=== PATIENT | male | born 1970 | race Caucasian/White ===

== ENCOUNTER → 2017-05-24 09:59 | Outpatient (CLI) | payer BC, SELFPAY ==
--- NOTE | 2017-05-24 10:02 | RAD_ITS ---
STUDY: X-RAY - LEFT RADIUS AND ULNA REASON FOR EXAM: Male, 46 years old. Left wrist and elbow pain. TECHNIQUE: 2 view(s) of the forearm. COMPARISON: None. FINDINGS: There is no demonstrated soft tissue swelling. Normal visualized radius. Normal visualized ulna. RAD/Forearm 2 Views IMPRESSION: No significant abnormality. Electronically Signed: Shlomo Thomson MD at 12:35 EST , Service support ,
--- NOTE | 2017-05-24 10:02 | RAD_ITS ---
STUDY: X-RAY - CERVICAL SPINE REASON FOR EXAM: Male, 46 years old. Neck pain with numbness in left hand. TECHNIQUE: 5 view(s) of the cervical spine were obtained. COMPARISON: None FINDINGS: Normal anterior atlantoaxial articulation. Normal odontoid process. Normal cervical lordosis. Normal vertebral bodies and endplates. Normal disc space heights. Normal visualized intervertebral neuroforamina. The soft tissue structures are unremarkable. RAD/Cerv Spine 4 or 5 Views IMPRESSION: No significant abnormality identified. Electronically Signed: Shlomo Thomson MD at 12:35 EST , Service support ,
== END ==
PROVIDERS: Family Provider Family Medicine; PCP Family Medicine; Visit Provider Orthopaedic Surgery
DX: M54.2 Cervicalgia (principal); M79.602 Pain in left arm
CPT/HCPCS: 72050; 73090

== ENCOUNTER 2017-05-30 10:30 | Day surgery (SDC) | payer BC, SELFPAY ==
[2017-05-30 11:01] VITALS: BP 130/80; PULSE 95; RESP 16; TEMP 36.3; O2SAT 100; BMI 31.8
[2017-05-30 11:26] LABS: Bedside Glucose 252 mg/dL (70-110)
[2017-05-30] MEDS: Bupivacaine 0.25% 30 ML Vial (13:17)
[2017-05-30] MEDS: Triamcinolone Acetonide 40 MG/ML Vial (13:17)
[2017-05-30] MEDS: Mupirocin Ointment 22gm Tube 1 APPLIC (13:18)
[2017-05-30] MEDS: Cefazolin 2 GM in 0.9% Normal Saline 100 ML IV (13:27)
--- NOTE | 2017-05-30 14:03 | PCM.DC.ORTHO ---
Discharge Diet: No Restrictions - leave dressing cdi, call with concerns, follow up in 2 weeks Discharge Activity: May Not Drive May shower in (days): 1 Ice area for (Minutes): 20 - Every hour while awake. Weight Bearing Status: Weight bearing as tolerated Keep extremity elevated above heart level: Operative Extremity Call your doctor if your incision/area has: Continuous Slow Oozing, Sudden Increased Bleeding, Increased Pain/ Swelling, Increased Redness, Foul Smelling Discharge Call your doctor if you observe: Fever of 101 or Higher, Coldness, Increased Pain, Numbness or Tingling, Change in Color, Calf discomfort Allergies/Adverse Reactions: Allergies No Known Allergies Allergy (Verified 05/28/17 09:15) Medications to take at Discharge dulaglutide 1.5 mg/0.5 mL subcutaneous pen injector 1.5 mg SC TH 05/24/17 losartan 50 mg tablet 50 mg PO QDAY 05/24/17 metformin 1,000 mg tablet 1,000 mg PO BID 05/24/17 Cholecalciferol (Vitamin D3) [Vitamin D3] 5,000 unit PO DAILY 05/28/17 Cyanocobalamin (Vitamin B-12) [Vitamin B-12] 1,000 mcg PO DAILY 05/28/17 Fluoxetine HCl 40 mg PO DAILY 05/28/17 Insulin Lispro Protamin/Lispro [Humalog Mix 75-25 Vial] 35 unit SQ DINNER 05/28/17 Insulin Lispro Protamin/Lispro [Humalog Mix 75-25 Vial] 40 unit SQ LUNCH 05/28/17 Insulin Lispro Protamin/Lispro [Humalog Mix 75-25 Vial] 50 units SQ BREAKFAST 05/28/17 Multivit-Min/Iron Fum/Folic AC [Hunko-Xoueodp-Spfatlpl Tablet] 2 each PO DAILY 05/28/17 Nitrofurantoin Macrocrystal [Nitrofurantoin] 100 mg PO DAILY 05/28/17 Oxycodone HCl/Acetaminophen [Percocet 5/325] 1 - 2 tablet PO Q6H PRN PRN 3 Days #20 tablet 05/30/17 The following prescriptions were given: Oxycodone HCl/Acetaminophen [Percocet 5/325] 1 - 2 tablet PO Q6H PRN PRN 3 Days #20 tablet PRN Reason: Pain Primary Care Physician: Talia Boyd MD [Primary Care Provider] - Please Follow Up With: Lynette Christie, DO - [phone]
--- NOTE | 2017-05-30 14:06 | OP.PCM_ITS ---
Report of Operation Date of Procedure: 05/30/17 Pre-Operative Diagnosis: bilateral carpal tunnel syndrome Post-Operative Diagnosis: same Surgery/Procedure Performed:: left ctr, right ct injection Type of Anesthesia:: Jake Blanca Anesthesiologist: Dilan Hernandez Estimated Blood Loss (mL): none Fluids Replaced: 600cc lr Description of Procedure: Preoperative note Patient is a 46 yo male patient with nerve conduction study confirming bilateral carpal tunnel syndrome. Patient failed conservative treatment for carpal tunnel elected proceed with left carpal tunnel release and right carpal tunnel injection Risks benefits and alternatives surgery discussed with patient. Risks including but not limited to blood loss, blood clot, infection, neurovascular injury, failure procedure, loss of life and loss of limb. Patient is aware like proceed with left carpal tunnel release. Operative note Patient seen and examined preoperative holding area. Left hand was marked. History and physical and consent reviewed. Patient was brought to the operating room placed supine on the operating table. Sign in, anesthesia, antibiotics were administered. Left upper extremity was prepped and draped after Jake block was initiated. All bony prominences well-padded SCDs placed on bilateral lower extremities. We marked out our incisions for our carpal tunnel release at the intersection of Tristan's line in the fourth ray flexed. We extended about a centimeter and a half. Timeout was performed. We then checked ensure that the Jake block was working with pickups which it was. We then used a 15 blade to make a skin incision. We then dissected down tenotomy syllable of the transverse carpal ligament. We then used a new 15 blade cut through the transverse carpal ligament down to the level of the median nerve. We then further released the median nerve the combination of the 15 blade and tenotomies. The nerve was grayish in color and adherent to the transverse carpal ligament volarly. We released the transverse carpal ligament distally to the fat pad and then proximally under standard technique. We then palpated to ensure that we released all of the transverse carpal ligament which we did. We irrigated the incision with copious amounts of sterile saline. All bleeders were coagulated. The incision was closed with interrupted 4-0 nylon stitches. Tourniquet was deflated for total working time of 7 minutes. Under sterile conditions we then injected the right carpal tunnel with 1 cc bupivacaine quarter percent and 1/2 cc Kenalog . patient tolerated procedure well there were no complications. Patient transferred to recovery room in stable condition. Postoperative note Hospital pharmacy has prescription Leave dressing clean dry and intact Follow-up in 2 weeks Call with concerns This note was generated with [employer] dictation software. It may contain incorrect words, spelling, and punctuation that were not noted in checking the note before signing.
[2017-05-30 14:08] VITALS: BP 130/80; BP 136/79; PULSE 95; RESP 16; TEMP 36.6; O2SAT 92
[2017-05-30 14:15] VITALS: BP 130/80; BP 136/90; PULSE 95; RESP 16; O2SAT 92
[2017-05-30 14:20] VITALS: BP 128/90; BP 130/80; PULSE 85; RESP 16; O2SAT 93
[2017-05-30 14:25] VITALS: BP 130/80; BP 131/89; PULSE 82; RESP 16; TEMP 36.6; O2SAT 95
[2017-05-30 15:02] VITALS: BP 130/80
== END 2017-05-30 15:36 | disposition home or self-care (01) ==
LOC: SDC 10:31 → AC 10:33
PROVIDERS: Family Provider Family Medicine; PCP Family Medicine; Visit Provider Orthopaedic Surgery
PROC: (CPT 64721; principal; 2017-05-30 12:00)
DX: G56.03 Carpal tunnel syndrome, bilateral upper limbs (principal); M77.12 Lateral epicondylitis, left elbow; M54.2 Cervicalgia; I10 Essential (primary) hypertension; E11.9 Type 2 diabetes mellitus without complications; Z79.4 Long term (current) use of insulin; F17.200 Nicotine dependence, unspecified, uncomplicated
CPT/HCPCS: 01810; 20526; 64721; 82962; J7120; J2405

== ENCOUNTER → 2017-06-19 13:44 | Outpatient (CLI) | payer BC, SELFPAY | PROVIDERS: PCP Family Medicine; Visit Provider Orthopaedic Surgery | DX: G56.02 Carpal tunnel syndrome, left upper limb (principal) | CPT/HCPCS: 87070; 87075; 87077; 87205 ==

== ENCOUNTER 2017-07-13 15:30 | Outpatient (RCR) | payer BC, SELFPAY ==
--- NOTE | 2017-06-28 12:25 | HP.OTEVAL_ITS ---
Patient's Visit Information DEEPA RUFFIN is a 47 year old M, referred to Occupational Therapy by Lynette Christie DO,, with a diagnosis of left CTS. Date of Evaluation: 06/27/17 Occupational Therapist: Tess Lopez, PATRICIAR/Callie, CHT - Subjective Subjective: pt had left CTR on . pt state he had CTS for a while and had left release done- the tingling and numbness did resolve following sx. pt did have complications of the incision opening following stitch removal- pt states this happend 2 times-pt ist to return to work in July. pt works at [employer] and needs to be able to lift and move increased wt. 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 with pts performance of BADLS and IADLS by D/c Goal:: pt will report pain no greater than 1/10 with use of left hand for BADLs , IADls and simulated work tasks by d/c Goal:: pt will demo understanding of scar mtg by end of 3rd session - Rehabilitation General Assessment: pt s/p CTR left hand with complication of slow incision healing. pt demo need for skilled OT services 2-3x week for 4 weeks to aide in wound healing, scar mtg and PRE to return pt to PLOF Rehabilitation Potential: Excellent - Anticipated Interventions Anticipated Interventions: A/AAROM/PROM, Strengthening, Scar Care, Triggerpoint Release, Desensitization, Wound Care, Modalities, Orthoses - Visit Plan Frequency: 2-3x /Week Duration: 4 Weeks General Plan: pt will be seen in OT for wound care and progress pt to scar mtg and PRE as wound closes and heals. TEXT: Thank you for the opportunity to evaluate your patient. For Medicare and Medicare HMO plans, please review the plan of care and approve it. It will need to be FAXED BACK to us at [phone] for Medicare purposes. Please let me know if there are questions or concerns regarding this plan of care. Physician Signature: Date:
--- NOTE | 2017-08-21 13:49 | HP.OTDCSUM ---
HP - OT D/C Summary It has been my pleasure to treat DEEPA RUFFIN under orders from Lynette Christie DO, for the diagnosis of left CTS for a total of 8 visit(s). Please see the following information for a summary of their discharge status. 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 with pts performance of BADLS and IADLS by D/c Goal:: pt will report pain no greater than 1/10 with use of left hand for BADLs, IADls and simulated work tasks by d/c Goal:: pt will demo understanding of scar mtg by end of 3rd session - Plan Plan: last visit - D/C Information If there are questions or concerns regarding this patient's occupational therapy, please fell free to call me at [phone]. Thank you for the referral of this patient. Sincerely, Tess Lopez, OTR/L, CHT
== END 2017-07-13 19:00 | disposition home or self-care (01) ==
LOC: OT 15:30
PROVIDERS: Family Provider Family Medicine; PCP Family Medicine; Visit Provider Orthopaedic Surgery
DX: G56.02 Carpal tunnel syndrome, left upper limb (principal)
CPT/HCPCS: 97035; 97110; 97140; 97166; 97530

== ENCOUNTER 2018-02-07 22:06 | Emergency (ER) | payer BC, SELFPAY ==
[2018-02-07 22:07] VITALS: BP 159/91; PULSE 105; RESP 18; TEMP 36.2; O2SAT 99; BMI 31.0
[2018-02-07] MEDS: Ondansetron 4 MG/2 ML Vial IV (23:01)
[2018-02-07] MEDS: Morphine 4 MG/ML Syringe 6 MG IV (23:01)
[2018-02-07] MEDS: Ketorolac 15 MG/ML Vial IV (23:01)
[2018-02-07] MEDS: diazePAM 5 MG Tablet PO (23:01)
[2018-02-08 00:14] VITALS: BP 150/95; PULSE 104; RESP 18; O2SAT 95
[2018-02-08] MEDS: morphine 8 MG/ML Syringe 6 MG IV (00:15)
--- NOTE | 2018-02-08 00:57 | ED.RN ---
pt attempted to ambulate. pt able to stand but unable to bear weight on right leg. pt assisted back into bed by this rn. dr. owens informed. will continue to monitor.
[2018-02-08 01:00] VITALS: BP 150/102; PULSE 104; RESP 15; O2SAT 94
[2018-02-08] MEDS: morphine 8 MG/ML Syringe IV (01:03)
[2018-02-08 01:23] VITALS: BP 118/78; PULSE 57; RESP 17; O2SAT 98
--- NOTE | 2018-02-08 01:46 | ED.VISSUMM ---
- ER Visit Summary Date of Service: 02/08/18 Chief Complaint: Low back pain that started 2-3 weeks ago. History of Present Illness: The patient is a 47 M who presents with low back pain that has gotten worse over the past 2-3 weeks. Pain started 2 3 weeks ago after lifting. No history of direct trauma. He denies bowel or bladder dysfunction. He denies saddle paresthesia or anesthesia. He complains of pain radiating anteriorly. He also complains of pain rating to both testicles and buttocks. He states he has a foot drop. He complains of pain in his quadricep muscles going up and down steps but not weakness. He denies numbness or tingling in the perineal region. He denies bowel or bladder dysfunction. He denies fever, chills or night sweats. There is no history of direct trauma. He denies dysuria, frequency, urgency or hematuria. Pain is worse with movement. Past medical history type 2 diabetes, atonic bladder. Physical Examination: Vital signs noted. He is not febrile. HEENT is grossly unremarkable. Heart is regular without murmur, gallop or rub. S1 and S2 are normal. Lungs are clear to auscultation with good movement of air bilaterally. Abdomen soft nontender with no palpable pulsatile mass. There is no abdominal bruit. There is pain palpation low back. Straight leg test and crossover test are negative. He did complain of pain in the right buttocks at 45 degrees. Bowstring sign was negative. EHL is intact. Able to plantar and dorsiflex against resistance. DP and PT pulses are palpable and 2+. Patella and ankle reflex are 2+. There is no clonus or Babinski sign. Initially patient was not able to roll over and get out of bed. He was initially medicated with morphine sulfate, Toradol and p.o. Valium. He was reassessed at 2351. Since he was not able to rule out of bed he was given additional dose of medication. At 1255 he was able to sit up but not apply any weight or pressure on the right foot. He received additional dose of morphine. Patient was able to ambulate and there is no foot drop. This is assessment was at 0145. Test Results: Radiologic imaging is not indicated since the pain is less than 6 weeks duration, patient is under the age of 50 and he has no constitutional symptoms or symptoms that are concerning. Emergency Department Course and Treatment: Patient had an IV established required multiple doses of medication which included Toradol, Valium p.o. and multiple doses of morphine. Treatment Plan: Prescription for Percocet and Valium Disposition: Discharge to home with spouse in improved and stable condition Impression: Acute bilateral low back pain without sciatica This note was generated with [employer] dictation software. It may contain incorrect words, spelling, and punctuation that were not noted in review of the chart prior to signing ED Disposition - Plan for ED Patient: Disposition: Home or Assisted Living Chief Complaint: Back Instructions: ED Sprain Strain Lumbar Prescriptions: Oxycodone HCl/Acetaminophen [Percocet 5/325] 1 tablet PO Q6H PRN PRN 3 Days #12 tablet PRN Reason: Pain Diazepam [Valium] 5 mg PO Q8 PRN 3 Days #10 tablet PRN Reason: Pain Referrals: Talia Boyd MD [Primary Care Provider] - Additional Instructions: Your prescriptions were electronically transmitted to [facility] pharmacy located in [facility].
[2018-02-08 02:25] VITALS: BP 136/74; PULSE 81; RESP 20; O2SAT 97
--- NOTE | 2018-02-08 02:26 | ED.RN ---
THIS NURSE REVIEWED D/C INSTRUCTIONS WITH PT. PT VERBALIZED UNDERSTANDING OF INSTRUCTIONS. IV D/C. IV CATHETER INTACT. PT TOLERATED WELL. PT ASSISTED TO VEHICLE VIA W/C. PT DENIES FURTHER NEEDS OR QUESTIONS AT THIS TIME.
== END 2018-02-08 02:27 | disposition home or self-care (01) ==
PROVIDERS: Emergency Provider Emergency Medicine; Family Provider Family Medicine; PCP Family Medicine
DX: M54.5 Low back pain (principal); E11.9 Type 2 diabetes mellitus without complications; N31.2 Flaccid neuropathic bladder, not elsewhere classified; Z87.891 Personal history of nicotine dependence
CPT/HCPCS: 99283; A4216; J2405

== ENCOUNTER 2018-02-10 12:19 | Emergency (ER) | payer BC, SELFPAY ==
[2018-02-10 12:19] VITALS: BP 131/76; PULSE 108; RESP 18; TEMP 36.5; O2SAT 98; BMI 31.1
[2018-02-10 12:30] LABS: Bedside Glucose > 500 mg/dL (70-110)
[2018-02-10] MEDS: 0.9% Normal Saline 1,000 ML 1000 ML IV ×2 (12:57)
[2018-02-10 13:04] LABS: Mucous, Urine 0 SEEN /hpf (<or=2+); Red Blood Cells-Urine 0 SEEN /hpf (0-5); Squamous Epithelial Cells - UA 0 SEEN /hpf (0-5); White Blood Cells 0 SEEN /hpf (0-5)
[2018-02-10 13:05] LABS: Absolute Lymphocyte Count 1.77 X10^3/ul (0.83-4.51); Absolute Neutrophil Count 5.2 X10^3/uL (2.0-7.7); Anion Gap 8 (5-15); BUN 14 mg/dL (7-18); BUN/Creat Ratio 13.5 RATIO (10-20); Basophil# 0.01 X10^3/uL; Basophil% 0.1 % (0-1); Calcium,Total 9.3 mg/dL (8.5-10.1); Chloride 93 mmol/L (98-107); Creatinine, Serum 1.04 mg/dL (0.70-1.30); EST Glomerular Filtration Rate 82 mL/min (>60); Eosinophil# 0.11 X10^3/uL; Eosinophils% 1.5 % (0-5); Est Glom Filt Rate - Afr Amer 99 mL/min (>60); Estimated Creatinine Clearance 88.75 ml/min; Glucose 511 mg/dL (74-106); Hematocrit 45.8 % (40-54); Hemoglobin 15.4 g/dl (13.0-16.5); Lymphocyte # 1.77 X10^3/ul (4.0); Lymphocyte % 23.8 % (19-41); Mean Corp Hgb Conc 33.6 g/gl (32-36); Mean Corpuscular Hgb 29.2 pg (27.0-32.0); Mean Corpuscular Volume 86.7 fL (80-94); Mean Platelet Vol. 9.9 fl (6.2-12.0); Monocyte% 5.4 % (0-10); Neutrophil # 5.15 X10^3/uL (2.7-7.7); Neutrophil % 69.1 % (47-70); Platelet Count 258 K/mm3 (150-450); Potassium 4.2 mmol/L (3.5-5.1); RBC Distribution Width CV 12.6 % (11.6-14.6); RBC Distribution Width SD 40.1 fl (35.1-43.9); Red Blood Count 5.28 M/mm3 (4.6-6.2); Sodium Level 128 mmol/L (136-145); White Blood Count 7.5 K/mm3 (4.4-11.0)
--- NOTE | 2018-02-10 13:05 | ED.RN ---
LAB CALLS WITH CRITICAL RESULT, BGL 511 MG/DL, DR. CEDENO MADE AWARE.
[2018-02-10 13:06] LABS: POSITIVE COUNT NO; POSITIVE DIFFERENTIAL NO; POSITIVE MORPHOLOGY NO
[2018-02-10 13:07] LABS: Color, Urine Yellow (Yellow); Glucose, Dipstick 1000 mg/dl (Normal); Ketone-Dipstick 50 mg/dl (Negative); Leukocyte Esterase-Dipstick Negative /ul (Negative); Nitrite-Dipstick Negative (Negative); Occult Blood-Urine 10 /ul (Negative); Protein-Dipstick Negative (Negative); Specific Gravity, Urine 1.015 (1.002-1.030); Urine Bilirubin Dipstick Negative (Negative); Urine Clarity Clear (Clear); Urine Urobilinogen Normal (Normal)
[2018-02-10 13:17] LABS: Bacteria RARE /hpf (None Seen)
--- NOTE | 2018-02-10 13:30 | ED.VISSUMM ---
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 He reports that his community service specialist was trying to switch him from Humalog 75/25 to U500. He states that he ran out of the Humalog 3 days ago and has not received the other insulin through [facility] yet. States his blood sugar around 300-500 the past few days and it was over 600 today. He is continue to take his metformin as scheduled. He took his weekly dose of Trulicity this morning. Review of systems: General: No fever, chills, cold sweats. Cardiovascular: No chest pain, palpitations. Respiratory: No cough, shortness of breath, dyspnea on exertion. Gastrointestinal: No abdominal pain, nausea, vomiting, diarrhea, melena, or hematochezia. Genitourinary: No dysuria, frequency, hematuria. Skin: No rash. Neuro: No headache, numbness, weakness. Physical Examination: Vitals: Stable. Afebrile. General: Well-nourished and well-developed. Head: Normocephalic atraumatic. Neck: Supple, no lymphadenopathy. No JVD. Nontender. Cardiovascular: Regular rate and rhythm. No murmurs. Respiratory: No respiratory distress. Clear to auscultation bilaterally. Abdominal: Soft, nontender, nondistended, normal bowel sounds. No guarding, rebound, or peritoneal signs. Back: Nontender. Extremities: Nontender, no edema. Skin: Normal color, no rash. Neurologic: Alert and oriented ?3. Cranial nerves II through XII are intact. Normal strength and sensation. Psych: Normal affect. Test Results: CBC is normal. Chem-7 is remarkable for a sodium of 128 however this is 138 when corrected for his glucose of 511. UA is negative. Emergency Department Course and Treatment: Patient was given his normal dose of Humalog 75/25 subcu and will be discharged with this syringe and a prescription for this. However, I do not believe that this will bring his sugar back down into the normal range. I had a prolonged discussion with him about sliding scale insulin and we have chosen to give him half of the dose that you would receive typically for a sugar of 511. He was given 6 units of lispro subcu. Treatment Plan: Patient will be discharged instructions to resume his Humalog as previously directed. Check his sugar tomorrow and follow-up with his community service specialist about further treatment of his diabetes while he waits for the U500. Return to the emergency department for any worsening symptoms. Disposition: To home in improved and stable condition. Impression: 1. Hyperglycemia with history of amv-xhutmeq-rzcqzxsni diabetes mellitus. This note was generated with [employer] dictation software. It may contain incorrect words, spelling, and punctuation that were not noted in review of the chart prior to signing ED Disposition - Plan for ED Patient: Chief Complaint: Hyperglycemia Instructions: ED Hyperglycemia Diabetic Prescriptions: Insulin Human 75/25 [Humalog Mix 75-25 Kwikpen] See Protocol SQ TID 7 Days #1 ml Referrals: Talia Boyd MD [Primary Care Provider] -
--- NOTE | 2018-02-10 13:38 | ED.DCSUM_ITS ---
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 He reports that his infusion pharmacist was trying to switch him from Humalog 75/25 to U500. He states that he ran out of the Humalog 3 days ago and has not received the other insulin through [facility] yet. States his blood sugar around 300-500 the past few days and it was over 600 today. He is continue to take his metformin as scheduled. He took his weekly dose of Trulicity this morning. Review of systems: General: No fever, chills, cold sweats. Cardiovascular: No chest pain, palpitations. Respiratory: No cough, shortness of breath, dyspnea on exertion. Gastrointestinal: No abdominal pain, nausea, vomiting, diarrhea, melena, or hematochezia. Genitourinary: No dysuria, frequency, hematuria. Skin: No rash. Neuro: No headache, numbness, weakness. Physical Examination: Vitals: Stable. Afebrile. General: Well-nourished and well-developed. Head: Normocephalic atraumatic. Neck: Supple, no lymphadenopathy. No JVD. Nontender. Cardiovascular: Regular rate and rhythm. No murmurs. Respiratory: No respiratory distress. Clear to auscultation bilaterally. Abdominal: Soft, nontender, nondistended, normal bowel sounds. No guarding, rebound, or peritoneal signs. Back: Nontender. Extremities: Nontender, no edema. Skin: Normal color, no rash. Neurologic: Alert and oriented ?3. Cranial nerves II through XII are intact. Normal strength and sensation. Psych: Normal affect. Test Results: CBC is normal. Chem-7 is remarkable for a sodium of 128 however t his is 138 when corrected for his glucose of 511. UA is negative. Emergency Department Course and Treatment: Patient was given his normal dose of Humalog 75/25 subcu and will be discharged with this syringe and a prescription for this. However, I do not believe that this will bring his sugar back down into the normal range. I had a prolonged discussion with him about sliding scale insulin and we have chosen to give him half of the dose that you would receive typically for a sugar of 511. He was given 6 units of lispro subcu. Treatment Plan: Patient will be discharged instructions to resume his Humalog as previously directed. Check his sugar tomorrow and follow-up with his infusion pharmacist about further treatment of his diabetes while he waits for the U500. Return to the emergency department for any worsening symptoms. Disposition: To home in improved and stable condition. Impression: 1. Hyperglycemia with history of gxx-fcuwgar-xvlkbgtuq diabetes mellitus. This note was generated with [employer] dictation software. It may contain incorrect words, spelling, and punctuation that were not noted in review of the chart prior to signing ED Disposition - Plan for ED Patient: Chief Complaint: Hyperglycemia Instructions: ED Hyperglycemia Diabetic Prescriptions: Insulin Human 75/25 [Humalog Mix 75-25 Kwikpen] See Protocol SQ TID 7 Days #1 ml Referrals: Talia Boyd MD [Primary Care Provider] -
[2018-02-10] MEDS: Insulin Human 75/25 Kwickpen 75 UNIT SC (13:59)
[2018-02-10] MEDS: Insulin Lispro 100 UNIT/ML INSULN.PEN 6 UNIT SC (14:00)
[2018-02-10 14:08] VITALS: BP 142/89; PULSE 97; RESP 17; O2SAT 98
--- NOTE | 2018-02-10 14:08 | ED.RN ---
IV DC'ED, CATHETER INTACT, SMALL GAUZE DRESSING PLACED. DISCHARGE INSTRUCTIONS GIVEN TO AND REVIEWED WITH PATIENT, PATIENT DENIES QUESTIONS OR CONCERNS AND VOICES UNDERSTANDING OF DISCHARGE INSTRUCTIONS. PT AMBULATES OUT OF ROOM WITHOUT DIFFICULTY.
== END 2018-02-10 14:09 | disposition home or self-care (01) ==
LOC: ED 13:06
PROVIDERS: Emergency Provider Emergency Medicine; Family Provider Family Medicine; PCP Family Medicine
DX: E11.65 Type 2 diabetes mellitus with hyperglycemia (principal); N31.2 Flaccid neuropathic bladder, not elsewhere classified
CPT/HCPCS: 80048; 81001; 82962; 85025; 96360; 96361; 99283; J7030

== ENCOUNTER → 2018-02-14 08:22 | Outpatient (CLI) | payer BC, SELFPAY ==
--- NOTE | 2018-02-14 08:23 | RAD_ITS ---
STUDY: X-RAY - RIGHT HAND REASON FOR EXAM: Male, 47 years old. Right hand and wrist pain TECHNIQUE: 3 view(s) of the hand. COMPARISON: None. FINDINGS: Normal radiocarpal articulation. Normal distal radioulnar joint. Normal visualized carpal bones. Normal carpal articulations Normal carpometacarpal articulation of the thumb. Normal second through fifth carpometacarpal joints. Normal metacarpi. Normal metacarpophalangeal joint of the thumb. Normal interphalangeal joint of the thumb. Normal proximal and distal phalanges of the thumb. Normal metacarpophalangeal joints of the second through fifth fingers. Normal proximal and distal interphalangeal joints of the second through fifth fingers. Normal phalanges of the second through fifth fingers. The soft tissue structures are unremarkable. RAD/Hand Min 3 Views IMPRESSION: Normal x-ray examination of the hand. Electronically Signed: Mariano Gallegos DO at 7:27 EST Tel , Service support ,
== END ==
PROVIDERS: Family Provider Family Medicine; PCP Family Medicine; Referring Provider Orthopaedic Surgery; Visit Provider Orthopaedic Surgery
DX: M79.641 Pain in right hand (principal)
CPT/HCPCS: 73130

== ENCOUNTER 2018-03-06 14:06 | Day surgery (SDC) | payer BC, SELFPAY ==
[2018-03-06] VITALS (7 sets, daily range): BP systolic 144–172; BP diastolic 90–102; PULSE 99–103; RESP 16–18; TEMP 36.3–36.7; O2SAT 94–97; BMI 30.2
[2018-03-06 14:15] LABS: Bedside Glucose 73 mg/dL (70-110)
[2018-03-06 14:50] LABS: Bedside Glucose 161 mg/dL (70-110)
[2018-03-06 16:00] LABS: Bedside Glucose 71 mg/dL (70-110)
[2018-03-06] MEDS: Cefazolin 2 GM in 0.9% Normal Saline 100 ML IV (16:45)
[2018-03-06] MEDS: Mupirocin Ointment 22gm Tube 1 APPLIC (17:19)
--- NOTE | 2018-03-06 17:27 | DCINST_ITS ---
Discharge Diet: No Restrictions - keep dressing in place and clean and dry until postop visit in 2 weeks Discharge Activity: May Not Drive May shower in (days): 1 Ice area for (Minutes): 20 - Every hour while awake. Weight Bearing Status: Weight bearing as tolerated Keep extremity elevated above heart level: Operative Extremity Call your doctor if your incision/area has: Continuous Slow Oozing, Sudden Increased Bleeding, Increased Pain/ Swelling, Increased Redness, Foul Smelling Discharge Call your doctor if you observe: Fever of 101 or Higher, Coldness, Increased Pain, Numbness or Tingling, Change in Color, Calf discomfort Allergies/Adverse Reactions: Allergies No Known Allergies Allergy (Verified 03/04/18 13:55) Medications to take at Discharge dulaglutide 1.5 mg/0.5 mL subcutaneous pen injector 1.5 mg SC COWART 05/24/17 losartan 50 mg tablet 50 mg PO DAILY 05/24/17 metformin 1,000 mg tablet 1,000 mg PO BID 05/24/17 Cholecalciferol (Vitamin D3) [Vitamin D3] 5,000 unit PO DAILY 05/28/17 Cyanocobalamin (Vitamin B-12) [Vitamin B-12] 1,000 mcg PO DAILY 05/28/17 Multivit-Min/Iron Fum/Folic AC [Ikwpk-Seeplcf-Xpthflfa Tablet] 2 ea PO DAILY 05/28/17 Nitrofurantoin Macrocrystal [Nitrofurantoin] 100 mg PO DAILY 05/28/17 Cyclobenzaprine [Flexeril] 10 mg PO TID PRN PRN 02/07/18 Duloxetine HCl 60 mg PO DAILY 02/07/18 Insulin Regular, Human [Humulin R U-500 Kwikpen] 30 unit SQ BID 03/04/18 Insulin Regular, Human [Humulin R U-500 Kwikpen] 85 unit SQ DAILY 03/04/18 Acetaminophen/Codeine #3 [Tylenol #3 Tablet] 1 - 2 tablet PO Q6H PRN PRN #30 tablet 03/06/18 The following prescriptions were given: Acetaminophen/Codeine #3 [Tylenol #3 Tablet] 1 - 2 tablet PO Q6H PRN PRN #30 tablet PRN Reason: Pain Primary Care Physician: Talia Boyd MD [Primary Care Provider] - Test Results: Test results from this visit will be discussed in further detail at your follow- up appointment, if applicable. Please Follow Up With: Lynette Christie, DO - [phone]
--- NOTE | 2018-03-06 17:28 | OP.PCM_ITS ---
Report of Operation Date of Procedure: 03/06/18 Pre-Operative Diagnosis: right carpal tunnel syndrome Post-Operative Diagnosis: same Surgery/Procedure Performed:: right carpal tunnel release Type of Anesthesia:: Jake Blanca, Local Anesthesiologist: Roberto Prater Estimated Blood Loss (mL): none Fluids Replaced: 500ml lr Description of Procedure: Preoperative note Patient is a 47 year old patient with nerve conduction study confirming carpal tunnel syndrome. Patient failed conservative treatment for carpal tunnel elected proceed with right carpal tunnel release ashaving weakness and increased pain despite conservative treatment. Risks benefits and alternatives surgery discussed with patient. Risks including but not limited to blood loss, blood clot, infection, neurovascular injury, failure procedure, loss of life and loss of limb. Patient is aware like proceed with right carpal tunnel release. Operative note Patient seen and examined preoperative holding area. right hand was marked. History and physical and consent reviewed. Patient was brought to the operating room placed supine on the operating table. Sign in, anesthesia, antibiotics were administered. right upper extremity was prepped and draped after Jake block was initiated. All bony prominences well-padded SCDs placed on bilateral lower extremities. We marked out our incisions for our carpal tunnel release at the intersection of Tristan's line in the fourth ray flexed. We extended about a centimeter and a half. Timeout was performed. We then checked ensure that the [place] block was working with pickups which it was not so we performed a local block of 10cc 1% lidocaine. We then used a 15 blade to make a skin incision. We then dissected down tenotomy syllable of the transverse carpal ligament. We then used a new 15 blade cut through the transverse carpal ligament down to the level of the median nerve. We then further released the median nerve the combination of the 15 blade and tenotomies. The nerve was grayish in color and adherent to the transverse carpal ligament volarly. We released the transverse carpal ligament distally to the fat pad and then proximally under standard technique. We then palpated to ensure that we released all of the transverse carpal ligament which we did. We irrigated the incision with copious amounts of sterile saline. All bleeders were coagulated. The incision was closed with interrupted 4-0 nylon stitches. Tourniquet was deflated for total working time of 10 minutes. Patient tolerated procedure well there were no complications. Patient transferred to recovery room in stable condition. Postoperative note Hospital pharmacy has prescription Leave dressing clean dry and intact Follow-up in 2 weeks Call with concerns This note was generated with [employer] dictation software. It may contain incorrect words, spelling, and punctuation that were not noted in checking the note before signing
--- OUTSIDE RECORDS SUMMARY | 2018-05-01 23:48 | XMS RPT_ITS ---
:1970 Author Organization OHIP Support Name Relationship Address Phone AIXA RUFFIN Unavailable [address] + [place] [address] FRILA Unavailable [address] + [place] [address] ALICIA STERN Unavailable [address] + [place] [address] AIXA RUFFIN Unavailable [address] + [place] [address] FRILA Unavailable [address] + [place] [address] ALICIA STERN Unavailable [address] + [place] [address] AIXA RUFFIN Unavailable [address] + [place] [address] FRILA Unavailable [address] + [place] [address] ALICIA STERN Unavailable [address] + [place] [address] AIXA RUFFIN Unavailable [address] + [place] [address] FRILA Unavailable [address] + [place] [address] ALICIA STERN Unavailable [address] + [place] [address] AIXA RUFFIN Unavailable [address] + [place] [address] FRILA Unavailable [address] + [place] [address] ALICIA STERN Unavailable [address] + [place] [address] AIXA RUFFIN Unavailable [address] + [place] [address] FRILA Unavailable [address] + [place] [address] ALIICA STERN Unavailable [address] + [place] [address] AUGUSTINKENNY CASTELAN Unavailable [address] + [place] [address] AIXA RUFFIN Unavailable [address] + [place] [address] FRILA Unavailable [address] + [place] [address] AUGUSTINKENNY CASTELAN Unavailable [address] + [place] [address] AIXA RUFFIN Unavailable [address] + [place] [address] FRILA Unavailable [address] + [place] [address] AUGUSTINKENNY CASTELAN Unavailable [address] + [place] [address] AIXA RUFFIN Unavailable [address] + [place] [address] FRILA Unavailable [address] + [place] [address] AUGUSTINKENNY Unavailable [address] + [place] [address] AIXA RUFFIN Unavailable [address] + [place] [address] FRILA Unavailable [address] + [place] [address] AUGUSTINKENNY Unavailable [address] + [place] [address] AIXA RUFFIN Unavailable [address] + [place] [address] FRILA Unavailable [address] + [place] [address] AUGUSTIN KENNY Unavailable [address] + [place] [address] AIXA RUFFIN Unavailable [address] + [place] [address] FRILA Unavailable [address] + [place] [address] KENNY RUFFIN Unavailable [address] + [place] [address] AIXA RUFFIN Unavailable [address] + [place] [address] FRILA Unavailable [address] + [place] [address] KENNY RUFFIN Unavailable [address] + [place] [address] AIXA RUFFIN Unavailable [address] + [place] [address] FRILA Unavailable [address] + [place] [address] AUGUSTINKENNY CASTELAN Unavailable [address] + [place] [address] AIXA RUFFIN Unavailable [address] + [place] [address] FRILA Unavailable [address] + [place] [address] AUGUSTINKENNY CASTELAN Unavailable [address] + [place] [address] AIXA RUFFIN Unavailable [address] + [place] [address] FRILA Unavailable [address] + [place] [address] AUGUSTINKENNY THOMPSON Unavailable [address] + [place] [address] AIXA RUFFIN Unavailable [address] + [place] [address] FRILA Unavailable [address] + [place] [address] AUGUSTINKENNY CASTELAN Unavailable [address] + [place] [address] AIXA RUFFIN Unavailable [address] + [place] [address] FRILA Unavailable [address] + [place] [address] AUGUSTINKENNY CASTELAN Unavailable [address] + [place] [address] AIXA RUFFIN Unavailable [address] + [place] [address] FRILA Unavailable [address] + [place] [address] KENNY RUFFIN Unavailable [address] + [place] [address] AIXA RUFFIN Unavailable [address] + [place] [address] FRILA Unavailable [address] + [place] [address] AUGUSTINKENNY CASTELAN Unavailable [address] + [place] [address] AIXA RUFFIN Unavailable [address] + [place] [address] FRILA Unavailable [address] + [place] [address] AUGUSTINKENNY Unavailable [address] + [place] [address] AIXA RUFFIN Unavailable [address] + [place] [address] FRILA Unavailable [address] + [place] [address] AUGUSTINKENYN CASTELAN Unavailable [address] + [place] [address] AIXA RUFFIN Unavailable [address] + [place] [address] FRILA Unavailable [address] + [place] [address] AUGUSTINKENNY Unavailable [address] + [place] [address] AIXA RUFFIN Unavailable [address] + [place] [address] FRILA Unavailable [address] + [place] [address] KENNY RUFFIN Unavailable [address] + [place] [address] AIXA RUFFIN Unavailable [address] + [place] [address] FRILA Unavailable [address] + [place] [address] Care Team Providers Name Role Phone NAHUN CAMPBELL Referring Unavailable ChicorelLynette dorsey Attending Unavailable Jolliff, Talia Referring Unavailable Ilya Suazo Attending Unavailable Jolliff, Talia Referring Unavailable Jolliff, Talia Attending Unavailable Jolliff, Talia Primary Care Unavailable Jolliff, Talia Attending Unavailable Jolliff, Talia Primary Care Unavailable ChicorelliLynette Attending Unavailable Jolliff, Talia Referring Unavailable Jolliff, Talia Primary Care Unavailable ChicorelLynette dorsey Attending Unavailable ChicorelLynette dorsey Attending Unavailable Jolliff, Talia Primary Care Unavailable ChicorelLynette dorsey Attending Unavailable ChicorelLynette dorsey Referring Unavailable Jolliff, Talia Primary Care Unavailable ChicorelLynette dorsey Attending Unavailable Jolliff, Talia Referring Unavailable Jolliff, Talia Primary Care Unavailable ChicorelLynette dorsey Attending Unavailable Jolliff, Talia Referring Unavailable Jolliff, Talia Primary Care Unavailable ChicorelLynette dorsey Attending Unavailable ChicorelLynette dorsey Attending Unavailable Jolliff, Talia Referring Unavailable Jolliff, Talia Primary Care Unavailable ChicorelLynette dorsey Attending Unavailable ChicorelLynette dorsey Attending Unavailable Jolliff, Talia Referring Unavailable Jolliff, Talia Primary Care Unavailable ChicorelLynette dorsey Attending Unavailable ChicorelliLynette Referring Unavailable Jolliff, Talia Primary Care Unavailable ChicorelLynette dorsey Attending Unavailable Jolliff, Talia Referring Unavailable ChicorelliLynette Attending Unavailable Jolliff, Talia Referring Unavailable Jolliff, Talia Primary Care Unavailable Mark Martinez Attending Unavailable Jolliff, Talia Referring Unavailable Jolliff, Talia Primary Care Unavailable ChicorelLynette dorsey Attending Unavailable Jolliff, Talia Referring Unavailable Jolliff, Talia Primary Care Unavailable Jolliff, Talia Primary Care Unavailable Eduardo Payton Attending Unavailable Jolliff, Talia Attending Unavailable Jolliff, Talia Referring Unavailable Jolliff, Talia Primary Care Unavailable Jolliff, Talia Primary Care Unavailable Inocente Hunt Attending Unavailable Chicorelli, Lynette Attending Unavailable Jolliff, Talia Referring Unavailable Chicorelli, Lynette Attending Unavailable Chicorelli, Lynette Referring Unavailable Jolliff, Talia Primary Care Unavailable Chicorelli, Lynette Attending Unavailable Chicorelli, Lynette Referring Unavailable Jolliff, Talia Primary Care Unavailable PROBLEMS PROBLEMS DATE TYPE CONDITION / CODE ATTENDING STATUS SOURCE 03/25/2018 Unknown S39.012D - Strain of Talia Boyd Active [facility] muscle, fascia and [facility] tendon of [facility] back, subsequent Repository encounter / S39.012D(ICD-10) 03/25/2018 Unknown G56.01 - Carpal Chicorelli, Active [place] tunnel syndrome, [facility] right upper limb / Hospital G56.01(ICD-10) Repository 03/19/2018 Unknown M79.641 - Pain in Chicorelli, Active [place] right hand / [facility] M79.641(ICD-10) Hospital Repository 02/08/2018 Unknown M54.5 - Low back Payton, Eduardo Active [place] pain / M54.5(ICD-10) [facility], [facility] Hospital Repository 08/30/2017 Unknown G56.02 - Carpal Chicorelli, Active [place] tunnel syndrome, [facility] left upper limb / Hospital G56.02(ICD-10) Repository 05/30/2017 Unknown G89.18 - Other acute Chicorelli, Active [place] postprocedural pain [facility] / G89.18(ICD-10) Hospital Repository 05/24/2017 Unknown M54.2 - Cervicalgia Chicorelli, Active [place] / M54.2(ICD-10) [facility] Hospital Repository 05/24/2017 Unknown M79.602 - Pain in Chicorelli, Active [place] left arm / [facility] M79.602(ICD-10) Hospital Repository 04/17/2017 Unknown R20.2 - Paresthesia Talia Boyd Active [place] of skin / [facility], [facility] R20.2(ICD-10) Hospital Repository PROCEDURES PROCEDURES No Procedure Records FoundRESULTS RESULTS ORTHOPEDIC VISIT Observed: 03/25/2018 Status: F Source: [place] REPORT 11:44 AM [facility] REPOSITORY [facility] Orthopaedics AND Sports Medicine [address] [place] [address] OFFICE VISIT Date of Service: 03/25/18 MR#: [id number] Acct: [id number] Name: DEEPA RUFFIN Rep #: [id number] : 1970 Provider: LADI Suazo Age/Sex: 47/M Location: [facility] [place] [facility] [place] Status: Signed Intake Vital Signs03/25/18 Body Mass Index (BMI) 30.2 Intake Visit Reasons: RIGHT WRIST Allergies No Known Allergies Allergy (Verified 03/04/18 13:55) Medications dulaglutide 1.5 mg/0.5 mL subcutaneous pen injector 1.5 mg SC COWART 05/24/17 [History Confirmed 03/06/18] losartan 50 mg tablet 50 mg PO DAILY 05/24/17 [History Confirmed 03/06/18] metformin 1,000 mg tablet 1,000 mg PO BID 05/24/17 [History Confirmed 03/06/18] Cholecalciferol (Vitamin D3) [Vitamin D3] 5,000 unit PO DAILY 05/28/17 [History Confirmed 03/06/18] Cyanocobalamin (Vitamin B-12) [Vitamin B-12] 1,000 mcg PO DAILY 05/28/17 [History Confirmed 03/06/18] Multivit-Min/Iron Fum/Folic AC [Xnzwm-Jxuoviy-Hqjjbmnw Tablet] 2 ea PO DAILY 05/28/17 [History Confirmed 03/06/18] Nitrofurantoin Macrocrystal [Nitrofurantoin] 100 mg PO DAILY 05/28/17 [History Confirmed 03/06/18] Cyclobenzaprine [Flexeril] 10 mg PO TID PRN PRN 02/07/18 [History Confirmed 03/06/18] Duloxetine HCl 60 mg PO DAILY 02/07/18 [History Confirmed 03/06/18] Insulin Regular, Human [Humulin R U-500 Kwikpen] 30 unit SQ BID 03/04/18 [History Confirmed 03/06/18] Insulin Regular, Human [Humulin R U-500 Kwikpen] 85 unit SQ DAILY 03/04/18 [History Confirmed 03/06/18] Acetaminophen/Codeine #3 [Tylenol #3 Tablet] 1 - 2 tab PO Q6H PRN PRN #30 tab 03/06/18 [Rx] PFSH Surgical History S/P carpal tunnel release (Acute) Family History Other Diabetes Social History Smoking Status: Former smoker HPI RIGHT WRIST: Details: DEEPA RUFFIN is a 47 year old M here today for s/p right carpal tunnel release dos 03/06/18. ROS Const Reports system reviewed and no additional complaints, except as docu Eyes Reports system reviewed and no additional complaints, except as docu ENT Reports system reviewed and no additional complaints, except as docu Card Reports system reviewed and no additional complaints, except as docu Resp Reports system reviewed and no additional complaints, except as docu GI Reports system reviewed and no additional complaints, except as docu Reports system reviewed and no additional complaints, except as docu Skin/Breast Reports system reviewed and no additional complaints, except as docu Neuro Yes system reviewed and no additional complaints, except as docu Psych Reports system reviewed and no additional complaints, except as docu Endo Reports system reviewed and no additional complaints, except as docu Ortho Exam Right Wrist/Hand Skin/Wound: No Swelling, No Ecchymosis, Yes healing, Yes suture/armen removed Contralateral Normal: Yes Right Wrist: Yes ROM-Extension 0-60; no Durken's Test Sensation: Radial: I, Ulnar: I, Median: I WRIST: At this time the incision shows good healing without any erythema, inflammation, or discharge to indicate infection. There is some very minor gapping on the distal portion of the incision site at the same time there is no evident opening of the wound. He has no tenderness on palpation at the incision site or directly around. He has normal sensation throughout the fingers. He also has normal range of motion of the wrist and fingers at the same time does have some stiffness with use of the fingers. Left Wrist/Hand Skin/Wound: No Swelling, No Ecchymosis Right Ankle Skin/Wound: Yes suture/armen removed Assessment AND Plan Problems 1. Orthopedic aftercare Z47.89 Plan Patient shows good healing 3 weeks postop from right carpal tunnel release. There is some scabbing at the incision sites at the same time there is no major gapping noted of the skin With some minor opening on the distal portion. There are no signs of infection around the incision site. He has good motion of the wrist and the fingers with some minor stiffness in the fingers. At this time he is able to shower normally but do not want him to be soaking the hand. We are going to start him in occupational therapy just to remove the stiffness of the fingers as well as for some wound debridement/management. He is to continue to monitor for any signs of infection at the incision site including inflammation, erythema, or discharge. Notify the office if noted. This note was generated with [employer] software. It may contain incorrect words, spelling, and punctuation that were not noted in checking the note before signing. Plan Detail Follow Up 3 Weeks Coding Level of Care Code Global Post Op Diagnoses Orthopedic aftercare Z47.89 03/25/18 1144 <Electronically signed by Ilya BLEDSOE> Date Ilya BLEDSOE Cosigner Signature: Date (if applicable) CC: ORTHOPEDIC VISIT Observed: 03/19/2018 Status: F Source: [place] REPORT 12:18 PM [facility] REPOSITORY [facility] Orthopaedics AND Sports Medicine [address] [place] [address] OFFICE VISIT Date of Service: 03/19/18 MR#: [id number] Acct: [id number] Name: AUGUSTINDEEPA Rep #: [id number] : 1970 Provider: Lynette Christie DO Age/Sex: 47/M Location: [facility] [place] Status: Signed Intake Vital Signs03/19/18 Body Mass Index (BMI) 30.2 Intake Visit Reasons: right wrist Allergies No Known Allergies Allergy (Verified 03/04/18 13:55) Medications dulaglutide 1.5 mg/0.5 mL subcutaneous pen injector 1.5 mg SC COWART 05/24/17 [History Confirmed 03/06/18] losartan 50 mg tablet 50 mg PO DAILY 05/24/17 [History Confirmed 03/06/18] metformin 1,000 mg tablet 1,000 mg PO BID 05/24/17 [History Confirmed 03/06/18] Cholecalciferol (Vitamin D3) [Vitamin D3] 5,000 unit PO DAILY 05/28/17 [History Confirmed 03/06/18] Cyanocobalamin (Vitamin B-12) [Vitamin B-12] 1,000 mcg PO DAILY 05/28/17 [History Confirmed 03/06/18] Multivit-Min/Iron Fum/Folic AC [Mwtia-Tzdmatu-Fncmfeph Tablet] 2 ea PO DAILY 05/28/17 [History Confirmed 03/06/18] Nitrofurantoin Macrocrystal [Nitrofurantoin] 100 mg PO DAILY 05/28/17 [History Confirmed 03/06/18] Cyclobenzaprine [Flexeril] 10 mg PO TID PRN PRN 02/07/18 [History Confirmed 03/06/18] Duloxetine HCl 60 mg PO DAILY 02/07/18 [History Confirmed 03/06/18] Insulin Regular, Human [Humulin R U-500 Kwikpen] 30 unit SQ BID 03/04/18 [History Confirmed 03/06/18] Insulin Regular, Human [Humulin R U-500 Kwikpen] 85 unit SQ DAILY 03/04/18 [History Confirmed 03/06/18] Acetaminophen/Codeine #3 [Tylenol #3 Tablet] 1 - 2 tab PO Q6H PRN PRN #30 tab 03/06/18 [Rx] PFSH Surgical History S/P carpal tunnel release (Acute) Family History Other Diabetes Social History Smoking Status: Former smoker HPI right wrist: Details: DEEPA RUFFIN is a 47 year old M here today for postop right carpal tunnel. Denies numbness, tingling or other associated symptoms.has kept dressing cdi. feels like right hand numbness is 'much better, almost gone.' Ortho Exam Right Wrist/Hand Skin/Wound: Yes healing Motor: EPL: 5, FDP-2: 5, 1st Dorsal Interosseous: 5, APB: 5 Sensation: Radial: I, Ulnar: I, Median: I Assessment AND Plan Plan Removed one stitch much like his left hand discussed this skin on the superficial aspect this really has not close enough to take out the remaining stitches so we will just watch this for another week and then take the stitches out next week. We did apply Dermabond just to the skin to see if we can get the skin to close he has some issues with wound healing on his left hand so will be a little bit more judicious with removing of the stitches until next week. Patient told to watch for any signs of infection or if there is any issues to come back if not we will just watch him and remove sutures in 1 week. He can see Cosmo for removal. Coding Level of Care Code Global Post Op 03/19/18 1218 <Electronically signed by Lynette Christie DO> Date Lynette Christie DO Cosigner Signature: Date (if applicable) CC: OPERATIVE REPORT Observed: 03/13/2018 Status: F Source: [place] 10:22 AM [facility] REPOSITORY [facility] Medical Records Department [address] [place] [address] Operative Report 03/06/18 1727 MR#: [id number] Acct: [id number] Name: DEEPA RUFFIN Rep #: [id number] : 1970 47 From: Lynette Christie DO PCP: Talia Boyd MD Status: [facility] Location: [facility] [place] Report of Operation Date of Procedure: 03/06/18 Pre-Operative Diagnosis: right carpal tunnel syndrome Post-Operative Diagnosis: same Surgery/Procedure Performed:: right carpal tunnel release Type of Anesthesia:: Block,Jake, Local Anesthesiologist: Roberto Prater Estimated Blood Loss (mL): none Fluids Replaced: 500ml lr Description of Procedure: Preoperative note Patient is a 47 year old patient with nerve conduction study confirming carpal tunnel syndrome. Patient failed conservative treatment for carpal tunnel elected proceed with right carpal tunnel release ashaving weakness and increased pain despite conservative treatment. Risks benefits and alternatives surgery discussed with patient. Risks including but not limited to blood loss, blood clot, infection, neurovascular injury, failure procedure, loss of life and loss of limb. Patient is aware like proceed with right carpal tunnel release. Operative note Patient seen and examined preoperative holding area. right hand was marked. History and physical and consent reviewed. Patient was brought to the operating room placed supine on the operating table. Sign in, anesthesia, antibiotics were administered. right upper extremity was prepped and draped after Jake block was initiated. All bony prominences well-padded SCDs placed on bilateral lower extremities. We marked out our incisions for our carpal tunnel release at the intersection of Tristan's line in the fourth ray flexed. We extended about a centimeter and a half. Timeout was performed. We then checked ensure that the Schlater block was working with pickups which it was not so we performed a local block of 10cc 1% lidocaine. We then used a 15 blade to make a skin incision. We then dissected down tenotomy syllable of the transverse carpal ligament. We then used a new 15 blade cut through the transverse carpal ligament down to the level of the median nerve. We then further released the median nerve the combination of the 15 blade and tenotomies. The nerve was grayish in color and adherent to the transverse carpal ligament volarly. We released the transverse carpal ligament distally to the fat pad and then proximally under standard technique. We then palpated to ensure that we released all of the transverse carpal ligament which we did. We irrigated the incision with copious amounts of sterile saline. All bleeders were coagulated. The incision was closed with interrupted 4-0 nylon stitches. Tourniquet was deflated for total working time of 10 minutes. Patient tolerated procedure well there were no complications. Patient transferred to recovery room in stable condition. Postoperative note Hospital pharmacy has prescription Leave dressing clean dry and intact Follow-up in 2 weeks Call with concerns This note was generated with [employer] dictation software. It may contain incorrect words, spelling, and punctuation that were not noted in checking the note before signing 03/13/18 1022 <Electronically signed by Lynette Christie DO> Date Lynette Christie DO CC: Talia Boyd MD; Lynette Christie DO Signed DISCHARGE INSTRUCTION Observed: 03/06/2018 Status: F Source: [place] 5:27 PM [facility] REPOSITORY [facility] Medical Records Department [address] [place] [address] Instructions for Home/Discharge Instructions 03/06/18 1726 MR#: [id number] Acct: [id number] Name: DEEPA RUFFIN Rep #: [id number] : 1970 47 From: Lynette Christie DO PCP: Talia Boyd MD Status: REG SDC Discharge Diet: No Restrictions - keep dressing in place and clean and dry until postop visit in 2 weeks Discharge Activity: May Not Drive May shower in (days): 1 Ice area for (Minutes): 20 - Every hour while awake. Weight Bearing Status: Weight bearing as tolerated Keep extremity elevated above heart level: Operative Extremity Call your doctor if your incision/area has: Continuous Slow Oozing, Sudden Increased Bleeding, Increased Pain/ Swelling, Increased Redness, Foul Smelling Discharge Call your doctor if you observe: Fever of 101 or Higher, Coldness, Increased Pain, Numbness or Tingling, Change in Color, Calf discomfort Allergies/Adverse Reactions: Allergies No Known Allergies Allergy (Verified 03/04/18 13:55) Medications to take at Discharge dulaglutide 1.5 mg/0.5 mL subcutaneous pen injector 1.5 mg SC COWART 05/24/17 losartan 50 mg tablet 50 mg PO DAILY 05/24/17 metformin 1,000 mg tablet 1,000 mg PO BID 05/24/17 Cholecalciferol (Vitamin D3) [Vitamin D3] 5,000 unit PO DAILY 05/28/17 Cyanocobalamin (Vitamin B-12) [Vitamin B-12] 1,000 mcg PO DAILY 05/28/17 Multivit-Min/Iron Fum/Folic AC [Ecfvm-Wmwreoo-Slvkqxvs Tablet] 2 ea PO DAILY 05/28/17 Nitrofurantoin Macrocrystal [Nitrofurantoin] 100 mg PO DAILY 05/28/17 Cyclobenzaprine [Flexeril] 10 mg PO TID PRN PRN 02/07/18 Duloxetine HCl 60 mg PO DAILY 02/07/18 Insulin Regular, Human [Humulin R U-500 Kwikpen] 30 unit SQ BID 03/04/18 Insulin Regular, Human [Humulin R U-500 Kwikpen] 85 unit SQ DAILY 03/04/18 Acetaminophen/Codeine #3 [Tylenol #3 Tablet] 1 - 2 tablet PO Q6H PRN PRN #30 tablet 03/06/18 The following prescriptions were given: Acetaminophen/Codeine #3 [Tylenol #3 Tablet] 1 - 2 tablet PO Q6H PRN PRN #30 tablet PRN Reason: Pain Primary Care Physician: Talia Boyd MD [Primary Care Provider] - Test Results: Test results from this visit will be discussed in further detail at your follow-up appointment, if applicable. Please Follow Up With: Lynette Christie DO - [phone] 03/06/18 1727 <Electronically signed by Lynette Christie DO> Date Lynette Christie DO CC: Talia Boyd MD BEDSIDE GLUCOSE Collected: 03/06/2018 Status: F Source: [place] 3:54 PM [facility] REPOSITORY TYPE CODE TESTS RESULT OUT OF RANGE REFERENCE UNITS LAB L501.080 70-110 mg/dL Normal BEDSIDE GLU 71 Result Comment: MANAGEMENT OF PATIENT CARE PER NURSING PROTOCOL Performed By: #### L501.080 #### [facility] Point of Care [address] [place] [address] BEDSIDE GLUCOSE Collected: 03/06/2018 Status: F Source: [place] 2:38 PM [facility] REPOSITORY TYPE CODE TESTS RESULT OUT OF REFERENCE UNITS RANGE LAB L501.080 70-110 mg/dL High BEDSIDE GLU 161 Result Comment: MANAGEMENT OF PATIENT CARE PER NURSING PROTOCOL Performed By: #### L501.080 #### [facility] Point of Care [address] [place] [address] BEDSIDE GLUCOSE Collected: 03/06/2018 Status: F Source: [place] 2:13 PM [facility] REPOSITORY TYPE CODE TESTS RESULT OUT OF RANGE REFERENCE UNITS LAB L501.080 70-110 mg/dL Normal BEDSIDE GLU 73 Result Comment: MANAGEMENT OF PATIENT CARE PER NURSING PROTOCOL Performed By: #### L501.080 #### [facility] Point of Care [address] [place] [address] ORTHOPEDIC VISIT Observed: 02/14/2018 Status: F Source: [place] REPORT 3:18 PM [facility] REPOSITORY [facility] [address] [place] [address] [address] [place] [address] OFFICE VISIT Date of Service: 02/14/18 MR#: [id number] Acct: [id number] Name: DEEPA RUFFIN Rep #: [id number] : 1970 Provider: Lynette Christie DO Age/Sex: 47/M Location[place] [facility] [place] [facility] [place] [place] Status: Signed Intake Intake Visit Reasons: RIGHT ELBOW Branch Office Manager Required: No Accompanied by: None Is patient in pain?: No Allergies No Known Allergies Allergy (Verified 02/10/18 12:21) Medications dulaglutide 1.5 mg/0.5 mL subcutaneous pen injector 1.5 mg SC COWART 05/24/17 [History Confirmed 02/10/18] losartan 50 mg tablet 50 mg PO DAILY 05/24/17 [History Confirmed 02/10/18] metformin 1,000 mg tablet 1,000 mg PO BID 05/24/17 [History Confirmed 02/10/18] Cholecalciferol (Vitamin D3) [Vitamin D3] 5,000 unit PO DAILY 05/28/17 [History Confirmed 02/10/18] Cyanocobalamin (Vitamin B-12) [Vitamin B-12] 1,000 mcg PO DAILY 05/28/17 [History Confirmed 02/10/18] Multivit-Min/Iron Fum/Folic AC [Ulrxu-Bpvhmdq-Dwcgutff Tablet] 2 ea PO DAILY 05/28/17 [History Confirmed 02/10/18] Nitrofurantoin Macrocrystal [Nitrofurantoin] 100 mg PO DAILY 05/28/17 [History Confirmed 02/10/18] Cyclobenzaprine [Flexeril] 10 mg PO TID PRN PRN 02/07/18 [History Confirmed 02/10/18] Duloxetine HCl 60 mg PO DAILY 02/07/18 [History Confirmed 02/10/18] Insulin Human 75/25 [Humalog Mix 75-25 Kwikpen] See Protocol SQ TID 7 Days #1 ml 02/10/18 [Rx] PFSH Surgical History S/P carpal tunnel release (Acute) Family History Other Diabetes Social History Smoking Status: Former smoker HPI RIGHT ELBOW: Details: DEEPA RUFFIN is a 47 year old M here today for right wrist/hand pain. Patient states his hand has been a problem for him for about 6 months. Patient states he has been dropping things while holding them. Patient states he had carpal tunnel release surgery on his left hand in May this year and at that time he had trouble with his left elbow that went away after his surgery. Patient states his pain does radiate up to his elbow. He does not have pain today but states when he does it feels like an ache and seering that goes down through his elbow. Patient has not had any xrays, MRI, PT, or injection for his hand. Ortho Exam Right Wrist/Hand Skin/Wound: Yes CDI Contralateral Normal: Yes A1 rodrick trigger: No Right Wrist: Yes ROM-Extension 0-60, ROM-Supination 0-90, ROM-Flexion 0-80, ROM-Pronation 0-80 and Durken's Test Motor: EPL: 5, FDP-2: 5, 1st Dorsal Interosseous: 5, APB: 5 Sensation: Radial: I, Ulnar: I, Median: D Assessment AND Plan 1. Right carpal tunnel syndrome G56.01 Plan Patient has thenar atrophy and weakness Reviewed the pre-operative plans with the patient. Risks and benefits of the procedure were fully explained, including but not limited to infection, neurovascular injury, continued pain, arthritis, stiffness, need for further surgery, re-injury, DVT, PE, general risks of anesthesia, and loss of limb or life. The patient understands all the risks and does wish to proceed with written consent. Follow up post op or sooner if pain, swelling, numbness or associated symptoms, or concerns develop. All questions answered. Patient in agreement of plan. Plan Detail Other Orders Orders: Coding Level of Care Code Off vis,est,level 4 Diagnoses Right carpal tunnel syndrome G56.01 02/14/18 1518 <Electronically signed by Lynette Christie DO> Date Lynette Thorntonignwander Signature: Date (if applicable) CC: HAND MIN 3 VIEWS Observed: 02/14/2018 Status: F Source: [place] 8:23 AM [facility] REPOSITORY [facility] Imaging Services [address] [place] [address] Hand Min 3 Views MR#: [id number] Acct: [id number] Name: DEEPA RUFFIN Rep #: [id number] : 1970 M 47 From: Mariano Gallegos DO PCP: Talia Boyd MD Status: REG CLI Study: Hand Min 3 Views Date of Exam: 02/14/18 Exam# [id number] Ordering Dr: Lynette Christie DO STUDY: X-RAY - RIGHT HAND REASON FOR EXAM: Male, 47 years old. Right hand and wrist pain TECHNIQUE: 3 view(s) of the hand. COMPARISON: None. FINDINGS: Normal radiocarpal articulation. Normal distal radioulnar joint. Normal visualized carpal bones. Normal carpal articulations Normal carpometacarpal articulation of the thumb. Normal second through fifth carpometacarpal joints. Normal metacarpi. Normal metacarpophalangeal joint of the thumb. Normal interphalangeal joint of the thumb. Normal proximal and distal phalanges of the thumb. Normal metacarpophalangeal joints of the second through fifth fingers. Normal proximal and distal interphalangeal joints of the second through fifth fingers. Normal phalanges of the second through fifth fingers. The soft tissue structures are unremarkable. RAD/Hand Min 3 Views IMPRESSION: Normal x-ray examination of the hand. Electronically Signed: Mariano Gallegos DO at 7:27 EST Tel , Service support , CC: Talia Boyd MD; Lynette Christie DO Acid Remover: Signed EMERGENCY DEPARTMENT Observed: 02/11/2018 Status: F Source: [place] SUMMARY 5:46 PM [facility] REPOSITORY [facility] Medical Records Department [address] [place] [address] Emergency Department Summary 02/10/18 1330 MR#: [id number] Acct: [id number] Name: DEEPA RUFFIN Rep #: [id number] : 1970 47 From: Inocente Hunt MD PCP: Talia Boyd MD Status: DEP ER - ER Visit Summary Date of Service: 02/10/18 Chief Complaint: High blood sugar History of Present Illness: The patient is a [address] 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 He reports that his bilingual teacher was trying to switch him from Humalog 75/25 to U500. He states that he ran out of the Humalog 3 days ago and has not received the other insulin through [facility] yet. States his blood sugar around 300-500 the past few days and it was over 600 today. He is continue to take his metformin as scheduled. He took his weekly dose of Trulicity this morning. Review of systems: General: No fever, chills, cold sweats. Cardiovascular: No chest pain, palpitations. Respiratory: No cough, shortness of breath, dyspnea on exertion. Gastrointestinal: No abdominal pain, nausea, vomiting, diarrhea, melena, or hematochezia. Genitourinary: No dysuria, frequency, hematuria. Skin: No rash. Neuro: No headache, numbness, weakness. Physical Examination: Vitals: Stable. Afebrile. General: Well-nourished and well-developed. Head: Normocephalic atraumatic. Neck: Supple, no lymphadenopathy. No JVD. Nontender. Cardiovascular: Regular rate and rhythm. No murmurs. Respiratory: No respiratory distress. Clear to auscultation bilaterally. Abdominal: Soft, nontender, nondistended, normal bowel sounds. No guarding, rebound, or peritoneal signs. Back: Nontender. Extremities: Nontender, no edema. Skin: Normal color, no rash. Neurologic: Alert and oriented 3. Cranial nerves II through XII are intact. Normal strength and sensation. Psych: Normal affect. Test Results: CBC is normal. Chem-7 is remarkable for a sodium of 128 however this is 138 when corrected for his glucose of 511. UA is negative. Emergency Department Course and Treatment: Patient was given his normal dose of Humalog 75/25 subcu and will be discharged with this syringe and a prescription for this. However, I do not believe that this will bring his sugar back down into the normal range. I had a prolonged discussion with him about sliding scale insulin and we have chosen to give him half of the dose that you would receive typically for a sugar of 511. He was given 6 units of lispro subcu. Treatment Plan: Patient will be discharged instructions to resume his Humalog as previously directed. Check his sugar tomorrow and follow-up with his bilingual teacher about further treatment of his diabetes while he waits for the U500. Return to the emergency department for any worsening symptoms. Disposition: To home in improved and stable condition. Impression: 1. Hyperglycemia with history of nyk-lrblnhm-rbqlfhnei diabetes mellitus. This note was generated with [employer] dictation software. It may contain incorrect words, spelling, and punctuation that were not noted in review of the chart prior to signing ED Disposition - Plan for ED Patient: Chief Complaint: Hyperglycemia Instructions: ED Hyperglycemia Diabetic Prescriptions: Insulin Human 75/25 [Humalog Mix 75-25 Kwikpen] See Protocol SQ TID 7 Days #1 ml Referrals: Talia Boyd MD [Primary Care Provider] - What to do if you have Problems For any increased pain, shortness of breath, bleeding, nausea or vomiting, chest pain, or any unexpected problems, contact your Primary Care Provider. Call [facility] ([phone]) or report to the closest Emergency Room. Call 911 if necessary. 02/11/18 9860 <Electronically signed by Inocente Hunt MD> Date Inocente Hunt MD Cosigner Signature (If Indicated): Date CC: Talia Boyd MD URINALYSIS, COMPLETE Collected: 02/10/2018 Status: F Source: [place] 1:00 PM [facility] REPOSITORY Order Comment: How was Urine Obtained? CATHETER SPECIMEN TYPE CODE TESTS RESULT OUT OF RANGE REFERENCE UNITS LAB L400.3000 Yellow COLOR Normal Yellow LAB L400.3050 Clear Normal CLARITY Clear LAB L400.3200 Normal mg/dl High GLUCOSE, UR 1000 LAB L400.3300 Negative mg/dL Normal BILIRUBIN URINE Negative LAB L400.3400 Negative mg/dl High 50 KETONE UR LAB L400.3465 1.002-1.030 Normal SP.GR. DIPSTX 1.015 LAB L400.3550 5.0 - 8.0 pH UR Normal 5.0 LAB L400.3600 Negative mg/dl PROT Normal DIPSTX Negative LAB L400.3700 Normal mg/dl Normal UROBILI Normal LAB L400.3750 Negative Normal NITRITE UR Negative LAB L400.3780 Negative /ul High 10 OCCULT BLOOD-UR LAB L400.3800 Negative /ul LEUK Normal ESTERASE Negative LAB L400.4050 0-5 /hpf WBC 0 Normal SEEN LAB L400.4100 0-5 /hpf 0 Normal RBC-UA SEEN LAB L400.4150 0-5 /hpf SQUAM 0 Normal EPI SEEN LAB L400.4300 None Seen /hpf Normal BACTERIA RARE LAB L400.4350 <or=2+ /hpf 0 Normal MUCUS, URINE SEEN Performed By: #### L400.0001 #### [facility] [address] [place], [address] BASIC METABOLIC Collected: 02/10/2018 Status: F Source: [place] PROFILE (BMP) 12:35 PM [facility] REPOSITORY TYPE CODE TESTS RESULT OUT OF RANGE REFERENCE UNITS LAB L501.0100 74-106 mg/dL High alert GLU 511 Result Comment: Critical Result(s) Called at: 14:05:23 02/10/2018 by: Judson Aguilar RN (ER). Glucose result greater than or equal to 200 mg/dL suggests DIABETES MELLITUS per A.D.A. criteria. Please note revised GLUCOSE reference range effective 2017. LAB L501.1000 7-18 mg/dL Normal BUN 14 LAB L501.1100 0.70-1.30 mg/dL Normal CREAT,SERUM 1.04 Result Comment: The validity of the calculated GFR AND GFRAA in patients over 70 years has not been determined. Clinical correlation is essential. LAB L501.1110 >60 mL/min Normal EST GFR 82 Result Comment: Non- GFR Calc LAB L501.1115 >60 mL/min Normal EST GFR - AA 99 Result Comment: GFR Calc LAB L501.1255 ml/min Normal Estimated CRCL 88.75 LAB L501.1300 10-20 RATIO Normal BUN/CRE 13.5 LAB L501.2200 8.5-10 mg/dL Normal .1 CA 9.3 LAB L501.5300 136-14 mmol/L Low 5 NA 128 LAB L501.5600 3.5-5. mmol/L Normal 1 K 4.2 LAB L501.5900 98-107 mmol/L Low CL 93 LAB L501.6100 21.0-3 mmol/L Normal 2.0 CO2 27.0 LAB L501.6200 5-15 Normal GAP 8 Performed By: #### L500.2500 #### [facility] [address] [place], [address] CBC W/DIFF, AUTOMATED Collected: 02/10/2018 Status: F Source: [place] 12:35 PM [facility] REPOSITORY TYPE CODE TESTS RESULT OUT OF RANGE REFERENCE UNITS LAB L100.1000 4.4-11.0 K/mm3 Normal WBC 7.5 LAB L100.1200 4.6-6.2 M/mm3 Normal RBC 5.28 LAB L100.1300 13.0-16.5 g/dl Normal HGB 15.4 LAB L100.1400 40-54 % Normal HCT 45.8 LAB L100.1500 80-94 fL Normal MCV 86.7 LAB L100.1600 27.0-32.0 pg Normal MCH 29.2 LAB L100.1700 32-36 g/gl Normal MCHC 33.6 LAB L100.1810 11.6-14.6 % Normal RDW CV 12.6 LAB L100.1820 35.1-43.9 fl Normal RDW SD 40.1 LAB L100.1900 150-450 K/mm3 Normal PLT 258 LAB L100.2000 6.2-12.0 fl Normal MPV 9.9 LAB L100.2100 47-70 % Normal NEUT% 69.1 LAB L100.2200 19-41 % Normal LY% 23.8 LAB L100.2300 0-10 % Normal MONO% 5.4 LAB L100.2400 0-5 % Normal EO% 1.5 LAB L100.2500 0-1 % Normal BASO% 0.1 LAB L100.2550 0.0-0.9 % Normal IM GRAN % 0.100 Result Comment: IG% - Immature Granulocytes (promyelocytes, myelocytes and metamyelocytes) > 1% indicates that a LEFT SHIFT is Present. LAB L100.2620 2.0-7.7 X10 3/uL Normal Absolute Neut 5.2 LAB L100.2720 0.83-4.51 X10 3/ul Normal Absolute Lymph 1.77 Performed By: #### L100.0100 #### [facility] [address] [place], [address] BEDSIDE GLUCOSE Collected: 02/10/2018 Status: F Source: [place] 12:27 PM [facility] REPOSITORY TYPE CODE TESTS RESULT OUT OF REFERENCE UNITS RANGE LAB L501.080 70-110 mg/dL High alert BEDSIDE GLU > 500 Result Comment: Dr Mckeon Followed MANAGEMENT OF PATIENT CARE PER NURSING PROTOCOL Performed By: #### L501.080 #### [facility] Point of Care [address] [place] [address] EMERGENCY DEPARTMENT Observed: 02/08/2018 Status: F Source: [place] SUMMARY 1:59 AM [facility] REPOSITORY [facility] Medical Records Department [address] [place] [address] Emergency Department Summary 02/08/18 0146 MR#: [id number] Acct: [id number] Name: DEEPA RUFFIN Rep #: [id number] : 1970 47 From: Eduardo Payton MD PCP: Talia Boyd MD Status: REG ER - ER Visit Summary Date of Service: 02/08/18 Chief Complaint: Low back pain that started 2-3 weeks ago. History of Present Illness: The patient is a 47 M who presents with low back pain that has gotten worse over the past 2-3 weeks. Pain started 2 3 weeks ago after lifting. No history of direct trauma. He denies bowel or bladder dysfunction. He denies saddle paresthesia or anesthesia. He complains of pain radiating anteriorly. He also complains of pain rating to both testicles and buttocks. He states he has a foot drop. He complains of pain in his quadricep muscles going up and down steps but not weakness. He denies numbness or tingling in the perineal region. He denies bowel or bladder dysfunction. He denies fever, chills or night sweats. There is no history of direct trauma. He denies dysuria, frequency, urgency or hematuria. Pain is worse with movement. Past medical history type 2 diabetes, atonic bladder. Physical Examination: Vital signs noted. He is not febrile. HEENT is grossly unremarkable. Heart is regular without murmur, gallop or rub. S1 and S2 are normal. Lungs are clear to auscultation with good movement of air bilaterally. Abdomen soft nontender with no palpable pulsatile mass. There is no abdominal bruit. There is pain palpation low back. Straight leg test and crossover test are negative. He did complain of pain in the right buttocks at 45 degrees. Bowstring sign was negative. EHL is intact. Able to plantar and dorsiflex against resistance. DP and PT pulses are palpable and 2+. Patella and ankle reflex are 2+. There is no clonus or Babinski sign. Initially patient was not able to roll over and get out of bed. He was initially medicated with morphine sulfate, Toradol and p.o. Valium. He was reassessed at 2351. Since he was not able to rule out of bed he was given additional dose of medication. At 1255 he was able to sit up but not apply any weight or pressure on the right foot. He received additional dose of morphine. Patient was able to ambulate and there is no foot drop. This is assessment was at 0145. Test Results: Radiologic imaging is not indicated since the pain is less than 6 weeks duration, patient is under the age of 50 and he has no constitutional symptoms or symptoms that are concerning. Emergency Department Course and Treatment: Patient had an IV established required multiple doses of medication which included Toradol, Valium p.o. and multiple doses of morphine. Treatment Plan: Prescription for Percocet and Valium Disposition: Discharge to home with spouse in improved and stable condition Impression: Acute bilateral low back pain without sciatica This note was generated with [employer] dictation software. It may contain incorrect words, spelling, and punctuation that were not noted in review of the chart prior to signing ED Disposition - Plan for ED Patient: Disposition: Home or Assisted Living Chief Complaint: Back Instructions: ED Sprain Strain Lumbar Prescriptions: Oxycodone HCl/Acetaminophen [Percocet 5/325] 1 tablet PO Q6H PRN PRN 3 Days #12 tablet PRN Reason: Pain Diazepam [Valium] 5 mg PO Q8 PRN 3 Days #10 tablet PRN Reason: Pain Referrals: Talia Boyd MD [Primary Care Provider] - Additional Instructions: Your prescriptions were electronically transmitted to [facility] pharmacy located in [facility]. What to do if you have Problems For any increased pain, shortness of breath, bleeding, nausea or vomiting, chest pain, or any unexpected problems, contact your Primary Care Provider. Call [facility] ([phone]) or report to the closest Emergency Room. Call 911 if necessary. 02/08/18 0159 <Electronically signed by Eduardo Payton MD> Date Eduardo Payton MD Cosigner Signature (If Indicated): Date CC: Talia Boyd MD MRI CERVICAL SPINE WO Observed: 11/06/2017 Status: F [place] 10:17 AM [facility] REPOSITORY * * *Final Report* * * DATE OF EXAM: Nov 06 2017 10:17AM [facility] 0297 - MRI CERVICAL SPINE WO IVCON / PROCEDURE REASON: cervical * * * * Physician Interpretation * * * * EXAMINATION: MRI CERVICAL SPINE WO IVCON CLINICAL HISTORY: Neck pain with radiation to the right upper extremity. TECHNIQUE: Routine cervical spine MR protocol without gadolinium. MQ: [id number] COMPARISON: None. RESULT: Counting reference: Craniocervical junction. Alignment: Alignment is anatomic. There is relative narrowing of the canal and foramina on a developmental basis. Craniocervical junction: Craniocervical junction is normal. Cord: The visualized cord is within normal limits of signal intensity and morphology. Bone marrow signal/fracture: No evidence of pathologic marrow infiltration. No evidence of prior fracture. Cervical soft tissues: The paraspinal soft tissues are within normal limits. C2-C3: Canal and foramina are patent. C3-C4: Uncinate process hypertrophy with mild right foraminal stenosis. Canal and left neural foramen are patent. C4-C5: Minimal disc osteophyte complex without significant canal stenosis. Neural foramina remain patent. C5-C6: Mild disc osteophyte complex which is eccentric to the left of midline which, with mild dorsal ligamentous hypertrophy, effaces the CSF space ventral and dorsal to the cord without significant cord compression. Facet and uncinate process hypertrophy cause mild bilateral foraminal stenosis. C6-C7: Canal and foramina are patent. C7-T1: Canal and foramina are patent. IMPRESSION: Developmental cervical canal stenosis with minimal superimposed degenerative changes that are most prominent at C5-6 as detailed above. Acid Remover: ELISABETH Transcribe Date/Time: Nov 06 2017 10:39A Dictated by : LUIS CARLOS CHILDERS MD This examination was interpreted and the report reviewed and electronically signed by: LUIS CARLOS CHILDERS MD on Nov 06 2017 10:42AM EST [id number] Observed: 11/06/2017 Status: COMPLETED Source: [place] 9:37 AM [facility] REPOSITORY HNO ID: [id number] Author: Tamie Willis Rt Service: (none) Author Type: (none) Type: Progress Notes Filed: 11/06/2017 9:37 AM Note Text: Radiology Service Progress Note PATIENT NAME: Deepa Ruffin DATE OF SERVICE: November 06, 2017 TIME: 9:37 AM PATIENT IDENTITY VERIFICATION COMPLETED USING TWO (2) METHODS: Patient confirmed name verbally and Date of . PATIENT GENDER DATA: Male PATIENT RELEVANT IMPLANT DATA REVIEWED: Yes RADIOLOGY DEPARTMENT: MR; Exam(s) Completed: Spine: Cervical spine PERIPHERAL IV DATA: Not applicable SIGNED BY: Tamie Willis Rt November 06, 2017 9:37 AM ORTHOPEDIC VISIT Observed: 10/09/2017 Status: F Source: [place] REPORT 11:10 AM [facility] REPOSITORY [facility] Medicine [address] [address] OFFICE VISIT Date of Service: 10/05/17 MR#: [id number] Acct: [id number] Name: DEEPA RUFFIN Rep #: [id number] : 1970 Provider: Lynette Christie DO Age/Sex: 47/M Location[place] [facility] [place] [place] Status: Signed Intake Intake Visit Reasons: LEFT WRIST Is patient in pain?: No Allergies No Known Allergies Allergy (Verified 10/05/17 08:08) Medications dulaglutide 1.5 mg/0.5 mL subcutaneous pen injector 1.5 mg SC TH 05/24/17 [History Confirmed 06/19/17] losartan 50 mg tablet 50 mg PO QDAY 05/24/17 [History Confirmed 06/19/17] metformin 1,000 mg tablet 1,000 mg PO BID 05/24/17 [History Confirmed 06/19/17] Cholecalciferol (Vitamin D3) [Vitamin D3] 5,000 unit PO DAILY 05/28/17 [History Confirmed 06/19/17] Cyanocobalamin (Vitamin B-12) [Vitamin B-12] 1,000 mcg PO DAILY 05/28/17 [History Confirmed 06/19/17] Fluoxetine HCl 40 mg PO DAILY 05/28/17 [History Confirmed 06/19/17] Insulin Lispro Protamin/Lispro [Humalog Mix 75-25 Vial] 35 unit SQ DINNER 05/28/17 [History Confirmed 06/19/17] Insulin Lispro Protamin/Lispro [Humalog Mix 75-25 Vial] 40 unit SQ LUNCH 05/28/17 [History Confirmed 06/19/17] Insulin Lispro Protamin/Lispro [Humalog Mix 75-25 Vial] 50 units SQ BREAKFAST 05/28/17 [History Confirmed 06/19/17] Multivit-Min/Iron Fum/Folic AC [Shply-Kkuiwtg-Lhgtahst Tablet] 2 ea PO DAILY 05/28/17 [History Confirmed 06/19/17] Nitrofurantoin Macrocrystal [Nitrofurantoin] 100 mg PO DAILY 05/28/17 [History Confirmed 06/19/17] [facility] Surgical History S/P carpal tunnel release (Acute) Social History Smoking Status: Former smoker HPI LEFT WRIST: Details: DEEPA RUFFIN is a 47 year old M here today for s/p left carpal tunnel release and right carpal tunnel injection dos 05/30/17. Patient is doing well. He states that his incision is healed but is bumpy. His numbness is gone and he denies any weakness in his left. He continues to have numbness into his right hand. Patient states that he has cervical spine pain. ROS Const Reports system reviewed and no additional complaints, except as docu Eyes Reports system reviewed and no additional complaints, except as docu ENT Reports system reviewed and no additional complaints, except as docu Card Reports system reviewed and no additional complaints, except as docu Resp Reports system reviewed and no additional complaints, except as docu GI Reports system reviewed and no additional complaints, except as docu Reports system reviewed and no additional complaints, except as docu Skin/Breast Reports system reviewed and no additional complaints, except as docu Neuro Yes system reviewed and no additional complaints, except as docu Psych Reports system reviewed and no additional complaints, except as docu Endo Reports system reviewed and no additional complaints, except as docu Ortho Exam Left Wrist/Hand Date of Surgery: 05/30/17 Skin/Wound: Yes healed Assessment AND Plan 1. Carpal tunnel syndrome G56.00 Plan Personally reviewed the patients EMG study from 04/2017. Reviewed the results with the patient. Spoke with the patient about his right hand numbness, when he would like to proceed with surgery due to weakness he should contact our office. Patient continues to have swelling of his left wrist which will take about a year to decrease. Follow up on an as needed basis or sooner if pain, swelling, numbness or associated symptoms, or concerns develop. All questions answered. Patient in agreement of plan. Coding Level of Care Code Off vis,est,level 3 Diagnoses Carpal tunnel syndrome G56.00 10/09/17 1110 <Electronically signed by Lynette Christie DO> Date Lynette Christie DO Cosigner Signature: Date (if applicable) CC: OT D/C SUMMARY Observed: 08/27/2017 Status: F Source: [place] 1:41 PM [facility] REPOSITORY [facility] Occupational [facility] [address] [place] [address] Fax REHABILITATION SERVICES DISCHARGE SUMMARY MR#: [id number] Acct: [id number] Name: DEEPA RUFFIN Rep #: [id number] : 1970 47 From: Tess DOWNING/ANITA Ledesma Referring Dr.: Lynette Christie DO Status: REG RCR Eval Date: Discharge Date: HP - OT D/C Summary It has been my pleasure to treat DEEPA RUFFIN under orders from Lynette Christie DO, for the diagnosis of left CTS for a total of 8 visit(s). Please see the following information for a summary of their discharge status. 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 with pts performance of BADLS and IADLS by D/c Goal:: pt will report pain no greater than 1/10 with use of left hand for BADLs, IADls and simulated work tasks by d/c Goal:: pt will demo understanding of scar mtg by end of 3rd session - Plan Plan: last visit - D/C Information If there are questions or concerns regarding this patient's occupational therapy, please fell free to call me at [phone]. Thank you for the referral of this patient. Sincerely, Tess Lopez, OTR/L, CHT <Electronically signed by Tess Lopez OTR/L, CHT> 08/27/17 1341 CC: Talia Boyd MD; Lynette Christie DO MK Signed ORTHOPEDIC VISIT Observed: 08/03/2017 Status: F Source: [place] REPORT 10:13 AM [facility] Orthopaedics AND Sports Medicine [address] [place] [address] OFFICE VISIT Date of Service: 08/03/17 MR#: [id number] Acct: [id number] Name: DEEPA RUFFIN Rep #: [id number] : 1970 Provider: Mark Martinez DO Age/Sex: 47/M Location[place] [facility] [place] [place] Status: Signed Intake Intake Visit Reasons: LEFT WRIST Is patient in pain?: No Allergies No Known Allergies Allergy (Verified 08/03/17 08:28) Medications dulaglutide 1.5 mg/0.5 mL subcutaneous pen injector 1.5 mg SC TH 05/24/17 [History Confirmed 06/19/17] losartan 50 mg tablet 50 mg PO QDAY 05/24/17 [History Confirmed 06/19/17] metformin 1,000 mg tablet 1,000 mg PO BID 05/24/17 [History Confirmed 06/19/17] Cholecalciferol (Vitamin D3) [Vitamin D3] 5,000 unit PO DAILY 05/28/17 [History Confirmed 06/19/17] Cyanocobalamin (Vitamin B-12) [Vitamin B-12] 1,000 mcg PO DAILY 05/28/17 [History Confirmed 06/19/17] Fluoxetine HCl 40 mg PO DAILY 05/28/17 [History Confirmed 06/19/17] Insulin Lispro Protamin/Lispro [Humalog Mix 75-25 Vial] 35 unit SQ DINNER 05/28/17 [History Confirmed 06/19/17] Insulin Lispro Protamin/Lispro [Humalog Mix 75-25 Vial] 40 unit SQ LUNCH 05/28/17 [History Confirmed 06/19/17] Insulin Lispro Protamin/Lispro [Humalog Mix 75-25 Vial] 50 units SQ BREAKFAST 05/28/17 [History Confirmed 06/19/17] Multivit-Min/Iron Fum/Folic AC [Ncmlv-Cagcqwn-Hyfmfnvh Tablet] 2 ea PO DAILY 05/28/17 [History Confirmed 06/19/17] Nitrofurantoin Macrocrystal [Nitrofurantoin] 100 mg PO DAILY 05/28/17 [History Confirmed 06/19/17] PFSH Surgical History S/P carpal tunnel release (Acute) Social History Smoking Status: Former smoker HPI LEFT WRIST: Details: DEEPA RUFFIN is a 47 year old M here today for s/p left carpal tunnel release and right carpal tunnel injection dos 05/30/[address] Christie. Patient notes that he is doing well. He gets a stinging pain into his hand at times but he is trusting his hand more. Patient denies any numbness. He states his strength is improving. Patients incision is fully healed. ROS Const Reports system reviewed and no additional complaints, except as docu Eyes Reports system reviewed and no additional complaints, except as docu ENT Reports system reviewed and no additional complaints, except as docu Card Reports system reviewed and no additional complaints, except as docu Resp Reports system reviewed and no additional complaints, except as docu GI Reports system reviewed and no additional complaints, except as docu Reports system reviewed and no additional complaints, except as docu Skin/Breast Reports system reviewed and no additional complaints, except as docu Neuro Yes system reviewed and no additional complaints, except as docu Psych Reports system reviewed and no additional complaints, except as docu Endo Reports system reviewed and no additional complaints, except as docu Ortho Exam Right Wrist/Hand Skin/Wound: Yes CDI Contralateral Normal: Yes Right Wrist: Yes ROM-Extension 0-60, ROM-Flexion 0-80, ROM- Pronation 0-80 and ROM-Supination 0-90 Motor: EPL: 5, FDP-2: 5, 1st Dorsal Interosseous: 5, APB: 5 Sensation: Radial: I, Ulnar: I, Median: I Left Wrist/Hand Skin/Wound: Yes CDI Contralateral Normal: Yes A1 rodrick trigger: No Left Wrist: Yes ROM-Extension 0-60, Yes ROM-Flexion 0-80, Yes ROM-Pronation 0-80 and Yes ROM-Supination 0-90 Motor: EPL: 5, FDP-2: 5, 1st Dorsal Interosseous: 5, APB: 5 Sensation: Radial: I, Ulnar: I, Median: I Assessment AND Plan Problems 1. Orthopedic aftercare Z47.89 Plan Assessment: After orthopedic status post left open carpal tunnel release and right carpal tunnel injection both doing well. Plan: This point, told the patient that he can follow-up with Dr. Pete in 6 weeks. I will get a mild to the three-month steffi for his left wrist. Because he has had an injection in the right wrist is doing well as always he remains asymptomatic I think we can treated conservatively. If the patient desires to have another injection and not particularly can do that as early as the 6 week steffi however going longer will be better. Patient also reports having some ulna and cervical issues which I am going to defer to my partner. Any major issues return. Coding Level of Care Code Global Post Op Diagnoses Orthopedic aftercare Z47.89 08/03/17 1013 <Electronically signed by Mark Martinez DO> Date Mark Martinez DO [facility] Signature: Date (if applicable) CC: ORTHOPEDIC VISIT Observed: 07/06/2017 Status: F Source: [place] REPORT 9:17 AM [facility] Orthopaedics AND Sports Medicine [address] [place] [address] OFFICE VISIT Date of Service: 07/06/17 MR#: [id number] Acct: [id number] Name: AUGUSTIN,DEEPA Coats Rep #: [id number] : 1970 Provider: Lynette Christie DO Age/Sex: 47/M Location: [facility] [place] [place] Status: Signed Intake Intake Visit Reasons: LEFT WRIST Is patient in pain?: Yes Allergies No Known Allergies Allergy (Verified 06/26/17 09:53) Medications dulaglutide 1.5 mg/0.5 mL subcutaneous pen injector 1.5 mg SC TH 05/24/17 [History Confirmed 06/19/17] losartan 50 mg tablet 50 mg PO QDAY 05/24/17 [History Confirmed 06/19/17] metformin 1,000 mg tablet 1,000 mg PO BID 05/24/17 [History Confirmed 06/19/17] Cholecalciferol (Vitamin D3) [Vitamin D3] 5,000 unit PO DAILY 05/28/17 [History Confirmed 06/19/17] Cyanocobalamin (Vitamin B-12) [Vitamin B-12] 1,000 mcg PO DAILY 05/28/17 [History Confirmed 06/19/17] Fluoxetine HCl 40 mg PO DAILY 05/28/17 [History Confirmed 06/19/17] Insulin Lispro Protamin/Lispro [Humalog Mix 75-25 Vial] 35 unit SQ DINNER 05/28/17 [History Confirmed 06/19/17] Insulin Lispro Protamin/Lispro [Humalog Mix 75-25 Vial] 40 unit SQ LUNCH 05/28/17 [History Confirmed 06/19/17] Insulin Lispro Protamin/Lispro [Humalog Mix 75-25 Vial] 50 units SQ BREAKFAST 05/28/17 [History Confirmed 06/19/17] Multivit-Min/Iron Fum/Folic AC [Papwj-Zemnhze-Wctskktr Tablet] 2 ea PO DAILY 05/28/17 [History Confirmed 06/19/17] Nitrofurantoin Macrocrystal [Nitrofurantoin] 100 mg PO DAILY 05/28/17 [History Confirmed 06/19/17] [facility] Surgical History S/P carpal tunnel release (Acute) Social History Smoking Status: Former smoker HPI LEFT WRIST: Details: DEEPA RUFFIN is a 47 year old M here today for f/u ctr 05/30/17 that had delayed healing. He has been going to OT for rom and strengthening. He has some numbness over the incision site, that is well healed today. He has some remaining swelling. Ortho Exam Right Wrist/Hand Skin/Wound: Yes Swelling, Yes healed Left Wrist/Hand Skin/Wound: Yes healing, Yes Swelling Contralateral Normal: Yes A1 rodrick trigger: No Left Wrist: Yes ROM-Extension 0-60, Yes ROM-Supination 0-90, Yes ROM-Flexion 0-80 and Yes ROM-Pronation 0-80 Motor: EPL: 5, FDP-2: 5, 1st Dorsal Interosseous: 5, APB: 5 Sensation: Radial: I, Ulnar: I, Median: I Assessment AND Plan 1. Orthopedic aftercare Z47.89 Plan His incision is healing well and instructed to work with OT for another week before returning to work, explained that the strengthening is just coming back and he needs more before going back. He has to lift 50lb and he is not ready for that yet. He may feel some scar tissue breaking up but he is healing well. RTW 07/17/17 Follow up in 6wks or sooner if pain, swelling, numbness or associated symptoms, or concerns develop. All questions answered. Patient in agreement of plan. Coding Level of Care Code Global Post Op Diagnoses Orthopedic aftercare Z47.89 07/06/17 0917 <Electronically signed by Lynette Christie DO> Date Lynette Christie DO Cosigner Signature: Date (if applicable) CC: ORTHOPEDIC VISIT Observed: 06/29/2017 Status: F Source: [place] 12:37 PM [facility] REPOSITORY [facility] Orthopaedics AND Sports Medicine [address] [place] [address] OFFICE VISIT Date of Service: 06/26/17 MR#: [id number] Acct: [id number] Name: AUGUSTINDEEPA THOMPSON Jorge L Rep #: [id number] : 1970 Provider: Lynette Christie DO Age/Sex: 47/M Location[place] [facility] [place] [place] Status: Signed Intake Intake Visit Reasons: left hand Is patient in pain?: Yes Allergies No Known Allergies Allergy (Verified 06/26/17 09:53) Medications dulaglutide 1.5 mg/0.5 mL subcutaneous pen injector 1.5 mg SC TH 05/24/17 [History Confirmed 06/19/17] losartan 50 mg tablet 50 mg PO QDAY 05/24/17 [History Confirmed 06/19/17] metformin 1,000 mg tablet 1,000 mg PO BID 05/24/17 [History Confirmed 06/19/17] Cholecalciferol (Vitamin D3) [Vitamin D3] 5,000 unit PO DAILY 05/28/17 [History Confirmed 06/19/17] Cyanocobalamin (Vitamin B-12) [Vitamin B-12] 1,000 mcg PO DAILY 05/28/17 [History Confirmed 06/19/17] Fluoxetine HCl 40 mg PO DAILY 05/28/17 [History Confirmed 06/19/17] Insulin Lispro Protamin/Lispro [Humalog Mix 75-25 Vial] 35 unit SQ DINNER 05/28/17 [History Confirmed 06/19/17] Insulin Lispro Protamin/Lispro [Humalog Mix 75-25 Vial] 40 unit SQ LUNCH 05/28/17 [History Confirmed 06/19/17] Insulin Lispro Protamin/Lispro [Humalog Mix 75-25 Vial] 50 units SQ BREAKFAST 05/28/17 [History Confirmed 06/19/17] Multivit-Min/Iron Fum/Folic AC [Idcyy-Xtwcfat-Kvznyzld Tablet] 2 ea PO DAILY 05/28/17 [History Confirmed 06/19/17] Nitrofurantoin Macrocrystal [Nitrofurantoin] 100 mg PO DAILY 05/28/17 [History Confirmed 06/19/17] PFSH Surgical History S/P carpal tunnel release (Acute) Social History Smoking Status: Former smoker HPI left hand: Details: DEEPA RUFFIN is a 47 year old M here today for a wound check on his left carpal tunnel release dos 05/30/17. Patient states that he is doing better. He has some achiness of the incision. Patients notes that a suture became untied although it is still there. Patient has been cleaning his incision daily with betadine. Patient denies any drainage. He denies any fevers or chills. Patient denies any numbness into his fingers. He notes that he is developing finger stiffness. ROS Const Reports system reviewed and no additional complaints, except as docu Eyes Reports system reviewed and no additional complaints, except as docu ENT Reports system reviewed and no additional complaints, except as docu Card Reports system reviewed and no additional complaints, except as docu Resp Reports system reviewed and no additional complaints, except as docu GI Reports system reviewed and no additional complaints, except as docu Reports system reviewed and no additional complaints, except as docu Musc Reports stiffness Skin/Breast Reports system reviewed and no additional complaints, except as docu Neuro Yes system reviewed and no additional complaints, except as docu Psych Reports system reviewed and no additional complaints, except as docu Endo Reports system reviewed and no additional complaints, except as docu Assessment AND Plan 1. Orthopedic aftercare Z47.89 Plan Incision is looks a lot better than it did compared to last week. Healing and granulating in nicely. Fingers are a little stiff from not using them so we will send him to occupational therapy for range of motion activities. Patient instructed to call us if increased redness or other issues arise. Patient's almost completed his oral antibiotics and will continue to monitor his incision and clean it and will begin having wound care at occupational therapy as well. This note was generated with [employer] dictation software. It may contain incorrect words, spelling, and punctuation that were not noted in checking the note before signing. Explained that he would benefit from OT and gave script for wound care and work on ROM. Follow up in two weeks or sooner if pain, swelling, numbness or associated symptoms, or concerns develop. All questions answered. Patient in agreement of plan. Coding Level of Care Code Global Post Op Diagnoses Orthopedic aftercare Z47.89 06/29/17 1237 <Electronically signed by Lynette Christie DO> Date Lynette Christie DO Cosigner Signature: Date (if applicable) CC: OT GENERAL EVALUATION Observed: 06/28/2017 Status: F Source: [place] 12:31 PM [facility] REPOSITORY [facility] Occupational [facility] [address] [place] [address]. [address] [place] [address] Fax REHABILITATION SERVICES INITIAL EVALUATION MR#: [id number] Acct: [id number] Name: DEEPA RUFFIN Rep #: [id number] : 1970 47 From: Tess DOWNING/Callie, LUCHOT Referring Dr.: Lynette Christie DO Status: REG R Insurance: PAUL [employer] Date: SELF PAY INSURANCE Patient's Visit Information DEEPA RUFFIN is a 47 year old M, referred to Occupational Therapy by Lynette Christie DO,, with a diagnosis of left CTS. Date of Evaluation: 06/27/17 Occupational Therapist: Tess Lopez, PATRICIAR/Callie, CHT - Subjective Subjective: pt had left CTR on . pt state he had CTS for a while and had left release done- the tingling and numbness did resolve following sx. pt did have complications of the incision opening following stitch removal- pt states this happend 2 times-pt ist to return to work in July. pt works at [employer] and needs to be able to lift and move increased wt. 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 with pts performance of BADLS and IADLS by D/c Goal:: pt will report pain no greater than 1/10 with use of left hand for BADLs, IADls and simulated work tasks by d/c Goal:: pt will demo understanding of scar mtg by end of 3rd session - Rehabilitation General Assessment: pt s/p CTR left hand with complication of slow incision healing. pt demo need for skilled OT services 2-3x week for 4 weeks to aide in wound healing, scar mtg and PRE to return pt to PLOF Rehabilitation Potential: Excellent - Anticipated Interventions Anticipated Interventions: A/AAROM/PROM, Strengthening, Scar Care, Triggerpoint Release, Desensitization, Wound Care, Modalities, Orthoses - Visit Plan Frequency: 2-3x /Week Duration: 4 Weeks General Plan: pt will be seen in OT for wound care and progress pt to scar mtg and PRE as wound closes and heals. TEXT: Thank you for the opportunity to evaluate your patient. For Medicare and Medicare HMO plans, please review the plan of care and approve it. It will need to be FAXED BACK to us at [phone] for Medicare purposes. Please let me know if there are questions or concerns regarding this plan of care. Physician Signature: Date: <Electronically signed by Tess DOWNING/LUCHO LedesmaT> 06/28/17 1231 CC: Talia Boyd MD; Lynette Christie DO MK Signed For Medicare only, by signing this I certify the plan of care. Physicians Signature Date Observed: 06/19/2017 Status: F Source: [place] CULTURE, DEEP WOUND 1:44 PM [facility] REPOSITORY Gram Stain Gram Stain 3+ Gram positive rods 2+ Gram positive cocci Rare White Blood Cells Wound Culture There are no CLSI standards for interpretation of this Drug/Organism combination. ORGANISM 1: Corynebacterium minutissimum Amount Growth 2+ Cult, Anaerobic Studies have confirmed that Anaerobic Gram Positive Cocci are routinely susceptible to: Penicillin/Ampicillin, Ampicillin/Sulbactam, Piperacillin/Tazobactam, Cefoxatin, Ertapenem, Imipenem, Meropenem and Metronidazole and vary in resistance to: Clindamycin and Moxifloxacin. ORGANISM 1: Anaerobic cocci Performed By: #### M100.1500 #### [facility] [place], [address] ORTHOPEDIC VISIT Observed: 06/19/2017 Status: F Source: [place] REPORT 12:18 PM [facility] REPOSITORY [facility] Orthopaedics AND Sports Medicine [address] [place], [place] [address] OFFICE VISIT Date of Service: 06/19/17 MR#: [id number] Acct: [id number] Name: DEEPA RUFFIN Rep #: [id number] : 1970 Provider: Lynette Christie DO Age/Sex: 47/M Location[place] [facility] [place] [place] Status: Signed Intake Intake Visit Reasons: left hand Is patient in pain?: No Allergies No Known Allergies Allergy (Verified 06/19/17 10:56) Medications dulaglutide 1.5 mg/0.5 mL subcutaneous pen injector 1.5 mg SC TH 05/24/17 [History Confirmed 06/19/17] losartan 50 mg tablet 50 mg PO QDAY 05/24/17 [History Confirmed 06/19/17] metformin 1,000 mg tablet 1,000 mg PO BID 05/24/17 [History Confirmed 06/19/17] Cholecalciferol (Vitamin D3) [Vitamin D3] 5,000 unit PO DAILY 05/28/17 [History Confirmed 06/19/17] Cyanocobalamin (Vitamin B-12) [Vitamin B-12] 1,000 mcg PO DAILY 05/28/17 [History Confirmed 06/19/17] Fluoxetine HCl 40 mg PO DAILY 05/28/17 [History Confirmed 06/19/17] Insulin Lispro Protamin/Lispro [Humalog Mix 75-25 Vial] 35 unit SQ DINNER 05/28/17 [History Confirmed 06/19/17] Insulin Lispro Protamin/Lispro [Humalog Mix 75-25 Vial] 40 unit SQ LUNCH 05/28/17 [History Confirmed 06/19/17] Insulin Lispro Protamin/Lispro [Humalog Mix 75-25 Vial] 50 units SQ BREAKFAST 05/28/17 [History Confirmed 06/19/17] Multivit-Min/Iron Fum/Folic AC [Wfxya-Ktgdaco-Yuorepqb Tablet] 2 ea PO DAILY 05/28/17 [History Confirmed 06/19/17] Nitrofurantoin Macrocrystal [Nitrofurantoin] 100 mg PO DAILY 05/28/17 [History Confirmed 06/19/17] cephalexin 500 mg capsule 500 mg PO Q12H 10 Days #20 cap 06/19/17 [Rx Confirmed 06/19/17] PFSH Surgical History S/P carpal tunnel release (Acute) Social History Smoking Status: Former smoker HPI left hand: Details: DEEPA RUFFIN is a 47 year old M here today s/p left CTR DOS 05/30/17. He is here today because his incision is still open. He states he left the steri strips on until they came off. He does have his hand wrapped today. There bandage that was taken off had some yellowish/brown drainage. He only complains of pain at the thumb intermittently. No tingling/numbness. No swelling. No fevers chills erythema no constitutional symptoms. ROS Const Reports system reviewed and no additional complaints, except as docu Eyes Reports system reviewed and no additional complaints, except as docu ENT Reports system reviewed and no additional complaints, except as docu Card Reports system reviewed and no additional complaints, except as docu Reports system reviewed and no additional complaints, except as docu Musc Reports as per HPI Skin/Breast Reports system reviewed and no additional complaints, except as docu Neuro Yes system reviewed and no additional complaints, except as docu Psych Reports system reviewed and no additional complaints, except as docu Endo Reports system reviewed and no additional complaints, except as docu Aller/Immun Reports system reviewed and no additional complaints, except as docu Ortho Exam Left Wrist/Hand Skin/Wound: Yes wound cleaned (Carpal tunnel incision gapped no obvious signs of infection slight erythema but no obvious drainage today) Assessment AND Plan Problems 1. Wound dehiscence T81.30XA Plan Under sterile conditions reapproximated the edges of his incisions. There is no obvious infection today however I did culture him he had a little bit of erythema and a little bit of drainage that was unable to express today but he did have on his drainage on his dressing. Because of this because of his diabetes we will start him on a 10 day course of Ancef. This was escribed to his pharmacy. Patient to return in 1 week for wound check. Patient also told if there is increased drainage erythema or other issues to give us a call. Patient given Betadine to take home so he could clean the incision twice a day. Orders Orders: Medications New: Coding Level of Care Code Global Post Op Diagnoses Wound dehiscence T81.30XA 06/19/17 1218 <Electronically signed by Lynette Christie DO> Date Lynette Christie DO Cosigner Signature: Date (if applicable) CC: ORTHOPEDIC VISIT Observed: 06/14/2017 Status: F Source: [place] REPORT 11:07 AM [facility] Orthopaedics AND Sports Medicine [address] [place] [address] OFFICE VISIT Date of Service: 06/14/17 MR#: [id number] Acct: [id number] Name: DEEPA RUFFIN Rep #: [id number] : 1970 Provider: Lynette Christie DO Age/Sex: 46/M Location[place] [facility] [place] [place] Status: Signed Intake Intake Visit Reasons: LEFT WRIST Allergies No Known Allergies Allergy (Verified 06/14/17 09:31) Medications dulaglutide 1.5 mg/0.5 mL subcutaneous pen injector 1.5 mg SC TH 05/24/17 [History Confirmed 06/14/17] losartan 50 mg tablet 50 mg PO QDAY 05/24/17 [History Confirmed 06/14/17] metformin 1,000 mg tablet 1,000 mg PO BID 05/24/17 [History Confirmed 06/14/17] Cholecalciferol (Vitamin D3) [Vitamin D3] 5,000 unit PO DAILY 05/28/17 [History Confirmed 06/14/17] Cyanocobalamin (Vitamin B-12) [Vitamin B-12] 1,000 mcg PO DAILY 05/28/17 [History Confirmed 06/14/17] Fluoxetine HCl 40 mg PO DAILY 05/28/17 [History Confirmed 06/14/17] Insulin Lispro Protamin/Lispro [Humalog Mix 75-25 Vial] 35 unit SQ DINNER 05/28/17 [History Confirmed 06/14/17] Insulin Lispro Protamin/Lispro [Humalog Mix 75-25 Vial] 40 unit SQ LUNCH 05/28/17 [History Confirmed 06/14/17] Insulin Lispro Protamin/Lispro [Humalog Mix 75-25 Vial] 50 units SQ BREAKFAST 05/28/17 [History Confirmed 06/14/17] Multivit-Min/Iron Fum/Folic AC [Itymq-Ijfkftd-Ipioylsb Tablet] 2 ea PO DAILY 05/28/17 [History Confirmed 06/14/17] Nitrofurantoin Macrocrystal [Nitrofurantoin] 100 mg PO DAILY 05/28/17 [History Confirmed 06/14/17] PFSH Surgical History S/P carpal tunnel release (Acute) Social History Smoking Status: Former smoker HPI LEFT WRIST: Details: DEEPA RUFFIN is a 46 year old M here today s/p left CTR DOS 05/30/17. He was seen on 06/12/17 and had his sutures removed. He came into office today concerned his incision opened. ROS Const Reports system reviewed and no additional complaints, except as docu Eyes Reports system reviewed and no additional complaints, except as docu ENT Reports system reviewed and no additional complaints, except as docu Card Reports system reviewed and no additional complaints, except as docu Resp Reports system reviewed and no additional complaints, except as docu GI Reports system reviewed and no additional complaints, except as docu Reports system reviewed and no additional complaints, except as docu Musc Reports as per HPI Skin/Breast Reports system reviewed and no additional complaints, except as docu Neuro Yes system reviewed and no additional complaints, except as docu Psych Reports system reviewed and no additional complaints, except as docu Endo Reports system reviewed and no additional complaints, except as docu Michael/Lymph Reports system reviewed and no additional complaints, except as docu Aller/Immun Reports system reviewed and no additional complaints, except as docu Ortho Exam Left Wrist/Hand WRIST: opened middle of ctr incision with clear drainage, no signs of infection Assessment AND Plan Plan Patient has a postop carpal tunnel incision is slightly gapped in the middle aspect. No signs of infection we used Dermabond and Mastisol and Steri-Strips over top of and have the patient hold his hand closed for about 5-10 minutes to ensure that there is no further gapping before he left which there was not. Patient instructed to keep it clean and dry for the next 24-48 hours to keep the Steri-Strips intact if he has any increased drainage or if it opens up again to come back and see us. If not patient is to follow his normal postop in 1 month. Coding Level of Care Code Global Post Op 06/14/17 1107 <Electronically signed by Lynette Christie DO> Date Lynette Christie DO Cosigner Signature: Date (if applicable) CC: ORTHOPEDIC VISIT Observed: 06/12/2017 Status: F Source: [place] REPORT 3:19 PM [facility] REPOSITORY [facility] Orthopa[facility] AND Sports Medicine [address] [place] [address] OFFICE VISIT Date of Service: 06/12/17 MR#: [id number] Acct: [id number] Name: DEEPA RUFFIN Jorge L Rep #: [id number] : 1970 Provider: Lynette Christie DO Age/Sex: 46/M Location[place] [facility] [place] [place] Status: Signed Intake Intake Visit Reasons: LEFT WRIST Is patient in pain?: Yes Pain scale (1-10): 3 Allergies No Known Allergies Allergy (Verified 06/12/17 14:14) Medications dulaglutide 1.5 mg/0.5 mL subcutaneous pen injector 1.5 mg SC TH 05/24/17 [History Confirmed 06/12/17] losartan 50 mg tablet 50 mg PO QDAY 05/24/17 [History Confirmed 06/12/17] metformin 1,000 mg tablet 1,000 mg PO BID 05/24/17 [History Confirmed 06/12/17] Cholecalciferol (Vitamin D3) [Vitamin D3] 5,000 unit PO DAILY 05/28/17 [History Confirmed 06/12/17] Cyanocobalamin (Vitamin B-12) [Vitamin B-12] 1,000 mcg PO DAILY 05/28/17 [History Confirmed 06/12/17] Fluoxetine HCl 40 mg PO DAILY 05/28/17 [History Confirmed 06/12/17] Insulin Lispro Protamin/Lispro [Humalog Mix 75-25 Vial] 35 unit SQ DINNER 05/28/17 [History Confirmed 06/12/17] Insulin Lispro Protamin/Lispro [Humalog Mix 75-25 Vial] 40 unit SQ LUNCH 05/28/17 [History Confirmed 06/12/17] Insulin Lispro Protamin/Lispro [Humalog Mix 75-25 Vial] 50 units SQ BREAKFAST 05/28/17 [History Confirmed 06/12/17] Multivit-Min/Iron Fum/Folic AC [Qnrfa-Srkbkgb-Uwmgpbrl Tablet] 2 ea PO DAILY 05/28/17 [History Confirmed 06/12/17] Nitrofurantoin Macrocrystal [Nitrofurantoin] 100 mg PO DAILY 05/28/17 [History Confirmed 06/12/17] PFSH Surgical History (Reviewed 06/12/17 @ 2:18 pm by Viola Valerio) S/P carpal tunnel release (Acute) Social History Smoking Status: Former smoker HPI LEFT WRIST: Details: DEEPA RUFFIN is a 46 year old M here today S/P left CTR DOS 05/30/17. He complains of intermittent cramping feeling in his left hand, the severity of the pain depends on what he is doing. No tingling/numbness. He also did have an injection in right wrist on 05/30/17. He denies having pain with his right wrist/hand or tingling/numbness. ROS Const Reports system reviewed and no additional complaints, except as docu Eyes Reports system reviewed and no additional complaints, except as docu ENT Reports system reviewed and no additional complaints, except as docu Card Reports system reviewed and no additional complaints, except as docu Resp Reports system reviewed and no additional complaints, except as docu GI Reports system reviewed and no additional complaints, except as docu Musc Reports joint pain Skin/Breast Reports system reviewed and no additional complaints, except as docu Neuro Yes system reviewed and no additional complaints, except as docu Psych Reports system reviewed and no additional complaints, except as docu Endo Reports system reviewed and no additional complaints, except as docu Ortho Exam Right Wrist/Hand Skin/Wound: Yes suture/armen removed, Yes healing Right Ankle Skin/Wound: Yes suture/armen removed Assessment AND Plan 1. Orthopedic aftercare Z47.89 Plan Personally reviewed the surgical images if available, the surgery procedure and reviewed the post op care instructions. Monitor for signs of infection, redness, warmth, swelling in excess, drainage, opening of incision site/sites, and/or fever. Spoke with the patient about nerve regeneration. He will have shooting pain into his hand due to nerve regeneration. Patient may use his hand as tolerated. Patient may return to work in 1 month due to heavy lifting. Follow up in 4 weeks for 6 week post op appointment or sooner if pain, swelling, numbness or associated symptoms, or concerns develop. All questions answered. Patient in agreement of plan. Coding Level of Care Code Global Post Op Diagnoses Orthopedic aftercare Z47.89 06/12/17 1519 <Electronically signed by Lynette Christie DO> Date Lynette Thorntonignwander Signature: Date (if applicable) CC: OPERATIVE REPORT Observed: 06/01/2017 Status: F Source: [place] 11:33 AM [facility] [place] REPOSITORY [facility] Medical Records Department [address] [place] [address] Operative Report 05/30/17 1404 MR#: [id number] Acct: [id number] Name: DEEPA RUFFIN Rep #: [id number] : 1970 46 From: Lynette Christie DO PCP: Talia Boyd MD Status: [facility] Location: [facility] [place] Report of Operation Date of Procedure: 05/30/17 Pre-Operative Diagnosis: bilateral carpal tunnel syndrome Post-Operative Diagnosis: same Surgery/Procedure Performed:: left ctr, right ct injection Type of Anesthesia:: Block,Jake Anesthesiologist: Dilan Hernandez Estimated Blood Loss (mL): none Fluids Replaced: 600cc lr Description of Procedure: Preoperative note Patient is a 46 yo male patient with nerve conduction study confirming bilateral carpal tunnel syndrome. Patient failed conservative treatment for carpal tunnel elected proceed with left carpal tunnel release and right carpal tunnel injection Risks benefits and alternatives surgery discussed with patient. Risks including but not limited to blood loss, blood clot, infection, neurovascular injury, failure procedure, loss of life and loss of limb. Patient is aware like proceed with left carpal tunnel release. Operative note Patient seen and examined preoperative holding area. Left hand was marked. History and physical and consent reviewed. Patient was brought to the operating room placed supine on the operating table. Sign in, anesthesia, antibiotics were administered. Left upper extremity was prepped and draped after Jake block was initiated. All bony prominences well-padded SCDs placed on bilateral lower extremities. We marked out our incisions for our carpal tunnel release at the intersection of Tristan's line in the fourth ray flexed. We extended about a centimeter and a half. Timeout was performed. We then checked ensure that the Jake block was working with pickups which it was. We then used a 15 blade to make a skin incision. We then dissected down tenotomy syllable of the transverse carpal ligament. We then used a new 15 blade cut through the transverse carpal ligament down to the level of the median nerve. We then further released the median nerve the combination of the 15 blade and tenotomies. The nerve was grayish in color and adherent to the transverse carpal ligament volarly. We released the transverse carpal ligament distally to the fat pad and then proximally under standard technique. We then palpated to ensure that we released all of the transverse carpal ligament which we did. We irrigated the incision with copious amounts of sterile saline. All bleeders were coagulated. The incision was closed with interrupted 4-0 nylon stitches. Tourniquet was deflated for total working time of 7 minutes. Under sterile conditions we then injected the right carpal tunnel with 1 cc bupivacaine quarter percent and 1/2 cc Kenalog . patient tolerated procedure well there were no complications. Patient transferred to recovery room in stable condition. Postoperative note Hospital pharmacy has prescription Leave dressing clean dry and intact Follow-up in 2 weeks Call with concerns This note was generated with [employer] software. It may contain incorrect words, spelling, and punctuation that were not noted in checking the note before signing. 06/01/17 1133 <Electronically signed by Lynette Christie DO> Date Lynette Christie DO CC: Talia Boyd MD; Lynette Christie DO Signed DISCHARGE INSTRUCTION Observed: 05/30/2017 Status: F Source: [place] 2:04 PM [facility] [place] REPOSITORY [facility] Medical Records Department [address] [place] [address] Instructions for Home/Discharge Instructions 05/30/17 1403 MR#: [id number] Acct: [id number] Name: DEEPA RUFFIN Rep #: [id number] : 1970 46 From: Lynetet Christie DO PCP: Talia Body MD Status: REG SDC Discharge Diet: No Restrictions - leave dressing cdi, call with concerns, follow up in 2 weeks Discharge Activity: May Not Drive May shower in (days): 1 Ice area for (Minutes): 20 - Every hour while awake. Weight Bearing Status: Weight bearing as tolerated Keep extremity elevated above heart level: Operative Extremity Call your doctor if your incision/area has: Continuous Slow Oozing, Sudden Increased Bleeding, Increased Pain/ Swelling, Increased Redness, Foul Smelling Discharge Call your doctor if you observe: Fever of 101 or Higher, Coldness, Increased Pain, Numbness or Tingling, Change in Color, Calf discomfort Allergies/Adverse Reactions: Allergies No Known Allergies Allergy (Verified 05/28/17 09:15) Medications to take at Discharge dulaglutide 1.5 mg/0.5 mL subcutaneous pen injector 1.5 mg SC TH 05/24/17 losartan 50 mg tablet 50 mg PO QDAY 05/24/17 metformin 1,000 mg tablet 1,000 mg PO BID 05/24/17 Cholecalciferol (Vitamin D3) [Vitamin D3] 5,000 unit PO DAILY 05/28/17 Cyanocobalamin (Vitamin B-12) [Vitamin B-12] 1,000 mcg PO DAILY 05/28/17 Fluoxetine HCl 40 mg PO DAILY 05/28/17 Insulin Lispro Protamin/Lispro [Humalog Mix 75-25 Vial] 35 unit SQ DINNER 05/28/17 Insulin Lispro Protamin/Lispro [Humalog Mix 75-25 Vial] 40 unit SQ LUNCH 05/28/17 Insulin Lispro Protamin/Lispro [Humalog Mix 75-25 Vial] 50 units SQ BREAKFAST 05/28/17 Multivit-Min/Iron Fum/Folic AC [Rxups-Nlrfrqx-Nonatxbi Tablet] 2 each PO DAILY 05/28/17 Nitrofurantoin Macrocrystal [Nitrofurantoin] 100 mg PO DAILY 05/28/17 Oxycodone HCl/Acetaminophen [Percocet 5/325] 1 - 2 tablet PO Q6H PRN PRN 3 Days #20 tablet 05/30/17 The following prescriptions were given: Oxycodone HCl/Acetaminophen [Percocet 5/325] 1 - 2 tablet PO Q6H PRN PRN 3 Days #20 tablet PRN Reason: Pain Primary Care Physician: Talia Boyd MD [Primary Care Provider] - Please Follow Up With: Lynette Christie DO - [phone] 05/30/17 1404 <Electronically signed by Lynette Christie DO> Date Lynette Christie DO CC: Talia Boyd MD BEDSIDE GLUCOSE Collected: 05/30/2017 Status: F Source: [place] 11:10 AM [facility] [place] REPOSITORY TYPE CODE TESTS RESULT OUT OF REFERENCE UNITS RANGE LAB L501.080 70-110 mg/dL High BEDSIDE GLU 252 Result Comment: MANAGEMENT OF PATIENT CARE PER NURSING PROTOCOL Performed By: #### L501.080 #### [place] [facility] Point of Care [address] [place] [address] ORTHOPEDIC VISIT Observed: 05/24/2017 Status: F Source: [place] REPORT 2:00 PM [facility] [place] REPOSITORY [facility] [address] [place] [address] [place] [address] OFFICE VISIT Date of Service: 05/24/17 MR#: [id number] Acct: [id number] Name: DEEPA RUFFIN Rep #: [id number] : 1970 Provider: Lynette Christie DO Age/Sex: 46/M Location: [facility] [place] Status: Signed Intake Vital Signs05/24/17 Height 5 ft 9 in 05/24/17 Weight: 205 lb 05/24/17 Body Mass Index (BMI) 30.2 Intake Visit Reasons: bilateral arms Is patient in pain?: Yes Pain scale (1-10): 8 Allergies No Known Allergies Allergy (Verified 08/06/13 09:02) Medications Aspirin E.C. [Ecotrin] 81 mg PO DAILY@0800 08/06/13 [History Confirmed 08/08/13] dulaglutide 1.5 mg/0.5 mL subcutaneous pen injector 0.75 mg SC QWEEK 05/24/17 [History Confirmed 05/24/17] insulin lispro (U-100) 100 unit/mL subcutaneous cartridge 10 unit SC QPM 05/24/17 [History Confirmed 05/24/17] losartan 50 mg tablet 50 mg PO QDAY 05/24/17 [History Confirmed 05/24/17] metformin 1,000 mg tablet 1,000 mg PO BID 05/24/17 [History Confirmed 05/24/17] PFSH Social History Smoking Status: Current every day smoker HPI bilateral arms: Details: DEEPA RUFFIN is a 46 year old M here today for bilateral hand pain, left greater than right. Patient complains of numbness of his entire hand. He complains of pain into his wrist and medial elbow. He states that he dropping items due to weakness. He has an elbow strap which is somewhat helpful. Patient denies any injections. Patient had an EMG which showed carpal tunnel syndrome. He is taking aleve prn. He nptes that he has cervical spine pain and limited range of motion. ROS Const Reports system reviewed and no additional complaints, except as docu Eyes Reports system reviewed and no additional complaints, except as docu ENT Reports system reviewed and no additional complaints, except as docu Card Reports system reviewed and no additional complaints, except as docu Resp Reports system reviewed and no additional complaints, except as docu GI Reports system reviewed and no additional complaints, except as docu Reports system reviewed and no additional complaints, except as docu Musc Reports muscle weakness Skin/Breast Reports system reviewed and no additional complaints, except as docu Neuro Yes system reviewed and no additional complaints, except as docu Psych Reports system reviewed and no additional complaints, except as docu Endo Reports system reviewed and no additional complaints, except as docu Ortho Exam Right Wrist/Hand Skin/Wound: Yes CDI Contralateral Normal: No A1 rodrick trigger: No Right Wrist: Yes ROM-Extension 0-60, ROM-Flexion 0-80, ROM- Pronation 0-80, ROM-Supination 0-90 and Durken's Test Motor: EPL: 5, FDP-2: 5, 1st Dorsal Interosseous: 5, APB: 5 Sensation: Radial: I, Ulnar: I, Median: I Left Wrist/Hand Skin/Wound: Yes CDI Contralateral Normal: No A1 rodrick trigger: No Left Wrist: Yes ROM-Extension 0-60, Yes ROM-Flexion 0-80, Yes ROM-Pronation 0-80, Yes ROM-Supination 0-90 and Yes Durken's Test Motor: EPL: 5, FDP-2: 4, 1st Dorsal Interosseous: 5, APB: 4 Sensation: Radial: I, Ulnar: I, Median: D Left Elbow Contralateral Normal: Yes ROM: Yes Flexion 0-140, Extension 0 and Supination 0-90 Sensation: Radial: I (ttp lateral epicondyle, pain with wrist extesion), Ulnar: I, Median: D Assessment AND Plan 1. Bilateral carpal tunnel syndrome G56.03 Plan Personally reviewed the patient's medical history, medications, surgeries and recent exams if available. X-rays were reviewed. There is no obvious fracture, dislocation, or lucency noted. Personally reviewed the patient's EMG and explained he has bilateral carpal tunnel bilaterally, left is worse. He has weakness and atrophy noted, with his advanced findings a release is best option. Reviewed post op restrictions and rtw. Also gave Dr Carballo info for his neck pain, his elbow pain is related to repetive motions, tennis elbow. Reviewed the pre-operative plans with the patient. Risks and benefits of the procedure were fully explained, including but not limited to infection, neurovascular injury, continued pain, arthritis, stiffness, need for further surgery, re-injury, DVT, PE, general risks of anesthesia, and loss of limb or life. The patient understands all the risks and does wish to proceed with written consent. Follow up post op or sooner if pain, swelling, numbness or associated symptoms, or concerns develop. All questions answered. Patient in agreement of plan. 2. Lateral epicondylitis of left elbow M77.12 3. Neck pain M54.2 Plan f/u with dr carballo or see us sooner if pain increases Orders Orders: Plan Detail Other Orders Orders: Other Medications Discontinued: hydrocodone-acetaminophen 5-300 mg May substitute1 tab PO Q4H PRN PRN Pain Talia E Frase Hydrocodone/Acetaminophen 5/325 mg Discontinued Reason: Pt no longer taking Coding Level of Care Code Off vis,new,level 3 Diagnoses Bilateral carpal tunnel syndrome G56.03 Lateral epicondylitis of left elbow M77.12 Neck pain M54.2 05/24/17 1400 <Electronically signed by Lynette Chirstie DO> Date Lynette Christie DO Cosigner Signature: Date (if applicable) CC: Patrice Ibarra MD CERV SPINE 4 OR 5 Observed: 05/24/2017 Status: F Source: [place] VIEWS 10:02 AM [facility] [place] REPOSITORY [facility] Imaging Services [address] [place] [address] Cerv Spine 4 or 5 Views MR#: [id number] Acct: [id number] Name: DEEPA RUFFIN Rep #: [id number] : 1970 M 46 From: Shlomo Thomson MD PCP: Talia Boyd MD Status: REG CLI Study: Cerv Spine 4 or 5 Views Date of Exam: 05/24/17 Exam# [id number] Ordering Dr: Lynette Christie DO STUDY: X-RAY - CERVICAL SPINE REASON FOR EXAM: Male, 46 years old. Neck pain with numbness in left hand. TECHNIQUE: 5 view(s) of the cervical spine were obtained. COMPARISON: None FINDINGS: Normal anterior atlantoaxial articulation. Normal odontoid process. Normal cervical lordosis. Normal vertebral bodies and endplates. Normal disc space heights. Normal visualized intervertebral neuroforamina. The soft tissue structures are unremarkable. RAD/Cerv Spine 4 or 5 Views IMPRESSION: No significant abnormality identified. Electronically Signed: Shlomo Thomson MD at 12:35 EST , Service support , CC: Talia Boyd MD; Lynette Christie DO Acid Remover: Signed FOREARM 2 VIEWS Observed: 05/24/2017 Status: F Source: [place] 10:02 AM [facility] [place] REPOSITORY [facility] Imaging Services [address] [place] [address] Forearm 2 Views MR#: [id number] Acct: [id number] Name: DEEPA RUFFIN Rep #: [id number] : 1970 M 46 From: Shlomo Thomson MD PCP: Talia Boyd MD Status: REG CLI Study: Forearm 2 Views Date of Exam: 05/24/17 Exam# [id number] Ordering Dr: Lynette Christie DO STUDY: X-RAY - LEFT RADIUS AND ULNA REASON FOR EXAM: Male, 46 years old. Left wrist and elbow pain. TECHNIQUE: 2 view(s) of the forearm. COMPARISON: None. FINDINGS: There is no demonstrated soft tissue swelling. Normal visualized radius. Normal visualized ulna. RAD/Forearm 2 Views IMPRESSION: No significant abnormality. Electronically Signed: Shlomo Thomson MD at 12:35 EST , Service support , CC: Talia Boyd MD; Lynette Christie DO Acid Remover: Signed NCS AND/OR EMG Observed: 04/17/2017 Status: F Source: [place] PATIENT 10:33 AM [facility] [place] REPOSITORY [facility] Pulmonary Services/Neurology [address] [place] [address] MR#: [id number] Acct: [id number] Name: DEEPA RUFFIN Rep #: [id number] : 1970 46 From: Ivan Espana MD Referring Dr: Talia Boyd MD Status: REG CLI Ordering Dr: Date: Location: [facility] Sex: M C NCS and/or EMG Patient Report Ordering Doctor: Talia Boyd DATE OF SERVICE: 04/17/17 This is a bilateral upper extremity nerve conduction study and a left upper extremity EMG performed on this 46-year-old male with a history of neck stiffness as well as pain in his elbows to palpation bilaterally as well as hand pain. He has a history of diabetes, which apparently has been difficult to control. He says his last hemoglobin A1c is 10.2. Bilateral upper extremity sensory and motor nerve conduction study is performed. The median motor distal latencies are prolonged bilaterally worse on the left, amplitudes and conduction velocities are preserved. The median sensory responses are preserved. The ulnar motor and sensory and radial sensory responses are preserved. The bilateral median F waves are prolonged, the bilateral ulnar F waves are normal. Left upper extremity needle electromyography was performed. Muscles evaluated included the first dorsal interosseous, abductor pollicis brevis, brachioradialis, biceps, triceps and deltoid muscles. All muscles demonstrated normal insertional activity with absence of pathologic spontaneous activity. Motor unit potential recruitment pattern and amplitude was normal in all muscles tested. Impression: Abnormal electrophysiologic study of the upper extremities consistent with carpal tunnel syndrome, moderate to severe bilaterally worse on the left side. 04/17/17 1033 <Electronically signed by Ivan Espana MD> Date Ivan Espana MD CC: Talia Boyd MD; vIan Espana MD Date Dictated: 04/17/178 Date Transcribed: 04/17/171007 Acid Remover: NF Signed CBC W/DIFF, AUTOMATED Collected: 03/30/2017 Status: F Source: [place] 10:19 AM [facility] [place] REPOSITORY TYPE CODE TESTS RESULT OUT OF RANGE REFERENCE UNITS LAB L100.1000 4.4-11.0 K/mm3 Normal WBC 6.1 LAB L100.1200 4.6-6.2 M/mm3 Normal RBC 4.79 LAB L100.1300 13.0-16.5 g/dl Normal HGB 14.2 LAB L100.1400 40-54 % Normal HCT 41.8 LAB L100.1500 80-94 fL Normal MCV 87.3 LAB L100.1600 27.0-32.0 pg Normal MCH 29.6 LAB L100.1700 32-36 g/gl Normal MCHC 34.0 LAB L100.1810 11.6-14.6 % Normal RDW CV 12.8 LAB L100.1820 35.1-43.9 fl Normal RDW SD 39.7 LAB L100.1900 150-450 K/mm3 Normal PLT 247 LAB L100.2000 6.2-12.0 fl Normal MPV 10.0 LAB L100.2100 47-70 % Normal NEUT% 55.4 LAB L100.2200 19-41 % Normal LY% 33.6 LAB L100.2300 0-10 % Normal MONO% 7.9 LAB L100.2400 0-5 % Normal EO% 2.6 LAB L100.2500 0-1 % Normal BASO% 0.3 LAB L100.2550 0.0-0.9 % Normal IM GRAN % 0.200 Result Comment: IG% - Immature Granulocytes (promyelocytes, myelocytes and metamyelocytes) > 1% indicates that a LEFT SHIFT is Present. LAB L100.2620 2.0-7.7 X10 3/uL Normal Absolute Neut 3.4 LAB L100.2720 0.83-4.51 X10 3/ul Normal Absolute Lymph 2.04 Performed By: #### L100.0100, L101.9900 #### [place] [facility] [address] [place], [address] ERYTHROCYTE SED RATE Collected: 03/30/2017 Status: F Source: [place] 10:19 AM [facility] [place] REPOSITORY TYPE CODE TESTS RESULT OUT OF RANGE REFERENCE UNITS LAB L102.0000 0-15 mm/hr Normal SED RATE 12 Performed By: #### L100.0100, L101.9900 #### [facility] [address] [place], [place], [id number] URIC ACID Collected: 03/30/2017 Status: F Source: [place] 10:19 AM [facility] [place] REPOSITORY TYPE CODE TESTS RESULT OUT OF RANGE REFERENCE UNITS LAB L501.1400 3.5-7.2 mg/dL Low URIC 3.3 Result Comment: The drugs N-Acetylcysteine and Metamizole may falsely depress this assay. Performed By: #### L501.1400, L501.6710, L505.7010 #### [facility] [address] [place], [place], [address] CRP Collected: 03/30/2017 Status: F Source: [place] 10:19 [facility] REPOSITORY TYPE CODE TESTS RESULT OUT OF RANGE REFERENCE UNITS LAB L501.6710 0.0-3.0 mg/L High 5.49 C-REACTIVE PROT Result Comment: C-Reactive Protein (CRP) provides useful information for the diagnosis, therapy and monitoring of inflammatory processes and associated diseases. For the evaluation of Relative Risk for Cardiovascular Disease, a High Sensitivity CRP (HSCRP) should be ordered. Performed By: #### L501.1400, L501.6710, L505.7010 #### [facility] [address] [place], [place], [address] RHEUMATOID FACTOR Collected: 03/30/2017 Status: F Source: [place] 10:19 AM [facility] [place] REPOSITORY TYPE CODE TESTS RESULT OUT OF RANGE REFERENCE UNITS LAB L505.7010 <15 IU/mL Normal RHEUMATOID FAC < 10.0 Performed By: #### L501.1400, L501.6710, L505.7010 #### [facility] [address] [place], [place], [address] ANTINUCLEAR ANTIBODIES Collected: 03/30/2017 Status: F Source: [place] DIRECT [facility] TYPE CODE TESTS RESULT OUT OF RANGE REFERENCE UNITS LAB L3100.5475 Negative Normal Negative GEOVANI-DIRECT Result Comment: Performed at: - [facility] [id number] Patrol Officer: Manuel Joy PhD, Phone: [phone] Performed By: #### L3100.5475 #### [facility] (refer to report for specific site) refer to report for address and phone number ALLERGIES ALLERGIES DATE TYPE / CODE NAME / CODE REACTION SEVERITY SOURCE 03/04/2018 Drug No Known Unknown [facility] Allergy/416 Allergies/J76342 Hospital 252523(SNOM 0388(RXNORM) Repository ED CT) Drug NO KNOWN [facility] Class/63071 ALLERGIES [facility] 1003(SNOMED Repository CT) ENCOUNTERS ENCOUNTERS ADMIT/DISCHARGE ACCOUNT ADMITTING ENCOUNTER LOCATION SOURCE NUMBER CLASS 03/25/2018/03/25/20 [id number] Ambulatory BMSBuilding:B [place] [address] MS.[facility] Repository 03/22/2018 [id number] Ambulatory [facility] ing:PT Repository 03/19/2018/03/19/20 [id number] Ambulatory BMSBuilding:B [place] 18 MS.[facility] Repository 03/06/2018/03/06/20 [id number] Ambulatory BMSBuilding:B [place] 18 MS.CF.[facility] Repository 03/06/2018/03/06/20 [id number] Ambulatory [address] ing:SDCRoom: Repository AC-TBA 02/14/2018 [id number] Ambulatory [facility] ing:HPRAD Repository 02/14/2018/02/15/20 [id number] Ambulatory BMSBuilding:B [place] 18 MS.[facility] Repository 02/10/2018/02/11/20 [id number] Emergency [address] ing:ED Repository 02/07/2018/02/09/20 [id number] Emergency [address] ing:ED Repository 11/06/2017/11/07/19 [id number] Ambulatory [address] Repository 10/05/2017/10/06/19 [id number] Ambulatory BMSBuilding:B [place] 18 MS.[facility] Repository 08/03/2017/08/04/19 [id number] Ambulatory BMSBuilding:B [place] 18 MS.[facility] Repository 07/13/2017/07/14/19 [id number] Ambulatory [facility] [facility] ing:OT Repository 07/06/2017 [id number] Ambulatory BMSBuilding:B [place] MS.[facility] Repository 07/06/2017/07/07/19 [id number] Ambulatory BMSBuilding:B [place] 18 MS.[facility] Repository 06/26/2017/06/27/19 [id number] Ambulatory BMSBuilding:B [place] 18 MS.[facility] Repository 06/19/2017 [id number] Ambulatory [facility] Hospital[facility] Hospital ing:LABSPEC Repository 06/19/2017/06/20/19 [id number] Ambulatory BMSBuilding:B [place] 18 MS.[facility] Repository 06/14/2017/06/15/19 [id number] Ambulatory BMSBuilding:B [place] 18 MS.[facility] Repository 06/12/2017/06/13/19 [id number] Ambulatory BMSBuilding:B [place] 18 MS.[facility] Repository 05/30/2017/05/30/19 [id number] Ambulatory [facility] [facility] ing:SDCRoom: Repository AC04 05/30/2017 [id number] Ambulatory BMSBuilding:B [place] MS.CF.[facility] Repository 05/24/2017 [id number] Ambulatory [facility] ing:HPRAD Repository 05/24/2017/05/24/19 [id number] Ambulatory BMSBuilding:B [place] 18 MS.[facility] Repository 04/17/2017 [id number] Ambulatory [facility] ing:PSN Repository 03/30/2017 [id number] Ambulatory [facility] ing:MFPLAB Repository PAYERS PAYERS ENCOUNTER GUARANTOR PAYER SUBSCRIBER SOURCE 03/25/2018 DEEPA J Primary DEEPA J [place] [id number] Insurance:ANTHEMPolic BRENNEMANDOB: Community CEMETERY y Number: [id number] [facility] Behavioral [id number] Repository [address]Cao: (330) Date:3884-12-27RI [phone] () ABDOUL FREGOSO [address]EQ: 03/25/2018 Secondary NOT GIVENUNK [place] Insurance:SELF PAY [facility] Number: Effective Repository Date:2018-03-22 03/22/2018 DEEPA J Primary DEEPA J [place] [id number] Insurance:ANTHEMPolic BRENNEMANDOB: Community CEMETERY y Number: [id number], [place] [id number] Repository 346[address]Okg: (330) Date:1299-97-90KB [phone] () 558243CPNROTWABDOUL GARCÍA [address]45[address]QC: 03/22/2018 Secondary NOT GIVENUNK [place] Insurance:SELF PAY [facility] Number: Effective Repository Date:2018-02-08 03/19/2018 DEEPA J Primary DEEPA J [place] [id number] Insurance:ANTHEMPolic BRENNEMANDOB: Community CEMETARY y Number: [id number], [place] [id number] Repository [address]65[address]Hpe: (330) Date:3550-95-08ZX [phone] () 857960HWZLBCVABDOUL GARCÍA 56859NQ: 03/19/2018 Secondary NOT GIVENUNK [place] Insurance:SELF PAY [facility] Number: Effective Repository Date:2018-03-18 03/06/2018 DEEPA J Primary DEEPA J [place] [id number] Insurance:ANTHEMPolic BRENNEMANDOB: Community CEMETERY y Number: [id number], [place] [id number] Repository 65[address]Xqx: (330) Date:6309-07-32ZA [phone] () ABDOUL FREGOSO [address]BG: 03/06/2018 Secondary NOT GIVENUNK [place] Insurance:SELF PAY [facility] Number: Effective Repository Date:2018-03-06 03/06/2018 DEEPA J Primary DEEPA J [place] [id number] Insurance:ANTHEMPolic BRENNEMANDOB: Community CEMETARY y Number: [id number], [place] [id number] Repository 440[address]Cnm: (330) Date:0721-04-87OX [phone] () [id number] [place] [address] 25[address]VO: 03/06/2018 Secondary NOT GIVENUNK [place] Insurance:SELF PAY [facility] Number: Effective Repository Date:2018-02-15 02/14/2018 DEEPA J Primary DEEPA J [place] [id number] Insurance:ANTHEMPolic BRENNEMANDOB: Community CEMETERY y Number: [id number], [place] [id number] Repository 336[address]Cmn: (330) Date:4275-86-20DC [phone] () 095[address]MYJCGPL, [place] [address]AZ: 02/14/2018 Secondary NOT GIVENUNK [place] Insurance:SELF PAY [facility] Number: Effective Repository Date:2018-02-14 02/14/2018 DEEPA J Primary DEEPA J [place] [id number] Insurance:ANTHEMPolic BRENNEMANDOB: Community CEMETARY y Number: [id number], [place] [id number] Repository [address]Nor: (330) Date:7079-97-99XP [phone] () [id number] [place] [address]XC: 02/14/2018 Secondary NOT GIVENUNK [place] Insurance:SELF PAY [facility] Number: Effective Repository Date:2018-02-14 02/10/2018 DEEPA J Primary DEEPA J [place] [id number] Insurance:ANTHEMPolic BRENNEMANDOB: Community CEMETARY y Number: [id number], [place] [id number] Repository [address]Wdn: (330) Date:6169-98-68FU [phone] () 635911KYQXZOG, [place] [address]KP: 02/10/2018 Secondary NOT GIVENUNK [place] Insurance:SELF PAY [facility] Number: Effective Repository Date:2018-02-10 02/07/2018 DEEPA J Primary DEEPA J [place] [id number] Insurance:ANTHEMPolic BRENNEMANDOB: Community CEMETARY y Number: [id number] View Behavioral [id number] Repository [address]Dhm: (330) Date:7509-77-88US [phone] () 125897UWIBDRR, [place] [address]AJ: 02/07/2018 Secondary NOT GIVENUNK [place] Insurance:SELF PAY [facility] Number: Effective Repository Date:2018-02-07 10/05/2017 DEEPA J Primary DEEPA J [place] [id number] Insurance:ANTHEMPolic BRENNEMANDOB: Community CEMETARY y Number: [id number] View Behavioral [id number] Repository 76[address]Ikt: (330) Date:9818-86-75JP [phone] () 175734PFFMYPJ, [place] [address]FV: 10/05/2017 Secondary NOT GIVENUNK [place] Insurance:SELF PAY [facility] Number: Effective Repository Date:2017-08-03 08/03/2017 DEEPA J Primary DEEPA J [place] [id number] Insurance:ANTHEMPolic BRENNEMANDOB: Community CEMETARY y Number: [id number] View Behavioral [id number] Repository 990[address]Dum: (330) Date:3139-63-62CU [phone] () 723155YSIVDUV, [place] [address]CQ: 08/03/2017 Secondary NOT GIVENUNK [place] Insurance:SELF PAY [facility] Number: Effective Repository Date:2017-07-06 07/13/2017 DEEPA J Primary DEEPA J [place] [id number] Insurance:ANTHEMPolic BRENNEMANDOB: Community CEMETARY y Number: [id number], [place] [id number] Repository [address]Ocx: (330) Date:2854-91-24CA [phone] () 946753VVUBCXO, [place] [address]RF: 07/13/2017 Secondary NOT GIVENUNK [place] Insurance:SELF PAY [facility] Number: Effective Repository Date:2017-06-26 07/06/2017 DEEPA J Primary DEEPA J [place] [id number] Insurance:ANTHEMPolic BRENNEMANDOB: Community CEMETARY y Number: [id number], [place] [id number] Repository 4[address]Nxr: (330) Date:5501-08-61AL [phone] () 480143QSNXCYH, [place] [address]YN: 07/06/2017 Secondary NOT GIVENUNK [place] Insurance:SELF PAY [facility] Number: Effective Repository Date:2017-06-26 07/06/2017 DEEPA J Primary DEEPA J [place] [id number] Insurance:ANTHEMPolic BRENNEMANDOB: Community CEMETARY y Number: [id number], [place] [id number] Repository 67[address]Mol: (330) Date:5096-28-48NF [phone] () 916684JDWEBHF, [place] [address]EE: 07/06/2017 Secondary NOT GIVENUNK [place] Insurance:SELF PAY [facility] Number: Effective Repository Date:2017-07-06 06/26/2017 DEEPA J Primary DEEPA J [place] [id number] Insurance:ANTHEMPolic BRENNEMANDOB: Community CEMETARY y Number: [id number], [place] [id number] Repository 218[address]Zla: (330) Date:9859-23-11XW [phone] () 532144GDZTAQK, [place] [address]DE: 06/26/2017 Secondary NOT GIVENUNK [place] Insurance:SELF PAY [facility] Number: Effective Repository Date:2017-06-19 06/19/2017 DEEPA J Primary DEEPA J [place] [id number] Insurance:ANTHEMPolic BRENNEMANDOB: Community CEMETARY y Number: [id number], [place] [id number] Repository 13[address]Nri: (330) Date:9147-60-80DC [phone] () [id number], [place] [address]SU: 06/19/2017 Secondary NOT GIVENUNK [place] Insurance:SELF PAY [facility] Number: Effective Repository Date:2017-06-19 06/19/2017 DEEPA J Primary DEEPA J [place] [id number] Insurance:ANTHEMPolic BRENNEMANDOB: Community CEMETARY y Number: [id number], [place] [id number] Repository 485[address]Lej: (330) Date:8472-04-08CV [phone] () 951737TTRCSKG, [place] [address]WE: 06/19/2017 Secondary NOT GIVENUNK [place] Insurance:SELF PAY [facility] Number: Effective Repository Date:2017 06/14/2017 DEEPA J Primary DEEPA J [place] [id number] Insurance:ANTHEMPolic BRENNEMANDOB: Community CEMETARY y Number: [id number], [place] [id number] Repository 304[address]Wph: (330) Date:8720-33-95EZ [phone] () 621558NKZDJLV, [place] [address]UD: 06/14/2017 Secondary NOT GIVENUNK [place] Insurance:SELF PAY [facility] Number: Effective Repository Date:2017-06-14 06/12/2017 DEEPA J Primary DEEPA J [place] [id number] Insurance:ANTHEMPolic BRENNEMANDOB: Community CEMETARY y Number: [id number], [place] [id number] Repository 07[address]Men: (330) Date:8340-96-69HI [phone] () 177488VSJSMWF, [place] [address]AV: 06/12/2017 Secondary NOT GIVENUNK [place] Insurance:SELF PAY [facility] Number: Effective Repository Date:2017-05-24 05/30/2017 DEEPA J Primary DEEPA J [place] [id number] Insurance:ANTHEMPolic BRENNEMANDOB: Community CEMETARY y Number: [id number] View Behavioral [id number] Repository 0119[address]Crh: (330) Date:1688-51-42MM [phone] () [id number] [place] [address]ZB: 05/30/2017 Secondary NOT GIVENUNK [place] Insurance:SELF PAY [facility] Number: Effective Repository Date:2017-05-24 05/30/2017 DEEPA J Primary DEEPA J [place] [id number] Insurance:ANTHEMPolic BRENNEMANDOB: Community CEMETARY y Number: [id number] View Behavioral [id number] Repository 24[address]Lkf: (330) Date:2252-21-06LN [phone] () [id number] [place] [address]MR: 05/30/2017 Secondary NOT GIVENUNK [place] Insurance:SELF PAY [facility] Number: Effective Repository Date:2017-05-30 05/24/2017 DEEPA J Primary DEEPA J [place] [id number] Insurance:ANTHEMPolic BRENNEMANDOB: Community CEMETARY y Number: [id number] View Behavioral [id number] Repository 429[address]Mpp: (330) Date:5312-73-86SR [phone] () 882289SETOKGF, [place] [address]SY: 05/24/2017 Secondary NOT GIVENUNK [place] Insurance:SELF PAY [facility] Number: Effective Repository Date:2017-05-24 05/24/2017 DEEPA J Primary DEEPA J [place] [id number] Insurance:ANTHEMPolic BRENNEMANDOB: Community CEMETARY y Number: [id number] View Behavioral [id number] Repository 34[address]Rrn: (330) Date:8115-56-10XG [phone] () 942137PKTTJNKABDOUL GARCÍA [address]JL: 05/24/2017 Secondary NOT GIVENUNK [place] Insurance:SELF PAY [facility] Number: Effective Repository Date:2017-05-21 04/17/2017 Deepa J Primary Deepa J [place] [id number] Insurance:ANTHEMPolic BrennemanDOB: Community Cemetary y Number: [id number], [place] [id number] Repository [address]Jbe: (330) Date:8530-49-67TW [phone] () 730558LAFUGXJABDOUL GARCÍA [address]CV: 04/17/2017 Secondary NOT GIVENUNK [place] Insurance:SELF PAY [facility] Number: Effective Repository Date:2017-03-30 03/30/2017 Deepa J Primary Deepa J [place] [id number] Insurance:ANTHEMPolic BrennemanDOB: Community Cemetary y Number: [id number], [place] [id number] Repository 787[address]Qxu: (330) Date:8416-51-80ZF [phone] () 270989KROZOSU, [place] [address]IQ: 03/30/2017 Secondary NOT GIVENUNK [place] Insurance:SELF PAY [facility] Number: Effective Repository Date:2017-03-30
== END 2018-03-06 18:46 | disposition home or self-care (01) ==
LOC: SDC 14:07 → ACINP 14:08
PROVIDERS: Family Provider Family Medicine; PCP Family Medicine; Referring Provider Orthopaedic Surgery; Visit Provider Orthopaedic Surgery
PROC: (CPT 64721; principal; 2018-03-06 15:55)
DX: G56.01 Carpal tunnel syndrome, right upper limb (principal); E11.9 Type 2 diabetes mellitus without complications; I10 Essential (primary) hypertension; Z87.891 Personal history of nicotine dependence
CPT/HCPCS: 64721; 82962; J7120

== ENCOUNTER 2018-04-23 11:00 | Outpatient (RCR) | payer BC, SELFPAY ==
--- NOTE | 2018-03-27 10:50 | HP.OTEVAL_ITS ---
Patient's Visit Information DEEPA RUFFIN is a 47 year old M, referred to Occupational Therapy by Talia Boyd MD, with a diagnosis of Right Carpal Tunnel- Post Op Release. Date of Evaluation: 03/27/18 Occupational Therapist: Carolyn Valerio - Subjective Subjective: Pt seen for initial occupational therapy evaluation s/p R carpal tunnel post op release. Pt had carpel tunnel releasae last week of February and is now 3 wks out. Pt had stitches removed Sunday03/25/18. Pt had carpel tunnel release completed on L hand last spring. Pt is R hand dominent. 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 - Pain R hand/wrist 0 Pain Intensity Range: 5, 6 - Objective Objective/Observation: decreased ROM and strength of R hand, increased stiffness of R hand, hypersensitive scar R hand - ROM Wrist: R 43/78 L 60/88 ROM Comments: Pt R hand dominent. Pt able to complete opposition R hand - Strength Certified Novell Administrator: R DNT, L 85# Lateral Pinch: R 8#, L 14# Tripod Pinch: R 8#, L 14# - Edema Other: No edema noted R hand - Sensation Sensation Comments: No numbness or tingling per pt - Quick DASH-Disab of Arm,Shoulder& Hand Quick DASH Score: 65.0000 - Goals Goal:: Pt will be able to progress w/ R hand director radio news strength to 80# by d/c from OT services. Pt will progress with lateral pinch R hand by 4# to assist with functional living tasks. Goal:: Pt will progress w/ R wrist AROM flexion by 10' and extension by 15' to increase indep w/ BADLs/IADLs. Goal:: Pt will demo no pain with movement greater than 1/10 R hand by d/c from OT services. Goal:: Pt will be educated on scar massage techniques to decrease scar an hypersensitivity of scar with good understanding and demo 100%x Goal:: Pt will be educated on R hand HEP with good understanding and demo 100%x - Rehabilitation General Assessment: Pt demo decreased R hand/wrist AROM, decreased R hand strength. Pt would benefit from direct occupational therapy services to increase R hand/wrist AROM, R hand strength, decrease hypersensitivity of scar, educate on scar mngmt techniques, educate on HEP to increase pts quality of life. Rehabilitation Potential: Excellent - Anticipated Interventions Anticipated Interventions: A/AAROM/PROM, Strengthening, Edema Control, Scar Care, Massage, Modalities, Orthoses, Joint Protection/Energy Conservation, Fine Motor Coord/Brandon, Home Program - Visit Plan Frequency: 1-2x /Week Duration: 4-6 Weeks General Plan: increase R hand/wrist AROM, R hand strength, decrease hypersensitivity of scar, educate on scar mngmt techniques, educate on HEP to increase pts quality of life. TEXT: Thank you for the opportunity to evaluate your patient. For Medicare and Medicare HMO plans, please review the plan of care and approve it. It will need to be FAXED BACK to us at [phone] for Medicare purposes. Please let me know if there are questions or concerns regarding this plan of care. Physician Signature: Date:
--- NOTE | 2018-04-10 13:10 | HP.PTDCSUM ---
HP - PT D/C Summary It has been my pleasure to treat DEEPA RUFFIN under orders from Talia Boyd MD, for the diagnosis of lumbar strain for a total of 11 visit(s). Discharge Date: 04/10/18 Please see the following information for a summary of their discharge status. - Subjective Subjective: Pt reports that he is still feeling the pain in his R buutcheek. He does not feel it down in his legs or kevin anymore. Occ if he is on his feet too long does he feel it in his upper kevin somewhat. No back pain. Stick roll helps but only temporarily. Pt is wondering at this point if he has a bad hip. He does have stenosis and arthritis in his neck. Pt reports that he is stretching continuously at home. He reports that if he sits on it is a sharp pain. Getting in and out of cars is ok now. - Pain back pain Pain Intensity (Out of 10): 0 R leg pain Pain Intensity (Out of 10): 0 R butt pain Pain Intensity (Out of 10): 1 - Overall Improvement % Improvement: 40 - Objective Objective/Function: Pt has + SLUMP test for nerve entrapment. He has increase pain sitting on edge of mat with LAQ. Gait: walks witha normal gait pattern. LE MMT: R DF 4-/5 complared to L DF 4+/5, R knee ext 3-/5 and L 4/5, - Goals Goal 1:: I HEP Goal Progress: Goal Met Goal 2:: Walk with normal gait pattern Goal 3:: Decrease pain to 1/10 with reaching and bending Goal Progress: Progressing Goal 4:: Be able to LAQ without pain - Plan Plan: Pt to return back to Dr Boyd.... Pt does have some decreased strength on the R foot/LE as well as +SLUMP sign for possible nerve entrapment. Physician reassessment needed and possibe further diagnostics for L-spine and possible R hip. - D/C Information Discharge Comments: [place] PT to physician If there are questions or concerns regarding this patient's physical therapy, please feel free to call me at [phone]. Thank you for the referral of this patient. Sincerely, April Torres, MPT
--- NOTE | 2018-04-24 10:26 | HP.OTDCSUM_ITS ---
HP - OT D/C Summary It has been my pleasure to treat DEEPA RUFFIN under orders from Talia Boyd MD, for the diagnosis of Right Carpal Tunnel- Post Op Release for a total of 9 visit(s). Please see the following information for a summary of their discharge status. - Objective Objective/Function: increase strength and ability to functional use R hand, break up scar tissue. R concierge receptionist strength 70#, R lateral pinch 14#, R tripod pinch 12#, R wrist flexion 87', extension 53' - Goals Patient Goals: Regain Strength, Decrease Pain, Return to Work, Decrease Swelling/Stiffness, Improve Fine Motor Skills, Use Hand/Wrist/Arm Normally Again, Increase ROM, Be More Independent in ADLS, Resume Former Household Responsibilities (Cooking,Cleaning,Yard, etc.), Resume Hobbies Goal:: Pt will be able to progress w/ R hand concierge receptionist strength to 80# by d/c from OT services. Pt will progress with lateral pinch R hand by 4# to assist with functional living tasks. Goal:: Pt will progress w/ R wrist AROM flexion by 10' and extension by 15' to increase indep w/ BADLs/IADLs. Goal:: Pt will demo no pain with movement greater than 1/10 R hand by d/c from OT services. Goal:: Pt will be educated on scar massage techniques to decrease scar an hypersensitivity of scar with good understanding and demo 100%x Goal:: Pt will be educated on R hand HEP with good understanding and demo 100%x - Plan Plan: d/c OT services this date. - D/C Information Discharge Comments: Pt has made great progress with OT goals. Pt has progressed with R hand concierge receptionist strength 70# and R lateral pinch 14#, R tripod pinch 12#. Pt has progressed with R wrist flexion to 87' and R wrist extension to 53'. Pt educ ated on exercises and stretches to complete at home and scar massage techniques with good understanding and demo. Pt demo no pain R UE with movement or at rest. Pt no longer requires skilled OT services and returning to work in 2 days. D/C OT services at this time. If there are questions or concerns regarding this patient's occupational therapy, please fell free to call me at [phone]. Thank you for the referral of this patient. Sincerely, Carolyn Valerio
== END 2018-04-23 19:00 | disposition home or self-care (01) ==
LOC: OT 11:00
PROVIDERS: Family Provider Family Medicine; PCP Family Medicine; Referring Provider Family Medicine; Visit Provider Family Medicine
DX: S39.012D Strain of muscle, fascia and tendon of lower back, subsequent encounter (principal)
CPT/HCPCS: 97014; 97035; 97110; 97140; 97161; 97165; 97166; 97530; G0283

== ENCOUNTER → 2018-08-26 14:55 | Outpatient (CLI) | payer BC, SELFPAY ==
[2018-03-25 09:02] VITALS: BMI 30.2
[2018-08-26 16:08] LABS: ALB/GLOB Ratio 1.1 RATIO (0.9-2.4); AST(SGOT) 20 U/L (15-37); Alanine Aminotransfer ALT/SGPT 36 U/L (16-61); Albumin, Serum 3.5 g/dL (3.2-5.0); Alkaline Phosphatase 99 U/L (45-117); Anion Gap 8 (5-15); BUN 14 mg/dL (7-18); BUN/Creat Ratio 16.2 RATIO (10-20); Chloride 106 mmol/L (98-107); Creatinine, Serum 0.87 mg/dL (0.70-1.30); EST Glomerular Filtration Rate 100 mL/min (>60); Est Glom Filt Rate - Afr Amer 122 mL/min (>60); Globulin 3.2 g/dL (2.2-4.2); Glucose 102 mg/dL (74-106); PSA,Total- Diagnostic 0.19 ng/mL (0.0-4.0); Potassium 3.9 mmol/L (3.5-5.1); Protein, Total 6.7 g/dL (6.4-8.2); Sodium Level 142 mmol/L (136-145)
== END ==
PROVIDERS: Family Provider Family Medicine; PCP Family Medicine; Referring Provider Urology; Visit Provider Urology
DX: N31.2 Flaccid neuropathic bladder, not elsewhere classified (principal)
CPT/HCPCS: 36415; 80053; 84153

== ENCOUNTER → 2018-10-04 07:22 | Outpatient (CLI) | payer BC, SELFPAY ==
[2018-03-25 09:02] VITALS: BMI 30.2
[2018-10-04 10:38] LABS: ALB/GLOB Ratio 1.2 RATIO (0.9-2.4); AST(SGOT) 21 U/L (15-37); Alanine Aminotransfer ALT/SGPT 35 U/L (16-61); Albumin, Serum 3.8 g/dL (3.2-5.0); Alkaline Phosphatase 106 U/L (45-117); Anion Gap 9 (5-15); BUN 14 mg/dL (7-18); BUN/Creat Ratio 15.3 RATIO (10-20); Calcium,Total 8.7 mg/dL (8.5-10.1); Chloride 99 mmol/L (98-107); Cholesterol 196 mg/dL (200); Creatinine, Serum 0.92 mg/dL (0.70-1.30); EST Glomerular Filtration Rate 94 mL/min (>60); Est Glom Filt Rate - Afr Amer 114 mL/min (>60); Globulin 3.1 g/dL (2.2-4.2); Glucose 309 mg/dL (74-106); High Density Lipoprotein 49 mg/dL; Potassium 4.2 mmol/L (3.5-5.1); Protein, Total 6.9 g/dL (6.4-8.2); Sodium Level 135 mmol/L (136-145); Thyroid Stim Hormone (TSH) 0.87 uIU/mL (0.358-3.74); Triglycerides 151 mg/dL; Very Low Density Lipoprotein 30 mg/dL (5-40)
[2018-10-04 10:48] LABS: Hemoglobin A1c 10.4 % (4.2-6.3)
== END ==
PROVIDERS: Family Provider Family Medicine; PCP Family Medicine; Referring Provider Internal Medicine Endocrinology, Diabetes & Metabolism; Visit Provider Internal Medicine Endocrinology, Diabetes & Metabolism
DX: E11.40 Type 2 diabetes mellitus with diabetic neuropathy, unspecified (principal)
CPT/HCPCS: 36415; 80053; 80061; 83036; 84443

== ENCOUNTER → 2019-03-18 08:40 | Outpatient (CLI) | payer BC, SELFPAY ==
[2019-03-18 08:32] VITALS: BMI 30.2
--- NOTE | 2019-03-18 08:41 | RAD_ITS ---
STUDY: X-RAY - LEFT HAND REASON FOR EXAM: Locking of middle finger. TECHNIQUE: 3 view(s) of the hand. COMPARISON: None. FINDINGS: Normal radiocarpal articulation. Normal distal radioulnar joint. Normal visualized carpal bones. Normal carpal articulations Normal carpometacarpal articulation of the thumb. Normal second through fifth carpometacarpal joints. Normal metacarpi. Normal metacarpophalangeal joint of the thumb. Normal interphalangeal joint of the thumb. Normal proximal and distal phalanges of the thumb. Normal metacarpophalangeal joints of the second through fifth fingers. Normal proximal and distal interphalangeal joints of the second through fifth fingers. Normal phalanges of the second through fifth fingers. The soft tissue structures are unremarkable. RAD/Hand Min 3 Views IMPRESSION: Normal x-ray examination of the left hand. Electronically Signed: Cesario Long MD at 13:19 EST Tel , Service support ,
== END ==
PROVIDERS: Family Provider Family Medicine; PCP Family Medicine; Referring Provider Orthopaedic Surgery; Visit Provider Orthopaedic Surgery
DX: M65.332 Trigger finger, left middle finger (principal)
CPT/HCPCS: 73130

== ENCOUNTER → 2019-10-15 07:22 | Outpatient (CLI) | payer BC, SELFPAY ==
[2019-03-18 08:32] VITALS: BMI 30.2
[2019-10-15 10:33] LABS: ALB/GLOB Ratio 1.1 RATIO (0.9-2.4); AST(SGOT) 7 U/L (15-37); Alanine Aminotransfer ALT/SGPT 18 U/L (16-61); Alkaline Phosphatase 110 U/L (45-117); Anion Gap 4 (5-15); BUN 16 mg/dL (7-18); BUN/Creat Ratio 18.7 RATIO (10-20); Calcium,Total 9.1 mg/dL (8.5-10.1); Chloride 103 mmol/L (98-107); Creatinine, Serum 0.86 mg/dL (0.70-1.30); EST Glomerular Filtration Rate 101 mL/min (>60); Est Glom Filt Rate - Afr Amer 123 mL/min (>60); Globulin 3.5 g/dL (2.2-4.2); Glucose 210 mg/dL (74-106); Potassium 4.1 mmol/L (3.5-5.1); Protein, Total 7.5 g/dL (6.4-8.2); Sodium Level 138 mmol/L (136-145)
[2019-10-15 10:51] LABS: Microalbumin,Random Urine 20.8 mg/L (NO RANGE EST.); Microalbumin:Creatinine Ratio 11.1 mg/g CRE (<30 mg/g CRE)
== END ==
PROVIDERS: PCP Family Medicine; Referring Provider Internal Medicine Endocrinology, Diabetes & Metabolism; Visit Provider Internal Medicine Endocrinology, Diabetes & Metabolism
DX: E11.40 Type 2 diabetes mellitus with diabetic neuropathy, unspecified (principal)
CPT/HCPCS: 36415; 80053; 82043; 82570; 83036

== ENCOUNTER → 2019-11-13 15:19 | Outpatient (CLI) | payer BC, SELFPAY ==
[2019-03-18 08:32] VITALS: BMI 30.2
--- NOTE | 2019-11-13 15:20 | RAD_ITS ---
STUDY: X-RAY - LEFT ELBOW REASON FOR EXAM: Male, 49 years old. PAIN WITH NUMBNESS TO HAND TECHNIQUE: 3 view(s) of the elbow. COMPARISON: None. FINDINGS: Normal visualized humerus, radius and ulna. Normal radiocapitellar and ulnotrochlear articulations. The soft tissue structures are unremarkable. There is no demonstrated fracture. RAD/Elbow min 3 Views IMPRESSION: Normal x-ray examination of the elbow. Electronically Signed: Rodrigo Rosario MD at 22:17 EDT , Service support ,
--- NOTE | 2019-11-13 15:20 | RAD_ITS ---
STUDY: X-RAY - RIGHT ELBOW REASON FOR EXAM: Male, 49 years old. PAIN WITH NUMBNESS TO HAND TECHNIQUE: 3 view(s) of the elbow. COMPARISON: None. FINDINGS: Normal visualized humerus, radius and ulna. Normal radiocapitellar and ulnotrochlear articulations. The soft tissue structures are unremarkable. There is no demonstrated fracture. RAD/Elbow min 3 Views IMPRESSION: Normal x-ray examination of the elbow. Electronically Signed: Rodrigo Rosario MD at 22:16 EDT , Service support ,
== END ==
PROVIDERS: PCP Family Medicine; Referring Provider Physician Assistant; Visit Provider Physician Assistant
DX: R20.0 Anesthesia of skin (principal)
CPT/HCPCS: 73080

== ENCOUNTER → 2019-12-29 12:07 | Outpatient (CLI) | payer BC, SELFPAY ==
[2019-11-13 15:21] VITALS: BMI 30.2
--- NOTE | 2019-12-29 12:10 | RAD_ITS ---
STUDY: X-RAY - UNILATERAL RIBS ( RIGHT ) WITH CHEST REASON FOR EXAM: Male, 49 years old. Right-sided chest wall pain, posterior mostly TECHNIQUE - RIBS: 4 view(s) of the ribs. TECHNIQUE - CHEST: Single frontal view of the chest. COMPARISON: Chest x-ray 03/07/2016 FINDINGS - RIBS: Normal visualized ribs without a demonstrated fracture. FINDINGS - CHEST: The lungs are clear and expanded. There is no demonstrated pleural abnormality. Normal size heart. Normal mediastinum and tomas. Normal visualized pulmonary arteries. Normal visualized aortic arch and descending thoracic aorta. There are mild degenerative changes of the visualized thoracic spine. Bilateral calcific tendinitis. There is no demonstrated abnormality of the visualized soft tissue structures of the upper abdomen. RAD/Ribs Uni Min 3V w/PA Chest IMPRESSION: RIBS: Normal x-ray examination of the ribs. CHEST: Bilateral degenerative changes. Electronically Signed: Dyana Adrian MD at 2:21 EDT , Service support ,
== END ==
PROVIDERS: PCP Family Medicine; Referring Provider Family Medicine; Visit Provider Family Medicine
DX: R07.89 Other chest pain (principal)
CPT/HCPCS: 71101

== ENCOUNTER → 2020-01-05 10:16 | Outpatient (CLI) | payer BC, SELFPAY ==
[2019-11-13 15:21] VITALS: BMI 30.2
--- NOTE | 2020-01-05 12:51 | NEURO ---
NCS and/or EMG Patient Report Ordering Doctor: Ilya Suazo DATE OF SERVICE: 01/05/20 Indication: Bilateral hand numbness and paresthesias predominantly affecting the fourth and fifth digits. The patient has a history of median neuropathy across the wrist for which he underwent bilateral decompressive surgery several years ago. He also has diabetic peripheral polyneuropathy. Evaluate for possible ulnar neuropathy. Findings: Nerve conduction studies were performed in the right and left upper extremities. The right median motor study recording the abductor pollicis brevis showed a borderline amplitude, prolonged distal latency and mildly slowed conduction velocity. The right ulnar motor study recording the abductor digiti minimi showed a normal amplitude, normal distal latency and mildly slowed conduction velocity. No conduction block or focal slowing was present across the elbow. The right median sensory response recording digit two showed a reduced amplitude, prolonged latency and efficiently slowed conduction velocity. The right ulnar sensory response recording digit five showed a reduced amplitude, normal latency and mildly slowed conduction velocity. The right radial sensory response recording over the extensor snuff box showed a normal amplitude, latency and conduction velocity. The left median motor study recording the abductor pollicis brevis showed a normal amplitude, prolonged distal latency and mildly slowed l conduction velocity. The left ulnar motor study recording the abductor digiti minimi showed a normal amplitude, normal distal latency and normal conduction velocity. No conduction block or focal slowing was present across the elbow. The left median sensory response recording digit two showed a reduced amplitude, prolonged latency and significantly slowed conduction velocity. The left ulnar sensory response recording digit five showed a reduced amplitude, normal latency and mildly slowed conduction velocity. The left radial sensory response recording over the extensor snuff box showed a normal amplitude, latency and conduction velocity. Right median-ulnar mixed palmar latencies showed a normal median latency compared to the ulnar. Left median-ulnar mixed palmar latencies showed a normal median latency compared to the ulnar. Needle EMG of the right and left upper extremity muscles was performed. The paraspinal muscles were not evaluated given the common presence of fibrillation potentials in the diabetic population. No denervation was seen in any muscle. In the right upper extremity, the abductor pollicis brevis muscle demonstrated motor units which were large amplitude, long duration, slightly polyphasic with a reduced recruitment pattern. All other muscles examined in the right upper extremity (deltoid, triceps, flexor digitorum profundus, first dorsal interosseous) demonstrated normal motor unit morphology, activation and recruitment patterns. In the left upper extremity, all examined muscles (deltoid, triceps, flexor digitorum profundus, first dorsal interosseous, abductor pollicis brevis) demonstrated normal motor unit morphology, activation, and recruitment patterns. Impression: This is an abnormal and complex study. There is electrophysiologic evidence of bilateral median neuropathy across the wrist. The pathophysiology is predominantly demyelinating, however, there is evidence of reinnervation in the right thenar muscles. There is no active denervation to suggest ongoing axonal injury. These note, focal slowing can persist postoperatively despite adequate decompression of the carpal tunnel. The diffusely low amplitude, slow, nerve conduction responses are likely secondary to the patient's known diabetic peripheral polyneuropathy. However, this was not fully investigated as it was not the indication for today's study. There is no definitive electrophysiologic evidence of a superimposed ulnar mononeuropathy. The low ulnar sensory response may be due to the patient's aforementioned polyneuropathy, but a compressive lesion cannot be entirely excluded. If this remains a clinical consideration, a neuromuscular ultrasound of the ulnar nerve may prove useful. Jae Gonzalez D.O.
== END ==
PROVIDERS: PCP Family Medicine; Referring Provider Physician Assistant; Visit Provider Physician Assistant
DX: R20.2 Paresthesia of skin (principal); M79.601 Pain in right arm; M79.602 Pain in left arm
CPT/HCPCS: 95886; 95913

== ENCOUNTER 2020-01-07 01:50 | Emergency (ER) | payer OTHER, BC, SELFPAY ==
[2019-11-13 15:21] VITALS: BMI 30.2
[2020-01-07 01:51] VITALS: BP 159/77; PULSE 94; RESP 15; TEMP 36.3; O2SAT 99; BMI 29.5
--- NOTE | 2020-01-07 01:58 | RAD_ITS ---
STUDY: X-RAY - LUMBAR SPINE REASON FOR EXAM: Male, 49 years old. 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 COMPARISON: None FINDINGS: Mild degenerative changes. No acute fracture or subluxation. Moderate stool in the visualized colon correlate for constipation. Vascular calcifications. RAD/Lumbar Spine 2 or 3 Views IMPRESSION: No acute fracture. Degenerative change, mild. If patient''s symptomology persists consider CT to further evaluate. Correlate for constipation. Electronically Signed: Randy Ramirez, at 2:56 EDT Tel , Service support ,
--- NOTE | 2020-01-07 02:06 | ED.VIS.GEN ---
History of Present Illness Chief Complaint: Back Informant: Patient Onset: Today Context: Sudden Onset Timing: Continuous Current Severity: Moderate Maximum Severity: Moderate Narrative: Patient is a 49-year-old male who presents to the emergency department for low back injury. Patient was in his normal state of health. He states that he has had back issues in the past. He is never required surgery. He states he does have a history of bulging disks. He was at work. He had bent over to break down a box. He states when he moved, he felt something pop in his low back. He had a lot of pain on the right side rating down into his right thigh. He states it was difficult to stand and move. He denies any numbness or weakness. He denies any difficulty with bowel or bladder. He was able to ambulate into the emergency department without issue. He is otherwise been in his normal state of health. Prior similar symptoms: Yes Recent Illness/Hospitalization: No Past Medical History - Allergies and Home Meds Allergies/Adverse Reactions: Allergies No Known Allergies Allergy (Verified 01/07/20 01:50) Primary Care Physician: [facility] [GROUP OF PHYSICIANS] - Prior records reviewed: Yes Past Medical History: - - Diabetes Surgical History: noncontributory Smoking Status: Current every day smoker Review of Systems General: Denies: Chills, Fever, Sweats Eyes: Denies: Visual changes - bilaterally, Diplopia ENT: Denies: Rhinorrhea, Sore throat Cardiovascular: Denies: Chest pain, Palpitations Respiratory: Denies: Dyspnea, Cough, Dyspnea on exertion Gastrointestinal: Denies: Abdominal pain, Nausea, Vomiting, Diarrhea, Melena, Hematochezia Genitourinary: Denies: Dysuria, Hematuria, Frequency Musculoskeletal: Denies: Back pain, Extremity Pain Skin: Denies: Rash, Wounds Neurological: Denies: Headache, Weakness, Numbness Physical Exam Vital Signs/Narrative: Vital Signs Temp Pulse Resp BP Pulse Ox 01/07/20 01:51 97.4 F L 94 15 159/77 H 99 Inital Vital Signs reviewed: Yes General: Well nourished, Well developed, No Acute Distress Head: Normocephalic, Atraumatic Eyes: Perrl, EOMI ENT: Moist mucous membranes, No rhinorrhea Neck: Supple, Nontender Cardiovascular: Regular rate, Regular rhythm, No murmurs Respiratory: No distress, CTA bilaterally, Chest nontender Abdomen: Soft, Nontender, Nondistended, Normal bowel sounds Back: Nontender, Normal Inspection, - - There is no midline tenderness. Straight leg raise on the right re-creates pain, but no weakness. He has normal dorsiflexion, plantar flexion, and extensor hallucis longus bilaterally. There is normal reflexes. He has normal pulses. Extremities: Nontender, No edema Skin: Normal color, No rash Neurological: Alert, Oriented x3, Cranial nerves II-XII grossly intact, Normal Strength, Normal Sensation Psychological: Normal affect, Normal Mood Diagnostic/Tx/Re-eval Clinical Impression(s) from Imaging Studies Lumbar Spine X-Ray 01/07/20 01:58 IMPRESSION: No acute fracture. Degenerative change, mild. If patient''s symptomology persists consider CT to further evaluate. Correlate for constipation. Electronically Signed: Randy Ramirez, at 2:56 EDT Tel , Service support , - Medical Decision Making The patient has no red flag symptoms. He has no weakness or foot drop. He does have pain with leg raise, but no paresthesia. Clinically, symptoms do seem consistent with ruptured disc. However, he has no evidence of cauda equina or acute entrapment. I did obtain plain films which are unremarkable. Patient was treated with IM medications was feeling improved. This was a work-related injury. Because of this, he will be placed on limited duty until he is cleared by the now clinic. He will be given a short course of analgesics and antispasmodics. He will be discharged home. Impression 1. Acute lumbar sprain ED Disposition - Plan for ED Patient: Instructions: ED LUMBAR SPRAIN/STRAIN Prescriptions: cycloBENZAPRine HCl [Flexeril] 10 mg PO TID PRN #20 tab PRN Reason: Muscle Spasm Prescription Printed Hydrocodone Bitart/Apap 5-325 [[place] 5MG-325MG] 1 tab PO Q6H PRN PRN 3 Days #10 tab PRN Reason: Pain Prescription Printed Referrals: [facility] [GROUP OF PHYSICIANS] -
[2020-01-07] MEDS: diazePAM 5 MG Tablet PO (02:35)
[2020-01-07] MEDS: morphine 8 MG/ML Syringe IM (02:35)
[2020-01-07 03:04] VITALS: BP 150/86; PULSE 92; RESP 16; O2SAT 96
--- NOTE | 2020-01-07 03:05 | ED.RN ---
pt observed for 15 minutes no reaction noted by this rn, pt d/c. pt getting a ride home with a coworker.
== END 2020-01-07 03:05 | disposition home or self-care (01) ==
LOC: ED 02:29
PROVIDERS: Emergency Provider Emergency Medicine; PCP Family Medicine
DX: M79.651 Pain in right thigh (principal); S33.5XXA Sprain of ligaments of lumbar spine, initial encounter; F17.200 Nicotine dependence, unspecified, uncomplicated; E11.9 Type 2 diabetes mellitus without complications; X58.XXXA Exposure to other specified factors, initial encounter; Z79.4 Long term (current) use of insulin
CPT/HCPCS: 72100; 99282

== ENCOUNTER → 2020-01-27 08:12 | Outpatient (CLI) | payer BC, SELFPAY ==
[2020-01-15 13:28] VITALS: BMI 29.5
[2020-01-27 10:25] LABS: Hemoglobin A1c 8.6 % (3.8-5.6)
[2020-01-27 11:05] LABS: ALB/GLOB Ratio 1.1 RATIO (0.9-2.4); AST(SGOT) 10 U/L (15-37); Alanine Aminotransfer ALT/SGPT 23 U/L (16-61); Alkaline Phosphatase 112 U/L (45-117); Anion Gap 9 (5-15); BUN 18 mg/dL (7-18); BUN/Creat Ratio 18.5 RATIO (10-20); Calcium,Total 9.3 mg/dL (8.5-10.1); Chloride 101 mmol/L (98-107); Cholesterol 169 mg/dL (200); Creatinine, Serum 0.97 mg/dL (0.70-1.30); EST Glomerular Filtration Rate 87 mL/min (>60); Est Glom Filt Rate - Afr Amer 106 mL/min (>60); Globulin 3.6 g/dL (2.2-4.2); Glucose 208 mg/dL (74-106); High Density Lipoprotein 46 mg/dL; Potassium 4.3 mmol/L (3.5-5.1); Protein, Total 7.6 g/dL (6.4-8.2); Sodium Level 136 mmol/L (136-145); Thyroid Stim Hormone (TSH) 2.01 uIU/mL (0.358-3.74); Triglycerides 114 mg/dL; Very Low Density Lipoprotein 23 mg/dL (5-40)
== END ==
PROVIDERS: PCP Family Medicine; Referring Provider Internal Medicine Endocrinology, Diabetes & Metabolism; Visit Provider Internal Medicine Endocrinology, Diabetes & Metabolism
DX: E11.649 Type 2 diabetes mellitus with hypoglycemia without coma (principal); I11.0 Hypertensive heart disease with heart failure; E55.9 Vitamin D deficiency, unspecified; Z79.4 Long term (current) use of insulin
CPT/HCPCS: 36415; 80053; 80061; 82306; 83036; 84443

== ENCOUNTER 2020-02-20 07:26 | Day surgery (SDC) | payer BC, SELFPAY ==
[2020-01-15 13:28] VITALS: BMI 29.5
[2020-02-20] VITALS (7 sets, daily range): BP systolic 113–142; BP diastolic 68–87; PULSE 93–96; RESP 16; TEMP 36.3–37.3; O2SAT 95–97; BMI 29.5
[2020-02-20] MEDS: Lactated Ringers 1,000 ML 100 ML IV (08:29)
--- NOTE | 2020-02-20 08:40 | HP_ITS ---
I have re-examined the patient. There are no clinical changes since date of exam. Intake Intake Visit Reasons: Bilat Hands Is patient in pain?: Yes Allergies No Known Allergies Allergy (Verified 01/27/20 09:04) PFSH Surgical History S/P carpal tunnel release (Acute) Family History Other Diabetes Social History (Updated 01/27/20 @ 09:[address] Lynette Christie, DO) Smoking Status: Current every day smoker HPI Bilat Hands: Surgical H&P: Yes Details: Parts of this documentation were recorded by a scribe, this documentation accurately reflects the service provided and the decisions made by me, Dr. Lynette Christie, 01/27/20 0853. DEEPA RUFFIN is a 49 year old M here today for a followup after his emg. Patient states that he continues to have numbness and tingling into his 4th and 5th fingers of his bilateral hands. he has trigger finger of his left middle finger. he has increased symptoms with sleeping.he complains of achiness into his finger. he had an injection on 03/27/19 into his trigger finger which was helpful temporarily. his emg is here for review. KYLE Hayes Reports numbness, Reports stiffness, Reports tingling Neuro Yes numbness, Yes tingling Assessment & Plan Problems 1. Diabetic polyneuropathy associated with diabetes mellitus due to underlying condition E08.42 2. Trigger finger, left middle finger M65.332 Plan personally reviewed the patients emg with the patient. see imaging report in chart for further details. explained some of his numbness is from diabetic neuropathy. it was recommended he needs an neuromuscular ultrasound of ulnar nerve. spoke with the patient about the trigger finger and his options- a repeat injection and a a1 rodrick release. spoke about the surgical procedure and recovery. patient wanted to progress with surgery for his trigger finger. Reviewed the pre-operative plans with the patient. Risks and benefits of the procedure were fully explained, including but not limited to infection, neurovascular injury, continued pain, arthritis, stiffness, need for further surgery, re-injury, DVT, PE, general risks of anesthesia, and loss of limb or life. The patient understands all the risks and does wish to proceed with written consent. we discussed the current risk associated COVID-19. While it is understood that there is a community spread of COVID 19 the risk of tulio COVID-19 while at [facility] is very low, however, the risk cannot be completely mitigated because of the community spread of the disease. We discussed in detail the risk of exposure to and or potential harm posed by the COVID-19 virus with having a surgery/procedure at this time versus the risk of delaying the surgery/procedure. Is not possible to know either the risk of delaying the surgery procedure or chance of getting an infection with perfect accuracy, but a joint decision was made to proceed at this time with a schedule surgery/procedure as indicated on the consent form. Patient was notified that we will need to comply with any screening or testing [facility] wishes to perform or that surgery may be delayed for any positive results. ORDERED A NEUROMUSCULAR ULTRASOUND. Follow up for 2 week post op or sooner if pain, swelling, numbness or associated symptoms, or concerns develop. All questions answered. Patient in agreement of plan. Coding Level of Care Code Off vis,est,level 4 Diagnoses Diabetic polyneuropathy associated with diabetes mellitus due to underlying condition E08.42 ??Diabetes mellitus complication detail: diabetic polyneuropathy ??Diabetes mellitus type: due to underlying condition Trigger finger, left middle finger M65.332 COVID (Procedure Consent) Procedure Criteria Procedure Criteria: Yes Elective The surgeon/proceduralist and patient have discussed in detail the risk of exposure to and/or potential harm posed by the COVID-19 virus with having a surgery/procedure at this time versus the risk of? delaying the surgery/procedure. It is not possible to know either the risk of delaying the surgery or procedure or chance of getting an infection with perfect accuracy, but a joint decision was made between the patient and the surgeon/proceduralist ?to proceed at this time with the scheduled surgery/procedure as indicated on the consent form.
--- NOTE | 2020-02-20 09:09 | OP.PCM_ITS ---
Report of Operation Date of Procedure: 02/20/20 Pre-Operative Diagnosis: left middle trigger finger Post-Operative Diagnosis: same Surgery/Procedure Performed:: left middle trigger finger a1 rodrick release Type of Anesthesia:: Jake Blanca Anesthesiologist: Roberto Prater Estimated Blood Loss (mL): min Fluids Replaced: 500cc Description of Procedure: Preoperative note Patient is a 49 year-old female who came into my office as a new patient this week with a locked in quite painful right third middle finger. can regain function and decrease her pain and locking. Risks benefits and alternatives surgery discussed with patient Risks including but not limited to blood loss, blood clot, infection, neurovascular injury, failure procedure, loss of life and loss of limb. Patient is aware would like proceed with right trigger finger middle release A1 rodrick release. Operative note Patient seen and examined preoperative holding area. Right middle finger was marked. Patient is brought to the operating room and placed supine on the operating table. Sign, anesthesia, antibiotics were administered. The right arm was prepped and draped in usual sterile fashion after Jake block was initiated. We did test the Numa block it was working. Timeout was performed. We marked out our incision at the A1 rodrick of the right middle finger. We was about a centimeter and a half for length. We used a 15 blade to cut the skin tenotomies to dissect down to the level of the A1 rodrick. We then released the A1 rodrick both proximally and distally we then brought the tendons out of the incision and flex and extend at the DIP of the right middle finger to ensure that we had no further locking which we did not have. We then irrigated the i ncision with copious amounts of sterile saline. Incision was closed with interrupted 4-0 nylon stitches. Tourniquet was deflated for total working time of 6 minutes. Patient tolerated procedure well there are no complications, patient transferred to recovery room in stable condition. we did inject 5 cc local at the end of the case Postoperative note Use hand as tolerated but keep incision clean and dry Discussed with family Follow-up in 2 weeks for dressing change and suture removal OTC family This note was generated with [employer] software. It may contain incorrect words, spelling, and punctuation that were not noted in checking the note before signing.
--- NOTE | 2020-02-20 09:09 | DCINST_ITS ---
Discharge Diet: No Restrictions - keep dressing intact, follow up in 2 weeks, call with concerns Discharge Activity: May Not Drive May shower in (days): 1 Ice area for (Minutes): 20 - Every hour while awake. Weight Bearing Status: Weight bearing as tolerated Keep extremity elevated above heart level: Operative Extremity Call your doctor if your incision/area has: Continuous Slow Oozing, Sudden Increased Bleeding, Increased Pain/ Swelling, Increased Redness, Foul Smelling Discharge Call your doctor if you observe: Fever of 101 or Higher, Coldness, Increased Pain, Numbness or Tingling, Change in Color, Calf discomfort Allergies/Adverse Reactions: Allergies No Known Allergies Allergy (Verified 02/20/20 08:23) Medications to take at Discharge dulaglutide 1.5 mg/0.5 mL subcutaneous pen injector 1.5 mg SC COWART 05/24/17 losartan 50 mg tablet 50 mg PO DAILY 05/24/17 metformin 1,000 mg tablet 1,000 mg PO BID 05/24/17 Cholecalciferol (Vitamin D3) [Vitamin D3] 5,000 unit PO DAILY 05/28/17 Cyanocobalamin (Vitamin B-12) [Vitamin B-12] 1,000 mcg PO DAILY 05/28/17 Duloxetine HCl 60 mg PO DAILY 02/07/18 omeprazole 20 mg capsule,delayed release 20 mg PO DAILY #30 cap 03/18/19 cycloBENZAPRine HCl [Flexeril] 10 mg PO TID PRN #20 tab 01/07/20 Insulin Degludec [Tresiba Flextouch U-100] 50 unit SQ DAILY 02/11/20 Insulin Lispro [Humalog Kwikpen] 0 unit SQ TID 02/11/20 Oxycodone HCl/Acetaminophen [Percocet 5/325] 1 - 2 tab PO Q6H PRN PRN 5 Days #10 tab 02/20/20 The following prescriptions were given: Oxycodone HCl/Acetaminophen [Percocet 5/325] 1 - 2 tab PO Q6H PRN PRN 5 Days #10 tab PRN Reason: Pain Transmission Status: Received by [facility] Primary Care Physician: Talia Boyd MD [Primary Care Provider] - Test Results: Test results from this visit will be discussed in further detail at your follow- up appointment, if applicable. Please Follow Up With: Lynette Christie DO - [phone]
[2020-02-20] MEDS: Cefazolin 2 GM in 0.9% Normal Saline 100 ML IV (09:30)
[2020-02-20] MEDS: Mupirocin Ointment 22gm Tube 1 APPLIC (09:52)
[2020-02-20 10:56] LABS: Bedside Glucose 389 mg/dL (70-110)
== END 2020-02-20 11:26 | disposition home or self-care (01) ==
LOC: SDC 07:27 → AC 07:28
PROVIDERS: PCP Family Medicine; Referring Provider Orthopaedic Surgery; Visit Provider Orthopaedic Surgery
PROC: (CPT 26055; principal; 2020-02-20 09:10)
DX: M65.332 Trigger finger, left middle finger (principal); F17.200 Nicotine dependence, unspecified, uncomplicated; E08.42 Diabetes mellitus due to underlying condition with diabetic polyneuropathy
CPT/HCPCS: 01810; 26055; 82962; 87426; C9803; J7120; J2405

== ENCOUNTER 2020-05-07 08:00 | Outpatient (RCR) | payer BC, SELFPAY ==
--- NOTE | 2020-04-14 09:58 | HP.OTEVAL ---
Patient's Visit Information DEEPA RUFFIN is a 49 year old M, referred to Occupational Therapy by Dr. Lynette Christie, DO, with a diagnosis of left MF trigger finger. Date of Evaluation: 04/14/20 Occupational Therapist: Tess Lopez, PATRICIAR/Callie, CHT - Subjective This 49 year old male was seen for OT eval with dx of left MF trigger finger- pt states he struggled with Trigger finger for over a year but conservative tx failed and pt deciced to have sx. DOS was 02/20/20. pt concerns are with limited ROM and use with left hand with ADls and IADLs. - Pain left MF 3 Pain Intensity Range: 0, 5, 7 - ROM PIP: left MF -20/85 left 0/100 DIP: left MF 0/70 left 0/70 ROM Comments: pt demo limited left MF ext following- a left MF - Strength Instrument Maker Apprentice: right 80# left 60# - Quick DASH-Disab of Arm,Shoulder& Hand Quick DASH Score: 20.4525 - Goals Goal:: pt will demo a increase in left showroom manager strength to 80# or greater to increase pts ind. in ADls and IADls by d/c Goal:: pt will demo full Left MF PIP ext to increase pts ind with ADls and IADls by d/c Goal:: pt will report no pain greater than 1/10 with use of left hand with ADLs and IADLs Goal:: pt will demo understanding of scar mtg by end of 2nd session to decrease scar adhesions - Rehabilitation General Assessment: Pt is s/p left MF trigger finger A1 rodrick release and demo with limited left Mf PIP ext and strength of left hand with ADLs and IADls. pt would benefit from skilled OT services 1-2x week for 4 weeks to increase pts ROM and strength to return pt to PLOF. Today therapist ed. pt on scar mtg, ROM to increase pt ROM, and desensitization. Rehabilitation Potential: Excellent - Anticipated Interventions A/AAROM/PROM, Strengthening, Scar Care, Triggerpoint Release, Desensitization, Modalities - Visit Plan Frequency: 1-2x /Week Duration: 2-4 Weeks TEXT: Thank you for the opportunity to evaluate your patient. For Medicare and Medicare HMO plans, please review the plan of care and approve it. It will need to be FAXED BACK to us at [phone] for Medicare purposes. Please let me know if there are questions or concerns regarding this plan of care. Physician Signature: Date:
--- NOTE | 2020-06-15 14:38 | HP.OTDCSUM ---
It has been my pleasure to treat DEEPA RUFFIN under orders from Dr. Lynette Christie DO, for the diagnosis of left MF trigger finger for a total of 6 visit(s). Please see the following information for a summary of their discharge status. % Improvement: 90 Objective/Function: left 55# right 70#. left lateral pinch 12#. left tripod pinch 14#. left MP PIP 0/95 DIP 85. pt demo ROM of left MF ROM WNL Patient Goals: Regain Mobility, Use Hand/Wrist/Arm Normally Again, Increase ROM Goal:: pt will demo a increase in left paperboard machine operator strength to 80# or greater to increase pts ind. in ADls and IADls by d/c Goal:: pt will demo full Left MF PIP ext to increase pts ind with ADls and IADls by d/c Goal:: pt will report no pain greater than 1/10 with use of left hand with ADLs and IADLs Goal:: pt will demo understanding of scar mtg by end of 2nd session to decrease scar adhesions Plan: cont with POC to decrease scar sensitivity and adhesions Discharge Comments: Pt has made good gains in is ROM and strength and has reported IND with ADLs and IADLs at this time. pt to cont with scar mtg and use of his hand as kavin. Pt d/c with HEP If there are questions or concerns regarding this patient's occupational therapy, please fell free to call me at [phone]. Thank you for the referral of this patient. Sincerely, Tess Lopez, OTR/L, CHT
== END 2020-05-07 19:00 | disposition home or self-care (01) ==
LOC: OT 08:00
PROVIDERS: PCP Family Medicine; Referring Provider Orthopaedic Surgery; Visit Provider Orthopaedic Surgery
DX: Z47.89 Encounter for other orthopedic aftercare (principal)
CPT/HCPCS: 97035; 97110; 97140; 97166; 97530

== ENCOUNTER → 2020-06-03 15:52 | Outpatient (CLI) | payer BC, SELFPAY ==
--- NOTE | 2020-06-03 16:00 | RAD_ITS ---
STUDY: X-RAY - ORBITS REASON FOR EXAM: Male, 49 years old. having MRI to rule out metal in the eyes TECHNIQUE: 2 view(s) of the orbits were obtained. COMPARISON: None. FINDINGS: Normal bilateral orbits without a metallic orbital foreign body. Normal visualized facial bones. Normal paranasal sinuses. The soft tissue structures are unremarkable. RAD/Orbits for Foreign Body IMPRESSION: No demonstrated metallic orbital foreign body. The patient is cleared for an MRI examination. Electronically Signed: Lewis Rajput MD at 18:52 EST , Service support ,
== END ==
PROVIDERS: PCP Family Medicine; Referring Provider Orthopaedic Surgery; Visit Provider Orthopaedic Surgery
DX: Z98.890 Other specified postprocedural states (principal)
CPT/HCPCS: 70030

== ENCOUNTER → 2020-07-27 10:46 | Outpatient (CLI) | payer BC, SELFPAY ==
--- NOTE | 2020-07-27 11:09 | EKG12_ITS ---
Test Reason : PRE OP Blood Pressure : / mmHG Vent. Rate : 093 BPM Atrial Rate : 093 BPM P-R Int : 172 ms QRS Dur : 088 ms QT Int : 344 ms P-R-T Axes : 062 046 043 degrees QTc Int : 427 ms Normal sinus rhythm Normal ECG Confirmed by TK MEJÍA, LUIS CARLOS ([id number]), commissioning editor SERGIO SPEAR ([id number]) on 07/28/2020 9:57:48 AM Referred By: RICKEY Confirmed By:LUIS CARLOS FREY MD
[2020-07-27 11:49] LABS: Absolute Lymphocyte Count 1.79 X10^3/uL (0.83-4.51); Absolute Neutrophil Count 4.5 X10^3/uL (2.0-7.7); Basophil# 0.03 X10^3/uL; Basophil% 0.4 % (0-1); Eosinophil# 0.19 X10^3/uL; Eosinophils% 2.7 % (0-5); Hematocrit 47.6 % (40-54); Hemoglobin 15.4 g/dL (13.0-16.5); Lymphocyte # 1.79 X10^3/ul (0.83-4.51); Lymphocyte % 25.5 % (19-41); Mean Corp Hgb Conc 32.4 g/dL (32-36); Mean Corpuscular Hgb 28.5 pg (27.0-32.0); Mean Platelet Vol. 9.9 fl (6.2-12.0); Monocyte# 0.49 X10^3/uL; NRBC Flagged by Analyzer 0 % (0-5); Neutrophil # 4.49 X10^3/uL (2.7-7.7); Neutrophil % 64.1 % (47-70); Platelet Count 279 K/mm3 (150-450); RBC Distribution Width CV 12.3 % (11.6-14.6); RBC Distribution Width SD 39.5 fl (35.1-43.9); Red Blood Count 5.41 M/mm3 (4.6-6.2)
[2020-07-27 12:27] LABS: ALB/GLOB Ratio 1.1 RATIO (0.9-2.4); AST(SGOT) 14 U/L (15-37); Alanine Aminotransfer ALT/SGPT 22 U/L (16-61); Albumin, Serum 3.9 g/dL (3.2-5.0); Alkaline Phosphatase 121 U/L (45-117); Anion Gap 6 (5-15); BUN 13 mg/dL (7-18); BUN/Creat Ratio 15.8 RATIO (10-20); Calcium,Total 9.1 mg/dL (8.5-10.1); Chloride 99 mmol/L (98-107); Creatinine, Serum 0.82 mg/dL (0.70-1.30); EST Glomerular Filtration Rate 105 mL/min (>60); Est Glom Filt Rate - Afr Amer 128 mL/min (>60); Globulin 3.4 g/dL (2.2-4.2); Glucose 188 mg/dL (74-106); Potassium 4.1 mmol/L (3.5-5.1); Protein, Total 7.3 g/dL (6.4-8.2); Sodium Level 134 mmol/L (136-145)
[2020-07-27 13:03] LABS: Hemoglobin A1c 9.2 % (3.8-5.6)
[2020-07-27 13:26] LABS: Vitamin D,25 Hydroxy 40.8 ng/mL
== END ==
LOC: LABSPEC 10:53 → LAB 10:58
PROVIDERS: PCP Family Medicine; Visit Provider Internal Medicine Endocrinology, Diabetes & Metabolism
DX: M51.16 Intervertebral disc disorders with radiculopathy, lumbar region (principal); E11.9 Type 2 diabetes mellitus without complications; Z01.812 Encounter for preprocedural laboratory examination; E11.65 Type 2 diabetes mellitus with hyperglycemia; I10 Essential (primary) hypertension; E55.9 Vitamin D deficiency, unspecified; Z79.4 Long term (current) use of insulin
CPT/HCPCS: 36415; 80053; 82306; 83036; 85025; 87081; 93005

== ENCOUNTER → 2020-10-13 08:35 | Outpatient (CLI) | payer BC, SELFPAY ==
[2020-10-13 10:29] LABS: Hemoglobin A1c 8.5 % (3.8-5.6)
[2020-10-13 10:39] LABS: ALB/GLOB Ratio 1.1 RATIO (0.9-2.4); AST(SGOT) 10 U/L (15-37); Alanine Aminotransfer ALT/SGPT 20 U/L (16-61); Albumin, Serum 3.9 g/dL (3.2-5.0); Alkaline Phosphatase 137 U/L (45-117); Anion Gap 6 (5-15); BUN 17 mg/dL (7-18); BUN/Creat Ratio 17.7 RATIO (10-20); Calcium,Total 9.1 mg/dL (8.5-10.1); Chloride 98 mmol/L (98-107); Creatinine, Serum 0.96 mg/dL (0.70-1.30); EST Glomerular Filtration Rate 89 mL/min (>60); Est Glom Filt Rate - Afr Amer 107 mL/min (>60); Globulin 3.4 g/dL (2.2-4.2); Glucose 331 mg/dL (74-106); Potassium 3.7 mmol/L (3.5-5.1); Protein, Total 7.3 g/dL (6.4-8.2); Sodium Level 129 mmol/L (136-145); Thyroid Stim Hormone (TSH) 1.95 uIU/mL (0.358-3.74)
== END ==
PROVIDERS: PCP Family Medicine; Referring Provider Internal Medicine Endocrinology, Diabetes & Metabolism; Visit Provider Internal Medicine Endocrinology, Diabetes & Metabolism
DX: E11.65 Type 2 diabetes mellitus with hyperglycemia (principal); I10 Essential (primary) hypertension; Z79.4 Long term (current) use of insulin; E55.9 Vitamin D deficiency, unspecified
CPT/HCPCS: 36415; 80053; 83036; 84443

== ENCOUNTER 2020-12-20 12:30 | Outpatient (RCR) | payer BC, SELFPAY ==
--- NOTE | 2020-12-09 12:52 | HP.PTEVAL ---
Patient's Visit Information DEEPA RUFFIN is a 50 year old M referred to Physical Therapy by Dr. Damon Null MD with a diagnosis of Encounter for other orthopedic aftercare. Date of Evaluation: 12/09/20 Physical Therapist: Jason Schrader - Visit Plan Frequency: 2x /Week Duration: 6 Weeks Plan: Continue with core and back strengthening and LE flexibility exercises. Educate pt. on proper lifting mechanics. Use manual therapy, modalities, and lumbar traction as needed for pain control. - Subjective Pt. is a 50 y.o. male who has been having back and right leg pain for awhile but is unable to report how long. He eventually had MRI which showed disc herniation of L4-L5. Pt. had lumbar spine surgery on 08-16-20 for lumbar disectomy. Pt. felt good after surgery and was released back to work but after a couple of weeks he pulled a spare tire and felt a pain in his lower back when he took a step. Pt. now has some right buttock and lower back pain. He has not had any recent imaging. Pt. denies any change in his bowel or bladder function and denies any falls. He has difficulty with bending forward, getting his shoes, lifting things, standing/walking longer than 30 minutes, sit to stand, pushing/pulling, squatting, housework, yard work, and work activity. Pt. 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 His goal with physical therapy is to decrease the pain and get back to work. Pt. has had previous physical therapy for his hands and for his back. Pt. rates back pain at 2/10 currently, at worst 9/10, at best 0/10 and describes the pain as dull and achy. He does not take any pain medication. Pt. PMH includes heart murmur, type II diabetes, smoker about 1 pack a day for over 20 years, bilateral carpal tunnel surgery, trigger finger surgery on left, and TURP surgery. Pt. lives with his girlfriend in a two story home. Pt. hobbies include working on cars and welding. - Objective Palpation- Mild tenderness over right buttock. Posture- Mild rounded shoulders in standing. Lumbar AROM flexion- mod restriction and mild pain in right buttock. extension- WNL and no pain. SB to left- WNL and no pain. SB to right- WNL and no pain. rotations- WNL and no pain. Core strength- 4/5. Right LE strength grossly 5/5 for all motions. Left LE strength grossly 5/5 for all motions. Pelvis and leg length normal in supine. Moderate tight hamstrings bilaterally. Sensation- WNL bilateral lower extremities. Special tests- Straight leg raise [-], Wells leg raise [-], Slump test [-]. Gait- Pt. ambulates with no gait deviations. - Balance/Special Test Scores Oswestry Low Back Score: 13 - Goals Goal 1:: Pt. will be independent with home exercise program. Goal Time Frame: 2 Weeks Goal 2:: Pt. will be able to lift at least 30# with proper body mechanics and no pain. Goal Time Frame: 4-6 Weeks Goal 3:: Pt. will be able to tie and put his shoes on with no pain. Goal Time Frame: 4-6 Weeks Goal 4:: Pt. will be able to stand/walk for at least 30 minutes with pain less than 3/10. Goal Time Frame: 4-6 Weeks Goal 5:: Pt. will be able to return to work with pain < 3/10. Goal Time Frame: 4-6 Weeks Goal 6:: Pt. will improve Oswestry Disability score by 10 points in order to improve mobility. Goal Time Frame: 4-6 Weeks - Rehabilitation Potential Physical Therapy Diagnosis: Decreased lumbar ROM, core/back strength, LE flexibility, and pain Rehabilitation Potential: Good - Anticipated Interventions Patient/Client Instruction: Educate patient on: Condition, Plan of Care, Benefits of Fitness Program For the Purpose of:: To decrease pain, To decrease swelling/inflammation, To increase ROM, To improve ability to perform ADL's, To improve performance and independence with ADL's, To improve ability of physical actions for home/community/work/leisure, To increase flexibility/ROM, To improve health and function, To improve tolerance to ADL's Therapeutic Exercise to Include: Strength training, Endurance training, Body mechanics, Postural training, Flexibilty training, Active ROM, Dynamic Lumbar Stabilization, Sagar Exercises, Scapular Strength/Stabilization Comment: Continue with core and back strengthening as well as LE piriformis and hamstring flexibility. Educate on proper lifting mechanics as well. For the Purpose of:: To decrease pain, To increase ROM, To improve ability to perform ADL's, To increase tolerance to activity/condition/position, To improve performance and independence with ADL's, To decrease soft tissue restriction, To increase flexibility/ROM, To improve endurance, To improve health and function, To improve tolerance to ADL's Functional Training to Include: Functional work training Comments: Educated pt. on proper lifting mechanics for work. For the Purpose of:: To decrease pain, To increase ROM, To improve muscle performance and motor function, To improve ability to perform ADL's, To improve performance and independence with ADL's, To increase flexibility/ROM, To improve safety Manual Therapy Techniques to Include: Soft tissue mobilization For the Purpose of:: To decrease pain, To decrease swelling/inflammation, To increase ROM, To increase flexibility/ROM TENS: Yes IF ES: Yes Cryotherapy (ice pack, ice massage): Yes Thermo therapy (hot pack): Yes Pelvic traction prone: Yes For the Purpose of:: To decrease pain, To decrease swelling/inflammation, To improve ability to perform ADL's, To decrease soft tissue restriction Thank you for the opportunity to evaluate your patient. For Medicare and Medicare HMO plans, please review the plan of care and approve it. It will need to be FAXED BACK to us at [phone] for Medicare purposes. For Medicare only, by signing this I certify the plan of care. Please let me know if there are questions or concerns regarding this plan of care. Physician Signature: Date:
--- NOTE | 2021-04-25 08:23 | HP.PTDCNRP_ITS ---
DEEPA RUFFIN was seen in my office for initial evaluation on 12/09/20. The following Plan of Care was established for this patient: Initial Frequency: 2x /Week Initial Duration: 6 Weeks Patient/Client Instruction: Educate patient on: Condition, Plan of Care, Benefits of Fitness Program For the Purpose of:: To decrease pain, To decrease swelling/inflammation, To increase ROM, To improve ability to perform ADL's, To improve performance and independence with ADL's, To improve ability of physical actions for home/community/work/leisure, To increase flexibility/ROM, To improve health and function, To improve tolerance to ADL's Therapeutic Exercise to Include: Strength training, Endurance training, Body mechanics, Postural training, Flexibilty training, Active ROM, Dynamic Lumbar Stabilization, Sagar Exercises, Scapular Strength/Stabilization For the Purpose of:: To decrease pain, To increase ROM, To improve ability to perform ADL's, To increase tolerance to activity/condition/position, To improve performance and independence with ADL's, To decrease soft tissue restriction, To increase flexibility/ROM, To improve endurance, To improve health and function, To improve tolerance to ADL's Functional Training to Include: Functional work training Comments: Educated pt. on proper lifting mechanics for work. For the Purpose of:: To decrease pain, To increase ROM, To improve muscle performance and motor function, To improve ability to perform ADL's, To improve performance and independence with ADL's, To increase flexibility/ROM, To improve safety Manual Therapy Techniques to Include: Soft tissue mobilization For the Purpose of:: To decrease pain, To decrease swelling/inflammation, To inc rease ROM, To increase flexibility/ROM TENS: Yes IF ES: Yes Cryotherapy (ice pack, ice massage): Yes Thermo therapy (hot pack): Yes Pelvic traction prone: Yes For the Purpose of:: To decrease pain, To decrease swelling/inflammation, To improve ability to perform ADL's, To decrease soft tissue restriction This patient was last seen in our office 12/20/20. Pertinent comments regarding their Physical therapy will appear below: Pt seen 4 visits of POC. HE was not improving and after his last visit was going to return to doctor for next medical step. At this point, it has been 4 months and I will discontinue. At this point I will be discontinuing this patient from physical therapy. I would be happy to see this patient again in the future if found appropriate by the physician. Thank you! Patrice Duron, DPT, OCS, CSCS Balance/Gait/Functional tests - Balance/Special Test Scores Oswestry Low Back Score: 13
== END 2020-12-20 19:00 | disposition home or self-care (01) ==
LOC: PT 12:30
PROVIDERS: PCP Family Medicine; Referring Provider Orthopaedic Surgery; Visit Provider Orthopaedic Surgery
DX: Z47.89 Encounter for other orthopedic aftercare (principal)
CPT/HCPCS: 97014; 97110; 97161; 97530; G0283

== ENCOUNTER → 2020-12-27 10:03 | Outpatient (CLI) | payer BC, SELFPAY ==
[2020-12-27 12:27] LABS: Anion Gap 2 (5-15); BUN 11 mg/dL (7-18); BUN/Creat Ratio 13.6 RATIO (10-20); Calcium,Total 9.4 mg/dL (8.5-10.1); Chloride 102 mmol/L (98-107); Creatinine, Serum 0.81 mg/dL (0.70-1.30); EST Glomerular Filtration Rate 107 mL/min (>60); Est Glom Filt Rate - Afr Amer 130 mL/min (>60); Glucose 233 mg/dL (74-106); Potassium 3.7 mmol/L (3.5-5.1); Sodium Level 136 mmol/L (136-145)
== END ==
PROVIDERS: PCP Family Medicine; Referring Provider Orthopaedic Surgery; Visit Provider Orthopaedic Surgery
DX: E11.9 Type 2 diabetes mellitus without complications (principal)
CPT/HCPCS: 36415; 80048

== ENCOUNTER → 2020-12-28 14:39 | Outpatient (CLI) | payer BC, SELFPAY ==
[2020-12-28 18:25] LABS: Cholesterol 192 mg/dL (200); High Density Lipoprotein 39 mg/dL; PSA,Total - Annual Screen 0.25 ng/mL (0.00-4.00); Triglycerides 122 mg/dL; Very Low Density Lipoprotein 24 mg/dL (5-40)
== END ==
PROVIDERS: PCP Family Medicine; Referring Provider Family Medicine; Visit Provider Family Medicine
DX: Z00.00 Encounter for general adult medical examination without abnormal findings (principal); E78.5 Hyperlipidemia, unspecified
CPT/HCPCS: 36415; 80061; 84153; G0103

== ENCOUNTER → 2021-01-04 10:41 | Outpatient (CLI) | payer BC, SELFPAY | PROVIDERS: PCP Family Medicine; Visit Provider Podiatrist | DX: L03.116 Cellulitis of left lower limb (principal) | CPT/HCPCS: 87070; 87075; 87077; 87186; 87205 ==

== ENCOUNTER 2021-06-30 11:00 | Outpatient (RCR) | payer BC, SELFPAY ==
--- NOTE | 2021-05-06 16:26 | HP.PTEVAL_ITS ---
Patient's Visit Information DEEPA RUFFIN is a 50 year old M referred to Physical Therapy by Dr. Damon Null MD with a diagnosis of INTEVERTEBRAL DISC DISORDERS WITH RADICULOPATHY- LUMBAR. Date of Evaluation: 05/06/21 Physical Therapist: Orlin Meraz, PT, Cert MDT, OCS - Visit Plan Frequency: 2x /Week Duration: 4 Weeks Plan: PT INTERVERVETIONS DLS ,POSTURAL EX'S,LUMBAR ROM ,LE FLEXABLITY AND FUNCTIONAL STRENGTHNENING - Subjective This 50 y/o male presents to physical therapy with s/p L4-5 microdiscectomy on Mar at [facility] in [place]. Patient d/c DOS. Most recently seen DR recommended PT . Patient tentative to RTW Jun [address] visit Jun 03.Patient had 1st surgery Aug 16 2020 with microdiscectomy L4-5 ,but RTW then injury back thus had to do surgery. MRI showed HNP L4-5 , then 2nd surgery showed another HNP at same level. Patient tried PT prior to PT. Patient lateral leg to dorsal foot. Currently ,patient has pain glut . Denies paresthesia/tingling -. Coughing/sneezing-. Bowel/bladder -. Patient sleeping is affected pain on side. Patient surgery and recovery affects RTW and job demands. SOCAIL: Lives with gera. 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 GAIT: reciprocal pattern. SKIN: incision well approximate ,small scab. NEURO: denies paresthesia/tingling ,reflexes L3-,4,L4-5,L5-S1 1/3. FLEXABLIRTY: hamstrings MOD tight. LUMBAR ROM: flexion min/mod loss ,extension min/mod loss, side glides min loss. 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 Goal Time Frame: 4-6 Weeks Goal 4:: Patient to improve lumbar ROM for function of recovery to work on machines Goal Time Frame: 4-6 Weeks Goal 5:: Patient to improve back oswestry by 5 points or > to improve QOL and RTW Goal Time Frame: 4-6 Weeks - Rehabilitation Potential Physical Therapy Diagnosis: This patient underwent s/p L4-5 LUMBAR discectomy with decrease lumbar ROM ,strength affects RTW and housework tasks thus benefit from skilled PT Rehabilitation Potential: Fair - Anticipated Interventions Patient/Client Instruction: Educate patient on: Condition, Plan of Care For the Purpose of:: To decrease pain, To increase ROM, To improve muscle performance and motor function, To improve ability to perform ADL's, To increase tolerance to activity/condition/position, To improve ability of physical actions for home/community/work/leisure, To improve health of tissue, To decrease soft tissue restriction, To increase flexibility/ROM, To reduce risk of recurrence, To prevent re-injury Therapeutic Exercise to Include: Strength training, Endurance training, Body mechanics, Postural training, Flexibilty training, Active ROM, Sagar Exercises For the Purpose of:: To decrease pain, To increase ROM, To improve muscle performance and motor function, To improve ability to perform ADL's, To increase tolerance to activity/condition/position, To decrease level of supervision to perform tasks, To improve gait and locomotor functions, To improve health of tissue, To decrease soft tissue restriction, To increase flexibility/ROM, To reduce risk of recurrence, To prevent re-injury TENS: Yes IF ES: Yes Cryotherapy (ice pack, ice massage): Yes Thermo therapy (hot pack): Yes Ultrasound (thermal/non thermal): Yes For the Purpose of:: To decrease pain, To improve nutrient delivery to tissue, To increase oxygenation perfusion Thank you for the opportunity to evaluate your patient. For Medicare and Medicare HMO plans, please review the plan of care and approve it. It will need to be FAXED BACK to us at [phone] for Medicare purposes. For Medicare only, by signing this I certify the plan of care. Please let me know if there are questions or concerns regarding this plan of care. Physician Signature: Date:
--- NOTE | 2021-10-05 13:41 | HP.PTDCSUM ---
It has been my pleasure to treat DEEPA RUFFIN referred by Dr. Damon Null MD, with the diagnosis of INTEVERTEBRAL DISC DISORDERS WITH RADICULOPATHY-LUMBAR for a total of 16 visit(s). Discharge Date: 06/30/21 Please see the following information for a summary of their discharge status. Subjective: Ready to RTW ..doing good Bilateral Back Pain Intensity (Out of 10): 0 % Improvement: 98 Objective/Function: POSTURE: WFL. GAIT: RECIPROCAL PATTERN. MMT: 5/5. 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 Thank you for the referral of this patient. Sincerely, Orlin Meraz PT, Cert MDT, OCS Balance/Gait/Functional tests - Balance/Special Test Scores Oswestry Low Back Score: 2
== END 2021-06-30 19:00 | disposition home or self-care (01) ==
LOC: PT 11:00
PROVIDERS: PCP Family Medicine; Referring Provider Orthopaedic Surgery; Visit Provider Orthopaedic Surgery
DX: M51.16 Intervertebral disc disorders with radiculopathy, lumbar region (principal)
CPT/HCPCS: 97110; 97162

== ENCOUNTER 2021-07-04 07:45 | Outpatient (CLI) | payer BC, SELFPAY ==
[2021-07-04 10:35] LABS: Hemoglobin A1c 8.1 % (3.8-5.6)
[2021-07-04 10:38] LABS: ALB/GLOB Ratio 1.2 RATIO (0.9-2.4); AST(SGOT) 14 U/L (15-37); Alanine Aminotransfer ALT/SGPT 25 U/L (16-61); Albumin, Serum 4.1 g/dL (3.2-5.0); Alkaline Phosphatase 113 U/L (45-117); Anion Gap 8 (5-15); BUN 19 mg/dL (7-18); BUN/Creat Ratio 20.5 RATIO (10-20); Calcium,Total 9.2 mg/dL (8.5-10.1); Chloride 101 mmol/L (98-107); Cholesterol 182 mg/dL (200); Creatinine, Serum 0.93 mg/dL (0.70-1.30); EST Glomerular Filtration Rate 92 mL/min (>60); Est Glom Filt Rate - Afr Amer 111 mL/min (>60); Globulin 3.5 g/dL (2.2-4.2); Glucose 198 mg/dL (74-106); High Density Lipoprotein 39 mg/dL; Potassium 3.9 mmol/L (3.5-5.1); Protein, Total 7.6 g/dL (6.4-8.2); Sodium Level 138 mmol/L (136-145); T4 Free Direct 1.17 ng/dL (0.76-1.46); Thyroid Stim Hormone (TSH) 3.37 uIU/mL (0.358-3.74); Triglycerides 254 mg/dL; Very Low Density Lipoprotein 51 mg/dL (5-40); Vitamin D,25 Hydroxy 64.8 ng/mL
[2021-07-04 10:43] LABS: Microalbumin,Random Urine 75.1 mg/L (NO RANGE EST.)
== END 2021-07-04 23:59 | disposition home or self-care (01) ==
LOC: MTLAB 07:47
PROVIDERS: PCP Family Medicine; Referring Provider Internal Medicine Endocrinology, Diabetes & Metabolism; Visit Provider Internal Medicine Endocrinology, Diabetes & Metabolism
DX: E11.65 Type 2 diabetes mellitus with hyperglycemia (principal); E16.2 Hypoglycemia, unspecified; Z46.81 Encounter for fitting and adjustment of insulin pump
CPT/HCPCS: 36415; 80053; 80061; 82043; 82306; 83036; 84439; 84443

== ENCOUNTER → 2021-11-21 | Outpatient (CLI) | payer BC, SELFPAY ==
[2021-11-21 10:15] LABS: ALB/GLOB Ratio 1.1 RATIO (0.9-2.4); AST(SGOT) 11 U/L (15-37); Alanine Aminotransfer ALT/SGPT 20 U/L (16-61); Albumin, Serum 3.9 g/dL (3.2-5.0); Alkaline Phosphatase 101 U/L (45-117); Anion Gap 6 (5-15); BUN 13 mg/dL (7-18); BUN/Creat Ratio 13.9 RATIO (10-20); Chloride 102 mmol/L (98-107); Cholesterol 162 mg/dL (200); Creatinine, Serum 0.94 mg/dL (0.70-1.30); EST Glomerular Filtration Rate 91 mL/min (>60); Est Glom Filt Rate - Afr Amer 110 mL/min (>60); Globulin 3.5 g/dL (2.2-4.2); Glucose 203 mg/dL (74-106); High Density Lipoprotein 37 mg/dL; Protein, Total 7.4 g/dL (6.4-8.2); Sodium Level 136 mmol/L (136-145); Triglycerides 115 mg/dL; Very Low Density Lipoprotein 23 mg/dL (5-40)
[2021-11-21 10:17] LABS: Hemoglobin A1c 8.8 % (3.8-5.6)
== END | disposition home or self-care (01) ==
PROVIDERS: PCP Family Medicine; Referring Provider Internal Medicine Endocrinology, Diabetes & Metabolism; Visit Provider Internal Medicine Endocrinology, Diabetes & Metabolism
DX: E11.65 Type 2 diabetes mellitus with hyperglycemia (principal); E55.9 Vitamin D deficiency, unspecified; Z46.81 Encounter for fitting and adjustment of insulin pump
CPT/HCPCS: 36415; 80053; 80061; 83036

== ENCOUNTER → 2022-02-28 | Outpatient (CLI) | payer BC, SELFPAY ==
[2022-02-28 10:34] LABS: Hemoglobin A1c 8.4 % (3.8-5.6)
[2022-02-28 10:38] LABS: Microalbumin,Random Urine 13.4 mg/L (NO RANGE EST.)
[2022-02-28 10:54] LABS: Vitamin D,25 Hydroxy 65.2 ng/mL
[2022-02-28 10:57] LABS: ALB/GLOB Ratio 1.1 RATIO (0.9-2.4); AST(SGOT) 14 U/L (15-37); Alanine Aminotransfer ALT/SGPT 23 U/L (16-61); Albumin, Serum 3.9 g/dL (3.2-5.0); Alkaline Phosphatase 97 U/L (45-117); Anion Gap 4 (5-15); BUN 14 mg/dL (7-18); BUN/Creat Ratio 15.5 RATIO (10-20); Calcium,Total 9.1 mg/dL (8.5-10.1); Chloride 104 mmol/L (98-107); Cholesterol 198 mg/dL (200); EST Glomerular Filtration Rate 94 mL/min (>60); Est Glom Filt Rate - Afr Amer 114 mL/min (>60); Globulin 3.6 g/dL (2.2-4.2); Glucose 156 mg/dL (74-106); High Density Lipoprotein 43 mg/dL; Protein, Total 7.5 g/dL (6.4-8.2); Sodium Level 138 mmol/L (136-145); Thyroid Stim Hormone (TSH) 1.36 uIU/mL (0.358-3.74); Triglycerides 127 mg/dL; Very Low Density Lipoprotein 25 mg/dL (5-40)
== END | disposition home or self-care (01) ==
LOC: MTLAB 08:54
PROVIDERS: PCP Family Medicine; Referring Provider Internal Medicine Endocrinology, Diabetes & Metabolism; Visit Provider Internal Medicine Endocrinology, Diabetes & Metabolism
DX: E11.65 Type 2 diabetes mellitus with hyperglycemia (principal); Z46.81 Encounter for fitting and adjustment of insulin pump; I10 Essential (primary) hypertension; G62.9 Polyneuropathy, unspecified; E55.9 Vitamin D deficiency, unspecified
CPT/HCPCS: 36415; 80053; 80061; 82043; 82306; 83036; 84443

== ENCOUNTER → 2022-06-02 | Outpatient (CLI) | payer BC, SELFPAY ==
[2022-06-02 10:21] LABS: Vitamin D,25 Hydroxy 58.6 ng/mL
[2022-06-02 10:22] LABS: Hemoglobin A1c 8.5 % (3.8-5.6)
[2022-06-02 10:25] LABS: Microalbumin,Random Urine 16.3 mg/L (NO RANGE EST.)
[2022-06-02 10:30] LABS: ALB/GLOB Ratio 1.1 RATIO (0.9-2.4); AST(SGOT) 16 U/L (15-37); Alanine Aminotransfer ALT/SGPT 27 U/L (16-61); Albumin, Serum 3.8 g/dL (3.2-5.0); Alkaline Phosphatase 97 U/L (45-117); Anion Gap 9 (5-15); BUN 16 mg/dL (7-18); BUN/Creat Ratio 17.4 RATIO (10-20); Calcium,Total 9.2 mg/dL (8.5-10.1); Chloride 101 mmol/L (98-107); Cholesterol 183 mg/dL (200); Creatinine, Serum 0.92 mg/dL (0.70-1.30); EST Glomerular Filtration Rate 92 mL/min (>60); Est Glom Filt Rate - Afr Amer 111 mL/min (>60); Globulin 3.5 g/dL (2.2-4.2); Glucose 320 mg/dL (74-106); High Density Lipoprotein 41 mg/dL; Protein, Total 7.3 g/dL (6.4-8.2); Sodium Level 136 mmol/L (136-145); T4 Free Direct 0.98 ng/dL (0.76-1.46); Thyroid Stim Hormone (TSH) 1.62 uIU/mL (0.358-3.74); Triglycerides 89 mg/dL; Very Low Density Lipoprotein 18 mg/dL (5-40)
== END | disposition home or self-care (01) ==
LOC: MTLAB 07:31
PROVIDERS: PCP Family Medicine; Referring Provider Internal Medicine Endocrinology, Diabetes & Metabolism; Visit Provider Internal Medicine Endocrinology, Diabetes & Metabolism
DX: Z46.81 Encounter for fitting and adjustment of insulin pump (principal); E11.65 Type 2 diabetes mellitus with hyperglycemia; Z79.4 Long term (current) use of insulin; E55.9 Vitamin D deficiency, unspecified
CPT/HCPCS: 36415; 80053; 80061; 82043; 82306; 83036; 84439; 84443

== ENCOUNTER → 2022-09-26 | Outpatient (CLI) | payer BC, SELFPAY ==
[2022-09-26 10:40] LABS: ALB/GLOB Ratio 1.2 RATIO (0.9-2.4); AST(SGOT) 15 U/L (15-37); Alanine Aminotransfer ALT/SGPT 25 U/L (16-61); Alkaline Phosphatase 95 U/L (45-117); Anion Gap 5 (5-15); BUN 16 mg/dL (7-18); BUN/Creat Ratio 17.5 RATIO (10-20); Calcium,Total 10.2 mg/dL (8.5-10.1); Chloride 105 mmol/L (98-107); Cholesterol 126 mg/dL (200); Creatinine, Serum 0.92 mg/dL (0.70-1.30); EST Glomerular Filtration Rate 93 mL/min (>60); Est Glom Filt Rate - Afr Amer 112 mL/min (>60); Globulin 3.3 g/dL (2.2-4.2); Glucose 106 mg/dL (74-106); High Density Lipoprotein 35 mg/dL; Potassium 4.1 mmol/L (3.5-5.1); Protein, Total 7.3 g/dL (6.4-8.2); Sodium Level 139 mmol/L (136-145); Triglycerides 124 mg/dL; Very Low Density Lipoprotein 25 mg/dL (5-40)
[2022-09-26 10:48] LABS: Microalbumin,Random Urine 11.4 mg/L (NO RANGE EST.)
[2022-09-26 10:57] LABS: Hemoglobin A1c 8.5 % (3.8-5.6)
== END | disposition home or self-care (01) ==
LOC: MTLAB 07:21
PROVIDERS: PCP Family Medicine; Referring Provider Internal Medicine Endocrinology, Diabetes & Metabolism; Visit Provider Internal Medicine Endocrinology, Diabetes & Metabolism
DX: E11.65 Type 2 diabetes mellitus with hyperglycemia (principal); Z46.81 Encounter for fitting and adjustment of insulin pump; E55.9 Vitamin D deficiency, unspecified; I10 Essential (primary) hypertension; E78.5 Hyperlipidemia, unspecified
CPT/HCPCS: 36415; 80053; 80061; 82043; 83036

== ENCOUNTER → 2023-01-23 | Outpatient (CLI) | payer BC, SELFPAY ==
[2023-01-23 10:28] LABS: Ionized Calcium 4.86 mg/dL (4.36-5.20)
[2023-01-23 10:36] LABS: PTHIN 32.2 pg/mL (18.4-80.1)
[2023-01-23 10:45] LABS: AST(SGOT) 19 U/L (15-37); Alanine Aminotransfer ALT/SGPT 41 U/L (16-61); Albumin, Serum 3.8 g/dL (3.2-5.0); Alkaline Phosphatase 111 U/L (45-117); Anion Gap 5 (5-15); BUN 20 mg/dL (7-18); Calcium,Total 9.1 mg/dL (8.5-10.1); Chloride 104 mmol/L (98-107); Cholesterol 116 mg/dL (200); Creatinine, Serum 1.05 mg/dL (0.70-1.30); EST Glomerular Filtration Rate 79 mL/min (>60); Est Glom Filt Rate - Afr Amer 96 mL/min (>60); Free T3 2.9 pg/mL (2.18-3.98); Globulin 3.7 g/dL (2.2-4.2); Glucose 264 mg/dL (74-106); High Density Lipoprotein 36 mg/dL; Potassium 4.2 mmol/L (3.5-5.1); Protein, Total 7.5 g/dL (6.4-8.2); Sodium Level 134 mmol/L (136-145); Thyroid Stim Hormone (TSH) 2.02 uIU/mL (0.358-3.74); Triglycerides 94 mg/dL; Very Low Density Lipoprotein 19 mg/dL (5-40)
[2023-01-23 11:43] LABS: Hemoglobin A1c 9.3 % (3.8-5.6)
== END | disposition home or self-care (01) ==
LOC: MTLAB 08:38
PROVIDERS: PCP Family Medicine; Referring Provider Internal Medicine Endocrinology, Diabetes & Metabolism; Visit Provider Internal Medicine Endocrinology, Diabetes & Metabolism
DX: E11.65 Type 2 diabetes mellitus with hyperglycemia (principal); Z46.81 Encounter for fitting and adjustment of insulin pump; E78.5 Hyperlipidemia, unspecified; I10 Essential (primary) hypertension; E55.9 Vitamin D deficiency, unspecified
CPT/HCPCS: 36415; 80053; 80061; 82306; 82330; 83036; 83970; 84443; 84481

== ENCOUNTER 2023-03-07 01:32 | Emergency (ER) | payer BC, SELFPAY ==
--- NOTE | 2023-03-07 02:47 | RAD_ITS ---
EXAM: XR LEFT RIBS, 2 VIEWS CLINICAL INDICATION: left side rib pain TECHNIQUE: Frontal and oblique (5) views of the left ribs. COMPARISON: No relevant prior studies available. FINDINGS: LUNGS AND PLEURAL SPACES: Unremarkable. No consolidation or edema. No pneumothorax. No effusion. BONES/JOINTS: Thoracic degenerative spurring is present. No acute left rib fracture is identified. SOFT TISSUES: Calcific tendinitis/bursitis of the left shoulder. RAD/Ribs Uni Min 3V w/PA Chest IMPRESSION: No evidence of acute left rib fracture. Calcific tendinitis/bursitis of the left shoulder. No acute pulmonary infiltrates, pleural effusion or pneumothorax. Electronically Signed: Wily Gamino MD at 3:41 EST ,
--- NOTE | 2023-03-07 04:10 | CT_ITS ---
INDICATION: PAIN EXAMINATION: CT CHEST WITH CONTRAST - CTA Chest WO/W Contrast Injection TECHNIQUE: Helically acquired images were obtained of the chest following IV contrast timed in the pulmonary arterial phase with sagittal and coronal reconstructed images. Post-processing of the angiographic images was performed with multiplanar reformation and 3D reconstruction. Individualized dose optimization techniques were used for this CT. IV contrast dosage and agent: 100 mL of Isovue-370. COMPARISON: None. FINDINGS: LUNGS, PLEURA AND LARGE AIRWAYS: No consolidation or edema. No pulmonary nodule. No pleural effusion. No pneumothorax. THYROID: Unremarkable. HEART AND PERICARDIUM: Coronary artery calcifications are present. No pericardial effusion. No evidence of right heart strain. Right ventricle to left ventricle ratio measures less than 1. MEDIASTINUM AND CARLIE: No mediastinal or hilar adenopathy. Esophagus is unremarkable. No hiatal hernia. VESSELS: No pulmonary embolism. No thoracic aortic aneurysm. UPPER ABDOMEN: The visualized upper abdomen is unremarkable. BONES: No acute abnormality. CT/CTA Chest W/WO Contrast IMPRESSION: 1. No pulmonary embolism. 2. No evidence of acute cardiopulmonary disease. Electronically Signed: Pradeep Walters DO at 5:09 EST ,
--- OUTSIDE RECORDS SUMMARY | 2023-03-07 05:28 | XMS RPT_ITS | CCD ---
Author Name Unknown Address [address] [place] [address] Organization [facility] Results Test Name Value Interpretation Reference Range Facil ity Summary Purpose Family History No Family History Records FoundNo Family History Records Found Advance Directives No Advanced Directives Records FoundNo Advanced Directives Records Found Additional Source Comments (unrecognized sect ion and content) No Status Records FoundNo Status Records Found INFORMATION SOURCE (unrecogn ized section and content) DATE CREATED AUTHOR AUTHOR'S MATILDE ALEXANDRA 03/12/2021 [facility] Ce gabriela Quiñonez FOR RECORDS PERTAINING TO PATIENTS WHO ARE OR HAVE BEEN ENROLLED IN A CHEMICAL DEPENDENCY/SUBSTANCEABUSE PROGRAM, SOME INFORMATION MAY BE OMITTED. This clinical summary was aggregated from multiple sources. Caution should be exercised in using it in the provision of clinical care. This summary normalizes information from multiple sources, and as a consequence, information in this document may materially change the coding, format and clinical context of patient data. In addition, data may be omitted in some cases. CLINICAL DECISIONS SHOULD BE BASED ON THE PRIMARY CLINICAL RECORDS. [employer] provides no warranty or guarantee of the accuracy or completeness of information in this document.
--- NOTE | 2023-03-07 06:02 | EX.ED.DYSGE1 ---
HPI Narrative Narrative: Juan Deluna 1970 HPI: ?Patient is a 52-year-old male with past medical history of type 2 diabetes on an insulin pump and neuropathy. ?He states roughly 1 week ago he was working outside and he did not have any overt trauma but after doing this he noticed some pain in his lower left chest.? He states it was worse with motion and very reproducible and he has had ribs out of place in the past and this felt similar nature.? He states he has been taking [id number] medication and trying home physical therapy without any symptom improvement. ?He reports that he is having surgery for a right trigger finger and had an EKG today for presurgical clearance which was reportedly normal.? He states he was at work however and he thought the pain was more intense than it has been and does have concern this could be cardiac and therefore he comes in for evaluation. ?He denies any nausea vomiting diaphoresis or shortness of breath associated with this. ?He denies any history of travel surgery or of previous DVT. Review of systems: Review of systems is positive for left chest wall pain Review of systems is negative for nausea vomiting diaphoresis shortness of breath cough fevers or chills or rash PE: General: Awake alert no acute distress Heart: Regular rate and rhythm without murmurs rubs or gallop.? Radial and carotid pulses equal and symmetric Lungs: Clear to auscultation Extremities: No asymmetric edema no pitting edema negative Homans' sign bilaterally Abdomen: Soft nontender nondistended with normal active bowel sounds no voluntary guarding or rigidity no pulsatile mass Chest: There is reproducible pain with palpation of the left anterior 11th and 12th rib along the costal margin of the sternum the patient states that the same pain he has been experiencing without obvious bony deformity or crepitance. MDM: Left rib series with 1 view chest as interpreted by the emergency medicine physician reveals no acute rib fracture pneumothorax infiltrate or pleural effusion Patient presented to the ER slightly hypertensive otherwise with stable vitals. ?He had reproducible left anterior chest wall pain with palpation indicating this is most likely musculoskeletal. ?He also had an EKG as an outpatient earlier today that was reportedly normal.? This goes against acute coronary syndrome or cardiac dysrhythmia as a cause. ?As there is concern for rib fracture versus rib displacement versus pneumothorax or pneumonia I did elect to perform a left rib series chest x-ray. ?As there is also concern this could be pulmonary embolus or dissection and a D-dimer was obtained as well. ?Troponin was not elevated going against acute ACS.? The patient's D-dimer was slightly elevated and therefore CTA was obtained. ?CTA revealed no PE pneumonia dissection or acute rib fracture. ?The left rib series x-ray which was obtained prior to the CTA also revealed no acute findings.? The fact that the patient had a normal outpatient EKG normal troponin and normal chest x-ray and CTA indicate that this is rib dysfunction and therefore he can give him symptomatic medications and discharged home Diagnosis: Left rib dysfunction Insulin-dependent type 2 diabetes PFSH PFS Home Medications losartan 50 mg tablet 50 mg PO DAILY bp 05/24/17 [History Last Taken 03/05/18 22:00] metformin 1,000 mg tablet 1,000 mg PO BID diabetes 05/24/17 [History Last Taken 03/06/18 08:00] cholecalciferol (vitamin D3) 125 mcg (5,000 unit) capsule 5,000 unit PO DAILY supplement 05/28/17 [History Last Taken Unknown] cyanocobalamin (vitamin B-12) 1,000 mcg capsule 1,000 mcg PO DAILY supplement 05/28/17 [History Last Taken Unknown] duloxetine 60 mg capsule,delayed release 60 mg PO QHS depression 02/07/18 [History Last Taken 03/05/18 22:00] omeprazole 20 mg capsule,delayed release 20 mg PO DAILY gerd #30 caps 03/18/19 [History Last Taken Unknown] cinnamon bark 500 mg capsule (Cinnamon) 500 mg PO BID supplement 03/09/20 [History Last Taken Unknown] dulaglutide 1.5 mg/0.5 mL subcutaneous pen injector (Trulicity) 1.5 mg subcut QWEEK diabetes 05/24/20 [History Last Taken Unknown] insulin degludec 100 unit/mL (3 mL) subcutaneous pen 44 unit subcut DAILY diabetes 05/24/20 [History Last Taken Unknown] insulin lispro 200 unit/mL (3 mL) subcutaneous pen 10 - 20 unit subcut TID sliding scale 05/24/20 [History Last Taken Unknown] Allergy/AdvReac Type Severity Reaction Status Date / Time No Known Allergies Allergy Verified 07/01/20 11:07 Family History Other Diabetes Surgical History S/P carpal tunnel release Social History (Updated 06/16/20 @ 16:[address] Sesar Hull, DO) Smoking Status: Current every day smoker [facility] History & Record Review Discussion w/independent historian: Patient and Significant other Lab Data Attestation: I reviewed the patient's lab results. Discharge Plan Triage ED Provider: Arjun Bazan Dx/Rx/DC Orders Clinical Impression: Insulin dependent diabetes mellitus, Somatic dysfunction of rib Prescriptions: No Action metformin 1,000 mg tablet 1,000 mg PO BID losartan 50 mg tablet 50 mg PO DAILY Trulicity 1.5 mg/0.5 mL pen injector 1.5 mg SC QWEEK omeprazole 20 mg capsule,delayed release(DR/EC) 20 mg PO DAILY Qty: 30 cinnamon bark [Cinnamon] 500 mg capsule 500 mg PO BID cholecalciferol (vitamin D3) 5,000 UNIT capsule 5,000 unit PO DAILY cyanocobalamin (vitamin B-12) 1,000 MCG capsule 1,000 mcg PO DAILY duloxetine 60 MG capsule,delayed release(DR/EC) 60 mg PO QHS insulin lispro 200 unit/mL (3 mL) insulin pen 10 - 20 unit SC TID insulin degludec 100 unit/mL (3 mL) insulin pen 44 unit SC DAILY Primary Care Provider: Talia Boyd Referrals: Talia Boyd MD [Primary Care Provider] - Disposition Disposition: Home, Self Care
[2023-03-07 06:34] LABS: Anion Gap 7 (5-15); BUN 17 mg/dL (7-18); BUN/Creat Ratio 19.3 RATIO (10-20); Chloride 101 mmol/L (98-107); Creatinine, Serum 0.88 mg/dL (0.70-1.30); EST Glomerular Filtration Rate 97 mL/min (>60); Est Glom Filt Rate - Afr Amer 118 mL/min (>60); Glucose 206 mg/dL (74-106); Potassium 4.4 mmol/L (3.5-5.1); Sodium Level 138 mmol/L (136-145); Troponin-I HS 5 pg/mL (3.0-78.0)
[2023-03-07 09:02] LABS: D-Dimer Quantitative (DVT/PE) 0.67 FEU/ug/m (0.27-0.49)
[2023-03-07 12:19] LABS: Hematocrit 45.9 % (40-54); Hemoglobin 14.9 g/dL (13.0-16.5); Mean Corpuscular Volume 89.1 fL (80-94); Red Blood Count 5.15 M/mm3 (4.6-6.2); White Blood Count 7.9 K/mm3 (4.4-11.0)
[2023-03-07 12:23] LABS: Mean Corp Hgb Conc 32.5 g/dL (32-36); Mean Corpuscular Hgb 28.9 pg (27.0-32.0); Mean Platelet Vol. 10.3 fl (6.2-12.0); Platelet Count 226 K/mm3 (150-450); RBC Distribution Width CV 12.2 % (11.6-14.6); RBC Distribution Width SD 39.7 fl (35.1-43.9)
[2023-03-07 12:24] LABS: Absolute Lymphocyte Count 2.13 X10^3/uL (0.83-4.51); Basophil% 0.4 % (0-1); Eosinophils% 2.3 % (0-5); Lymphocyte # 2.13 X10^3/ul (0.83-4.51); Monocyte% 6.5 % (0-10); Neutrophil # 5.02 X10^3/uL (2.7-7.7); Neutrophil % 63.5 % (47-70)
[2023-03-07 12:25] LABS: Basophil# 0.03 X10^3/uL; Eosinophil# 0.18 X10^3/uL; Monocyte# 0.51 X10^3/uL
[2023-03-07 12:26] LABS: NRBC Flagged by Analyzer 0 % (0-5)
== END 2023-03-07 18:00 | disposition home or self-care (01) ==
PROVIDERS: Emergency Provider Emergency Medicine; PCP Family Medicine; Visit Provider Emergency Medicine
DX: M99.08 Segmental and somatic dysfunction of rib cage (principal); E11.9 Type 2 diabetes mellitus without complications; Z79.4 Long term (current) use of insulin; F17.200 Nicotine dependence, unspecified, uncomplicated
CPT/HCPCS: 71101; 71275; 80048; 84484; 85025; 85379; 99285; J7030; Q9967; A4216; J2405

== ENCOUNTER → 2023-05-12 | Outpatient (CLI) | payer BC, SELFPAY ==
--- OUTSIDE RECORDS SUMMARY | 2023-05-12 07:10 | XMS RPT_ITS | CCD ---
Author Name Unknown Address [address] [place] [address] Organization [facility] Care Team Providers Care Instructional Services Librarian Name Role Phone OLVIN AVILES Attending Unavailable OLVIN AVILES Primary Care Unavailable OLVIN AVILES Admitting Unavailable SINDY HAWKINS Consulting Unavailable PROVIDER, UNKNOWN Consulting Unavailable Results Test Name Value Interpretation Reference Range Facil ity Encounters Encounter Date Encounter Type Care Provider Facility Start: 03-06-2023 End: 03-06-2023 ambulatory OLVIN AVILES [facility] Payers Date Payer Category Payer Unknown [id number] Unknown [id number] Summary Purpose Family History No Family History Records FoundNo Family History Records FoundNo Family History Records Found Advance Directives No Advanced Directives Records FoundNo Advanced Directives Records FoundNo Advanced Directives Records Found Additional Source Comments (unrecognized sect ion and content) No Status Records FoundNo Status Records FoundNo Status Records Found INFORMATION SOURCE (unrecogn ized section and content) DATE CREATED AUTHOR AUTHOR'S ORGANIZ ATION 03/12/2021 [facility] DATE CREATED AUTHOR AUTHOR'S ORGANIZ ATION 03/08/2023 [facility] FOR RECORDS PERTAINING TO PATIENTS WHO ARE [...] BE BASED ON THE PRIMARY CLINICAL RECORDS. [facility] provides no warranty or guarantee of the accuracy or completeness of information in this document.
[2023-05-12 08:32] LABS: Hemoglobin A1c 8.5 % (3.8-5.6)
[2023-05-12 08:33] LABS: ALB/GLOB Ratio 1.1 RATIO (0.9-2.4); AST(SGOT) 19 U/L (15-37); Alanine Aminotransfer ALT/SGPT 33 U/L (16-61); Albumin, Serum 3.9 g/dL (3.2-5.0); Alkaline Phosphatase 105 U/L (45-117); Anion Gap 1 (5-15); BUN 19 mg/dL (7-18); BUN/Creat Ratio 20.9 RATIO (10-20); Chloride 106 mmol/L (98-107); Cholesterol 130 mg/dL (200); Creatinine, Serum 0.91 mg/dL (0.70-1.30); EST Glomerular Filtration Rate 93 mL/min (>60); Est Glom Filt Rate - Afr Amer 112 mL/min (>60); Globulin 3.5 g/dL (2.2-4.2); Glucose 167 mg/dL (74-106); High Density Lipoprotein 38 mg/dL; Potassium 4.2 mmol/L (3.5-5.1); Protein, Total 7.4 g/dL (6.4-8.2); Sodium Level 137 mmol/L (136-145); Thyroid Stim Hormone (TSH) 1.22 uIU/mL (0.358-3.74); Triglycerides 122 mg/dL; Very Low Density Lipoprotein 24 mg/dL (5-40)
[2023-05-12 10:39] LABS: Microalbumin,Random Urine 32.3 mg/L (NO RANGE EST.); Microalbumin:Creatinine Ratio 14.9 mg/g CRE (<30 mg/g CRE)
[2023-05-14 08:07] LABS: Vitamin D,25 Hydroxy 51.9 ng/mL
== END | disposition home or self-care (01) ==
LOC: LAB 07:07
PROVIDERS: PCP Family Medicine; Referring Provider Internal Medicine Endocrinology, Diabetes & Metabolism; Visit Provider Internal Medicine Endocrinology, Diabetes & Metabolism
DX: E11.65 Type 2 diabetes mellitus with hyperglycemia (principal); Z46.81 Encounter for fitting and adjustment of insulin pump
CPT/HCPCS: 36415; 80053; 80061; 82043; 82306; 82570; 83036; 84443

== ENCOUNTER → 2023-09-21 | Outpatient (CLI) | payer BC, SELFPAY ==
[2023-09-21 21:27] LABS: ALB/GLOB Ratio 1.2 RATIO (0.9-2.4); AST(SGOT) 17 U/L (15-37); Alanine Aminotransfer ALT/SGPT 27 U/L (16-61); Albumin, Serum 3.8 g/dL (3.2-5.0); Alkaline Phosphatase 95 U/L (45-117); Anion Gap 7 (5-15); BUN 14 mg/dL (7-18); BUN/Creat Ratio 16.5 RATIO (10-20); Calcium,Total 9.2 mg/dL (8.5-10.1); Chloride 102 mmol/L (98-107); Creatinine, Serum 0.85 mg/dL (0.70-1.30); EST Glomerular Filtration Rate 101 mL/min (>60); Est Glom Filt Rate - Afr Amer 122 mL/min (>60); Free T3 2.8 pg/mL (2.18-3.98); Globulin 3.1 g/dL (2.2-4.2); Glucose 354 mg/dL (74-106); PSA,Total - Annual Screen 0.16 ng/mL (0.00-4.00); Potassium 4.4 mmol/L (3.5-5.1); Protein, Total 6.9 g/dL (6.4-8.2); Sodium Level 135 mmol/L (136-145)
[2023-09-21 21:58] LABS: Hemoglobin A1c 8.6 % (3.8-5.6)
== END | disposition home or self-care (01) ==
PROVIDERS: PCP Family Medicine; Referring Provider Family Medicine; Visit Provider Family Medicine
DX: E11.65 Type 2 diabetes mellitus with hyperglycemia (principal); Z46.81 Encounter for fitting and adjustment of insulin pump; Z12.5 Encounter for screening for malignant neoplasm of prostate
CPT/HCPCS: 36415; 80053; 83036; 84153; 84443; 84481; G0103

== ENCOUNTER → 2023-10-22 | Outpatient (CLI) | payer BC, SELFPAY ==
--- NOTE | 2023-10-22 16:21 | RAD_ITS ---
STUDY: X-RAY - LEFT SHOULDER REASON FOR EXAM: Male, 53 years old. pain TECHNIQUE: 3 view(s) of the shoulder. COMPARISON: None. FINDINGS: Normal glenohumeral articulation. There is degenerative arthrosis of the acromioclavicular joint without inferior osseous spur formation. Normal acromion. Normal humeral head and visualized proximal humerus. There is periarticular soft tissue calcification consistent with a calcific tendinitis. Normal visualized pulmonary apex. RAD/Shoulder min 2 Views IMPRESSION: 1. Hydroxyapatite deposition disease (calcific tendinitis) (. 2. Mild acromioclavicular joint arthrosis. Electronically Signed: Vadim Alexandre MD at 18:04 EDT ,
== END | disposition home or self-care (01) ==
PROVIDERS: PCP Family Medicine; Referring Provider Nurse Practitioner Family; Visit Provider Nurse Practitioner Family
DX: M25.512 Pain in left shoulder (principal)
CPT/HCPCS: 73030

== ENCOUNTER → 2023-12-21 | Outpatient (CLI) | payer BC, SELFPAY ==
[2023-12-21 12:37] LABS: Hematocrit 44.8 % (40-54); Hemoglobin 14.7 g/dL (13.0-16.5); Mean Corp Hgb Conc 32.8 g/dL (32-36); Mean Corpuscular Hgb 28.6 pg (27.0-32.0); Mean Corpuscular Volume 87.2 fL (80-94); Mean Platelet Vol. 10.4 fl (6.2-12.0); Platelet Count 238 K/mm3 (150-450); RBC Distribution Width CV 12.1 % (11.6-14.6); RBC Distribution Width SD 38.9 fl (35.1-43.9); Red Blood Count 5.14 M/mm3 (4.6-6.2); White Blood Count 7.2 K/mm3 (4.4-11.0)
[2023-12-21 13:18] LABS: Ferritin 47 ng/mL (26-388); Iron 57 ug/dL (65-175); Iron Binding Capacity,Total 378 ug/dL (250-450)
== END | disposition home or self-care (01) ==
PROVIDERS: PCP Family Medicine; Referring Provider Internal Medicine Endocrinology, Diabetes & Metabolism; Visit Provider Internal Medicine Endocrinology, Diabetes & Metabolism
DX: E11.65 Type 2 diabetes mellitus with hyperglycemia (principal); I10 Essential (primary) hypertension; Z46.81 Encounter for fitting and adjustment of insulin pump
CPT/HCPCS: 36415; 82728; 83540; 83550; 84443; 85027

== ENCOUNTER → 2023-12-28 | Outpatient (CLI) | payer BC, SELFPAY ==
[2023-12-28 15:27] LABS: Glucose, Dipstick 100 mg/dl (Normal); Ketone-Dipstick 5 mg/dl (Negative); Leukocyte Esterase-Dipstick 25 /ul (Negative); Nitrite-Dipstick Positive (Negative); Occult Blood-Urine Negative /ul (Negative); Protein-Dipstick 30 mg/dl (Negative); Urine Bilirubin Dipstick Negative (Negative); Urine Urobilinogen 1 mg/dl (Normal)
[2023-12-28 15:28] LABS: Color, Urine Yellow (Yellow)
[2023-12-28 15:29] LABS: Urine Clarity Clear (Clear)
== END | disposition home or self-care (01) ==
LOC: MTLAB 12:46
PROVIDERS: PCP Family Medicine; Referring Provider Internal Medicine Endocrinology, Diabetes & Metabolism; Visit Provider Internal Medicine Endocrinology, Diabetes & Metabolism
DX: E11.65 Type 2 diabetes mellitus with hyperglycemia (principal); D50.9 Iron deficiency anemia, unspecified
CPT/HCPCS: 81002

== ENCOUNTER → 2024-02-02 | Outpatient (CLI) | payer BC, SELFPAY ==
--- OUTSIDE RECORDS SUMMARY | 2024-02-02 08:05 | XMS RPT_ITS | CCD ---
Author Organization [facility] Care Team Providers Care Water Meter Installer Name Role Phone OLVIN AVILES Attending Unavailable OLVIN AVILES Primary Care Unavailable OLVIN AVILES Admitting Unavailable TALIA BOYD Consulting Unavailable PROVIDER, UNKNOWN Consulting Unavailable Talia Boyd Primary Care Provider TALIA BOYD Primary Care Unavailable Medications Current Medications Medication Drug Class(es) Dates Sig (Normalized) Sig (Original) cholecalciferol, vitD3,/vit K2 (VITAMIN D3-VITAMIN K2) 125-90 mcg cap (1 source) cholecalciferol, vitD3,/vit K2 (VITAMIN D3-VITAMIN K2) 125-90 mcg cap Take 5,000 Units by mouth every morning. LD to be 02/11/24 Active dulaglutide (TRULICITY) 3 mg/0.5 mL pen injector (1 source) inject 3 mg by subcutaneous injection once dulaglutide (TRULICITY) 3 mg/0.5 mL pen injector Inject 3 mg subcutaneously every Sunday. Alex PINK, WILL CALL FOR INSTRUCTIONS Active FLUoxetine 40 mg oral capsule (1 source) Serotonin Reuptake Inhibitor take 1 capsule by mouth once daily at bedtime FLUoxetine (PROZAC) 40 mg capsule Take 40 mg by mouth daily at bedtime. Active gabapentin 300 mg oral capsule (1 source) Anti-epileptic Agent take 1 capsule by mouth twice daily gabapentin (NEURONTIN) 300 mg capsule Take 300 mg by mouth two times a day. Active 3 ml insulin lispro 100 unt/ml cartridge (1 source) Insulin Analog insulin lispro (HUMALOG U-100 INSULIN) 100 unit/mL crtg Inject 4 Units subcutaneously. INSULIN PUMP 4 UNITS PER HOUR , DR KELIN [facility] Active losartan potassium 50 mg oral tablet (1 source) Angiotensin 2 Receptor Clay take 1 tablet by mouth once daily at bedtime losartan (COZAAR) 50 mg tablet Take 50 mg by mouth daily at bedtime. Active metFORMIN hydrochloride 1000 mg oral tablet (1 source) Biguanide take 1 tablet by mouth twice daily at mealtime metFORMIN (GLUCOPHAGE) 1,000 mg tablet Take 1,000 mg by mouth two times a day with meals. ENDOCRINE ASYAGUSTAVOLYNSEY KELIN Active mv-min/iron/folic/denae cium/vitK (WOMEN'S MULTIVITAMIN ORAL) (1 source) take 1 tablet by mouth once daily at bedtime mv-min/iron/folic/denae cium/vitK (WOMEN'S MULTIVITAMIN ORAL) Take 1 tablet by mouth daily at bedtime. WOMENS MULTI VITAMIN PER PRIMARY FOR THE IRON Active omeprazole 20 mg delayed release oral tablet (1 source) Proton Pump Inhibitor take 20 mg by mouth once daily in the morning Omeprazole 20 mg TbEC Take 20 mg by mouth every morning. Active rosuvastatin calcium 10 mg oral tablet (1 source) HMG-CoA Reductase Inhibitor take 1 tablet by mouth once daily in the morning rosuvastatin (CRESTOR) 10 mg tablet Take 10 mg by mouth every morning. Active vitamin b12 1 mg oral tablet (1 source) Vitamin B12 take 1 tablet by mouth once daily at bedtime cyanocobalamin (VITAMIN B-12) 1,000 mcg tab Take 1,000 mcg by mouth daily at bedtime. LD to be 02/11/24 Active Problems Problem Classification Problem Date Documented Da te Episodic/Chronic Diabetes mellitus without complication (1 source) Diabetes mellitus; Translations: [Type 2 diabetes mellitus without complications] 01-30-2024 Chronic Diabetes mellitus without complication (2 sources) Insulin pump present; Translations: [Presence of insulin pump (external) (internal)] 01-30-2024 Episodic Essential hypertension (2 sources) Essential hypertension; Translations: [Essential (primary) hypertension] 01-30-2024 Chronic Other diseases of bladder and urethra (2 sources) Bladder muscle dysfunction - underactive; 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 5 mg/dL [facility] Chloride [Moles/Vol] 103 mmol/L 98 - 10 7 mmol/L [facility] CO2 [Moles/Vol] 28 mmol/L 21 - 32 mmol/L [facility] Creatinine [Mass/Vol] 0.70 mg/dL 0.50 - 1.40 mg/dL [facility] Comment on above: Patients receiving e ither N-Acetylcysteine (NAC) or Metamizole prior to venipuncture, may have falsely depressed results. GFR/1.73 sq M.predicted among non-blacks MDRD (S/P/Bld) [Vol rate/Area] 111 mL/min/{1.73_m2} - PINF [facility] Comment on above: Estimated Glomerular Filtration Rate (eGFR) is calculated using the 2020 CKD-EPI creatinine equation. This equation utilizes serum creatinine, sex, and age as parameters. The creatinine assay has traceable calibration to isotope dilution-mass spectrometry. Refer to KDIGO guidelines for clinical interpretation. In patients with unstable renal function, e.g. those with acute kidney injury, the eGFR may not accurately reflect actual GFR. Glucose [Mass/Vol] 336 mg/dL High 70 - 100 mg/dL [facility] Comment on above: The [place] Diabete s Association (ADA) provides guidance for cutoff values for fasting glucose and random glucose. The ADA defines fasting as no caloric intake for at least 8 hours. Fasting plasma glucose results between 100 to 125 mg/dL indicate increased risk for diabetes (prediabetes). Fasting plasma glucose results greater than or equal to 126 mg/dL meet the criteria for diagnosis of diabetes. In the absence of unequivocal hyperglycemia, results should be confirmed by repeat testing. In a patient with classic symptoms of hyperglycemia or hyperglycemic crisis, random plasma glucose results greater than or equal to 200 mg/dL meet the criteria for diagnosis of diabetes. Reference: Standards of Medical Care in Diabetes 2016, [place] Diabetes Association. Diabetes Care. 2016.39(Suppl 1). Results may be falsely elevated after the administration of Sulfapyridine. Results may be falsely depressed after the administration of Sulfasalazine. Interpretation and review of laboratory results Abnormal [facility] Potassium [Moles/Vol] 4.5 mmol/L 3.5 - 5.1 mmol/L [facility] Sodium [Moles/Vol] 137 mmol/L 136 - 145 mmol/L [facility] Urea nitrogen [Mass/Vol] 16 mg/dL 7 - 26 mg/dL [facility] Anion gap [Moles/Vol] 6 mmol/L Normal 5-16 [facility] Comment on above: Order Comment: Speci men Type: BLOOD SPECIMEN Ordering Facility: [facility] Address: [address] [place] [address] Performed By: #### 2 4321-2, 11633-1 #### [facility] CLIA [id number] [address] [place], [place] [address] [place] Calcium [Mass/Vol] 9.4 mg/dL Normal 8.5-10.5 [facility] Comment on above: Order Comment: Speci men Type: BLOOD SPECIMEN Ordering Facility: [facility] Address: [address] [place] [address] Performed By: #### 2 4321-2, 79529-5 #### [facility] CLIA [id number] [address] [place] [address] [place] Chloride [Moles/Vol] 103 mmol/L Normal 98-107 [facility] Comment on above: Order Comment: Speci men Type: BLOOD SPECIMEN Ordering Facility: [facility] Address: [address] [place] [address] Performed By: #### 2 4321-2, 69277-9 #### [facility] CLIA [id number] [address] [place], [place] [address] [place] CO2 [Moles/Vol] 28 mmol/L Normal 21-32 [facility] Comment on above: Order Comment: Speci men Type: BLOOD SPECIMEN Ordering Facility: [facility] Address: [address] [place] [address] Performed By: #### 2 4321-2, 42930-7 #### [facility] CLIA [id number] [address] [place], [place] [address] [place] Creatinine [Mass/Vol] 0.70 mg/dL Normal 0.50-1.40 [facility] Comment on above: Order Comment: Imelda redding Type: BLOOD SPECIMEN Ordering Facility: [facility] Address: [address] [place] [address] Result Comment: Raven ents receiving either N-Acetylcysteine (NAC) or Metamizole prior to venipuncture, may have falsely depressed results. Performed By: #### 2 4321-2, 78463-6 #### [facility] CLIA [id number] [address] [place] [address] [facility] Creatinine and Glomerular filtration rate.predicted panel (S/P/Bld) 111 mL/min/1.73m??? Normal >=60 [facility] Comment on above: Order Comment: Imelda redding Type: BLOOD SPECIMEN Ordering Facility: [facility] Address: [address] [place] [address] Result Comment: Estela mated Glomerular Filtration Rate (eGFR) is calculated using the 2020 CKD-EPI creatinine equation. This equation utilizes serum creatinine, sex, and age as parameters. The creatinine assay has traceable calibration to isotope dilution-mass spectrometry. Refer to KDIGO guidelines for clinical interpretation. In patients with unstable renal function, e.g. those with acute kidney injury, the eGFR may not accurately reflect actual GFR. Performed By: #### 2 4321-2, 41555-2 #### [facility] CLIA [id number] [address] [place] [address] [place] Glucose [Mass/Vol] 336 mg/dL High 70-100 [facility] Comment on above: Order Comment: Imelda redding Type: BLOOD SPECIMEN Ordering Facility: [facility] Address: [address] [place] [address] Result Comment: The [place] Diabetes Association (ADA) provides guidance for cutoff values for fasting glucose and random glucose. The ADA defines fasting as no caloric intake for at least 8 hours. Fasting plasma glucose results between 100 to 125 mg/dL indicate increased risk for diabetes (prediabetes). Fasting plasma glucose results greater than or equal to 126 mg/dL meet the criteria for diagnosis of diabetes. In the absence of unequivocal hyperglycemia, results should be confirmed by repeat testing. In a patient with classic symptoms of hyperglycemia or hyperglycemic crisis, random plasma glucose results greater than or equal to 200 mg/dL meet the criteria for diagnosis of diabetes. Reference: Standards of Medical Care in Diabetes 2016, [place] Diabetes Association. Diabetes Care. 2016.39(Suppl 1). Results may be falsely elevated after the administration of Sulfapyridine. Results may be falsely depressed after the administration of Sulfasalazine. Performed By: #### 2 4321-2, 01367-0 #### [facility] CLIA [id number] [address] [place] [address] [place] Potassium [Moles/Vol] 4.5 mmol/L Normal 3.5-5.1 [facility] Comment on above: Order Comment: Imelda redding Type: BLOOD SPECIMEN Ordering Facility: [facility] Address: [address] [place] [address] Performed By: #### 2 4321-2, 41424-9 #### [facility] CLIA [id number] [address] [place] [address] [place] Sodium [Moles/Vol] 137 mmol/L Normal 136-145 [facility] Comment on above: Order Comment: Imelda redding Type: BLOOD SPECIMEN Ordering Facility: [facility] Address: [address] [place] [address] Performed By: #### 2 4321-2, 44131-9 #### [facility] CLIA [id number] [address] [place] [address] [place] Urea nitrogen [Mass/Vol] 16 mg/dL Normal 7-26 [facility] Comment on above: Order Comment: Tonyi miladis Type: BLOOD SPECIMEN Ordering Facility: [facility] Address: [address] [place] [address] Performed By: #### 2 4321-2, 44760-7 #### [facility] CLIA [id number] [address] [place] [address] [place] CBC W Auto Differential pane l (Bld)on 01-30-2024 Basophils (Bld) [#/Vol] 0.03 10*3/uL [facility] Basophils/100 WBC (Bld) 0.4 % [facility] Differential cell count method Nom (Bld) Auto [facility] Eosinophils (Bld) [#/Vol] 0.19 10*3/uL [facility] Eosinophils/100 WBC (Bld) 2.6 % [facility] Erythrocyte distribution width (RBC) [Ratio] 12.3 % 11.5 - 15.0 % [facility] Hematocrit (Bld) [Volume fraction] 41.7 % 39.0 - 51.0 % [facility] Hemoglobin (Bld) [Mass/Vol] 14.1 g/dL 13.0 - 17.0 g/dL [facility] Immature granulocytes (Bld) [#/Vol] [facility] Immature granulocytes/100 WBC (Bld) 0.3 % [facility] Lymphocytes (Bld) [#/Vol] 2.24 10*3/uL [facility] Lymphocytes/100 WBC (Bld) 30.7 % [facility] MCH (RBC) [Entitic mass] 29.2 pg 26.0 - 34.0 pg [facility] MCHC (RBC) [Mass/Vol] 33.8 g/dL 30.5 - 36.0 g/dL [facility] MCV (RBC) [Entitic vol] 86.3 fL 80.0 - 100.0 fL [facility] Monocytes (Bld) [#/Vol] 0.51 10*3/uL [facility] Monocytes/100 WBC (Bld) 7.0 % [facility] Neutrophils (Bld) [#/Vol] 4.31 10*3/uL [facility] Neutrophils/100 WBC (Bld) 59.0 % [facility] Nucleated RBC (Bld) [#/Vol] [facility] Nucleated RBC/100 WBC (Bld) [Ratio] 0.0 % /100 WBC [facility] Platelet mean volume (Bld) [Entitic vol] 10.0 fL 9.0 - 12.7 fL [facility] Platelets (Bld) [#/Vol] 217 10*3/uL [facility] RBC (Bld) [#/Vol] 4.83 10*6/uL 4.20 - 6.0 0 m/uL [facility] WBC (Bld) [#/Vol] 7.30 10*3/uL [facility] Basophils (Bld) [#/Vol] 0.03 10*3/uL Normal <0.11 [facility] Comment on above: Order Comment: Speci men Type: BLOOD SPECIMEN Ordering Facility: [facility] Address: [address] [place] [address] Performed By: #### 5 7021-8 #### [facility] CLIA [id number] [address] [place] [address] [place] Basophils/100 WBC (Bld) 0.4 % Normal [facility] Comment on above: Order Comment: Speci men Type: BLOOD SPECIMEN Ordering Facility: [facility] Address: [address] [place] [address] Performed By: #### 5 7021-8 #### [facility] CLIA [id number] [address] [place] [address] [place] Differential cell count method Nom (Bld) Auto Normal [facility] Comment on above: Order Comment: Speci men Type: BLOOD SPECIMEN Ordering Facility: [facility] Address: [address] [place] [address] Performed By: #### 5 7021-8 #### [facility] CLIA [id number] [address] [place] [address] [place] Eosinophils (Bld) [#/Vol] 0.19 10*3/uL Normal <0.46 [facility] Comment on above: Order Comment: Speci men Type: BLOOD SPECIMEN Ordering Facility: [facility] Address: [address] [place] [address] Performed By: #### 5 7021-8 #### [facility] CLIA [id number] [address] [place] [address] [place] Eosinophils/100 WBC (Bld) 2.6 % Normal [facility] Comment on above: Order Comment: Speci men Type: BLOOD SPECIMEN Ordering Facility: [facility] Address: [address] [place] [address] Performed By: #### 5 7021-8 #### [facility] CLIA [id number] [address] [place], [place] [address] [place] Erythrocyte distribution width (RBC) [Ratio] 12.3 % Normal 11.5-15.0 [facility] Comment on above: Order Comment: Speci men Type: BLOOD SPECIMEN Ordering Facility: [facility] Address: [address] [place] [address] Performed By: #### 5 7021-8 #### [facility] CLIA [id number] [address] [place] [address] [place] Hematocrit (Bld) [Volume fraction] 41.7 % Normal 39.0-51.0 [facility] Comment on above: Order Comment: Speci men Type: BLOOD SPECIMEN Ordering Facility: [facility] Address: [address] [place] [address] Performed By: #### 5 7021-8 #### [facility] CLIA [id number] [address] [place] [address] [place] Hemoglobin (Bld) [Mass/Vol] 14.1 g/dL Normal 13.0-17.0 [facility] Comment on above: Order Comment: Speci men Type: BLOOD SPECIMEN Ordering Facility: [facility] Address: [address] [place] [address] Performed By: #### 5 7021-8 #### [facility] CLIA [id number] [address] [place] [address] [place] Immature granulocytes (Bld) [#/Vol] 10*3/uL Normal <0.10 [facility] Comment on above: Order Comment: Speci men Type: BLOOD SPECIMEN Ordering Facility: [facility] Address: [address] [place] [address] Performed By: #### 5 7021-8 #### [facility] CLIA [id number] [address] [place] [address] [place] Immature granulocytes/100 WBC (Bld) 0.3 % Normal [facility] Comment on above: Order Comment: Speci men Type: BLOOD SPECIMEN Ordering Facility: [facility] Address: [address] [place] [address] Performed By: #### 5 7021-8 #### [facility] CLIA [id number] [address] [place] [address] [place] Lymphocytes (Bld) [#/Vol] 2.24 10*3/uL Normal 1.00-4.00 [facility] Comment on above: Order Comment: Speci men Type: BLOOD SPECIMEN Ordering Facility: [facility] Address: [address] [place] [address] Performed By: #### 5 7021-8 #### [facility] CLIA [id number] [address] [place] [address] [place] Lymphocytes/100 WBC (Bld) 30.7 % Normal [facility] Comment on above: Order Comment: Speci men Type: BLOOD SPECIMEN Ordering Facility: [facility] Address: [address] [place] [address] Performed By: #### 5 7021-8 #### [facility] CLIA [id number] [address] [place] [address] [place] MCH (RBC) [Entitic mass] 29.2 pg Normal 26.0-34.0 [facility] Comment on above: Order Comment: Speci men Type: BLOOD SPECIMEN Ordering Facility: [facility] Address: [address] [place] [address] Performed By: #### 5 7021-8 #### [facility] CLIA [id number] [address] [place] [address] [place] MCHC (RBC) [Mass/Vol] 33.8 g/dL Normal 30.5-36.0 [facility] Comment on above: Order Comment: Speci men Type: BLOOD SPECIMEN Ordering Facility: [facility] Address: [address] [place] [address] Performed By: #### 5 7021-8 #### [facility] CLIA [id number] [address] [place] [address] [place] MCV (RBC) [Entitic vol] 86.3 fL Normal 80.0-100.0 [facility] Comment on above: Order Comment: Speci men Type: BLOOD SPECIMEN Ordering Facility: [facility] Address: [address] [place] [address] Performed By: #### 5 7021-8 #### [facility] CLIA [id number] [address] [place] [address] [place] Monocytes (Bld) [#/Vol] 0.51 10*3/uL Normal <0.87 [facility] Comment on above: Order Comment: Speci men Type: BLOOD SPECIMEN Ordering Facility: [facility] Address: [address] [place] [address] Performed By: #### 5 7021-8 #### [facility] CLIA [id number] [address] [place] [address] [place] Monocytes/100 WBC (Bld) 7.0 % Normal [facility] Comment on above: Order Comment: Speci men Type: BLOOD SPECIMEN Ordering Facility: [facility] Address: [address] [place] [address] Performed By: #### 5 7021-8 #### [facility] CLIA [id number] [address] [place] [address] [place] Neutrophils (Bld) [#/Vol] 4.31 10*3/uL Normal 1.45-7.50 [facility] Comment on above: Order Comment: Speci men Type: BLOOD SPECIMEN Ordering Facility: [facility] Address: [address] [place] [address] Performed By: #### 5 7021-8 #### [facility] CLIA [id number] [address] [place] [address] [place] Neutrophils/100 WBC (Bld) 59.0 % Normal [facility] Comment on above: Order Comment: Speci men Type: BLOOD SPECIMEN Ordering Facility: [facility] Address: [address] [place] [address] Performed By: #### 5 7021-8 #### [facility] CLIA [id number] [address] [place] [address] [place] Nucleated RBC (Bld) [#/Vol] 10*3/uL Normal <0.01 [facility] Comment on above: Order Comment: Speci men Type: BLOOD SPECIMEN Ordering Facility: [facility] Address: [address] [place] [address] Performed By: #### 5 7021-8 #### [facility] CLIA [id number] [address] [place], [place] [address] [place] Nucleated RBC/100 WBC (Bld) [Ratio] 0.0 /100 WBC Normal [facility] Comment on above: Order Comment: Speci men Type: BLOOD SPECIMEN Ordering Facility: [facility] Address: [address] [place] [address] Performed By: #### 5 7021-8 #### [facility] CLIA [id number] [address] [place] [address] [place] Platelet mean volume (Bld) [Entitic vol] 10.0 fL Normal 9.0-12.7 [facility] Comment on above: Order Comment: Speci men Type: BLOOD SPECIMEN Ordering Facility: [facility] Address: [address] [place] [address] Performed By: #### 5 7021-8 #### [facility] CLIA [id number] [address] [place] [address] [place] Platelets (Bld) [#/Vol] 217 10*3/uL Normal 150-400 [facility] Comment on above: Order Comment: Speci men Type: BLOOD SPECIMEN Ordering Facility: [facility] Address: [address] [place] [address] Performed By: #### 5 7021-8 #### [facility] CLIA [id number] [address] [place] [address] [place] RBC (Bld) [#/Vol] 4.83 10*6/uL Normal 4.20-6.00 [facility] Comment on above: Order Comment: Speci men Type: BLOOD SPECIMEN Ordering Facility: [facility] Address: [address] [place] [address] Performed By: #### 5 7021-8 #### [facility] CLIA [id number] [address] [place] [id number] [place] WBC (Bld) [#/Vol] 7.30 10*3/uL Normal 3.70-11.00 [facility] Comment on above: Order Comment: Speci men Type: BLOOD SPECIMEN Ordering Facility: [facility] Address: [address] [place] [address] [place] [address] Performed By: #### 5 7021-8 #### [facility] CLIA [id number] [address] [place] [address] [facility] ECG COMPLETEon 01-30-2024 Atrial Rate 83 BPM [facility] Calculated P [place] 72 degrees [facility] Calculated R [place] 53 degrees [facility] Calculated T [place] 176 degrees [facility] P-R Interval 178 ms [facility] QRS Duration 96 ms [facility] QT Interval 384 ms [facility] QTC Calculation (Bazett) 451 ms [facility] 83 B[facility] Normal sinus rhythm T wave abnormality, consider inferior ischemia Abnormal ECG No previous ECGs available Confirmed by ELO ANAYA MD ([id number]) on 01/30/2024 4:42:53 PM [facility] NAME : SAJAN RUFFIN PID : [id number] : 1970 Gender : Male Race : ORD : [id number] Procedure Date : Jan 30 2024 13:08:57 Edit Date : Jan 30 2024 16:42:55 Diagnosis: Normal sinus rhythm T wave abnormality, consider inferior ischemia Abnormal ECG No previous ECGs available Confirmed by ELO ANAYA MD ([id number]) on 01/30/2024 4:42:53 PM Test Reason : PREOP Location : 2 : PEAT Overread By : ELO ANAYA MD Edited By : ELO ANAYA MD Referred By : SRINI LEMUS Acquired by : JARAD [facility] ECG COMPLETE Ventricular Rate : 8 3 BPM Atrial Rate : 83 BPM P-R Interval : 178 ms QRS Duration : 96 ms Q-T Interval : 384 ms QTC Calculation(Bazett) : 451 ms Calculated P [place] : 72 degrees Calculated R [place] : 53 degrees Calculated T [place] : 176 degrees Normal sinus rhythm T wave abnormality, consider inferior ischemia Abnormal ECG No previous ECGs available Confirmed by ELO ANAYA MD ([id number]) on 01/30/2024 4:42:53 PM NAME : DEEPA RUFFIN PID : [id number] : 1970 Gender : Male Race : ORD : [id number] Procedure Date : Jan 30 2024 13:08:57 Edit Date : Jan 30 2024 16:42:55 Diagnosis: Normal sinus rhythm T wave abnormality, consider inferior ischemia Abnormal ECG No previous ECGs available Confirmed by ELO ANAYA MD ([id number]) on 01/30/2024 4:42:53 PM Test Reason : PREOP Location : 2 : [place] Overread By : ELO ANAYA MD Edited By : ELO ANAYA MD Referred By : SRINI LEMUS Acquired by : Tiffany ABRAHAM [facility] HbA1c (Bld)on 01-30-2024 Average glucose Estimated from glycated hemoglobin (Bld) [Mass/Vol] 203 mg/dL [facility] Comment on above: Order Comment: Imelda redding Type: BLOOD SPECIMEN Ordering Facility: [facility] Address: [address] [place] [address] Result Comment: eAG: (Estimated average glucose) is a calculated value from HgbA1c and is marketing sales representative of the average blood glucose level in the last 2-3 month period. Performed By: #### 5 5454-3 #### [facility] CLIA [id number] [address] [place] [address] [place] HbA1c (Bld) [Mass fraction] 8.7 % High 4.3-5.6 [facility] Comment on above: Order Comment: Imelda redding Type: BLOOD SPECIMEN Ordering Facility: [facility] Address: [address] [place] [address] Result Comment: Amer ican Diabetes Association guidelines indicate that patients with HgbA1c in the range 5.7-6.4% are at increased risk for development of diabetes, and intervention by lifestyle modification may be beneficial. HgbA1c greater or equal to 6.5% is considered diagnostic of diabetes. Performed By: #### 5 5454-3 #### [facility] CLIA [id number] [address] [facility] [place] [id number] [address] [place] NT PRO BNPon 01-30-2024 Natriuretic peptide.B prohormone N-Terminal [Mass/Vol] pg/mL NINF - 125 pg/mL [facility] Comment on above: NT-proBNP results of less than 300 pg/mL likely rules out acute congestive heart failure with 99% predictive value. NOTE: These cutoff points are suggested for ACUTE CHF DIAGNOSIS only Less than 50 years Greater than 450 pg/mL 50 - 75 years Greater than 900 pg/mL Greater than 75 years Greater than 1800 pg/mL NT-proBNP SerPl-mCncon 01-29 Natriuretic peptide.B prohormone N-Terminal [Mass/Vol] <35 Normal <125 [facility] Comment on above: Order Comment: Speci miladis Type: BLOOD SPECIMEN Ordering Facility: [facility] Address: [address] [place] [address] Result Comment: NT-p roBNP results of less than 300 pg/mL likely rules out acute congestive heart failure with 99% predictive value. NOTE: These cutoff points are suggested for ACUTE CHF DIAGNOSIS only Less than 50 years\X09\ Greater than 450 pg/mL 50 - 75 years\X09\X09\ Greater than 900 pg/mL Greater than 75 years\X09\ Greater than 1800 pg/mL Performed By: #### 2 4321-2, 63695-6 #### [facility] CLIA [id number] [address] [place] [address] [place] Natriuretic peptide.B prohor karthik N-Terminal [Mass/Vol]on 01-30-2024 Interpretation and review of laboratory results Normal [facility] No Panel Informationon 01-29 [facility] STAPHYLOCOCCUS AUREUS AND MR SA SCREEN, PCR, NASALon 01-30-2024 S. aureus and MRSA panel DANIA+probe (Nose) Not detected Normal Not Detected [facility] Comment on above: Order Comment: Tonyi miladis Type: SWAB Ordering Facility: [facility] Address: [address] [place] [address] Performed By: #### S APCR #### [facility] CLIA [id number] [address] [place] [address], [place] [address] [place] STAPHYLOCOCCUS AUREUS & MRSA SCREEN, PCR, NASALon 01-30-2024 Interpretation and review of laboratory results Normal [facility] S. aureus and MRSA panel DANIA+probe (Nose) Not detected Not Detected [facility] BMP with eGFRon 03-06-2023 AGE 52 years Normal [facility] Comment on above: Performed By: #### 2 98355 #### [facility],[address] [place] [address] Anion gap [Moles/Vol] 14 mmol/L Normal 10 - 20 [facility] Comment on above: Performed By: #### 2 39812 #### [facility],[address] [place] [address]47 BMP with eGFR Normal [facility] Comment on above: Result Comment: BASI C METABOLIC PANEL Performed By: #### 2 38792 #### [facility],[address] [place], [place] [id number] Calcium [Mass/Vol] 9.3 mg/dL Normal 8.5 - 10.[address] [facility] Comment on above: Performed By: #### 2 48560 #### [facility],[address] [place], [place] [address] Chloride [Moles/Vol] 98 mmol/L Normal 98 - 107 [facility] Comment on above: Performed By: #### 2 93364 #### [facility],[address] [place] [address]9957 CO2 [Moles/Vol] 29.2 mmol/L Normal 21.0 - 32.0 [facility] Comment on above: Performed By: #### 2 40407 #### [facility],[address] [place] [address]709 Creatinine [Mass/Vol] 0.89 mg/dL Normal 0.70 - 1.30 [facility] Comment on above: Performed By: #### 2 40575 #### [facility],[address] [place], [place] [address] GFR/1.73 sq M.predicted among non-blacks MDRD (S/P/Bld) [Vol rate/Area] mL/min/{1.73_m2} Normal 60 - 999 [facility] Comment on above: Performed By: #### 2 49964 #### [facility],[address] [place] [address] Result Comment: ACCO RDING TO THE NATIONAL KIDNEY DISEASE EDUCATION PROGRAM(NKDE), A NORMAL eGFR IS A VALUE GREATER THAN OR EQUAL TO 60 ML/MIN/1.73 SQ METERS. CHRONIC KIDNEY DISEASE: <60mL/MIN/1.73 SQ METERS KIDNEY FAILURE: <15mL/MIN/1.73 SQ METERS THIS TEST SHOULD ONLY BE USED FOR PATIENTS 18 YEARS OF AGE AND OLDER. Glucose [Mass/Vol] 297 mg/dL High 74 - [address] [facility] Comment on above: Performed By: #### 2 97601 #### [place] [id number] Potassium [Moles/Vol] 4.7 mmol/L Normal 3.5 - 5.1 [facility] Comment on above: Performed By: #### 2 42126 #### [place] [id number] Sodium [Moles/Vol] 136 mmol/L Normal 136 - [address] [facility] Comment on above: Performed By: #### 2 89483 #### [address] [address] Urea nitrogen [Mass/Vol] 14 mg/dL Normal 7 - 18 [facility] Comment on above: Performed By: #### 2 91551 #### [address] [address] CBC + DIFFon 03-06-2023 Baso # 0.10 x10EE3/UL Normal 0.00 - 0.10 [facility] Comment on above: Performed By: #### 2 54600 #### [address],[place] [address] Basophils/100 WBC (Bld) 0.9 % Normal 0.0 - 2.0 [facility] Comment on above: Performed By: #### 2 75455 #### [facility],[address] [place] [address] CBC + DIFF Normal [facility] Comment on above: Result Comment: CBC- COMPLETE BLOOD COUNT Performed By: #### 2 86864 #### [facility],[address] [place] [address] 45568 EO # 0.10 x10EE3/UL Normal 0.00 - 0.50 [facility] Comment on above: Performed By: #### 2 40255 #### [facility],[address] [place] [address]29 Eosinophils/100 WBC (Bld) 1.4 % Normal 0.0 - 7.0 [facility] Comment on above: Performed By: #### 2 83577 #### [facility],[address] [place] [address] Erythrocyte distribution width (RBC) [Ratio] 13.2 % Normal 12.0 - 15.6 [facility] Comment on above: Performed By: #### 2 52253 #### [facility],[address] [place] [address] Hematocrit (Bld) [Volume fraction] 45.1 % Normal 40.0 - 52.0 [facility] Comment on above: Performed By: #### 2 28356 #### [facility],[address] [place] [address]97 Hemoglobin (Bld) [Mass/Vol] 15.1 g/dL Normal 13.0 - 17.5 [facility] Comment on above: Performed By: #### 2 28264 #### [facility],[address] [place] [address] 07421 Lymph # 2.30 x10EE3/UL Normal 0.80 - 2.80 [facility] Comment on above: Performed By: #### 2 54366 #### [facility],[address] [place] [address]605 Lymphocytes/100 WBC (Bld) 27.6 % Normal 20.0 - 45.0 [facility] Comment on above: Performed By: #### 2 53917 #### [facility],[address] [place] [address] MANUAL DIFF N/A Normal [facility] Comment on above: Performed By: #### 2 12214 #### [facility],[address] [place] [address] MCH (RBC) [Entitic mass] 30 pg Normal 27 - 33 [facility] Comment on above: Performed By: #### 2 40214 #### [facility],[address] [place] [address] MCHC 33 X10 3 Normal 32 - 36 [facility] Comment on above: Performed By: #### 2 19309 #### [facility],[address] [place] [address]6059 MCV (RBC) [Entitic vol] 88 fL Normal 81 - 98 [facility] Comment on above: Performed By: #### 2 86535 #### [facility],[address] [place] [address] [place] # 0.50 x10EE3/UL Normal 0.20 - 1.00 [facility] Comment on above: Performed By: #### 2 76835 #### [facility],[address] [place] [address] 41895 MONOS % 6.0 % Normal 0.0 - 10.0 [facility] Comment on above: Performed By: #### 2 33717 #### [facility],[address] [place] [address]3961 Morphology Inderjit (Bld) [Interp] N/A Normal [facility] Comment on above: Result Comment: {CD] Performed By: #### 2 35189 #### [facility],[address] [place] [address]014 Neut # 5.20 x10EE3/UL Normal 1.50 - 7.10 [facility] Comment on above: Performed By: #### 2 21873 #### [facility],[address] [place] [address] 24007 Neutrophils/100 WBC (Bld) 64.1 % Normal 46.0 - 76.0 [facility] Comment on above: Performed By: #### 2 29928 #### [facility],[address] [place] [address]7923 PLATELET 250 x10EE3/UL Normal 150 - 450 [facility] Comment on above: Performed By: #### 2 84178 #### [facility],[address] [place] [address] 36563 Platelet mean volume (Bld) [Entitic vol] 8.2 fL Normal 6.4 - 10.5 [facility] Comment on above: Result Comment: AUTO MATED DIFFERENTIAL Performed By: #### 2 81276 #### [facility],[address] [place] [address] 24500 RBC 5.10 x 10EE6/UL Normal 4.50 - 6.[address] [facility] Comment on above: Performed By: #### 2 16085 #### [facility],[address] [place] [address] 18063 WBC 8.2 x 10EE3/UL Normal 4.5 - 10.8 [facility] Comment on above: Performed By: #### 2 97154 #### [facility],[address] [place] [address] 21223 HEMOGLOBIN A1C (POM)on 03-06 HbA1c (Bld) [Mass fraction] 8.5 % High 0.0 - 6.5 [facility] Comment on above: Result Comment: BLDo HEMOGLOBIN A1C REFERENCE RANGESBLDo Suggested Diagnosis HbA1c(%) HbA1C (mmol/mol Diabetic >/=6.5 >/=48 Prediabetes 5.7 - 6.4 39 - 47 Normal <5.7 <39 Performed By: #### 2 38314 #### [facility],[address] [place], [place] [address] FLUOROSCOPY IN OR/PAIN MGTon 03-07-2021 FLUOROSCOPY IN OR/PAIN MGT FLUOROSCOPY IN OR/PAIN MGT Ordering Physician: Damon Lemus MD 03/07/2021 1:52 PM FLUOROSCOPY IN OR Clinical Statement: Recurrent herniated disc Comparison: None FINDINGS: Fluoroscopy was provided to Dr. Lemus. A single lateral fluoroscopic image of the lumbar spine demonstrates a marker directed posterior to the L4-5 disc space level. 1 seconds of fluoroscopic time was utilized in the OR. IMPRESSION: Report generated to document fluoroscopic time utilized in the OR. This report was electronically signed by Jamaal Gallagher MD 03/07/2021 2:25 PM Reported By: JAMAAL GALLAGHER M.D. Signed By: JAMAAL GALLAGHER M.D. Normal [facility] GLUCOSE METERon 03-07-2021 Glucose [Mass/Vol] 221 mg/dL High 70-115 [facility] OR.OPRPTon 03-07-2021 Operative Report Normal [facility] OR.OPRPT [facility] Patient Name: DEEPA RUFFIN [facility] [employer] Date of : [address] [place] [address] Unit Number: [id number] Operative Report Patient Status: [facility] [place] Attending Doctor: Damon Lemus MD Service Date: 03/07/21 1357 Operative Report - ORTHO Procedure Date: 03/07/21 Procedure: Preoperative diagnosis: Recurrent right L4-5 disc herniation Postoperative diagnosis: Recurrent right L4-5 disc herniation Procedure: Redo right L4-5 disc herniation Surgeon: Damon Lemus MD Indications: Patient presented with recurrent right L5 radicular pain after initial success with right L4-5 discectomy. Preoperative imaging was significant for recurrent right L4-5 disc herniation. Preoperatively we discussed risks, benefits, complications, expected rehabilitation, and alternatives to surgical treatment. Patient expressed understanding and elected to proceed Operative Note: The patient was identified in the preoperative holding area. The operative site was marked. All questions were answered. The patient was transported to the surgical suite. General anesthesia was administered. A timeout was taken according to protocol. The patient received preoperative intravenous antibiotics. The patient was positioned prone on the Silverio table. All bony prominences were padded. The abdomen hung free. The patient was prepped and draped in standard fashion. Fluoroscopy was used to plan the level of the skin incision. A midline skin incision was made followed by electrocautery down to the level of the fascia. The fascia and paraspinal muscles were elevated off the operative levels on the right L4-5 side. The previous laminectomy borders were defined. An x-ray was taken to confirm level of surgery. Deep retractors were placed. Scar tissue from the previous surgery was debulked with a pituitary. Tissue overlying the laminectomy bed was mobilized with an angled curette. The borders of the laminectomy bed were defined. The laminectomy on the right side L4-5 was expanded cranially, laterally, and caudally 2 mm. The lateral aspect of the thecal sac was identified cephalad to the level of the right L5 pedicle. The thecal sac and right L5 nerve root were mobilized medially. Immediately an extruded disc herniation was visible. The disc herniation was removed with a micropituitary. The disc base was entered. Any remaining fragments were removed. The area was then in sugar inspected to ensure decompression. There was marked annular redundancy along with an incompetent annulus. The area was then inspected to ensure hemostasis and decompression. There was no evidence of residual stenosis. The area was then thoroughly irrigated and closed in standard fashion. Complications: None Condition: Stable Findings: Consistent with diagnosis Estimated blood loss: Minimal Disclaimer This dictation was created using voice recognition software. Phonetic and/or minor grammatical errors may exist. eSign Date and Time Damon Lemus MD Verified/Reviewed by 03/07/21 1400 Normal [facility] 02-16-2021 Anion gap [Moles/Vol] 7 mmol/L Normal - [facility] Comment on above: Order Comment: Greg loredo: Vikki Performed By: #### L 500.82661, L500.10812 #### [facility] [address] [place] [address] Calcium [Mass/Vol] 9.8 mg/dL Normal 8.5-10.5 [facility] Comment on above: Order Comment: Campu s: M Result Comment: NOTE NEW NORMAL RANGE DUE TO REAGENT CHANGE Performed By: #### L 500.92288, L500.82141 #### [facility] [address] [place] [address] Chloride [Moles/Vol] 105 mmol/L Normal 98-107 [facility] Comment on above: Order Comment: Campu s: M Performed By: #### L 500.11416, L500.77111 #### [facility] [address] [place] [address] CO2 [Moles/Vol] 26.0 mmol/L Normal 21-32 [facility] Comment on above: Order Comment: Campu s: M Performed By: #### L 500.50609, L500.91439 #### [facility] [address] [place] [address] Creatinine [Mass/Vol] 0.57 mg/dL Normal 0.5-1.4 [facility] Comment on above: Order Comment: Campu s: M Result Comment: NOTE NEW NORMAL RANGE DUE TO REAGENT CHANGE Patients receiving either N-Acetylcysteine (NAC) or Metamizole prior to venipuncture, may have falsely depressed results. Performed By: #### L 500.76154, L500.84207 #### [facility] [address] [place] [address] Glucose [Mass/Vol] 207 mg/dL High 70-100 [facility] Comment on above: Order Comment: Campu s: M Result Comment: 70-1 00- Normal Fasting; 100-125 Impaired Fasting; greater than 126 on more than one result- Diabetes. ADA guidelines. Results may be falsely elevated after the administration of Sulfapyridine. Results may be falsely depressed after the administration of Sulfasalazine. Performed By: #### L 500.39786, L500.31834 #### [facility] [address] [place], [place] [id number] Potassium [Moles/Vol] 4.5 mmol/L Normal 3.5-5.1 [facility] Comment on above: Order Comment: Campu s: M Result Comment: Slig ht Hemolysis, Result may be affected. Performed By: #### L 500.35976, L500.84611 #### [facility] [address] [place] [address] Sodium [Moles/Vol] 138 mmol/L Normal 136-145 [facility] Comment on above: Order Comment: Campu s: M Performed By: #### L 500.46614, L500.54969 #### [facility] [address] [place] [address] Urea nitrogen [Mass/Vol] 16 mg/dL Normal 7-26 [facility] Comment on above: Order Comment: Campu s: M Performed By: #### L 500.90130, L500.98510 #### [facility] [address] [place], [place] [address] Urea nitrogen/Creatinine [Mass ratio] 28 mg/mg High 15-24 [facility] Comment on above: Order Comment: Campu s: M Performed By: #### L 500.65516, L500.58885 #### [facility] [address] [place] [address] CBC W/DIFFon 02-16-2021 BASO ABS 0.00 K/CU MM Normal 0-0.2 [facility] Comment on above: Order Comment: Campu s: M Performed By: #### L 200.93124, L550.88198 #### [facility] [address] [place] [address] Basophils/100 WBC (Bld) 0.5 % Normal 0-2 [facility] Comment on above: Order Comment: Campu s: M Performed By: #### L 200.32430, L550.86843 #### [facility] [address] [place] [address] EOS ABS 0.20 K/CU MM Normal 0-0.5 [facility] Comment on above: Order Comment: Campu s: M Performed By: #### L 200.54613, L550.13408 #### [facility] [address] [place] [address] Eosinophils/100 WBC (Bld) 2.1 % Normal 0-5 [facility] Comment on above: Order Comment: Campu s: M Performed By: #### L 200.29536, L550.00020 #### [facility] [address] [place] [address] Erythrocyte distribution width (RBC) [Ratio] 12.5 % Normal 11-14.5 [facility] Comment on above: Order Comment: Campu s: M Performed By: #### L 200.79283, L550.59982 #### [facility] [address] [place] [address] Hematocrit (Bld) [Volume fraction] 44.1 % Normal 41.0-53.0 [facility] Comment on above: Order Comment: Campu s: M Performed By: #### L 200.91302, L550.37357 #### [facility] [address] [place] [address] Hemoglobin (Bld) [Mass/Vol] 14.9 g/dL Normal 13.5-17.5 [facility] Comment on above: Order Comment: Campu s: M Performed By: #### L 200.77041, L550.54447 #### [facility] [address] [place] [address] IMMATR GRAN ABS 0.00 K/CU MM Normal Less than 2 [facility] Comment on above: Order Comment: Campu s: M Performed By: #### L 200.94719, L550.52846 #### [facility] [address] [place] [address] IMMATURE GRAN % 0.3 % Normal Less than 2 [facility] Comment on above: Order Comment: Campu s: M Performed By: #### L 200.06404, L550.52846 #### [facility] [address] [place] [address] LYMPH ABS 2.40 K/CU MM Normal 0.9-4.4 [facility] Comment on above: Order Comment: Campu s: M Performed By: #### L 200.95826, L550.03795 #### [facility] [address] [place] [address] Lymphocytes/100 WBC (Bld) 27.4 % Normal 20-40 [facility] Comment on above: Order Comment: Campu s: M Performed By: #### L 200.66564, L550.08397 #### [facility] [address] [place] [address] MCHC (RBC) [Mass/Vol] 33.8 g/dL Normal 32.0-36.0 [facility] Comment on above: Order Comment: Campu s: M Performed By: #### L 200.23835, L550.86506 #### [facility] [address] [place] [address] MCV (RBC) [Entitic vol] 85.8 fL Normal 80.0-99.0 [facility] Comment on above: Order Comment: Campu s: M Performed By: #### L 200.51116, L550.01778 #### [facility] [address] [place] [address] MONO ABS 0.50 K/CU MM Normal 0.1-1.1 [facility] Comment on above: Order Comment: Campu s: M Performed By: #### L 200.00140, L550.34601 #### [facility] [address] [place] [address] Monocytes/100 WBC (Bld) 6.1 % Normal 2-10 [facility] Comment on above: Order Comment: Campu s: M Performed By: #### L 200.03962, L550.72009 #### [facility] [address] [place] [address] NEUTROPHIL ABS 5.50 K/CU MM Normal 2.0-8.3 [facility] Comment on above: Order Comment: Campu s: M Performed By: #### L 200.12179, L550.80988 #### [facility] [address] [place] [address] Neutrophils/100 WBC (Bld) 63.6 % Normal 45-75 [facility] Comment on above: Order Comment: Campu s: M Performed By: #### L 200.84977, L550.65859 #### [facility] [address] [place] [address] Nucleated RBC/100 WBC (Bld) [Ratio] 0.0 % Normal Less than 1 [facility] Comment on above: Order Comment: Campu s: M Performed By: #### L 200.13700, L550.86182 #### [facility] [address] [place] [address] Platelet mean volume (Bld) [Entitic vol] 9.8 fL Normal 9.4-12.4 [facility] Comment on above: Order Comment: Campu s: M Performed By: #### L 200.01339, L550.56009 #### [facility] [address] [place] [address] PLT 260 K/CU MM Normal 150-450 [facility] Comment on above: Order Comment: Campu s: M Performed By: #### L 200.81675, L550.87974 #### [facility] [place] [address] RBC 5.14 M/CU MM Normal 4.50-6.00 [facility] Comment on above: Order Comment: Campu s: M Performed By: #### L 200.65559, L550.85014 #### [facility] [address] [place] [address]35[address] WBC 8.7 K/CUMM Normal 4.5-11.0 [facility] [facility] Comment on above: Order Comment: Campu s: M Performed By: #### L [id number], [id number] #### [facility] [address] [place], [place] [id number] GFR ESTon 02-16-2021 IF AMER Greater than 60 Normal [facility] Comment on above: Order Comment: Campu s: M Performed By: #### L [id number], L500.61942 #### [facility] [address] [place] [address] IF non-AFR AMER Greater than 60 Normal [facility] Comment on above: Order Comment: Campu s: M Performed By: #### L [id number], [id number] #### [facility] [address] [place] [address] HGB A1C GLYCOHBon 02-16-2021 HbA1c (Bld) [Mass fraction] 8.8 % High 4.3-6.0 [facility] Comment on above: Order Comment: Campu s: M Performed By: #### L [id number], [id number] #### [facility] [address] [place] [address] 05697 MRSA PCRon 02-16-2021 MRSA PCR Negative Normal NEGATIVE [facility] Comment on above: Order Comment: Campu s: M Result Comment: PLEA SE NOTE: TESTING DONE BY PCR TECHNOLOGY. Performed By: #### L [id number] ####[facility] [id number] [place], [place] [address]Mt# [phone] SA PCR Negative Normal NEGATIVE [facility] Comment on above: Order Comment: Greg Florez Result Comment: PLEA NOTE: TESTING DONE BY PCR TECHNOLOGY. Performed By: #### L [id number] ####[facility] [id number] [place], [place] [address]Xf# [phone] PBNP TESTon 02-16-2021 Natriuretic peptide B (Bld) [Mass/Vol] 40 pg/mL Normal 0-125 [facility] Comment on above: Order Comment: Greg loredo: Vikki Result Comment: NT-p roBNP results of less than 300 pg/ml likely rules out acute congestive heart failure with 99% predictive value. NOTE: These cuttoff points are suggested for ACUTE CHF DIAGNOSIS only Less than 50 years Greater than 450 pg/ml 50-75 years Greater than 900 pg/ml Greater than 75 years Greater than 1800 pg/ml NOTE NEW NORMAL RANGE Performed By: #### L 500.23524 #### [facility] [address] [place] [address] FLUOROSCOPY IN OR/PAIN MGTon 08-16-2020 FLUOROSCOPY IN OR/PAIN MGT FLUOROSCOPY IN OR/PAIN MGT Ordering Physician: Damon Lemus MD 08/16/2020 8:00 AM FLUOROSCOPY AND RADIOGRAPH UTILIZED IN THE OR Clinical Statement: Lumbar disk herniation FINDINGS: 5.5 second fluoroscopy time utilized. Total four radiographs were obtained demonstrating needle and probe placement at the L4-5 level assuming five lumbar type vertebral bodies. IMPRESSION: Documentation of fluoroscopy and radiographs utilized in the OR during lumbar spinal surgery ---- Electronic Signature on File ---- Signed By: Rosemary Cuadra MD [email or web address] Dictated: 08/16/2020 8:48 AM Signed: 08/16/2020 8:49 AM Reported By: ROSEMARY CUADRA M.D. Signed By: ROSEMARY CUADRA M.D. Normal [facility] GLUCOSE METERon 08-16-2020 Glucose [Mass/Vol] 218 mg/dL High 70-115 [facility] Glucose [Mass/Vol] 279 mg/dL High 70-115 [facility] Glucose [Mass/Vol] 341 mg/dL High 70-115 [facility] OR.OPRPTon 08-16-2020 Operative Report Normal [facility] OR.OPRPT [facility] Patient Name: DEEPA RUFFIN [address] Date of : [address] [place], [place] [address] Unit Number: [id number] Operative Report Patient Status: [facility] Attending Doctor: Damon Lemus MD Service Date: 08/16/20904 Operative Report - ORTHO Procedure Date: 08/16/20 Procedure: Preoperative diagnosis: Right L4-5 disc herniation Postoperative diagnosis: Right L4-5 disc herniation Procedure: Right L4-5 microdiscectomy Surgeon: Damon Lemus MD Indications: Patient presented with life limiting right lower extremity radicular pain. Preoperatively we discussed risks, benefits, complications, expected rehabilitation, and alternatives to surgical treatment. Patient expressed understanding and elected to proceed Operative Note: The patient was identified in the preoperative holding area. The operative site was marked. All questions were answered. The patient was transported to the surgical suite. General anesthesia was administered. A timeout was taken according to protocol. The patient received preoperative intravenous antibiotics. The patient was positioned prone on the Silverio table. All bony prominences were padded. The abdomen hung free. The patient was prepped and draped in standard fashion. Fluoroscopy was used to plan the level of the skin incision. A midline skin incision was made followed by electrocautery down to the level of the fascia. The fascia and paraspinal muscles were elevated off the operative levels on the right L4-5 side. An x-ray was taken to confirm level of surgery. Deep retractors were placed. The microscope was brought into the field to begin the decompression. A bur was used to thin the lamina above the ligament flavum. The hemilaminectomy was then completed with a Kerrison punch above the ligamentum flavum. The ligament flavum was detached of the cephalad aspect of the L4 lamina. The ligamentum flavum was then removed. The hemilaminectomy was expanded laterally and caudally as needed. The cephalad aspect of the L5 lamina was removed. A partial medial facetectomy was performed. The lateral aspect of the dura and the traversing nerve root were then identified and mobilized medially. There was significant inflammatory tissue laterally which was adherent to the dural tissue. Epidural veins were coagulated with bipolar as necessary. A retractor was then placed deep to the thecal sac and traversing nerve root. A large disc bulge was visualized. A #11 blade was used to make an annular incision. The space was entered with combination of pituitaries. The disc bulge was debulked. There remained a bulge within the annulus despite discectomy. Despite the annular bulge, the L5 nerve root remained decompressed. The area was then inspected to ensure hemostasis and decompression. There was no evidence of residual stenosis. The area was then thoroughly irrigated and closed in standard fashion. Complications: None Condition: Stable Findings: Consistent with diagnosis. Diffuse right annular bulge; annulus partially calcified. Estimated blood loss: Minimal Disclaimer This dictation was created using voice recognition software. Phonetic and/or minor grammatical errors may exist. eSign Date and Time Damon Lemus MD Verified/Reviewed by 08/16/20 0909 [facility] .Urinalysis Microscopic (AO) on 12-05-2018 RBC (U) [#/Vol] 0-5 None Seen [facility] ([place]) Comment on above: Performed By: #### U A, UAMICAO #### [address] [address] UA Bacteria 3+ /hpf [facility] ([place]) Comment on above: Performed By: #### U A, UAMICAO #### [facility] [address] [place] [address] UA Squam Epithelial None Seen Normal None Seen [facility] ([place]) Comment on above: Performed By: #### U A, UAMICAO #### [place] [id number] [place] [address] UA WBC LOADED None Seen [facility] ([place]) Comment on above: Performed By: #### U A, UAMICAO #### [address] [address] UAon 12-05-2018 Color (U) Yellow Normal [facility] ([place]) Comment on above: Performed By: #### U A, UAMICAO #### [place] [address] Glucose (U) [Mass/Vol] 500 mg/dL Negative [facility] ([place]) Comment on above: Performed By: #### U A, UAMICAO #### [place] [address] Ketones Ql (U) Negative Normal Negative [facility] ([place]) Comment on above: Performed By: #### U A, UAMICAO #### [place] [address] UA Appear Cloudy Clear [facility] ([place]) Comment on above: Performed By: #### U A, UAMICAO #### [place] [address] UA Blood Small Negative [facility] ([place]) Comment on above: Performed By: #### U A, UAMICAO #### [place] [address] UA Leuk Est Trace Negative [facility] ([place]) Comment on above: Performed By: #### U A, UAMICAO #### [place] [address] UA Nitrite Positive Negative [facility] ([place]) Comment on above: Performed By: #### U A, UAMICAO #### [place] [address] UA pH 6.0 Normal 5.0 - 8.0 [facility] ([place]) Comment on above: Performed By: #### U A, UAMICAO #### [place] [address] UA Protein 30 mg/dL Normal Negative [facility] ([place]) Comment on above: Performed By: #### U A, UAMICAO #### [place] [address] UA Spec Grav 1.025 Normal 1.015-1.025 [facility] ([place]) Comment on above: Performed By: #### U A, UAMICAO #### [facility] [address] [place] [address] UA Specimen Type Clean Catch Normal [facility] ([place]) Comment on above: Performed By: #### U A, UAMICAO #### [facility] [address] [place] [address] UA Urobilinogen 0.2 E.U./dL Normal 0.2-1.0 [facility] ([place]) Comment on above: Performed By: #### U A, UAMICAO #### [facility] [address] [place] [address] Urobilinogen Qn (U) Negative Normal Negative [facility] ([place]) Comment on above: Performed By: #### U A, UAMICAO #### [facility] [address] [place] [address] Vital Signs Date Time Vital Sign Value Performing Clinician Joni travis 01-30-2024 14:29-0400 Diastolic blood pressure 63 mm[Hg] Pacc 2 Work Phone: [facility] 01-30-2024 14:29-0400 Systolic blood pressure 116 mm[Hg] Pacc 2 Work Phone: [facility] 01-30-2024 14:25-0400 Body mass index (BMI) [Ratio] 29.29 kg/m2 Pacc 2 Work Phone: [facility] 01-30-2024 14:25-0400 Body weight 91.26 kg Pacc 2 Work Phone: [facility] 01-30-2024 14:25-0400 Heart rate 83 /min Pacc 2 Work Phone: [facility] 01-30-2024 14:25-0400 Respiratory rate 18 /min Pacc 2 Work Phone: [facility] 01-30-2024 14:25-0400 SaO2% (BldA) [Mass fraction] 96 % Pacc 2 Work Phone: [facility] Encounters Encounter Date Encounter Type Care Provider Facility Start: 01-30-2024 End: 01-30-2024 Office outpatient new 45 minutes Pacc [place] [address] Work Phone: Pre Anesthesia Comment on above: Preop testing (Prima ry Dx); Insulin pump in place; Atonic bladder; Primary hypertension; Chronic right-sided low back pain with right-sided sciatica Start: 01-30-2024 End: 01-30-2024 Patient encounter status Pac 2 Work Phone: [facility] Work Phone: Start: 01-30-2024 ambulatory TALIA BOYD [facility] ility:[phone] Start: 01-30-2024 Encounter for other preprocedural examination [facility] Start: 03-06-2023 End: 03-06-2023 ambulatory OLVIN AVILES [facility] Procedures Date Procedure Procedure Detail Performing Clinician Start: 01-30-2024 Basic metabolic pane l calcium total Damon Lemus MD Work Phone: Start: 01-30-2024 Iadna s aureus ampli fied probe tq Damon Lemus MD Work Phone: Start: 01-30-2024 Ecg routine ecg w/le ast 12 lds i&r only Damon Lemus MD Work Phone: Plan of Treatment Date Care Activity Detail Author Start: 01-29-2025 BP Controlled (<130/80) BP Controlle d (<130/80) [facility] Start: 02-25-2024 End: 02-25-2024 Admission to same day surgery center 02/25/2024 10:35 AM EST - 02/25/2024 2:10 PM EST Surgery [facility] [address] [place] [address] Damon Lemus MD [address] [place] [address] ARTHDSIS POST/POSTEROLATERAL TECH W/POST INTERBODY TECH WEST AND/OR DISCECT SUFF TO PREP INTERSPACE SINGLE INTERSPACE & SEG LUMBAR [facility] Comment on above: ARTHDSIS POST/NEON ELECTRICIAN OLATERAL TECH W/POST INTERBODY TECH WEST AND/OR DISCECT SUFF TO PREP INTERSPACE SINGLE INTERSPACE & SEG LUMBAR Start: 02-25-2024 End: 02-25-2024 Arthdsis post/posterolatrl/postint erbody lumbar ARTHDSIS POST/POSTEROLATERAL TECH W/POST INTERBODY TECH WEST AND/OR DISCECT SUFF TO PREP INTERSPACE SINGLE INTERSPACE & SEG LUMBAR Intervertebral disc disorders with radiculopathy, lumbar region 02/25/2024 10:35 AM EST MR OR Start: 02-25-2024 End: 02-25-2024 Insj biomchn dev intervertebral dsc spc w/arthrd INSERTION INTERBODY BIOMED DEVICE(S) W/ANT INSTR ANCHORING TO DISC SPACE W/INTERBODY FUSION,EA INTERSPACE Intervertebral disc disorders with radiculopathy, lumbar region 02/25/2024 10:35 AM EST MR OR Start: 02-25-2024 End: 02-25-2024 Lamot prtl ffd exc disc reexpl 1 ntrspc lumbar LAMINOTOMY LUMBAR LEVEL 1 Intervertebral disc disorders with radiculopathy, lumbar region 02/25/2024 10:35 AM EST MR OR Start: 02-25-2024 End: 02-25-2024 Posterior non-segmental instrumentation POSTERIOR NON-SEGMENTAL INSTRUMENTATION FOLLOWING LUMBAR FUSION 1 LEVEL PDFI Intervertebral disc disorders with radiculopathy, lumbar region 02/25/2024 10:35 AM EST MR OR Start: 02-25-2024 Subsequent hospital visit by physician 02/25/2024 10:35 AM EST Hospital Encounter [facility] [address] [place] [address] Damon Lemus MD [address] [place] [address] Intervertebral disc disorders with radiculopathy, lumbar region [M51.16] [facility] Comment on above: Intervertebral disc disorders with radiculopathy, lumbar region [M51.16] Start: 01-30-2024 End: 04-30-2024 Hemoglobin A1c in Blood [facility] Work Phone: Comment on above: Expected: 01/30/2024 , Expires: 04/30/2024 Start: 12-09-2023 Covid-19 Vaccine ( season) Covid-19 Vaccine ( season) [facility] Start: 12-09-2023 Influenza vaccination Influenza Vacc ine (#1) [facility] Start: 06-17-2021 Screening for malign ant neoplasm of lung Lung Cancer Screening [facility] Start: 06-17-2021 Shingrix Vaccine (1 of 2) Carroll grix Vaccine (1 of 2) [facility] Start: 05-19-2021 Hemoglobin A1c measurement HbA1C [facility] Start: 06-17-2016 Screening for malign ant neoplasm of colon [facility] Start: 06-17-1990 Hepatitis B Vaccine (1 of 3 - 19+ 3-dose series) Hepatitis B Vaccine (1 of 3 - 19+ 3-dose series) [facility] Start: 06-17-1990 Urine microalbumin profile DTaP,Tdap,Td Vaccine (1 - Tdap) [facility] Start: 06-17-1989 Annual PCP Team Family Law Specialist dinorah Disease Visit Annual PCP Team Chronic Disease Visit [facility] Start: 06-17-1989 Anxiety Screening Anxiety Screening [facility] Start: 06-17-1989 Depression Screening Depression Scre ening [facility] Start: 06-17-1989 Hepatitis B surface antibody level LDL Cholesterol [facility] Start: 06-17-1989 Hepatitis C screening Hepatitis C Sc reening [facility] Start: 06-17-1989 HIV screening HIV Screening [facility] Start: 06-17-1981 Diabetic foot examination Diabetic F oot Exam [facility] Start: 06-17-1981 Glaucoma screening Dilated Retinal E xam [facility] Start: 06-17-1981 Hepatitis B screening Urine Al bumin:Creatinine Ratio [facility] Start: 06-17-1977 Pneumococcal vaccination Pneum ococcal Vaccine (1 of 2 - PCV) [facility] Immunizations Immunization Date Immunization Notes Care Provider Maxx wall 01-02-2017 influenza virus vacc ine, unspecified formulation Pac 2 Work Phone: [facility] Payers Date Payer Category Payer Unknown [employer] C[employer] PPO OOS [id number] 2024-Present [phone] [address] [place] [address] PPO [id number] 2020 Unknown [id number] 1970 Unknown [id number] Social History Date Type Detail Facility Start: 04-09-1989 [facility] Start: 04-09-1989 History of tobacco use Cigarette Smo ker [facility] Start: 01-30-2024 Cigarettes smoked cu rrent (pack per day) - Reported 1 [facility] History of tobacco use Passive smoker [facility] Start: 01-30-2024 Tobacco use and exposure Smoke less tobacco non-user [facility] Start: 01-30-2024 Alcoholic beverage intake Life time non-drinker (finding) [facility] Start: 01-30-2024 Tobacco use panel [facility] National Score (1-10 0), lower number is lower risk 80 [facility] Start: 1970 Sex assigned at Not on file C [facility] Progress note 01-31-2024 Note Date & Type Note Facility 01-31-2024 Note HNO ID: [id number] Author: FREDY HAJI APRN.ACTING MANAGER Service: ? Author Type: Nurse Practitioner Type: Progress Notes Filed: 01/31/2024 08:36 Note Text: Summary: abnormal labs, EKG EKG showing possible inferior ischemia; A1C 8.7 with random BS 336. I left a message at Chaka's office for his sales and training specialist. Sending physical notification to his care team. [facility] Progress note 01-30-2024 Note Date & Type Note Facility 01-30-2024 Note HNO ID: [id number] Author: FREDY HAJI APRN.CNP Service: ? Author Type: Nurse Practitioner Type: Progress Notes Filed: 01/31/2024 08:35 Note Text: Summary: PACC consult PACC Consult SERVICE DATE: 01/30/2024 SERVICE TIME: 3:05 PM PRIMARY CARE PHYSICIAN: Talia Boyd MD REASON FOR VISIT: Deepa Ruffin is a 53 year old male who is scheduled for L4-L5 TLIF/PSF, L4-L5 posterior instrumentation with intervertebral device, Revision R L4-L5 microdisc at the request of Dr. Lemus for pacc consult The patient has the following: ACTIVE PROBLEM LIST Insulin Pump in Place Atonic Bladder Diabetes (Hcc) Hypertension Low Back Pain Subjective CHIEF COMPLAINT: low back pain, R sided sciatica 53yo male, smoker. PMH: HTN, HLD, IDDM with insulin pump (Trulicity on Sundays), GERD, BPH, anxiety. Straight caths TID s/p TURP. Previous back sx x2 PAST MEDICAL HISTORY Diagnosis Date Acid reflux PRIMARY FOLLOWS Anxiety state MILD Depression MILD Diabetes (HCC) TYPE II DR KELIN LANG [facility]. Has insulin pump. History of BPH PROCEDURE, THAT DAMAGED BLADDER Hypercholesterolemia STATES PREVENTATIVE PER PRIMARY D/T DM Hypertension STATES PREVENTATIVE PER PRIMARY D/T DM Insulin pump in place T SLIM WITH DEXCOM [address] [facility]ELIN L[facility] Low back pain AND RIGHT LOWER EXT PAIN, DOWN TO ANKLE DR LEMUS FOLLOWS Urinary catheter insertion/adjustment/removal IN AND OUT CATH 3 TIMES DAILY [facility], D/T HX OF TURP Wears glasses PAST SURGICAL HISTORY Procedure Laterality Date BACK SURGERY HX LUMBAR DISCECTOMY X2 REVISE MEDIAN N/CARPAL TUNNEL SURG Bilateral TRANSURETHRAL ELEC-SURG PROSTATECTOM WALANT PROCEDURE Bilateral trigger finger bilateral FAMILY HISTORY Problem Relation Age of Onset Heart Mother SOCIAL HISTORY: Social History Tobacco Use Smoking status: Every Day Current packs/day: 1.00 Average packs/day: 1 pack/day for 34.8 years (34.8 ttl pk-yrs) Types: Cigarettes Start date: 1989 Passive exposure: Current Smokeless tobacco: Never Vaping Use Vaping status: Never Used Substance Use Topics Alcohol use: Never Drug use: Never MEDICATIONS: Prior to Admission medications as of 01/30/24 1425 Medication Sig Last Dose Taking metFORMIN (GLUCOPHAGE) 1,000 mg tablet Take 1,000 mg by mouth two times a day with meals. ENDOCRINE KELIN ULRICH Yes cholecalciferol, vitD3,/vit K2 (VITAMIN D3-VITAMIN K2) 125-90 mcg cap Take 5,000 Units by mouth every morning. LD to be 02/11/24 Yes gabapentin (NEURONTIN) 300 mg capsule Take 300 mg by mouth two times a day. Yes Omeprazole 20 mg TbEC Take 20 mg by mouth every morning. Yes cyanocobalamin (VITAMIN B-12) 1,000 mcg tab Take 1,000 mcg by mouth daily at bedtime. LD to be 02/11/24 Yes losartan (COZAAR) 50 mg tablet Take 50 mg by mouth daily at bedtime. Yes FLUoxetine (PROZAC) 40 mg capsule Take 40 mg by mouth daily at bedtime. Yes rosuvastatin (CRESTOR) 10 mg tablet Take 10 mg by mouth every morning. Yes dulaglutide (TRULICITY) 3 mg/0.5 mL pen injector Inject 3 mg subcutaneously every Sunday. Alex PINK, WILL CALL FOR INSTRUCTIONS Yes insulin lispro (HUMALOG U-100 INSULIN) 100 unit/mL crtg Inject 4 Units subcutaneously. INSULIN PUMP 4 UNITS PER HOUR , DR KELIN ULRICH ENDOCRINE MANAGES Yes mv-min/iron/folic/calcium/vitK (WOMEN'S MULTIVITAMIN ORAL) Take 1 tablet by mouth daily at bedtime. WOMENS MULTI VITAMIN PER PRIMARY FOR THE IRON Yes blood-glucose transmitter (DEXCOM G6 TRANSMITTER MISC) Subcutaneous Insulin Pump (T:SLIM X2 BASAL-IQ INSULIN HOGSHEAD SALVAGE) misc HUMALOG units 100/ML, SET UP AT OFFICE DR SERG NEVILLE [facility], WILL CALL FOR INSTRUCTIONS Miscellaneous Medical Supply (SELF-CATH) three times a day. No medication comments found. CURRENT ALLERGIES: ALLERGIES No Known Allergies REVIEW OF SYSTEMS: PAIN ASSESSMENT: Pain Pain Level: 2 Pain Location: Leg-Right Description: Radiating, Other: See comment, Shooting, Sharp ( searing hottness ) Intervention/Comfort measure: Reposition General: No weight loss, malaise or fevers. Neuro: No history of TIA's, stroke, SUPPLY TEACHER tumor, impaired sensorium, hemiplegia, paraplegia or quadraplegia. No neurological symptoms or problems. Respiratory: Positive for Tobacco Use smoker Cardiovascular: Positive for: HLD, Hypertension GI: Positive for GERD : Positive for BPH and atonic bladder Endocrine: Diabetes Mellitus on insulin, Diabetes Mellitus on oral agent, Diabetic Neuropathy Hematology: No history of bleeding or clotting disorder. Pt is not taking anti-coagulation or platelet medications. No history of hematological symptoms or problems. Oncology: No history of CA metastasis, chemo within 30 days, or radiotherapy (more content not included)... [facility] History of Present illness Narrative 01-30-2024 Fredy Haji, TRES.[facility] - 01/30/2024 3:04 PM Fredy Portillo APRN.[facility] - 01/30/2024 2:49 PM Fredy Portillo APRN.[facility] - 01/30/2024 2:00 PM EDT Note Date & Type Note Facility 01-30-2024 History of Presen t illness Narrative Summary: PACC consult PACC Consult SERVICE DATE: 01/30/2024 SERVICE TIME: 3:05 PM PRIMARY CARE PHYSICIAN: Talia Boyd MD REASON FOR VISIT: Deepa Ruffin is a 53 year old male who is scheduled for L4-L5 TLIF/PSF, L4-L5 posterior instrumentation with intervertebral device, Revision R L4-L5 microdisc at the request of Dr. Lemus for pacc consult The patient has the following: ACTIVE PROBLEM LIST Insulin Pump in Place Atonic Bladder Diabetes (Hcc) Hypertension Low Back Pain Subjective CHIEF COMPLAINT: low back pain, R sided sciatica 53yo male, smoker. PMH: HTN, HLD, IDDM with insulin pump (Trulicity on Sundays), GERD, BPH, anxiety. Straight caths TID s/p TURP. Previous back sx x2 PAST MEDICAL HISTORY Diagnosis Date Acid reflux PRIMARY FOLLOWS Anxiety state MILD Depression MILD Diabetes (HCC) TYPE II DR KELIN LANG [facility]. Has insulin pump. History of BPH PROCEDURE, THAT DAMAGED BLADDER Hypercholesterolemia STATES PREVENTATIVE PER PRIMARY D/T DM Hypertension STATES PREVENTATIVE PER PRIMARY D/T DM Insulin pump in place T SLIM WITH DEXCOM [address] KELIN LANG ENDOCR[facility] Low back pain AND RIGHT LOWER EXT PAIN, DOWN TO ANKLE DR LEMUS FOLLOWS Urinary catheter insertion/adjustment/removal IN AND OUT CATH 3 TIMES DAILY [facility], D/T HX OF TURP Wears glasses PAST SURGICAL HISTORY Procedure Laterality Date BACK SURGERY HX LUMBAR DISCECTOMY X2 REVISE MEDIAN N/CARPAL TUNNEL SURG Bilateral TRANSURETHRAL ELEC-SURG PROSTATECTOM WALANT PROCEDURE Bilateral trigger finger bilateral FAMILY HISTORY Problem Relation Age of Onset Heart Mother SOCIAL HISTORY: Social History Tobacco Use Smoking status: Every Day Current packs/day: 1.00 Average packs/day: 1 pack/day for 34.8 years (34.8 ttl pk-yrs) Types: Cigarettes Start date: 1989 Passive exposure: Current Smokeless tobacco: Never Vaping Use Vaping status: Never Used Substance Use Topics Alcohol use: Never Drug use: Never MEDICATIONS: Prior to Admission medications as of 01/30/24 1425 Medication Sig Last Dose Taking metFORMIN (GLUCOPHAGE) 1,000 mg tablet Take 1,000 mg by mouth two times a day with meals. ENDOCRINE KELIN ULRICH Yes cholecalciferol, vitD3,/vit K2 (VITAMIN D3-VITAMIN K2) 125-90 mcg cap Take 5,000 Units by mouth every morning. LD to be 02/11/24 Yes gabapentin (NEURONTIN) 300 mg capsule Take 300 mg by mouth two times a day. Yes Omeprazole 20 mg TbEC Take 20 mg by mouth every morning. Yes cyanocobalamin (VITAMIN B-12) 1,000 mcg tab Take 1,000 mcg by mouth daily at bedtime. LD to be 02/11/24 Yes losartan (COZAAR) 50 mg tablet Take 50 mg by mouth daily at bedtime. Yes FLUoxetine (PROZAC) 40 mg capsule Take 40 mg by mouth daily at bedtime. Yes rosuvastatin (CRESTOR) 10 mg tablet Take 10 mg by mouth every morning. Yes dulaglutide (TRULICITY) 3 mg/0.5 mL pen injector Inject 3 mg subcutaneously every Sunday. Alex PINK, WILL CALL FOR INSTRUCTIONS Yes insulin lispro (HUMALOG U-100 INSULIN) 100 unit/mL crtg Inject 4 Units subcutaneously. INSULIN PUMP 4 UNITS PER HOUR , [facility] Yes mv-min/iron/folic/calcium/vitK (WOMEN'S MULTIVITAMIN ORAL) Take 1 tablet by mouth daily at bedtime. WOMENS MULTI VITAMIN PER PRIMARY FOR THE IRON Yes blood-glucose transmitter (DEXCOM G6 TRANSMITTER MISC) Subcutaneous Insulin Pump (T:SLIM X2 BASAL-IQ INSULIN HOGSHEAD SALVAGE) misc HUMALOG units 100/ML, SET UP AT OFFICE DR [facility], WILL CALL FOR INSTRUCTIONS Miscellaneous Medical Supply (SELF-CATH) three times a day. No medication comments found. CURRENT ALLERGIES: ALLERGIES No Known Allergies REVIEW OF SYSTEMS: PAIN ASSESSMENT: Pain Pain Level: 2 Pain Location: Leg-Right Description: Radiating, Other: See comment, Shooting, Sharp ( searing hottness ) Intervention/Comfort measure: Reposition General: No weight loss, malaise or fevers. Neuro: No history of TIA's, stroke, SUPPLY TEACHER tumor, impaired sensorium, hemiplegia, paraplegia or quadraplegia. No neurological symptoms or problems. Respiratory: Positive for Tobacco Use smoker Cardiovascular: Positive for: HLD, Hypertension GI: Positive for GERD : Positive for BPH and atonic bladder Endocrine: Diabetes Mellitus on insulin, Diabetes Mellitus on oral agent, Diabetic Neuropathy Hematology: No history of bleeding or clotting disorder. Pt is not taking anti-coagulation or platelet medications. No history of hematological symptoms or problems. Oncology: No history of CA metastasis, chemo within 30 days, or radiotherapy within 90 days. Has not lost 10% of body wt in 6 months. No history of oncological symptoms or problems. Psych: Anxiety Musculoskeletal: Back pain Skin: Negative for lesions, rash and itching. Objective PHYSICAL EXAM: VITALS: BP 116/63 Pulse 83 Resp 18 Wt 201 lb 3.2 oz (91.3kg) SpO2 96% General: Alert and oriented, No acute distress, Healthy appearance Skin: Normal color, no rash, no lesions. Extremities: No deformity, no edema or tenderness, no joint swelling or clubbing. Neurological: Abnormal sensation Limb weakness, right LE Pulses: Not examined Diagnostic tests reviewed for today's visit: Lab Value Units Date High Low HB 14.1 g/dL 01/30/2024 17.0 13.0 HCT 41.7 % 01/30/2024 51.0 39.0 WBC 7.30 k/uL 01/30/2024 11.00 3.70 PLT 217 k/uL 01/30/2024 400 150 NA No results within date range. K No results within date range. GLUC No results within date range. BUN No results within date range. CREAT No results within date range. PTSEC No results within date range. INR No results within date range. APTT No results within date range. ALT No results within date range. AST No results within date range. TBILI No results within date range. TSH No results within date range. Lab Value Units Date High Low HCGQT No results within date range. UHCG No results within date range. HCG, BODY* No results within date range. Lab Value Units Date High Low ABORHD No results within date range. ABSCREEN No results within date range. Hemoglobin A1C (%) Date Value 02/16/2021 8.8 PENDING Assessment/Plan ASSESSMENT/PLAN: 1. Preop testing - ICD9: V72.84, ICD10: Z01.818 (primary diagnosis) Labs pending. Abnormals will be communicated back to his care team. - HEMOGLOBIN A1C - NT PRO BNP - BASIC METABOLIC PANEL - COMPLETE BLOOD COUNT AND DIFFERENTIAL - ECG COMPLETE - STAPHYLOCOCCUS AUREUS & MRSA SCREEN, PCR, NASAL Deepa lives at home with is girlfriend. 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 Ambulates without assistance. 2 previous microdiscectomies. Seeing PCP and endo in February for clearance. Denies CP/SOB/orthopnea. Continues to smoke. Vitals WNL. EKG abnormal but is unconfirmed- will wait to document until read by cardiology. One of his providers instructed him to take a MTV up until surgery. Discussed with him that vitamins need held 2 weeks prior to surgery per surgeon request. Instructed that if iron def is a concern, oral iron supplementation daily is fine- just hold DOS. He also explains he only takes his meds with food. He might only take his omeprazole DOS- otherwise will take nothing. 2. Insulin pump in place - ICD9: V45.85, ICD10: Z96.41 Follows with Cris. Has insulin pump, Trulicity on Sundays, and metformin. Provided instructions to hold Trulicity 02/23 and metformin DOS. He sees his endo in February for clearance. States blood sugars controlled. 3. Atonic bladder - ICD9: 596.4, ICD10: N31.2 Hx BPH requiring TURP with postop op atonic bladder requiring him to straight cath himself 3x day. 4. Primary hypertension - ICD9: 401.9, ICD10: I10 - Controlled - Continue current medications - Given instructions to hold losartan DOS. 5. Chronic right-sided low back pain with right-sided sciatica - ICD9: 724.2, 724.3, 338.29, ICD10: M54.41, G89.29 Sciatica Pending back surgery with Chaka. No problem-specific Assessment & Plan notes found for this encounter. METS: Walk indoors, such as around the house (1.75 METs) Do light work around the house, such as dusting or washing dishes (2.70 METs) Take care of self; that is eating, dressing, bathing, using the toilet (2.75 METs) Walk a block or two on level ground (2.75 METs) Do moderate work around the house such as vacuuming, sweeping floors, or carrying in groceries (3.50 METs) Climb a flight of stairs or walk up a hill (5.50 METs) Participate in moderate recreational activities, such as golf, bowling, dancing, doubles tennis, or throwing a baseball or football (6.00 METs) Do heavy work around the house, such as scrubbing floors, lifting or moving heavy furniture (8.00 METs) Patient denies any chest pain or undue shortness of breath with the above physical activity. ANESTHESIA FINDINGS: Intubation History: No history of difficult intubation Significant Anesthesia Considerations: None Airway History: No abnormal airway history Planned Anesthetic: General Instructions Given to Patient: Instructions located in the after visit summary. Patient given verbal and written preop instructions and voices comprehension and compliance. SIGNATURE: Fredy Haji APRN.CNP PATIENT NAME: Deepa Ruffin DATE: January 30, 2024 TIME: 3:05 PM Summary: dos meds MEDICATION INSTRUCTIONS PRIOR TO SURGERY Please read below carefully for your personalized instructions. Medications: If you are on blood thinner or anticoagulants including aspirin, please confirm with your surgical team on when to stop these medications. Unless instructed differently by your surgical team, stay on all of your medications until your surgery. Pre-Surgery Med Instructions Medication Instructions metFORMIN (GLUCOPHAGE) 1,000 mg tablet DO NOT TAKE MORNING OF SURGERY cholecalciferol, vitD3,/vit K2 (VITAMIN D3-VITAMIN K2) 125-90 mcg cap DO NOT TAKE MORNING OF SURGERY gabapentin (NEURONTIN) 300 mg capsule If you normally take this medication in the morning, it is ok to take the morning of surgery with a sip of water. Omeprazole 20 mg TbEC If you normally take this medication in the morning, it is ok to take the morning of surgery with a sip of water. cyanocobalamin (VITAMIN B-12) 1,000 mcg tab DO NOT TAKE MORNING OF SURGERY losartan (COZAAR) 50 mg tablet DO NOT TAKE MORNING OF SURGERY FLUoxetine (PROZAC) 40 mg capsule If you normally take this medication in the morning, it is ok to take the morning of surgery with a sip of water. rosuvastatin (CRESTOR) 10 mg tablet If you normally take this medication in the morning, it is ok to take the morning of surgery with a sip of water. dulaglutide (TRULICITY) 3 mg/0.5 mL pen injector Hold your dose of Trulicity on 02/23 insulin lispro (HUMALOG U-100 INSULIN) 100 unit/mL crtg via PUMP Follow Prescribers Instructions mv-min/iron/folic/calcium/vitK (WOMEN'S MULTIVITAMIN ORAL) STOP 2 WEEKS PRIOR TO SURGERY. MAY TAKE ORAL IRON SUPPLEMENT UP UNTIL THE DAY BEFORE SURGERY. - Accucheck day of surgery. - No oral diabetic medication the morning of surgery. - Insulin pump: continue the same basal rate. - If you take one of the following weekly injectable medications, skip your dose the week before surgery: tirzepatide, semaglutide, dulaglutide, liraglutide, exentatide If you take any medications for erectile dysfunction-Cialis (Tadalafil), Levitra, Staxyn (Vardenafil) Viagra (Sildenenafil please do not take these for 48 hours before surgery. If you have any medication changes between receiving these instructions and your surgery date, please provide this updated information with the nurse who calls you the week day prior to your surgical procedure so we can update your list and provide you with updated instructions for the morning of your procedure. Summary: preanesthesia review L4-L5 TLIF/PSF, L4-L5 posterior instrumentation with intervertebral device, Revision R L4-L5 microdisc 02/24 Chaka (3hrs) 53yo male, smoker. PMH: HTN, HLD, IDDM with insulin pump (Trulicity on Sundays), GERD, BPH, anxiety. Straight caths TID s/p TURP. Previous back sx x2 documented in this encounter [facility] Instructions 01-30-2024 Patient Instructions Note Date & Type Note Facility 01-30-2024 Instructions Fredy Haji APRN.CNP - 01/30/2024 2:51 PM EDT MEDICATION INSTRUCTIONS PRIOR TO SURGERY Please read below carefully for your personalized instructions. Medications: If you are on blood thinner or anticoagulants including aspirin, please confirm with your surgical team on when to stop these medications. Unless instructed differently by your surgical team, stay on all of your medications until your surgery. Pre-Surgery Med Instructions Medication Instructions metFORMIN (GLUCOPHAGE) 1,000 mg tablet DO NOT TAKE MORNING OF SURGERY cholecalciferol, vitD3,/vit K2 (VITAMIN D3-VITAMIN K2) 125-90 mcg cap DO NOT TAKE MORNING OF SURGERY gabapentin (NEURONTIN) 300 mg capsule If you normally take this medication in the morning, it is ok to take the morning of surgery with a sip of water. Omeprazole 20 mg TbEC If you normally take this medication in the morning, it is ok to take the morning of surgery with a sip of water. cyanocobalamin (VITAMIN B-12) 1,000 mcg tab DO NOT TAKE MORNING OF SURGERY losartan (COZAAR) 50 mg tablet DO NOT TAKE MORNING OF SURGERY FLUoxetine (PROZAC) 40 mg capsule If you normally take this medication in the morning, it is ok to take the morning of surgery with a sip of water. rosuvastatin (CRESTOR) 10 mg tablet If you normally take this medication in the morning, it is ok to take the morning of surgery with a sip of water. dulaglutide (TRULICITY) 3 mg/0.5 mL pen injector Hold your dose of Trulicity on 02/23 insulin lispro (HUMALOG U-100 INSULIN) 100 unit/mL crtg via PUMP Follow Prescribers Instructions mv-min/iron/folic/calcium/vitK (WOMEN'S MULTIVITAMIN ORAL) STOP 2 WEEKS PRIOR TO SURGERY. MAY TAKE ORAL IRON SUPPLEMENT UP UNTIL THE DAY BEFORE SURGERY. - Accucheck day of surgery. - No oral diabetic medication the morning of surgery. - Insulin pump: continue the same basal rate. - If you take one of the following weekly injectable medications, skip your dose the week before surgery: tirzepatide, semaglutide, dulaglutide, liraglutide, exentatide If you take any medications for erectile dysfunction-Cialis (Tadalafil), Levitra, Staxyn (Vardenafil) Viagra (Sildenenafil please do not take these for 48 hours before surgery. If you have any medication changes between receiving these instructions and your surgery date, please provide this updated information with the nurse who calls you the week day prior to your surgical procedure so we can update your list and provide you with updated instructions for the morning of your procedure. documented in this encounter [facility] Progress note 01-30-2024 Note Date & Type Note Facility 01-30-2024 Note HNO ID: [id number] Author: FREDY HAJI APRN.ACTING MANAGER Service: ? Author Type: Nurse Practitioner Type: Progress Notes Filed: 01/30/2024 15:16 Note Text: Summary: dos meds MEDICATION INSTRUCTIONS PRIOR TO SURGERY Please read below carefully for your personalized instructions. Medications: If you are on blood thinner or anticoagulants including aspirin, please confirm with your surgical team on when to stop these medications. Unless instructed differently by your surgical team, stay on all of your medications until your surgery. Pre-Surgery Med Instructions Medication Instructions metFORMIN (GLUCOPHAGE) 1,000 mg tablet DO NOT TAKE MORNING OF SURGERY cholecalciferol, vitD3,/vit K2 (VITAMIN D3-VITAMIN K2) 125-90 mcg cap DO NOT TAKE MORNING OF SURGERY gabapentin (NEURONTIN) 300 mg capsule If you normally take this medication in the morning, it is ok to take the morning of surgery with a sip of water. Omeprazole 20 mg TbEC If you normally take this medication in the morning, it is ok to take the morning of surgery with a sip of water. cyanocobalamin (VITAMIN B-12) 1,000 mcg tab DO NOT TAKE MORNING OF SURGERY losartan (COZAAR) 50 mg tablet DO NOT TAKE MORNING OF SURGERY FLUoxetine (PROZAC) 40 mg capsule If you normally take this medication in the morning, it is ok to take the morning of surgery with a sip of water. rosuvastatin (CRESTOR) 10 mg tablet If you normally take this medication in the morning, it is ok to take the morning of surgery with a sip of water. dulaglutide (TRULICITY) 3 mg/0.5 mL pen injector Hold your dose of Trulicity on 02/23 insulin lispro (HUMALOG U-100 INSULIN) 100 unit/mL crtg via PUMP Follow Prescribers Instructions mv-min/iron/folic/calcium/vitK (WOMEN'S MULTIVITAMIN ORAL) STOP 2 WEEKS PRIOR TO SURGERY. MAY TAKE ORAL IRON SUPPLEMENT UP UNTIL THE DAY BEFORE SURGERY. - Accucheck day of surgery. - No oral diabetic medication the morning of surgery. - Insulin pump: continue the same basal rate. - If you take one of the following weekly injectable medications, skip your dose the week before surgery: tirzepatide, semaglutide, dulaglutide, liraglutide, exentatide If you take any medications for erectile dysfunction-Cialis (Tadalafil), Levitra, Staxyn (Vardenafil) Viagra (Sildenenafil please do not take these for 48 hours before surgery. If you have any medication changes between receiving these instructions and your surgery date, please provide this updated information with the nurse who calls you the week day prior to your surgical procedure so we can update your list and provide you with updated instructions for the morning of your procedure. [facility] Progress note 01-30-2024 Note Date & Type Note Facility 01-30-2024 Note HNO ID: [id number] Author: FREDY HAJI APRN.ACTING MANAGER Service: ? Author Type: Nurse Practitioner Type: Progress Notes Filed: 01/30/2024 15:16 Note Text: Summary: preanesthesia review L4-L5 TLIF/PSF, L4-L5 posterior instrumentation with intervertebral device, Revision R L4-L5 microdisc 02/24 Chaka (3hrs) 53yo male, smoker. PMH: HTN, HLD, IDDM with insulin pump (Trulicity on Sundays), GERD, BPH, anxiety. Straight caths TID s/p TURP. Previous back sx x2 [facility] Evaluation note Note Date & Type Note Facility Evaluation note Diagnosis Preop testing- Primary Preoperative examination, unspecified Insulin pump in place Insulin pump status Atonic bladder Atony of bladder Primary hypertension Unspecified essential hypertension Chronic right-sided low back pain with right-sided sciatica Intervertebral disc disorders with radiculopathy, lumbar region documented in this encounter [facility] Reason for referral (narrative) Outpatient Procedure (Routine) - Closed Note Date & Type Note Facility Reason for referral (narrati ve) Specialty Diagnoses / Procedures Referred By David nuñez [facility] Diagnoses Preop testing Procedures ECG COMPLETE ECG ROUTINE ECG W/LEAST 12 LDS W/I&R Damon Lemus MD [address] [place] [address] [facility] [email or web address] [place] [id number] Referral ID Status Reason Start Date Expiration Date V isits Requested Visits Authorized [id number] Closed Auto-Generate d Referral 01/29/2024 01/28/2025 1 1 [facility] Reason for visit Narrative Outpatient Procedure (Routine) - Closed Note Date & Type Note Facility Reason for visit Narrative Specialty Diagnoses / Procedures Referred By David nuñez Referred To Contact [facility] Diagnoses Preop testing Procedures ECG COMPLETE ECG ROUTINE ECG W/LEAST 12 LDS W/I&R Damon Lemus MD [address] [place] [address] [facility] [address] [place] [address] Referral ID Status Reason Start Date Expiration Date V isits Requested Visits Authorized [id number] Closed Auto-Generate d Referral 01/29/2024 01/28/2025 1 1 [facility] Summary Purpose Family History No Family History Records FoundNo Family History Records FoundNo Family History Records FoundNo Family History Records Found Advance Directives No Advanced Directives Records FoundNo Advanced Directives Records FoundNo Advanced Directives Records FoundNo Advanced Directives Records Found Additional Source Comments (unrecognized sect ion and content) No Status Records FoundNo Status Records FoundNo Status Records FoundNo Status Records Found INFORMATION SOURCE (unrecogn ized section and content) DATE CREATED AUTHOR 12/07/2018 [facility] ([place]) DATE CREATED AUTHOR AUTHOR'S ORGANIZ ATION 03/12/2021 [facility] [place] DATE CREATED AUTHOR AUTHOR'S ORGANIZ ATION 03/08/2023 [facility] DATE CREATED AUTHOR AUTHOR'S ORGANIZ ATION 02/01/2024 [facility] Source Comments (unrecognize d section and content) In the event this informatio n is protected by the Federal Confidentiality of Alcohol and Drug Abuse Patient Records regulations: The Federal rules restrict any use of the information to criminally investigate or prosecute any alcohol or drug abuse patient.[facility] Care Teams (unrecognized sec tion and content) Water Meter Installer Relationship Specialty Start Date End Date Talia Boyd [address] [facility] [address] [place] [address] PCP - General Family Medicine 01/29/24 FOR RECORDS PERTAINING TO PATIENTS WHO ARE [...] BE BASED ON THE PRIMARY CLINICAL RECORDS. [employer] [facility]. provides no warranty or guarantee of the accuracy or completeness of information in this document.
[2024-02-02 09:04] LABS: Hematocrit 43.5 % (40-54); Hemoglobin 14.3 g/dL (13.0-16.5); Mean Corp Hgb Conc 32.9 g/dL (32-36); Mean Corpuscular Hgb 28.9 pg (27.0-32.0); Mean Corpuscular Volume 87.9 fL (80-94); Mean Platelet Vol. 9.8 fl (6.2-12.0); Platelet Count 240 K/mm3 (150-450); RBC Distribution Width CV 12.2 % (11.6-14.6); RBC Distribution Width SD 39.2 fl (35.1-43.9); Red Blood Count 4.95 M/mm3 (4.6-6.2); White Blood Count 6.8 K/mm3 (4.4-11.0)
[2024-02-02 10:04] LABS: Microalbumin,Random Urine 60.3 mg/L (NO RANGE EST.)
[2024-02-02 10:41] LABS: ALB/GLOB Ratio 1.1 RATIO (0.9-2.4); AST(SGOT) 13 U/L (15-37); Alanine Aminotransfer ALT/SGPT 25 U/L (16-61); Albumin, Serum 3.8 g/dL (3.2-5.0); Alkaline Phosphatase 106 U/L (45-117); Anion Gap 3 (5-15); BUN 14 mg/dL (7-18); BUN/Creat Ratio 20.1 RATIO (10-20); Chloride 104 mmol/L (98-107); Cholesterol 106 mg/dL (200); EST Glomerular Filtration Rate 127 mL/min (>60); Est Glom Filt Rate - Afr Amer 153 mL/min (>60); Globulin 3.4 g/dL (2.2-4.2); Glucose 210 mg/dL (74-106); High Density Lipoprotein 34 mg/dL; Potassium 3.9 mmol/L (3.5-5.1); Protein, Total 7.2 g/dL (6.4-8.2); Sodium Level 136 mmol/L (136-145); Triglycerides 98 mg/dL; Very Low Density Lipoprotein 20 mg/dL (5-40)
[2024-02-02 15:33] LABS: Hemoglobin A1c 8.6 % (3.8-5.6)
[2024-02-03 08:14] LABS: Fructosamine 356 umol/L (0-285)
== END | disposition home or self-care (01) ==
LOC: LAB 08:04
PROVIDERS: PCP Family Medicine; Referring Provider Internal Medicine Endocrinology, Diabetes & Metabolism; Visit Provider Internal Medicine Endocrinology, Diabetes & Metabolism
DX: E11.65 Type 2 diabetes mellitus with hyperglycemia (principal); Z46.81 Encounter for fitting and adjustment of insulin pump; I10 Essential (primary) hypertension; E78.5 Hyperlipidemia, unspecified; E55.9 Vitamin D deficiency, unspecified
CPT/HCPCS: 36415; 80053; 80061; 82043; 82570; 82985; 83036; 84443; 85027

== ENCOUNTER → 2024-05-19 | Outpatient (CLI) | payer BC, SELFPAY ==
[2024-05-19 12:35] LABS: Vitamin D,25 Hydroxy 73.1 ng/mL
[2024-05-19 12:38] LABS: Hemoglobin A1c 8.5 % (3.8-5.6)
[2024-05-19 12:45] LABS: ALB/GLOB Ratio 1.1 RATIO (0.9-2.4); AST(SGOT) 14 U/L (15-37); Alanine Aminotransfer ALT/SGPT 24 U/L (16-61); Albumin, Serum 3.9 g/dL (3.2-5.0); Alkaline Phosphatase 109 U/L (45-117); Anion Gap 7 (5-15); BUN 11 mg/dL (7-18); BUN/Creat Ratio 12.7 RATIO (10-20); Calcium,Total 9.1 mg/dL (8.5-10.1); Chloride 103 mmol/L (98-107); Cholesterol 105 mg/dL (200); Creatinine, Serum 0.87 mg/dL (0.70-1.30); EST Glomerular Filtration Rate 98 mL/min (>60); Est Glom Filt Rate - Afr Amer 119 mL/min (>60); Globulin 3.4 g/dL (2.2-4.2); Glucose 162 mg/dL (74-106); High Density Lipoprotein 39 mg/dL; Potassium 4.1 mmol/L (3.5-5.1); Protein, Total 7.3 g/dL (6.4-8.2); Sodium Level 137 mmol/L (136-145); T4 Free Direct 1.01 ng/dL (0.76-1.46); Triglycerides 107 mg/dL; Very Low Density Lipoprotein 21 mg/dL (5-40)
[2024-05-19 13:10] LABS: Microalbumin,Random Urine 48.1 mg/L (NO RANGE EST.); Microalbumin:Creatinine Ratio 22.2 mg/g CRE (<30 mg/g CRE)
== END | disposition home or self-care (01) ==
LOC: MTLAB 10:30
PROVIDERS: PCP Family Medicine; Referring Provider Internal Medicine Endocrinology, Diabetes & Metabolism; Visit Provider Internal Medicine Endocrinology, Diabetes & Metabolism
DX: E11.65 Type 2 diabetes mellitus with hyperglycemia (principal); Z46.81 Encounter for fitting and adjustment of insulin pump; I10 Essential (primary) hypertension; E78.5 Hyperlipidemia, unspecified; E55.9 Vitamin D deficiency, unspecified
CPT/HCPCS: 36415; 80053; 80061; 82043; 82306; 82570; 83036; 84439; 84443; 84481

== ENCOUNTER → 2024-08-05 | Outpatient (CLI) | payer BC, SELFPAY ==
[2024-08-05 10:34] LABS: Hemoglobin A1c 9.2 % (<=5.6)
[2024-08-05 13:05] LABS: ALB/GLOB Ratio 1.6 RATIO (0.9-2.4); AST(SGOT) 22 U/L (<=37); Alanine Aminotransfer ALT/SGPT 21 U/L (<=46); Albumin, Serum 4.3 g/dL (3.5-5.0); Alkaline Phosphatase 100 U/L (40-129); Anion Gap 13 (5-15); BUN 12 mg/dL (4-19); BUN/Creat Ratio 14.8 RATIO (10-20); Calcium,Total 9.5 mg/dL (7.6-11.0); Carbon Dioxide 24.5 mmol/L (21.0-32.0); Chloride 101 mmol/L (98-108); Creatinine, Serum 0.83 mg/dL (0.70-1.20); EST Glomerular Filtration Rate 105 (>60); Globulin 2.7 g/dL (2.2-4.2); Glucose 147 mg/dL (70-99); Potassium 4.1 mmol/L (3.3-5.1); Sodium Level 138 mmol/L (133-145); Total Bilirubin 0.39 mg/dL (0.00-1.30)
[2024-08-05 13:09] LABS: Vitamin D,25 Hydroxy 67.6 ng/mL (30-100)
== END | disposition home or self-care (01) ==
LOC: MTLAB 08:54
PROVIDERS: PCP Family Medicine; Referring Provider Internal Medicine Endocrinology, Diabetes & Metabolism; Visit Provider Internal Medicine Endocrinology, Diabetes & Metabolism
DX: E11.65 Type 2 diabetes mellitus with hyperglycemia (principal); Z46.81 Encounter for fitting and adjustment of insulin pump; I10 Essential (primary) hypertension; E78.5 Hyperlipidemia, unspecified; E55.9 Vitamin D deficiency, unspecified
CPT/HCPCS: 36415; 80053; 82306; 83036

== ENCOUNTER → 2024-11-01 | Outpatient (CLI) | payer BC, SELFPAY ==
--- OUTSIDE RECORDS SUMMARY | 2024-11-01 08:18 | XMS RPT_ITS | CCD ---
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 Talia Rios Primary Care Provider Cris MEJÍA, Dr. Judith Chu Attending Provide r Dr. Judith Lynch MD Referring Provide r [employer] SOCIAL MEDIA MARKETING SPECIALIST, Lianna Attending Unavailable [place] SOCIAL MEDIA MARKETING SPECIALIST, Lianna Referring Unavailable Jolliff, Talia S Primary Care Unavailable Raghunathan, Judith Na Referring Unavaila ble Jolliff, Talia S Primary Care Unavailable Raghunathan, Judith Na Attending Unavaila ble Jolliff, Talia S Primary Care Unavailable Raghunathan, Judith Na Attending Unavaila ble Raghunathan, Judith Na Referring Unavaila ble Raghunathan, Judith Na Referring Unavaila ble Jolliff, Talia S Primary Care Unavailable Raghunathan, Judith Na Attending Unavaila ble Raghunathan, Judith Na Referring Unavaila ble Jolliff, Talia S Primary Care Unavailable Raghunathan, Judith Na Attending Unavaila ble Raghunathan, Judiht Na Referring Unavaila ble Jolliff, Talia S Primary Care Unavailable Raghunathan, Judith Na Attending Unavaila adelaide Trivedi SOCIAL MEDIA MARKETING SPECIALIST, Lianna Attending Unavailable [place] SOCIAL MEDIA MARKETING SPECIALIST, Lianna Referring Unavailable Jolliff, Talia S Primary Care Unavailable Talia Boyd Attending Unavailable Talia Boyd Referring Unavailable Judith Lynch Consulting Unavaila Talia Rodriguez Primary Care Unavailable Medications Current Medications Medication Drug Class(es) Dates Sig (Normalized) Sig (Original) cholecalciferol 0.125 mg oral capsule (8 sources) Vitamin D Start: 05-28-2017 take 1 capsule by mouth once daily Cholecalciferol (Vitamin D3) 5,000 UNIT capsule Active 5000 U PO DAILY May 28, 2017 1:00am cholecalciferol, vitD3,/vit K2 (VITAMIN D3-VITAMIN K2) 125-90 mcg cap (1 source) cholecalciferol, vitD3,/vit K2 (VITAMIN D3-VITAMIN K2) 125-90 mcg cap Take 5,000 Units by mouth every morning. LD to be 02/11/24 Active cinnamon bark 500 mg oral capsule (8 sources) Start: 03-09-2020 take 1 capsule by mouth twice daily Cinnamon Bark (Cinnamon) 500 mg capsule Active 500 mg PO TWICE A DAY March 09, 2020 1:00am 0.5 ml dulaglutide 3 mg/ml auto-injector (16 sources) GLP-1 Receptor Agonist Start: 05-24-2020 Dulaglutide (Trulicity) 1.5 mg/0.5 mL pen injector Active 1.5 mg SC EVERY WEEK May 24, 2020 4:10pm Start: 05-24-2017 End: 05-24-2020 Dulaglutide (Trulicity) 1.5 mg/0.5 mL pen injector Discontinued 1.5 mg SC COWART May 24, 2017 1:00am May 24, 2020 4:11pm dulaglutide (TRULICITY) 3 mg/0.5 mL pen injector (1 source) inject 3 mg by subcutaneous injection once dulaglutide (TRULICITY) 3 mg/0.5 mL pen injector Inject 3 mg subcutaneously every Sunday. Alex PINK, WILL CALL FOR INSTRUCTIONS Active DULoxetine 60 mg delayed release oral capsule (8 sources) Serotonin and Norepinephrine Reuptake Inhibitor Start: 018 take 1 capsule by mouth at bedtime Duloxetine 60 MG capsule,delayed release(DR/EC) Active 60 mg PO AT BEDTIME February 07, 2018 12:00am FLUoxetine 40 mg oral capsule (1 source) Serotonin Reuptake Inhibitor take 1 capsule by mouth once daily at bedtime FLUoxetine (PROZAC) 40 mg capsule Take 40 mg by mouth daily at bedtime. Active 3 ml insulin degludec 100 unt/ml pen injector (16 sources) Insulin Analog Start: Insulin Degludec 100 unit/mL (3 mL) insulin pen Active 44 U SC DAILY May 24, 2020 4:11pm Start: 02-11-2020 End: 05-24-2020 Insulin Degludec 100 UNIT/ML insulin pen Discontinued 50 U SQ DAILY February 11, 2020 1:00am May 24, 2020 4:12pm 3 ml insulin lispro 200 unt/ml pen injector (17 sources) Insulin Analog Start: 02-11-2020 End: 05-24-2020 Insulin Lispro 200 unit/mL (3 mL) insulin pen Active 10 - 20 U SC THREE TIMES A DAY May 24, 2020 4:11pm Start: 02-11-2020 End: 05-24-2020 Insulin Lispro Active 10 - 2 0 UNIT SC THREE TIMES A DAY May 24, 2020 3:11pm insulin lispro ( HUMALOG U-100 INSULIN) 100 unit/mL crtg Inject 4 Units subcutaneously. INSULIN PUMP 4 UNITS PER HOUR , DR JUDITH ULRICH ENDOCR[facility] MANAGES Active losartan potassium 50 mg oral tablet (9 sources) Angiotensin 2 Receptor Clay Start: 05-24-2017 take 1 tablet by mouth once daily Losartan 50 mg tablet Active 50 mg PO DAILY May 24, 2017 1:00am metFORMIN hydrochloride 1000 mg oral tablet (17 sources) Biguanide Start: 05-24-2017 take 1 tablet by mouth twice daily Metformin 1,000 mg tablet Active 1000 mg PO TWICE A DAY May 24, 2017 1:00am Start: 08-06-2013 End: 05-24-2017 Metformin 500 MG tablet Disc ontinued 2 {tbl} PO TWICE A DAY August 06, 2013 12:00am May 24, 2017 10:47am mv-min/iron/folic/calcium/vi tK (WOMEN'S MULTIVITAMIN ORAL) (1 source) take 1 tablet by mouth once daily at bedtime mv-min/iron/folic/calcium/vitK (WOMEN'S MULTIVITAMIN ORAL) Take 1 tablet by mouth daily at bedtime. WOMENS MULTI VITAMIN PER PRIMARY FOR THE IRON Active omeprazole 20 mg delayed rel ease oral capsule (9 sources) Proton Pump Inhibitor St ar t: 0 take 1 capsule by mouth once daily Omeprazole 20 mg capsule,delayed release(DR/EC) Active 20 mg PO DAILY March 18, 2019 1:00am take 20 mg by mouth once daily in the morning Omeprazole 20 mg TbEC Take 20 mg by mout h every morning. Active rosuvastatin calcium 10 mg oral tablet (1 source) HMG-CoA Reductase Inhibitor take 1 tablet by mouth once daily in the morning rosuvastatin (CRESTOR) 10 mg tablet Take 10 mg by mouth every morning. Active vitamin b12 1 mg oral capsule (9 sources) Vitamin B12 Start: 8 take 1 capsule by mouth once daily Cyanocobalamin (Vitamin B-12) 1,000 MCG capsule Active 1000 ug PO DAILY May 28, 2017 1:00am take 1 tablet by héctor th once daily at bedtime cyanocobalamin (VITAMIN B-12) 1,000 mcg tab Take 1,000 mcg by mouth daily at bedtime. LD to be 02/11/24 Active Completed/Discontinued Medications Medication Drug Class(es) Dates Sig (Normalized) Sig (Original) acetaminophen 300 mg / codeine phosphate 30 mg oral tablet (8 sources) Opioid Agonist Start: 03-06-2018 End: 03-18-2019 Acetaminophen-Codei ne 1 TABLET tablet Discontinued 1 - 2 {tbl} PO EVERY 6 HOURS NEEDED as needed for Pain March 06, 2018 1:00am March 18, 2019 9:29am Start: 03-06-2018 End: 03-18-2019 take 1 tablet by mouth every six hours as needed Acetaminophen-Codeine Discontinued 1 - 2 TABLET PO EVERY 6 HOURS NEEDED March 06, 2018 12:00am March 18, 2019 8:29am acetaminophen 325 mg / HYDROcodone bitartrate 5 mg oral tablet (16 sources) Opioid Agonist Start: 01-07-2020 End: 01-10-2020 Hydrocodone-Acetaminophen 1 TABLET tablet Discontinued 1 {tbl} PO EVERY 6 HOURS NEEDED as needed for Pain 01 09January 07, 2020 January 09, 2020 12:00am January 10, 2020 12:03am Start: 01-07-2020 End: 01-10-2020 take 1 tablet by mouth every six hours as needed Hydrocodone-Acetaminophen Discontinued 1 TABLET PO EVERY 6 HOURS NEEDED 10 January 07, 2020 January 09, 2020 11:03pm Start: 08-09-2013 End: 05-24-2017 Hydrocodone-Acetaminophen 1 EACH tablet Discontinued 1 {tbl} PO EVERY 4 HOURS NEEDED as needed for Pain August 09, 2013 12:00am May 24, 2017 10:47am May substitute Hydrocodone/Acetaminophen 5/325 mg Start: 08-09-2013 End: 05-24-2017 take 1 tablet by mouth every four hours as needed Hydrocodone-Acetaminophen Discontinued 1 TABLET PO EVERY 4 HOURS NEEDED August 08, 2013 11:00pm May 24, 2017 9:47am May substitute Hydrocodone/Acetaminophen 5/325 mg acetaminophen 325 mg / oxyCODONE hydrochloride 5 mg oral tablet (20 sources) Opioid Agonist Start: 02-20-2020 End: 02-25-2020 Oxycodone-Acetaminophen 1 TABLET tablet Discontinued 1 - 2 {tbl} PO EVERY 6 HOURS NEEDED as needed for Pain 10 February 20, 2020 February 24, 2020 1:00am February 25, 2020 1:02am Start: 02-20-2020 End: 02-25-2020 take 1 tablet by mouth every six hours as needed Oxycodone-Acetaminophen Discontinued 1 - 2 TABLET PO EVERY 6 HOURS NEEDED 01 11February 20, 2020 February 25, 2020 12:02am Start: 02-08-2018 End: 02-11-2018 Oxycodone-Acetaminophen 1 TA BLET tablet Discontinued 1 {tbl} PO EVERY 6 HOURS NEEDED as needed for Pain 12 February 08, 2018 12:00am February 10, 2018 12:00am February 11, 2018 1:08am Start: 02-08-2018 End: 02-11-2018 take 1 tablet by mouth every six hours as needed Oxycodone-Acetaminophen Discontinued 1 TABLET PO EVERY 6 HOURS NEEDED 12 February 07, 2018 11:00pm February 11, 2018 12:08am Start: 05-30-2017 End: 06-12-2017 Oxycodone-Acetaminophen 1 TA BLET tablet Discontinued 1 - 2 {tbl} PO EVERY 6 HOURS NEEDED as needed for Pain 20 May 30, 2017 1:00am June 12, 2017 3:17pm Start: 05-30-2017 End: 06-12-2017 take 1 tablet by mouth every six hours as needed Oxycodone-Acetaminophen Discontinued 1 - 2 TABLET PO EVERY 6 HOURS NEEDED 26 06May 30, 2017 12:00am June 12, 2017 2:17pm cephalexin 500 mg oral capsule (8 sources) Cephalosporin Antibacterial Start: 06-19-2017 End: 06-29-2017 take 1 capsule by mouth every twelve hours Cephalexin 500 mg capsule Discontinued 500 mg PO Q12H 26 01June 19, 2017 12:00am June 28, 2017 12:00am June 29, 2017 12:08am ciprofloxacin 250 mg oral tablet (16 sources) Quinolone Antimicrobial Start: 08-10-2013 End: 05-24-2017 take 1 tablet by mouth once daily Ciprofloxacin Hcl 250 MG tablet Discontinued 250 mg PO DAILY August 10, 2013 12:00am May 24, 2017 10:46am Start: 08-09-2013 End: 05-24-2017 take 1 tablet by mouth twice daily Ciprofloxacin Hcl 500 MG tablet Discontinued 500 mg PO TWICE A DAY August 09, 2013 12:00am May 24, 2017 10:47am cyclobenzaprine hydrochloride 10 mg oral tablet (16 sources) Muscle Relaxant Start: 01-07-2020 End: 05-18-2020 take 1 tablet by mouth three times daily as needed for muscle spasms Cyclobenzaprine 10 MG tablet Discontinued 10 mg PO THREE TIMES A DAY as needed for Muscle Spasm January 07, 2020 12:00am May 18, 2020 3:15pm Start: 02-07-2018 End: 03-18-2019 take 1 tablet by mouth three times daily as needed for pain Cyclobenzaprine 10 MG tablet Discontinued 10 mg PO 3 TIMES DAILY NEEDED as needed for Pain February 07, 2018 12:00am March 18, 2019 9:29am diazePAM 5 mg oral tablet (8 sources) Benzodiazepine Start: 02-08-2018 End: 02-11-2018 take 1 tablet by mouth every eight hours as needed for pain Diazepam 5 MG tablet Discontinued 5 mg PO EVERY 8 HOURS as needed for Pain 01 09February 08, 2018 12:00am February 10, 2018 12:00am February 11, 2018 1:08am docusate sodium 100 mg oral capsule (8 sources) Start: 08-09-2013 End: 05-24-2017 take 1 capsule by mouth twice daily Docusate Sodium 100 MG capsule Discontinued 100 mg PO TWICE A DAY August 09, 2013 12:00am May 24, 2017 10:47am gabapentin 300 mg oral capsule (9 sources) Anti-epileptic Agent Start: 04-06-2020 End: 05-24-2020 Gabapentin 300 mg capsule Discontinued NMA PO April 06, 2020 1:00am May 24, 2020 4:10pm Start: 04-06-2020 End: 05-24-2020 Gabapentin Discontinued CAP PO April 06, 2020 12:00am May 24, 2020 3:10pm glyBURIDE 3 mg oral tablet (8 sources) Sulfonylurea Start: 08-06-2013 End: 05-24-2017 Glyburide Micronized 3 MG tablet Discontinued 6 mg PO DAILY@0800 August 06, 2013 12:00am May 24, 2017 10:47am Start: 08-06-2013 End: 05-24-2017 take 6 mg by mouth once daily Glyburide Micronized Dis continued 6 MG PO DAILY@0800 August 05, 2013 11:00pm May 24, 2017 9:47am 3 ml insulin lispro 25 unt/ml / insulin lispro protamine, human 75 unt/ml pen injector (8 sources) Insulin Analog Start: 02-10-2018 End: 02-24-2018 Insulin Lispro Protamin-Lispro (Humalog Mix 75-25 Kwikpen) 100 UNIT/ML Insuln.Pen Discontinued 0 U SQ THREE TIMES A DAY 1 February 10, 2018 12:00am February 23, 2018 1:00am February 24, 2018 1:15am Take 75 units QPM, 30 units QAM and 40 units in afternoon as you were previusly Please contact the information source for Protocol details. Ufgxfamw-Sdi-Xtao Fum-Folic Ac (7 sources) Start: 05-28-2017 End: 03-18-2019 Zagvlowq-Pxl-Enyz Fum-Folic Ac Discontinued 2 EACH PO DAILY May 28, 2017 10:15am March 18, 2019 9:30am Start: 05-28-2017 End: 03-18-2019 Wsurvqjw-Msb-Hcok Fum-Folic Ac Discontinued 2 EACH PO DAILY May 28, 2017 12:00am March 18, 2019 8:30am Start: 05-28-2017 End: 03-18-2019 Jtwremdh-Nib-Znnt Fum-Folic Ac Discontinued 2 EACH PO DAILY May 28, 2017 1:00am March 18, 2019 9:30am Jghklbtm-Sdj-Ofhk Fum-Folic Ac 1 EACH tablet (1 source) Start: 05-28-2017 End: 03-18-2019 take 1 tablet by mouth once daily before mealtime Mnnkeets-Atk-Ufly Fum-Folic Ac 1 EACH tablet Discontinued 2 NMA PO DAILY May 28, 2017 1:00am March 18, 2019 9:30am nitrofurantoin, macrocrystals 100 mg oral capsule (8 sources) Nitrofuran Antibacterial Start: 05-28-2017 End: 03-18-2019 take 1 capsule by mouth once daily Nitrofurantoin Macrocrystal 100 MG capsule Discontinued 100 mg PO DAILY May 28, 2017 1:00am March 18, 2019 9:30am triamcinolone acetonide 40 mg/ml injectable suspension (1 source) Corticosteroid Start: 03-18-2019 End: 03-18-2019 Kenalog (triamcinolone acetonide) 40 mg/mL suspension for injection Discontinued 40 MG INTRAARTIC ONCE March 18, 2019 9:09am March 18, 2019 10:08am Problems Active Problems Problem Classification Problem Date Documented Da te Episodic/Chronic Diabetes mellitus with complications (1 source) Type 2 diabetes mellitus with hyperglycemia; Translations: [Type 2 diabetes mellitus with hyperglycemia] Onset: 08-14-2024 Chronic Diabetes mellitus without complication (4 sources) Diabetes mellitus; Translations: [Insulin dependent diabetes mellitus] 03-18-2023 Chronic Diabetes mellitus without complication (3 sources) Insulin pump present; Translations: [Presence of insulin pump (external) (internal)] Onset: 01-30-2024 01-30-2024 Episodic Essential hypertension (3 sources) Essential hypertension; Translations: [Essential (primary) hypertension] Onset: 01-30-2024 01-30-2024 Chronic Other bone disease and musculoskeletal deformities (3 sources) Somatic dysfunction of rib; Translations: [Segmental and somatic dysfunction of rib cage] 03-18-2023 Episodic Other connective tissue disease (8 sources) Tenosynovitis of fingers; Translations: [Synovitis and tenosynovitis, unspecified] 04-06-2020 Episodic Other diseases of bladder and urethra (2 sources) Bladder muscle dysfunction - underactive; Translations: [Flaccid neuropathic bladder, not elsewhere classified] 01-30-2024 Chronic Other diseases of bladder and urethra (1 source) Flaccid neuropathic bladder, not elsewhere classified; Translations: [Atonic bladder] Onset: 01-30-2024 Chronic Other nervous system disorders (1 source) Other chronic pain; Translations: [Chronic right-sided low back pain with right-sided sciatica] Onset: 01-30-2024 Chronic Other nervous system disorders (1 source) Other acute postprocedural pain; Translations: [Postoperative back pain] Onset: 02-25-2024 Episodic Spondylosis; intervertebral disc disorders; other back problems (4 sources) Chronic low back pain; Translations: [Lumbago with sciatica, right side] Onset: 01-30-2024 01-30-2024 Episodic Sprains and strains (8 sources) Lower back injury; Translations: [Strain of muscle, fascia and tendon of lower back, initial encounter] 02-20-2020 Episodic Past or Other Problems Problem Classification Problem Date Documented Da te Episodic/Chronic Other non-traumatic joint disorders (2 sources) Pain in left shoulder; Translations: [Pain in left shoulder] Onset: 11-06-2023 Episodic Results Test Name Value Interpretation Reference Range Facility Anion gap in Serum or Plasma Ordered By: Judith Lynch on 08-05-2024 Anion gap [Moles/Vol] 13 mmol/L 5-[address] [facility] BUN/creatinine ratioOrdered By: Judith Lynch on 08-05-2024 Urea nitrogen/Creatinine [Mass ratio] 14.8 mg/mg 10-20 [facility] Bilirubin, totalOrdered By: Judith Lynch on 08-05-2024 Bilirubin [Mass/Vol] 0.39 mg/dL 0.00-1.30 [facility] Carbon dioxide, total [Moles /volume] in Central venous bloodOrdered By: Judith Lynch on 08-05-2024 CO2 [Moles/Vol] 24.5 mmol/L 21.0-32.0 [facility] Chloride assayOrdered By: Kimber Lynch on 08-05-2024 Chloride [Moles/Vol] 101 mmol/L 98-108 [facility] Comprehensive Metabolic Prof ilon 08-05-2024 Albumin [Mass/Vol] 4.3 g/dL Normal 3.5-5.0 [facility] Comment on above: Performed By: #### L 100.0500, L503.6150, L801.1541, L501.9520, L503.6075, L503.6550 #### [facility] [address] [place], [address] Albumin/Globulin [Mass ratio] 1.6 {ratio} Normal 0.9-2.4 [facility] Comment on above: Performed By: #### L 100.0500, L503.6150, L801.1541, L501.9520, L503.6075, L503.6550 #### [facility] [address] [place], [address] ALK PHOS 100 U/L Normal 40-129 [facility] Comment on above: Performed By: #### L 100.0500, L503.6150, L801.1541, L501.9520, L503.6075, L503.6550 #### [facility] [address] [place], [address] ALT [Catalytic activity/Vol] 21 U/L Normal <=46 [facility] Comment on above: Performed By: #### L 100.0500, L503.6150, L801.1541, L501.9520, L503.6075, L503.6550 #### [facility] [address] [place], [address] AST [Catalytic activity/Vol] 22 U/L Normal <=37 [facility] Comment on above: Performed By: #### L 100.0500, L503.6150, L801.1541, L501.9520, L503.6075, L503.6550 #### [facility] [address] [place], [address] Bilirubin [Mass/Vol] 0.39 mg/dL Normal 0.00-1.30 [facility] Comment on above: Performed By: #### L 100.0500, L503.6150, L801.1541, L501.9520, L503.6075, L503.6550 #### [facility] [address] [place], [address] BUN/CRE 14.8 RATIO Normal 10-20 [facility] Comment on above: Performed By: #### L 100.0500, L503.6150, L801.1541, L501.9520, L503.6075, L503.6550 #### [facility] [address] [place], [address] Calcium [Mass/Vol] 9.5 mg/dL Normal 7.6-11.0 [facility] Comment on above: Performed By: #### L 100.0500, L503.6150, L801.1541, L501.9520, L503.6075, L503.6550 #### [facility] [address] [place], [address] Chloride [Moles/Vol] 101 mmol/L Normal 98-108 [facility] Comment on above: Performed By: #### L 100.0500, L503.6150, L801.1541, L501.9520, L503.6075, L503.6550 #### [facility] [address] [place], [address] CO2 [Moles/Vol] 24.5 mmol/L Normal 21.0-32.0 [facility] Comment on above: Performed By: #### L 100.0500, L503.6150, L801.1541, L501.9520, L503.6075, L503.6550 #### [facility] [address] [place], [address] Creatinine [Mass/Vol] 0.83 mg/dL Normal 0.70-1.[address] [facility] Comment on above: Performed By: #### L 100.0500, L503.6150, L801.1541, L501.9520, L503.6075, L503.6550 #### [facility] [address] [place], [address] GAP 13 Normal 5-15 [facility] Comment on above: Performed By: #### L 100.0500, L503.6150, L801.1541, L501.9520, L503.6075, L503.6550 #### [facility] [address] [place], [address] GFR/1.73 sq M.predicted among non-blacks MDRD (S/P/Bld) [Vol rate/Area] 105 mL/min/{1.73_m2} Normal >60 [facility] Comment on above: Result Comment: mL/m in/1.73m2 CKD-EPI Creatinine Equation (2020) Performed By: #### L 100.0500, L503.6150, L801.1541, L501.9520, L503.6075, L503.6550 #### [facility] [address] [place], [address] Globulin (S) [Mass/Vol] 2.7 g/dL Normal 2.2-4.2 [facility] Comment on above: Performed By: #### L 100.0500, L503.6150, L801.1541, L501.9520, L503.6075, L503.6550 #### [facility] [address] [place], [address] Glucose [Mass/Vol] 147 mg/dL High 70-99 [facility] Comment on above: Performed By: #### L 100.0500, L503.6150, L801.1541, L501.9520, L503.6075, L503.6550 #### [facility] [address] [place], [address] Potassium [Moles/Vol] 4.1 mmol/L Normal 3.3-5.[address] [facility] Comment on above: Performed By: #### L 100.0500, L503.6150, L801.1541, L501.9520, L503.6075, L503.6550 #### [facility] [address] [place], [address] Sodium [Moles/Vol] 138 mmol/L Normal 133-145 [facility] Comment on above: Performed By: #### L 100.0500, L503.6150, L801.1541, L501.9520, L503.6075, L503.6550 #### [facility] [address] [place], [address] T PROT 7.0 g/dL Normal 5.9-8.4 [facility] Comment on above: Performed By: #### L 100.0500, L503.6150, L801.1541, L501.9520, L503.6075, L503.6550 #### [facility] [address] [place], [address] Urea nitrogen [Mass/Vol] 12 mg/dL Normal 4-19 [facility] Comment on above: Performed By: #### L 100.0500, L503.6150, L801.1541, L501.9520, L503.6075, L503.6550 #### [facility] [address] [place], [address] Glomerular filtration rate ( GFR) estimation/1.73 sq m using serum, plasma, or whole bOrdered By: Judith Lynch on 08-05-2024 GFR/1.73 sq M.predicted among non-blacks MDRD (S/P/Bld) [Vol rate/Area] 105 mL/min/{1.73_m2} >60 [facility] Comment on above: mL/min/1.73m2 CKD-EP I Creatinine Equation (2020) Hemoglobin A1con 08-05-2024 HbA1c (Bld) [Mass fraction] 9.2 % High <=5.6 [facility] Comment on above: Result Comment: Norm al < 5.7 % Prediabetic 5.7 - 6.4 % Diabetic >or= 6.5 % Please note range changes. Performed By: #### L 100.0500, L503.6150, L801.1541, L501.9520, L503.6075, L503.6550 #### [facility] [address] [place], [place], [address] Hemoglobin A1c percentageOrd ered By: Judith Lynch on 08-05-2024 HbA1c (Bld) [Mass fraction] 9.2 % High <5.7 [facility] Comment on above: Normal < 5.7 % Predi abetic 5.7 - 6.4 % Diabetic >or= 6.5 % Please note range changes. Laboratory - Chemistry and C hemistry - challengeOrdered By: Judith Lynch on 08-05-2024 AST [Catalytic activity/Vol] 22 U/L <38 [facility] Potassium measurement (mass/ volume)Ordered By: Judith Lynch on 08-05-2024 Potassium (Unsp spec) [Mass/Vol] 4.1 mmol/L 3.3-5.1 [facility] Serum creatinine measurement (mass/volume)Ordered By: Judith Lynch on 08-05-2024 Creatinine [Mass/Vol] 0.83 mg/dL 0.70-1.[address] [facility] Serum globulin measurementOr dered By: Judith Lynch on 08-05-2024 Globulin (S) [Mass/Vol] 2.7 g/dL 2.2-4.2 [facility] Serum glucose measurement (m ass/volume)Ordered By: Judith Lynch on 08-05-2024 Glucose [Mass/Vol] 147 mg/dL High 70-99 [facility] Serum or plasma alanine florian otransferase (ALT) measurementOrdered By: Judith Lynch on 08-05-2024 ALT [Catalytic activity/Vol] 21 U/L <47 [facility] Serum or plasma albumin john urement (mass/volume)Ordered By: Judith Lynch on 08-05-2024 Albumin [Mass/Vol] 4.3 g/dL 3.5-5.0 [facility] Serum or plasma albumin/glob ulin mass ratioOrdered By: Judith Lynch on 08-05-2024 Albumin/Globulin [Mass ratio] 1.6 {ratio} 0.9-2.4 [facility] Serum or plasma alkaline naeem sphatase measurementOrdered By: Juditheduardo Lynch on 08-05-2024 ALP [Catalytic activity/Vol] 100 U/L 40-129 [facility] Serum or plasma calcium john urement (mass/volume)Ordered By: Judith Lynch on 08-05-2024 Calcium [Mass/Vol] 9.5 mg/dL 7.6-11.0 [facility] Serum or plasma urea nitroge n measurement (mass/volume)Ordered By: Judith Lynch on 08-05-2024 Urea nitrogen [Mass/Vol] 12 mg/dL 4-19 [facility] Sodium levelOrdered By: Alyse Lynch on 08-05-2024 Sodium [Moles/Vol] 138 mmol/L 133-145 [facility] Total proteinOrdered By: Ac Lynch on 08-05-2024 Protein [Mass/Vol] 7.0 g/dL 5.9-8.4 [facility] Vitamin D,25 Hydroxyon 08-05 Vitamin D 25-OH 67.6 ng/mL Normal 30-100 [facility] Comment on above: Result Comment: Salma min D Status Deficiency: <20 ng/mL (50nmol/L) Insufficiency: 20-30 ng/mL (50-75 nmol/L) Sufficiency: 30-100 ng/mL (75-250 nmol/L) Toxicity: >100 ng/mL (>250 nmol/L) Performed By: #### L 100.0500, L503.6150, L801.1541, L501.9589, L503.2005, L503.6550 #### [facility] [address] [place], [address] Albumin to globulin ratioOrd ered By: Judith Lynch on 05-19-2024 Albumin/Globulin [Mass ratio] 1.1 {ratio} 0.9-2.4 [facility] Bilirubin, totalOrdered By: Judith Lynch on 05-19-2024 Bilirubin [Mass/Vol] 0.50 mg/dL 0.20-1.00 [facility] Comment on above: For patients on eltr ombopag therapy, use of Dimension [place] TBIL is not recommended. Blood urea nitrogen (BUN)/cr eatinine ratioOrdered By: Judith Lynch on 05-19-2024 Urea nitrogen/Creatinine [Mass ratio] 12.7 mg/mg 10-20 [facility] Carbon dioxide measurementOr dered By: Judith Lynch on 05-19-2024 CO2 [Moles/Vol] 27.0 mmol/L 21.0-32.0 [facility] Chloride measurementOrdered By: Juditheduardo Lynch on 05-19-2024 Chloride [Moles/Vol] 103 mmol/L 98-107 [facility] Comprehensive Metabolic Prof ilon 05-19-2024 Albumin [Mass/Vol] 3.9 g/dL Normal 3.2-5.0 [facility] Comment on above: Performed By: #### L 501.9985, L501.9520, L500.4100, L501.62999, L500.4050, L506.1000, L506.0400, L502.0250 #### [facility] [address] [place], [address] Albumin/Globulin [Mass ratio] 1.1 {ratio} Normal 0.9-2.4 [facility] Comment on above: Performed By: #### L 501.9985, L501.9520, L500.4100, L501.23539, L500.4050, L506.1000, L506.0400, L502.0250 #### [facility] [address] [place], [address] ALK P 109 U/L Normal 45-117 [facility] Comment on above: Performed By: #### L 501.9985, L501.9520, L500.4100, L501.93468, L500.4050, L506.1000, L506.0400, L502.0250 #### [facility] [address] [place], [address] ALT [Catalytic activity/Vol] 24 U/L Normal 16-61 [facility] Comment on above: Performed By: #### L 501.9985, L501.9520, L500.4100, L501.20205, L500.4050, L506.1000, L506.0400, L502.0250 #### [facility] [address] [place], [address] AST [Catalytic activity/Vol] 14 U/L Low 15-37 [facility] Comment on above: Performed By: #### L 501.9985, L501.9520, L500.4100, L501.93667, L500.4050, L506.1000, L506.0400, L502.0250 #### [facility] [address] [place], [address] Bilirubin [Mass/Vol] 0.50 mg/dL Normal 0.20-1.00 [facility] Comment on above: Result Comment: For patients on eltrombopag therapy, use of Dimension [place] TBIL is not recommended. Performed By: #### L 501.9985, L501.9520, L500.4100, L501.97640, L500.4050, L506.1000, L506.0400, L502.0250 #### [facility] [address] [place], [address] BUN/CRE 12.7 RATIO Normal 10-20 [facility] Comment on above: Performed By: #### L 501.9985, L501.9520, L500.4100, L501.51052, L500.4050, L506.1000, L506.0400, L502.0250 #### [facility] [address] [place], [address] CA,Total 9.1 mg/dL Normal 8.5-10.1 [facility] Comment on above: Performed By: #### L 501.9985, L501.9520, L500.4100, L501.16792, L500.4050, L506.1000, L506.0400, L502.0250 #### [facility] [address] [place], [address] Chloride [Moles/Vol] 103 mmol/L Normal 98-107 [facility] Comment on above: Performed By: #### L 501.9985, L501.9520, L500.4100, L501.98900, L500.4050, L506.1000, L506.0400, L502.0250 #### [facility] [address] [place], [address] CO2 [Moles/Vol] 27.0 mmol/L Normal 21.0-32.0 [facility] Comment on above: Performed By: #### L 501.9985, L501.9520, L500.4100, L501.47607, L500.4050, L506.1000, L506.0400, L502.0250 #### [facility] [address] [place], [address] Creatinine [Mass/Vol] 0.87 mg/dL Normal 0.70-1.[address] [facility] Comment on above: Result Comment: The validity of the calculated GFR GFRAA in patients over 70 years has not been determined. Clinical correlation is essential. Performed By: #### L 501.9985, L501.9520, L500.4100, L501.82006, L500.4050, L506.1000, L506.0400, L502.0250 #### [facility] [address] [place], [place], [id number] EST GFR - AA 119 mL/min Normal >60 [facility] Comment on above: Result Comment: Afri can [place] GFR Calc Performed By: #### L 501.9985, L501.9520, L500.4100, L501.20756, L500.4050, L506.1000, L506.0400, L502.0250 #### [facility] [address] [place], [place], [id number] GAP 7 Normal 5-15 [facility] Comment on above: Performed By: #### L 501.9985, L501.9520, L500.4100, L501.63808, L500.4050, L506.1000, L506.0400, L502.0250 #### [facility] [address] [place], [place], [id number] GFR/1.73 sq M.predicted among non-blacks MDRD (S/P/Bld) [Vol rate/Area] 98 mL/min/{1.73_m2} Normal >60 [facility] Comment on above: Result Comment: Non- GFR Calc Performed By: #### L 501.9985, L501.9520, L500.4100, L501.78838, L500.4050, L506.1000, L506.0400, L502.0250 #### [facility] [address] [place], [place], [phone] (784) Globulin (S) [Mass/Vol] 3.4 g/dL Normal 2.2-4.2 [facility] Comment on above: Performed By: #### L 501.9985, L501.9520, L500.4100, L501.73014, L500.4050, L506.1000, L506.0400, L502.0250 #### [facility] [address] [place], [address] Glucose [Mass/Vol] 162 mg/dL High 74-106 [facility] Comment on above: Result Comment: Fast ing Glucose result greater than or equal to 126 mg/dL suggests DIABETES MELLITUS per A.D.A. criteria. Performed By: #### L 501.9985, L501.9520, L500.4100, L501.73827, L500.4050, L506.1000, L506.0400, L502.0250 #### [facility] [address] [place], [address] Potassium [Moles/Vol] 4.1 mmol/L Normal 3.5-5.[address] [facility] Comment on above: Performed By: #### L 501.9985, L501.9520, L500.4100, L501.18674, L500.4050, L506.1000, L506.0400, L502.0250 #### [facility] [address] [place], [address] Sodium [Moles/Vol] 137 mmol/L Normal 136-145 [facility] Comment on above: Performed By: #### L 501.9985, L501.9520, L500.4100, L501.77457, L500.4050, L506.1000, L506.0400, L502.0250 #### [facility] [address] [place], [address] T PROT 7.3 g/dL Normal 6.4-8.2 [facility] Comment on above: Performed By: #### L 501.9985, L501.9520, L500.4100, L501.74439, L500.4050, L506.1000, L506.0400, L502.0250 #### [facility] [address] [place], [place], [id number] Urea nitrogen [Mass/Vol] 11 mg/dL Normal 7-18 [facility] Comment on above: Performed By: #### L 501.9985, L501.9520, L500.4100, L501.57436, L500.4050, L506.1000, L506.0400, L502.0250 #### [facility] [address] [place], [place], [id number] Direct serum free thyroxine (FT4) measurementOrdered By: Judith Lynch on 05-19-2024 Free T4 [Mass/Vol] 1.01 ng/dL 0.76-1.46 [facility] Free T3on 05-19-2024 Free T3 [Mass/Vol] 3.0 pg/mL Normal 2.18-3.98 [facility] Comment on above: Performed By: #### L 100.0500, L503.6150, L801.1541, L501.9520, L503.6075, L503.6550 #### [facility] [address] [place], [address] Free [id number] By: Judith bray on 05-19-2024 Free T3 [Mass/Vol] 3.0 pg/mL 2.18-3.98 [facility] Glomerular filtration rate ( GFR) estimationOrdered By: Judith Lynch on 05-19-2024 GFR/1.73 sq M.predicted among non-blacks MDRD (S/P/Bld) [Vol rate/Area] 98 mL/min/{1.73_m2} >60 [facility] Comment on above: Non- GFR Calc Glucose measurementOrdered B y: Judith Lynch on 05-19-2024 Glucose [Mass/Vol] 162 mg/dL High 74-106 [facility] Comment on above: Fasting Glucose resu lt greater than or equal to 126 mg/dL suggests DIABETES MELLITUS per A.D.A. criteria. Hemoglobin A1con 05-19-2024 HbA1c (Bld) [Mass fraction] 8.5 % High 3.8-5.6 [facility] Comment on above: Result Comment: Norm al < 5.7 % Prediabetic 5.7 - 6.4 % Diabetic >or= 6.5 % Please note range changes. Performed By: #### L 501.9985, L501.9520, L500.4100, L501.38562, L500.4050, L506.1000, L506.0400, L502.0250 #### [facility] [address] [place], [place], [id number] Hemoglobin A1c percentageOrd ered By: Judith Lynch on 05-19-2024 HbA1c (Bld) [Mass fraction] 8.5 % High 3.8-5.6 [facility] Comment on above: Normal < 5.7 % Predi abetic 5.7 - 6.4 % Diabetic >or= 6.5 % Please note range changes. High density lipoprotein (HD L) measurementOrdered By: Judith Lynch on 05-19-2024 Cholesterol in HDL [Mass/Vol] 39 mg/dL Low >40 [facility] Comment on above: The drugs N-Acetylcy steine and Metamizole may falsely depress this assay. Reference Range HDL <40 mg/dL Low HDL Cholesterol HDL >or= 60 mg/dL High HDL Cholesterol Laboratory - Chemistry and C hemistry - challengeOrdered By: Judith Lynch on 05-19-2024 AST [Catalytic activity/Vol] 14 U/L Low 15-37 [facility] Lipid Profileon 05-19-2024 Cholesterol [Mass/Vol] 105 mg/dL Normal 200 [facility] Comment on above: Result Comment: <200 mg/dL Desirable 200-240 mg/dL Borderline >240 mg/dL High Risk Performed By: #### L 501.9985, L501.9520, L500.4100, L501.88948, L500.4050, L506.1000, L506.0400, L502.0250 #### [facility] [address] [place], [place], [id number] Cholesterol in HDL [Mass/Vol] 39 mg/dL Low [facility] Comment on above: Result Comment: The drugs N-Acetylcysteine and Metamizole may falsely depress this assay. Reference Range HDL <40 mg/dL Low HDL Cholesterol HDL >or= 60 mg/dL High HDL Cholesterol Performed By: #### L 501.9985, L501.9520, L500.4100, L501.37532, L500.4050, L506.1000, L506.0400, L502.0250 #### [facility] [address] [place], [address] Cholesterol in LDL [Mass/Vol] 45 mg/dL Normal 0-130 [facility] Comment on above: Performed By: #### L 501.9985, L501.9520, L500.4100, L501.73056, L500.4050, L506.1000, L506.0400, L502.0250 #### [facility] [address] [place], [address] Cholesterol in VLDL [Mass/Vol] 21 mg/dL Normal 5-40 [facility] Comment on above: Performed By: #### L 501.9985, L501.9520, L500.4100, L501.87437, L500.4050, L506.1000, L506.0400, L502.0250 #### [facility] [address] [place], [address] Triglyceride [Mass/Vol] 107 mg/dL Normal [facility] Comment on above: Result Comment: The drugs N-Acetylcysteine and Metamizole may falsely depress this assay. Serum Triglycerides Reference Interval Normal <150 mg/dL Borderline high 150 - 199 mg/dL High 200 - 499 mg/dL Very High > or = 500 mg/dL Performed By: #### L 501.9985, L501.9520, L500.4100, L501.32756, L500.4050, L506.1000, L506.0400, L502.0250 #### [facility] [address] [place], [place], [id number] Low density lipoprotein (LDL ) cholesterol measurementOrdered By: Judith Lynch on 05-19-2024 Cholesterol in LDL [Mass/Vol] 45 mg/dL 0-130 [facility] Microalb:Creat Ratio,Random URon 05-19-2024 Creatinine [Mass/Vol] 217.00 mg/dL Normal NO RAN GE EST. [facility] Comment on above: Performed By: #### L 100.0500, L503.6150, L801.1541, L501.9520, L503.6075, L503.6550 #### [facility] [address] [place], [address] MALB:CRE 22.2 mg/g CRE Normal <30 mg/g CRE [facility] Comment on above: Performed By: #### L 100.0500, L503.6150, L801.1541, L501.9520, L503.6075, L503.6550 #### [facility] [address] [place], [address] MICROALBUMIN,UR 48.1 mg/L Normal NO RANGE EST. [facility] Comment on above: Performed By: #### L 100.0500, L503.6150, L801.1541, L501.9520, L503.6075, L503.6550 #### [facility] [address] [place], [address] Potassium measurementOrdered By: Judith Lynch on 05-19-2024 Potassium [Moles/Vol] 4.1 mmol/L 3.5-5.[address] [facility] Serum anion gap measurementO rdered By: Judith Lynch on 05-19-2024 Anion gap [Moles/Vol] 7 mmol/L 5-[address] [facility] Serum globulin measurementOr dered By: Judith Lynch on 05-19-2024 Globulin (S) [Mass/Vol] 3.4 g/dL 2.2-4.2 [facility] Serum or plasma alanine florian otransferase (ALT) measurementOrdered By: Judith Lynch on 05-19-2024 ALT [Catalytic activity/Vol] 24 U/L 16-61 [facility] Serum or plasma albumin john urement (mass/volume)Ordered By: Judith Lynch on 05-19-2024 Albumin [Mass/Vol] 3.9 g/dL 3.2-5.0 [facility] Serum or plasma alkaline naeem sphatase measurementOrdered By: Judith Lynch on 05-19-2024 ALP [Catalytic activity/Vol] 109 U/L 45-117 [facility] Serum or plasma calcium john urement (mass/volume)Ordered By: Judith Lynch on 05-19-2024 Calcium [Mass/Vol] 9.1 mg/dL 8.5-10.1 [facility] Serum or plasma cholesterol measurement (mass/volume)Ordered By: Judith Lynch on 05-19-2024 Cholesterol [Mass/Vol] 105 mg/dL <200 [facility] Comment on above: <200 mg/dL Desirable 200-240 mg/dL Borderline >240 mg/dL High Risk Serum or plasma creatinine m easurement (mass/volume)Ordered By: Judith Lynch on 05-19-2024 Creatinine [Mass/Vol] 0.87 mg/dL 0.70-1.[address] [facility] Comment on above: The validity of the calculated GFR & GFRAA in patients over 70 years has not been determined. Clinical correlation is essential. Serum or plasma thyroid stim ulating hormone (TSH) measurement (units/volume)Ordered By: Judith Lynch on 05-19-2024 TSH Qn 2.490 uIU/mL 0.358-3.740 [facility] Serum or plasma urea nitroge n measurement (mass/volume)Ordered By: Judith Lynch on 05-19-2024 Urea nitrogen [Mass/Vol] 11 mg/dL 7-18 [facility] Sodium levelOrdered By: Alyse Lynch on 05-19-2024 Sodium [Moles/Vol] 137 mmol/L 136-145 [facility] T4 Free Directon 05-19-2024 T4 FREE DIRECT 1.01 ng/dL Normal 0.76-1.46 [facility] Comment on above: Performed By: #### L 100.0500, L503.6150, L801.1541, L501.9520, L503.6075, L503.6550 #### [facility] [address] [place], [place], [address] Thyroid Stim Hormone (TSH)on 05-19-2024 TSH 2.490 uIU/mL Normal 0.358-3.740 [facility] Comment on above: Performed By: #### L 100.0500, L503.6150, L801.1541, L501.9520, L503.6075, L503.6550 #### [facility] [address] [place], [place], [id number] Total proteinOrdered By: Ac Lynch on 05-19-2024 Protein [Mass/Vol] 7.3 g/dL 6.4-8.2 [facility] Triglycerides measurementOrd ered By: Judith Lynch on 05-19-2024 Triglyceride [Mass/Vol] 107 mg/dL <199 [facility] Comment on above: The drugs N-Acetylcy steine and Metamizole may falsely depress this assay.Serum Triglycerides Reference Interval Normal <150 mg/dL Borderline high 150 - 199 mg/dL High 200 - 499 mg/dL Very High > or = 500 mg/dL Urine creatinine measurement (mass/volume)Ordered By: Judith Lynch on 05-19-2024 Creatinine (U) [Mass/Vol] 217.00 mg/dL NO RANGE EST. [facility] Very low density lipoprotein (VLDL) cholesterol measurementOrdered By: Judith Lynch on 05-19-2024 Very low density lipoprotein (VLDL) cholesterol measurement 21 mg/dL 5-40 [facility] Vitamin D,25 Hydroxyon 05-19 Vitamin D 25-OH 73.1 ng/mL Normal [facility] Comment on above: Result Comment: Salma min D 25(OH) Status Range Deficiency <20 ng/mL (50nmol/L) Insufficiency 20 - 30 ng/mL (50 - 75 nmol/L) Sufficiency 30 - 100 ng/mL (75 - 250 nmol/L) Toxicity >100 ng/mL (>250 nmol/L) Performed By: #### L 501.9985, L501.9520, L500.4100, L501.44927, L500.4050, L506.1000, L506.0400, L502.0250 #### [facility] [address] [place], [address] Basic metabolic 2000 panelon 02-28-2024 Anion gap [Moles/Vol] 4 mmol/L Low 5-16 [facility] Comment on above: Order Comment: Speci men Type: BLOOD SPECIMEN Ordering Facility: [facility] Address: [address] [place] [address] Performed By: #### 2 4321-2, 71438-9 #### [facility] CLIA [id number] [address] [place] [address] [place] Calcium [Mass/Vol] 9.6 mg/dL Normal 8.5-10.5 [facility] Comment on above: Order Comment: Speci men Type: BLOOD SPECIMEN Ordering Facility: [facility] Address: [address] [place], [place] [address] Performed By: #### 2 4321-2, 43261-9 #### [facility] CLIA [id number] [address] [place], [place] [address] [place] Chloride [Moles/Vol] 101 mmol/L Normal 98-107 [facility] Comment on above: Order Comment: Speci men Type: BLOOD SPECIMEN Ordering Facility: [facility] Address: [address] [place] [address] Performed By: #### 2 4321-2, 40485-8 #### [facility] CLIA [id number] [address] [place] [address] [place] CO2 [Moles/Vol] 32 mmol/L Normal 21-32 [facility] Comment on above: Order Comment: Imelda redding Type: BLOOD SPECIMEN Ordering Facility: [facility] Address: [address] [place] [address] Performed By: #### 2 4321-2, 13516-7 #### [facility] CLIA [id number] [address] [place] [address] [place] Creatinine [Mass/Vol] 0.70 mg/dL Normal 0.50-1.40 [facility] Comment on above: Order Comment: Speci men Type: BLOOD SPECIMEN Ordering Facility: [facility] Address: [address] [place] [address] Result Comment: Raven ents receiving either N-Acetylcysteine (NAC) or Metamizole prior to venipuncture, may have falsely depressed results. Performed By: #### 2 4321-2, 32082-6 #### [facility] CLIA [id number] [address] [place] [address] OF [facility] Creatinine and Glomerular filtration rate.predicted panel (S/P/Bld) 111 mL/min/1.73m??? Normal >=60 [facility] Comment on above: Order Comment: Imelda redding Type: BLOOD SPECIMEN Ordering Facility: [facility] Address: [address] [place] [address] Result Comment: Estela mated Glomerular Filtration Rate [...] actual GFR. Performed By: #### 2 4321-2, 67038-7 #### [facility] CLIA [id number] [address] [place] [address] [place] Glucose [Mass/Vol] 106 mg/dL High 70-100 [facility] Comment on above: Order Comment: Imelda redding Type: BLOOD SPECIMEN Ordering Facility: [facility] Address: [address] [place] [address] Result Comment: The [place] [employer] (ADA) provides guidance for cutoff [...] Standards of Medical Care in Diabetes 2016, [place] [employer]. Diabetes Care. 2016.39(Suppl 1). Results may be falsely elevated after the administration of Sulfapyridine. Results may be falsely depressed after the administration of Sulfasalazine. Performed By: #### 2 4321-2, 52936-5 #### [facility] CLIA [id number] [address] [place] [address] [place] Potassium [Moles/Vol] 4.0 mmol/L Normal 3.5-5.1 [facility] Comment on above: Order Comment: Specklever redding Type: BLOOD SPECIMEN Ordering Facility: [facility] Address: [address] [place] [address] Performed By: #### 2 4321-2, 02566-6 #### [facility] CLIA [id number] [address] [place] [address] [place] Sodium [Moles/Vol] 137 mmol/L Normal 136-145 [facility] Comment on above: Order Comment: Tonyi miladis Type: BLOOD SPECIMEN Ordering Facility: [facility] Address: [address] [place] [address] Performed By: #### 2 4321-2, 18952-0 #### [facility] CLIA [id number] [address] [place] [address] [place] Urea nitrogen [Mass/Vol] 12 mg/dL Normal 7-26 [facility] Comment on above: Order Comment: Tonyi miladis Type: BLOOD SPECIMEN Ordering Facility: [facility] Address: [address] [place] [address] Performed By: #### 2 4321-2, 26777-5 #### [facility] CLIA [id number] [address] [place], [place] [address] [place] CBC panel Auto (Bld)on 02-27 Erythrocyte distribution width (RBC) [Ratio] 12.2 % Normal 11.5-15.0 [facility] Comment on above: Order Comment: Speci men Type: BLOOD SPECIMEN Ordering Facility: [facility] Address: [address] [place] [address] Performed By: #### 2 4321-2, 04792-8 #### [facility] CLIA [id number] [address] [place] [address] [place] Hematocrit (Bld) [Volume fraction] 38.9 % Low 39.0-51.0 [facility] Comment on above: Order Comment: Speci men Type: BLOOD SPECIMEN Ordering Facility: [facility] Address: [address] [place] [address] Performed By: #### 2 4321-2, 02206-5 #### [facility] CLIA [id number] [address] [place] [address] [place] Hemoglobin (Bld) [Mass/Vol] 12.7 g/dL Low 13.0-17.0 [facility] Comment on above: Order Comment: Speci men Type: BLOOD SPECIMEN Ordering Facility: [facility] Address: [address] [place] [address] Performed By: #### 2 4321-2, 55527-9 #### [facility] CLIA [id number] [address] [place] [address] [place] MCH (RBC) [Entitic mass] 28.7 pg Normal 26.0-34.0 [facility] Comment on above: Order Comment: Speci men Type: BLOOD SPECIMEN Ordering Facility: [facility] Address: [address] [place] [address] Performed By: #### 2 4321-2, 01983-5 #### [facility] CLIA [id number] [address] [place] [address] [place] MCHC (RBC) [Mass/Vol] 32.6 g/dL Normal 30.5-36.0 [facility] Comment on above: Order Comment: Speci men Type: BLOOD SPECIMEN Ordering Facility: [facility] Address: [address] [place] [address] Performed By: #### 2 4321-2, 97295-3 #### [facility] CLIA [id number] [address] [place] [address] [place] MCV (RBC) [Entitic vol] 87.8 fL Normal 80.0-100.0 [facility] Comment on above: Order Comment: Speci men Type: BLOOD SPECIMEN [facility] Facility[facility] Address: [address] [place] [address] Performed By: #### 2 4321-2, 63793-4 #### [facility] CLIA [id number] [address] [place] [address] [place] Nucleated RBC (Bld) [#/Vol] 10*3/uL Normal <0.01 [facility] Comment on above: Order Comment: Speci men Type: BLOOD SPECIMEN [facility]ing Facility: [facility] Address: [address] [place] [address] Performed By: #### 2 4321-2, 03985-2 #### [facility] CLIA [id number] [address] [place] [address] [place] Platelet mean volume (Bld) [Entitic vol] 9.5 fL Normal 9.0-12.7 [facility] Comment on above: Order Comment: Speci men Type: BLOOD SPECIMEN [facility] Address: [address] [place] [address] Performed By: #### 2 4321-2, 87533-5 #### [facility] CLIA [id number] [address] [place] [address] [place] Platelets (Bld) [#/Vol] 195 10*3/uL Normal 150-400 [facility] Comment on above: Order Comment: Imelda redding Type: BLOOD SPECIMEN [facility]ing Facility[facility] Address: [address] [facility] [address] Performed By: #### 2 4321-2, 07366-8 #### [facility] CLIA [id number] [address] [place], [place] [id number] [place] RBC (Bld) [#/Vol] 4.43 10*6/uL Normal 4.20-6.00 [facility] Comment on above: Order Comment: Tonyi men Type: BLOOD SPECIMEN [facility] Address: [address] [place], [place] [address] Performed By: #### 2 4321-2, 96499-0 #### [facility] CLIA [id number] [address] [place], [place] [address] [place] WBC (Bld) [#/Vol] 9.76 10*3/uL Normal 3.70-11.00 [facility] Comment on above: Order Comment: Imelda redding Type: BLOOD SPECIMEN [facility] Address: [address] [place], [place] [address] Performed By: #### 2 4321-2, 35190-2 #### [facility] CLIA [id number] [address] [place] [address] OF [facility] CNDSon 02-28-2024 CNDS HNO ID: [id number] Author: RAMSES NULL MD Service: Orthopaedic Surgery Author Type: Nurse Practitioner Type: Discharge Summary Filed: 03/17/2024 11:40 Note Text: Attestation signed by Ramses Null MD at 03/17/2024 11:40 AM agree DISCHARGE SUMMARY PATIENT NAME: Deepa Ruffin ADMISSION DATE: 02/25/2024 DISCHARGE DATE: 02/28/2024 ATTENDING PHYSICIAN: Ramses Null MD Code Status: Prior Highest Readmission Risk Score: 9 The 30 day readmissions risk score is derived from an internally validated risk model which evaluates patient level characteristics, utilization history, medication orders and lab results up until the day of discharge. Patients with a score of 40 or above are considered highest risk for readmission. Specific patient level drivers will be listed at the bottom of the summary. CONSULTING TEAMS DURING HOSPITALIZATION: Dr. Kim for medical management Treatment Team: Attending Provider: Ramses Null MD REASON FOR HOSPITALIZATION: Status post L4-5 transforaminal lumbar interbody fusion with bilateral posterior intertransverse fusion, L4-5 posterior instrumentation, use of intervertebral body cage L4-5, revision right L4-5 microdiscectomy, local bone graft, allograft and BMP on 02/25/2024. 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 * OPERATIONS DURING HOSPITALIZATION: L4-5 transforaminal lumbar interbody fusion with bilateral posterior intertransverse fusion, L4-5 posterior instrumentation, use of intervertebral body cage L4-5, revision right L4-5 microdiscectomy, local bone graft, allograft and BMP on 02/25/[address] Null [facility]RSE: This is a 53-year-old gentleman who came into [facility] as scheduled on 02/25/2024 and underwent L4-5 transforaminal lumbar interbody fusion with bilateral posterior intertransverse fusion, L4-5 posterior instrumentation, use of intervertebral body cage L4-5, revision right L4-5 microdiscectomy, local bone graft, allograft and BMP with Dr. Null. The patient tolerated the procedure well and had no complications during the surgery or the subsequent recovery from anesthesia. They were then taken to the orthopedic unit for further recovery, physical therapy, and occupational therapy. He did well during the maid of his stay without complications or problems. He worked with PT and OT throughout, lumbar precautions, LSO brace on when up out of bed. Medically, he remained stable throughout his stay and was followed by internal medicine consult. He was able to discharge home in stable condition on 02/28/2024. He will follow-up in the office as scheduled. PATIENT CONDITION AT DISCHARGE: Stable DISCHARGE DISPOSITION: Home with Self Care Pertinent physical findings on discharge were that the patient was alert, no acute distress, no shortness breath or chest pain, pain was under control, surgical dressing was dry and intact, and they were in stable condition. WOUND/SURGICAL SITE CARE: Wound/Surgical Site Care Other: Dressing can be changed as needed if loose, wet or soiled. Use dry gauze type bandages DIET: Resume pre-hospital diet ACTIVITY: Lumbar precautions ALLERGIES No Known Allergies DISCHARGE MEDICATION: Medication List START taking these medications bisacodyl EC 5 mg EC tablet Commonly known as: DULCOLAX Take 2 tablets by mouth once daily as needed for constipation for up to 14 days. oxyCODONE-acetaminophen 5-325 mg tablet Commonly known as: PERCOCET Take 1 tablet by mouth every 6 hours as needed for up to 7 days. CONTINUE taking these medications DEXCOM G6 TRANSMITTER MISC FLUoxetine 40 mg capsule Commonly known as: PROzac gabapentin 300 mg capsule Commonly known as: NEURONTIN HumaLOG U-100 Insulin 100 unit/mL Crtg Generic drug: insulin lispro losartan 50 mg tablet Commonly known as: COZAAR metFORMIN 1,000 mg tablet Commonly known as: GLUCOPHAGE Omeprazole 20 mg Tbec rosuvastatin 10 mg tablet Commonly known as: CRESTOR SELF-CATH Generic drug: [employer] T:SLIM X2 BASAL-IQ INSULIN ROTOPRINTER Misc Generic drug: Subcutaneous Insulin Pump TRULICITY 3 mg/0.5 mL pen injector Generic drug: dulaglutide VITAMIN B-12 1,000 mcg Tab Generic drug: cyanocobalamin vitamin D3-vitamin K2 125-90 mcg Cap WOMEN'S MULTIVITAMIN ORAL Where to Get Your Medications You can get these (more content not included)... [facility] CONSULT PROGoalisa 02-28-2024 CONSULT PROG HNO ID: [id number] Author: ANDREW KIM MD Service: ? Author Type: Physician Type: Consult Progress Note Filed: 02/28/2024 06:45 Note Text: SERVICE CONSULT PROGRESS NOTE SERVICE DATE: 02/28/2024 SERVICE TIME: 6:45 AM Subjective INTERVAL HPI: Awake. Alert. Oriented. Denies chest pain. Denies shortness of breath. Positive bowel movement. Blood sugar this morning was 109. Current Facility-Administered Medications Medication Dose Route Frequency lactated ringers iv infusion 75 mL/hr INTRAVENOUS CONTINUOUS acetaminophen 325-650 mg tab(s) (TYLENOL) 325-650 mg ORAL q 4 H PRN oxyCODONE-acetaminophen 5-325 mg 1-2 tablet (PERCOCET) 1-2 tablet ORAL q 4 H PRN HYDROmorphone 0.5 mg injection (DILAUDID) 0.5 mg INTRAVENOUS q 2 H PRN ondansetron 4 mg tab(s) (ZOFRAN) 4 mg ORAL q 6 H PRN Or ondansetron (PF) 4 mg injection (ZOFRAN) 4 mg INTRAVENOUS q 6 H PRN polyethylene glycol 3350 17 g packet 17 g ORAL DAILY PRN bisacodyl EC 10 mg tab(s) (DULCOLAX) 10 mg ORAL DAILY bisacodyl 10 mg suppository (DULCOLAX) 10 mg RECTAL DAILY PRN potassium chloride ER 20-40 mEq tab(s) (KLOR-CON) 20-40 mEq ORAL PRN Or potassium chloride iv piggyback 20 mEq/100 mL 20 mEq INTRAVENOUS PRN losartan 50 mg tab(s) (COZAAR) 50 mg ORAL AT BEDTIME rosuvastatin 10 mg tab(s) (CRESTOR) 10 mg ORAL AT BEDTIME metFORMIN 1,000 mg tab(s) (GLUCOPHAGE) 1,000 mg ORAL BID w MEALS FLUoxetine 40 mg cap(s) (PROzac) 40 mg ORAL AT BEDTIME gabapentin 300 mg cap(s) (NEURONTIN) 300 mg ORAL BID pantoprazole DR 20 mg tab(s) (PROTONIX) 20 mg ORAL DAILY (6 AM) insulin lispro (HumaLOG) 300 Units per 3mL vial for insulin pump (SELF ADMINISTERED) SUBCUTANEOUS CONTINUOUS dextrose 40 % 15 g 15 g ORAL PRN Or glucagon 1 mg injection 1 mg INTRAMUSCULAR PRN Or dextrose 10% iv bolus 12.5 g INTRAVENOUS PRN Objective PHYSICAL EXAM: Physical Exam Performed: LUNGS: Lungs clear to auscultation, Good diaphragmatic excursion CARDIAC: Normal S1 and S2; no rubs, murmurs, or gallops ABDOMEN: Abdomen soft, non-tender, BS normal, No masses or organomegaly BP 144/82 Pulse 90 Temp (Src) 99 (Oral) Resp 17 Ht 5' 9 (1.75m) Wt 208 lb 15.9 oz (94.8kg) SpO2 91% BMI 30.85 kg/(m2). DATA: Diagnostic tests reviewed for today's visit: Recent Results (from the past 24 hour(s)) BASIC METABOLIC PANEL Collection Time: 02/28/24 4:14 AM Result Value Ref Range Glucose 106 (H) 70 - 100 mg/dL BUN 12 7 - 26 mg/dL Creatinine 0.70 0.50 - 1.40 mg/dL Sodium 137 136 - 145 mmol/L Potassium 4.0 3.5 - 5.1 mmol/L Chloride 101 98 - 107 mmol/L CO2 32 21 - 32 mmol/L Anion Gap 4 (L) 5 - 16 mmol/L Calcium, Total 9.6 8.5 - 10.5 mg/dL Estimated Glomerular Filtration Rate 111 >=60 mL/min/1.73m? 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 * Acute blood loss anemia. Surgically induced. Plans: Medically stable. Home when okay with spine surgery. SIGNATURE: Andrew Kim MD PATIENT NAME: Deepa Rufifn DATE: 02/28/24 TIME: 6:[address] [facility] THERAPY NTon 02-28-2024 THERAPY NT HNO ID: [id number] Author: MISTY GOINS PT Service: Physical Therapy Author Type: Tubing Drier Type: Therapy (PT/OT/Speech/Resp) Filed: 02/28/2024 15:56 Note Text: Attestation signed by Misty Goins, PT at 02/28/2024 3:56 PM I reviewed and agree with the documentation corresponding to this therapy visit. SIGNATURE: Misty Goins PT DATE: February 28, 2024 TIME: 3:56 PM Physical Therapy Treatment Summary SERVICE DATE: 02/28/2024 SERVICE TIME: 934 to 958 ROOM: [place] [address] PT 6 Clicks Score: 24 Total Joint Replacement Discharge Readiness: Cleared from Physical Therapy DISCHARGE RECOMMENDATIONS Home Recommended Discharge Disposition Comments: prgoressed well for home. Recommended Discharge Equipment: No equipment needs anticipated ASSESSMENT Response to Therapy Interventions: Good Participation in Activities, Improved Tolerance for Activity Tolerated well. Pt. progressing well for home. Pt. voiced understanding to all education and is cleared for home from PT stand point. No pt questions and voiced comfort w/ homegoing. PRECAUTIONS Spine, Lines/Tubes/Drains log roll, insulin pump CURRENT HOSPITAL COURSE S/p L4-5 TLIF and PLIF perofrmed by Dr. Null on 02/25/24 Relevant Past Medical History: HTN, HLD, IDDM with insulin pump (Trulicity on Sundays), GERD, BPH, anxiety. Straight caths TID s/p TURP. 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 Denies falls. Indep with ADL. Shares cooking and cleaning with SO SUBJECTIVE c/o being constipated THERAPY DIAGNOSIS Reduced mobility-other TREATMENT INTERVENTIONS Therapeutic Activity (44061), Gait Training (65750) Timed Code Treatment (minutes): 24 Skilled Treatment Time (minutes): 24 TRAINING AND EDUCATION PROVIDED Anatomy and Impact on Deficits, Assistive Device Use, Bed Mobility, Benefits of In-Hospital Mobility, Car Transfers, Discharge Planning, Energy Conservation, Equipment, Exercise Program, Gait Pattern, Reduction of Deviations, Home Safety, Home Set-up/Modifications, Handout Issued, Positioning, Precautions/Restriction s, Role of Physical Therapy, Sitting Balance, Stair Navigation, Standing Balance, Transfers THERAPEUTIC SKILLS USED Cues for Sequencing/Proper Technique for Activity, Cuing Verbal, Movement Facilitation FUNCTIONAL STATUS Bed Mobility Rolling: Supervision Supine To Sit: Supervision log roll Scooting: Modified Independent Transfers Sit To Stand: Supervision Stand To Sit: Supervision Bed to Chair Gait Supervision reciprocating gait w/ good balance Gait Device: Wheeled Walker Gait Distance (feet): 250' Stairs Stand By Assistance Stairs Device: Rail Number of Stairs: 5 (x2 trials) GOALS Patient will demonstrate progress to optimize functional mobility, maximize activity tolerance and endurance to maximize function upon discharge. Able to Perform HEP with: Supervision Rolling with: Supervision Transfer Supine to/from Sit with: Supervision Transfer Sit to/from Stand with: Supervision Ambulate with: Supervision Distance: 50 Device: Wheeled Walker Ambulate Up and Down Steps with: Stand By Assistance Number of Steps: 2 Device: Rail Rehab Potential: Fair Progress Toward Goals: Progressing as expected PLAN PT Frequency: Discontinue Therapy Services Reasons Therapy Services Discontinued: Goals met Treatment Interventions: Education Plan for Next Visit: Bed Mobility, Sit to Stand Transfers, Stair Training SIGNATURE: Charmaine Schwartz PTA PATIENT NAME: Deepa Ruffin DATE: February 28, 2024 TIME: 11:07 AM [facility] THERAPY NT HNO ID: [id number] Author: MIMI ROMO COTA/L Service: Occupational Therapy Author Type: Choreography Director Type: Therapy (PT/OT/Speech/Resp) Filed: 02/28/2024 09:15 Note Text: Attestation signed by Opal Glynn OTR/Callie at 02/28/2024 10:06 AM I reviewed and agree with the documentation corresponding to this therapy visit. SIGNATURE: BOBBI Aguilera DATE: February 28, 2024 TIME: 10:06 AM Occupational Therapy Treatment Summary SERVICE DATE: 02/28/2024 SERVICE TIME: 824 to 904 ROOM: [id number] OT 6 Clicks Score: 24 Total Joint Replacement Discharge Readiness: Cleared from Occupational Therapy DISCHARGE RECOMMENDATIONS Home Recommended Discharge Disposition Comments: dc ot, goals met Anticipated Discharge Needs: Physical Assist at Home, Supervision at Home, Equipment Physical Assist at Home for: Cleaning, Laundry, Meals, Shopping Supervision at Home due to: Decreased safety awareness Recommended Discharge Equipment: Extended tub bench ASSESSMENT Response to Therapy Interventions: Improved Ability to [place], Improved Tolerance for Activity, Notable Progression with Functional Activities/Skills, On-Track to Achieve Discharge Goals excellent progress and patie nt has ampac of 24 and has achieved all ot goals, collaborated w/ arely otr/l re: dc ot services at this time PRECAUTIONS Spine, Lines/Tubes/Drains log roll, insulin pump CURRENT HOSPITAL COURSE S/p L4-5 TLIF and PLIF perofrmed by Dr. Null on 02/25/24 Relevant Past Medical History: HTN, HLD, IDDM with insulin pump (Trulicity on Sundays), GERD, BPH, anxiety. Straight caths TID s/p TURP. 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 Denies falls. Indep with ADL. Shares cooking and cleaning with SO Baseline Cognition: Oriented to self, Oriented to place, Oriented to time, Oriented to situation SUBJECTIVE i feel so much better today COGNITION Responsiveness: Alert, Awake Follows Commands: 3-step Commands THERAPY DIAGNOSIS Decreased activities of daily living (ADL) TREATMENT INTERVENTIONS Therapeutic Activity (00881), Self [facility] Management (34500) Timed Code Treatment (minutes): 40 Skilled Treatment Time (minutes): 40 TRAINING AND EDUCATION PROVIDED Activity Adaptation/Compensatory Strategies, Adaptive Equipment/DME, Assistive Device Use, Bed Mobility, Benefits of In-Hospital Mobility, Functional Mobility Involving ADLs, Lower Extremity Dressing, Role of Occupational Therapy THERAPEUTIC SKILLS USED Activity Dosing, Assessment of Tolerance Including Vitals Response to Activity, Cues for Sequencing/Proper Technique for Activity, Cuing Tactile, Cuing Verbal, Cuing Visual, Physical Assist FUNCTIONAL STATUS Activities of Daily Living Assist Level Additional Information Feeding Independent Grooming Supervision, Additional Information standing ai sink to wash hands, brush teeth at ww level Bathing Upper Body Set Up, Additional Information Bathing Lower Body Minimal Assistance, Additional Information Dressing Upper Body Set Up, Supervision brace Dressing Lower Body Supervision, Additional Information adaptove tech w/ racher, socks aid, shoe horn for pants, sovks, shoes Toileting Supervision Mobility Assist Level Additional Information Bed Mobility Rolling: Minimal Assistance, Additional Information Supine To Sit: Minimal Assistance, Additional Information Sit To Supine: Minimal Assistance, Additional Information Sit to Stand Supervision, Additional Information good followthrough w/ reaching back Stand to Sit Supervision, Additional Information as above Bed to Chair Supervision Bed To Chair Transfer Type: Stepping Bed To Chair Transfer Equipment: Wheeled Walker no lob Toilet/Commode Supervision in bathroom Shower Functional Mobility Supervision Functional Mobility Device: Wheeled Walker 100' to and from therpay gym GOALS Patient will demonstrate progress with self-care, cognitive and/or coping needs identified to allow safe discharge to home with available support and/or physical assistance. Grooming with: Modified Independent Upper Body Bathing with: Supervision Upper Body Dressing with: Supervision Lower Body Bathing with: Supervision Lower Body Dressing with: Supervision Toilet Hygiene with: Modified Indep (more content not included)... Normal [facility] Basic metabolic 2000 panelon 02-27-2024 Anion gap [Moles/Vol] 4 mmol/L Low 5-16 [facility] Comment on above: Order Comment: Speci men Type: BLOOD SPECIMENOrdering Facility: [facility] Address: [address] [place] [address] Performed By: #### 2 4321-2 ####[facility] [id number] [place] [address] [place] Calcium [Mass/Vol] 9.2 mg/dL Normal 8.5-10.5 [facility] Comment on above: Order Comment: Speci men Type: BLOOD SPECIMENOrdering Facility: [facility] Address: [address] [place] [address] Performed By: #### 2 4321-2 ####[facility] [id number] [place] [address] [place] Chloride [Moles/Vol] 101 mmol/L Normal 98-107 [facility] Comment on above: Order Comment: Speci men Type: BLOOD SPECIMENOrdering Facility: [facility] Address: [address] [place] [address] Performed By: #### 2 4321-2 ####[facility] [id number] [place] [address] [place] CO2 [Moles/Vol] 30 mmol/L Normal 21-32 [facility] Comment on above: Order Comment: Speci men Type: BLOOD SPECIMENOrdering Facility: [facility] Address: [address] [place] [address] Performed By: #### 2 4321-2 ####[facility] [id number] [place] [address] [place] Creatinine [Mass/Vol] 0.70 mg/dL Normal 0.50-1.40 [facility] Comment on above: Order Comment: Speci men Type: BLOOD SPECIMENOrdering Facility: [facility] Address: [address] [place] [address] Result Comment: Raven ents receiving either N-Acetylcysteine (NAC) or Metamizole prior to venipuncture, may have falsely depressed results. Performed By: #### 2 4321-2 ####[facility]ORY[facility]IA [id number] [address] STATES OF [facility] Creatinine and Glomerular filtration rate.predicted panel (S/P/Bld) 111 mL/min/1.73m??? Normal >=60 [facility] Comment on above: Order Comment: Speci men Type: BLOOD SPECIMENOrdering Facility: [facility] Address: [address] [place] [address] Result Comment: Estela mated Glomerular Filtration Rate [...] reflect actual GFR. Performed By: #### 2 4321-2 ####[facility]ORYCLIA [id number] [place] [id number] [place] Glucose [Mass/Vol] 109 mg/dL High 70-100 [facility] Comment on above: Order Comment: Imelda redding Type: BLOOD SPECIMENOrdering Facility: [facility] Address: [address] [place] [address] Result Comment: The [place] [employer] (ADA) provides guidance for cutoff [...] Standards of Medical Care in Diabetes 2016, [place] [employer]. Diabetes Care. 2016.39(Suppl 1). Results may be falsely elevated after the administration of Sulfapyridine. Results may be falsely depressed after the administration of Sulfasalazine. Performed By: #### 2 4321-2 ####[facility]ORYCLIA [id number] [place] [address] [place] Potassium [Moles/Vol] 3.6 mmol/L Normal 3.5-5.1 [facility] Comment on above: Order Comment: Imelda redding Type: BLOOD SPECIMENOrdering Facility: [facility] Address: [address] [place] [id number] Performed By: #### 2 4321-2 ####[facility]ORYCLIA [id number] [place] [id number] [place] Sodium [Moles/Vol] 135 mmol/L Low 136-145 [facility] Comment on above: Order Comment: Speci men Type: BLOOD SPECIMENOrdering Facility: [facility] Address: [address] [place] [address] Performed By: #### 2 4321-2 ####[facility]ORYCLIA [id number] [place] [id number] [place] Urea nitrogen [Mass/Vol] 14 mg/dL Normal 7-26 [facility] Comment on above: Order Comment: Speci men Type: BLOOD SPECIMENOrdering Facility: [facility] Address: [address] [place] [address] Performed By: #### 2 4321-2 ####[facility]ORYCLIA [id number] [address] [place] CBC panel Auto (Bld)on 02-26 Erythrocyte distribution width (RBC) [Ratio] 12.4 % Normal 11.5-15.0 [facility] Comment on above: Order Comment: Speci men Type: BLOOD SPECIMENOrdering Facility: [facility] Address: [address] [place] [address] Performed By: #### 5 8410-2 ####[facility]ATORYCLIA [id number] [place] [address] [place] Hematocrit (Bld) [Volume fraction] 37.3 % Low 39.0-51.0 [facility] Comment on above: Order Comment: Speci men Type: BLOOD SPECIMENOrdering Facility: [facility] Address: [address] [place] [address] Performed By: #### 5 8410-2 ####[facility] LABORATORYCLIA [id number] [address] [place] Hemoglobin (Bld) [Mass/Vol] 12.4 g/dL Low 13.0-17.0 [facility] Comment on above: Order Comment: Speci men Type: BLOOD SPECIMENOrdering Facility: [facility] Address: [address] [place] [address] Performed By: #### 5 8410-2 ####[facility] LABORATORYCLIA [id number] [address] [place] MCH (RBC) [Entitic mass] 29.2 pg Normal 26.0-34.0 [facility] Comment on above: Order Comment: Speci men Type: BLOOD SPECIMENOrdering Facility: [facility] Address: [address] [place] [address] Performed By: #### 5 8410-2 ####[facility] LABORATORYCLIA [id number] [place] [address] [place] MCHC (RBC) [Mass/Vol] 33.2 g/dL Normal 30.5-36.0 [facility] Comment on above: Order Comment: Speci men Type: BLOOD SPECIMENOrdering Facility: [facility] Address: [address] [place] [address] Performed By: #### 5 8410-2 ####[facility] LABORATORYCLIA [id number] [address] [place] MCV (RBC) [Entitic vol] 87.8 fL Normal 80.0-100.0 [facility] Comment on above: Order Comment: Speci men Type: BLOOD SPECIMENOrdering Facility: [facility] Address: [address] [place] [address] Performed By: #### 5 8410-2 ####[facility] LABORATORYCLIA [id number] [address] [place] Nucleated RBC (Bld) [#/Vol] 10*3/uL Normal <0.01 [facility] Comment on above: Order Comment: Speci men Type: BLOOD SPECIMENOrdering Facility: [facility] Address: [address] [place] [address] Performed By: #### 5 8410-2 ####[facility] LABORATORYCLIA [id number] [address] [place] Platelet mean volume (Bld) [Entitic vol] 9.9 fL Normal 9.0-12.7 [facility] Comment on above: Order Comment: Speci men Type: BLOOD SPECIMENOrdering Facility: [facility] Address: [address] [id number] Performed By: #### 5 8410-2 ####[facility] LABORATORYCLIA [id number] [place] [id number] [facility] Platelets (Bld) [#/Vol] 187 10*3/uL Normal 150-400 [facility] Comment on above: Order Comment: Speci men Type: BLOOD SPECIMENOrdering Facility: [facility] Address: [address] [place] [address] Performed By: #### 5 8410-2 ####[facility] LABORATORYCLIA [id number] [place] [address] [facility] [place] RBC (Bld) [#/Vol] 4.25 10*6/uL Normal 4.20-6.00 [facility] Comment on above: Order Comment: Speci men Type: BLOOD SPECIMENOrdering Facility: [facility] Address: [address] [place] [address] Performed By: #### 5 8410-2 ####[facility] LABORATORYCLIA [id number] [address] WBC (Bld) [#/Vol] 10.11 10*3/uL Normal 3.70-11.00 [facility] Comment on above: Order Comment: Speci men Type: BLOOD SPECIMENOrdering Facility: [facility] Address: [address] [place] [address] Performed By: #### 5 8410-2 ####[facility] LABORATORYCLIA [id number] [place] [id number] [facility] CONSULT PROGon 02-27-2024 CONSULT PROG HNO ID: [id number] Author: ANDRWE KIM MD Service: ? Author Type: Physician Type: Consult Progress Note Filed: 02/27/2024 14:04 Note Text: SERVICE CONSULT PROGRESS NOTE SERVICE DATE: 02/27/2024 SERVICE TIME: 2:04 PM Subjective INTERVAL HPI: Uneventful night. Awake. Alert. Oriented. Blood sugars reviewed. Denies chest pain. Denies shortness of breath. Pain currently is about 4-5 out of 10. Positive flatus. Current Facility-Administered Medications Medication Dose Route Frequency lactated ringers iv infusion 75 mL/hr INTRAVENOUS CONTINUOUS acetaminophen 325-650 mg tab(s) (TYLENOL) 325-650 mg ORAL q 4 H PRN oxyCODONE-acetaminophen 5-325 mg 1-2 tablet (PERCOCET) 1-2 tablet ORAL q 4 H PRN HYDROmorphone 0.5 mg injection (DILAUDID) 0.5 mg INTRAVENOUS q 2 H PRN ondansetron 4 mg tab(s) (ZOFRAN) 4 mg ORAL q 6 H PRN Or ondansetron (PF) 4 mg injection (ZOFRAN) 4 mg INTRAVENOUS q 6 H PRN polyethylene glycol 3350 17 g packet 17 g ORAL DAILY PRN bisacodyl EC 10 mg tab(s) (DULCOLAX) 10 mg ORAL DAILY bisacodyl 10 mg suppository (DULCOLAX) 10 mg RECTAL DAILY PRN potassium chloride ER 20-40 mEq tab(s) (KLOR-CON) 20-40 mEq ORAL PRN Or potassium chloride iv piggyback 20 mEq/100 mL 20 mEq INTRAVENOUS PRN losartan 50 mg tab(s) (COZAAR) 50 mg ORAL AT BEDTIME rosuvastatin 10 mg tab(s) (CRESTOR) 10 mg ORAL AT BEDTIME metFORMIN 1,000 mg tab(s) (GLUCOPHAGE) 1,000 mg ORAL BID w MEALS FLUoxetine 40 mg cap(s) (PROzac) 40 mg ORAL AT BEDTIME gabapentin 300 mg cap(s) (NEURONTIN) 300 mg ORAL BID pantoprazole DR 20 mg tab(s) (PROTONIX) 20 mg ORAL DAILY (6 AM) insulin lispro (HumaLOG) 300 Units per 3mL vial for insulin pump (SELF ADMINISTERED) SUBCUTANEOUS CONTINUOUS dextrose 40 % 15 g 15 g ORAL PRN Or glucagon 1 mg injection 1 mg INTRAMUSCULAR PRN Or dextrose 10% iv bolus 12.5 g INTRAVENOUS PRN Objective PHYSICAL EXAM: Physical Exam Performed: LUNGS: Lungs clear to auscultation, Good diaphragmatic excursion CARDIAC: Normal S1 and S2; no rubs, murmurs, or gallops ABDOMEN: Abdomen soft, non-tender, BS normal, No masses or organomegaly BP 134/66 Pulse 84 Temp (Src) 98 (Oral) Resp 16 Ht 5' 9 (1.75m) Wt 208 lb 15.9 oz (94.8kg) SpO2 96% BMI 30.85 kg/(m2). DATA: Diagnostic tests reviewed for today's visit: Recent Results (from the past 24 hour(s)) BASIC METABOLIC PANEL Collection Time: 02/27/24 4:23 AM Result Value Ref Range Glucose 109 (H) 70 - 100 mg/dL BUN 14 7 - 26 mg/dL Creatinine 0.70 0.50 - 1.40 mg/dL Sodium 135 (L) 136 - 145 mmol/L Potassium 3.6 3.5 - 5.1 mmol/L Chloride 101 98 - 107 mmol/L CO2 30 21 - 32 mmol/L Anion Gap 4 (L) 5 - 16 mmol/L Calcium, Total 9.2 8.5 - 10.5 mg/dL Estimated Glomerular Filtration Rate 111 >=60 mL/min/1.73m? 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 * Acute blood loss anemia. Surgically induced. Plans: Continue current care. Overall, medically stable. SIGNATURE: Andrew Kim MD PATIENT NAME: Deepa Ruffin DATE: 02/27/24 TIME: 2:04 PM [facility] THERAPY NTon 02-27-2024 THERAPY NT HNO ID: [id number] Author: MIMI ROMO COTA/L Service: Occupational Therapy Author Type: Choreography Director Type: Therapy (PT/OT/Speech/Resp) Filed: 02/27/2024 15:07 Note Text: Attestation signed by Opal Glynn OTR/L at 02/27/2024 3:27 PM I reviewed and agree with the documentation corresponding to this therapy visit. SIGNATURE: BOBBI Aguilera DATE: February 27, 2024 TIME: 3:27 PM Occupational Therapy Treatment Summary SERVICE DATE: 02/27/2024 SERVICE TIME: 1416 to 1457 ROOM: [place] [address] OT 6 Clicks Score: 19 Total Joint Replacement Discharge Readiness: (Will see 1-3 more times to prepare for home) DISCHARGE RECOMMENDATIONS Home Recommended Discharge Disposition Comments: Anticipate should be able to return home w/ assist of girlfriend w/o need for further OT post hospital d/c Anticipated Discharge Needs: Physical Assist at Home, Supervision at Home, Equipment Physical Assist at Home for: Cleaning, Laundry, Meals, Shopping Supervision at Home due to: Decreased safety awareness Recommended Discharge Equipment: ADL Kit ASSESSMENT Response to Therapy Interventions: Good Participation in Activities, Pain good tolerance to increased activity, pain limiting d/t drain placement, feel patient will cont to progress for safe homgoing w/ family assist PRECAUTIONS Spine, Lines/Tubes/Drains log roll, insulin pump CURRENT HOSPITAL COURSE S/p L4-5 TLIF and PLIF perofrmed by Dr. Null on 02/25/24 Relevant Past Medical History: HTN, HLD, IDDM with insulin pump (Trulicity on Sundays), GERD, BPH, anxiety. Straight caths TID s/p TURP. 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 Denies falls. Indep with ADL. Shares cooking and cleaning with SO Baseline Cognition: Oriented to self, Oriented to place, Oriented to time, Oriented to situation SUBJECTIVE i need to move, but i also needed that great nap i took COGNITION Responsiveness: Alert Follows Commands: 3-step Commands THERAPY DIAGNOSIS Decreased activities of daily living (ADL) TREATMENT INTERVENTIONS Therapeutic Activity (78795), Self [facility] Management (78386) Timed Code Treatment (minutes): 41 Skilled Treatment Time (minutes): 41 TRAINING AND EDUCATION PROVIDED Activity Adaptation/Compensatory Strategies, Adaptive Equipment/DME, Assistive Device Use, Bed Mobility, Benefits of In-Hospital Mobility, Functional Mobility Involving ADLs, Lower Extremity Dressing, Role of Occupational Therapy THERAPEUTIC SKILLS USED Activity Dosing, Assessment of Tolerance Including Vitals Response to Activity, Cues for Sequencing/Proper Technique for Activity, Cuing Tactile, Cuing Verbal, Cuing Visual, Physical Assist FUNCTIONAL STATUS Activities of Daily Living Assist Level Additional Information Feeding Independent Grooming Minimal Assistance, Additional Information steadying assist only w/ washing hands Bathing Upper Body Set Up, Additional Information full adls sitting on toilet in bathroom Bathing Lower Body Minimal Assistance, Additional Information jeanette care / buttocks adhering to spinal precautions Dressing Upper Body Minimal Assistance, Additional Information brace, tshirt Dressing Lower Body Minimal Assistance, Additional Information adaptive tech for pants over b feet and pulling up same Toileting Minimal Assistance, Additional Information in bathroom Mobility Assist Level Additional Information Bed Mobility Rolling: Minimal Assistance, Additional Information repositioning in bed for comfort Supine To Sit: Minimal Assistance, Additional Information log rolling Sit To Supine: Minimal Assistance, Additional Information log rolling Sit to Stand Minimal Assistance, Additional Information dlow to rise Stand to Sit Minimal Assistance, Additional Information cues for reaching back Bed to Chair Minimal Assistance, Additional Information Bed To Chair Transfer Type: Stepping Bed To Chair Transfer Equipment: Wheeled Walker slow paced Toilet/Commode Minimal Assistance, Additional Information in bathroom Shower Functional Mobility Minimal Assistance, Additional Information Functional Mobility Device: Wheeled Walker 30' to and from the bathroom GOALS Patient will demonstrate progress with self-care, cognitive and/or coping needs identified (more content not included)... [facility] THERAPY NT HNO ID: [id number] Author: FOZIA VELA PT DPAlma Delia Service: Physical Therapy Author Type: Tubing Drier Type: Therapy (PT/OT/Speech/Resp) Filed: 02/27/2024 15:42 Note Text: Attestation signed by Fozia Vela PT, DPT at 02/27/2024 3:42 PM I reviewed and agree with the documentation corresponding to this therapy visit. SIGNATURE: Fozia Vela PT DPT DATE: February 27, 2024 TIME: 3:42 PM Physical Therapy Treatment Summary SERVICE DATE: 02/27/2024 SERVICE TIME: 909 to 956 ROOM: [id number] PT 6 Clicks Score: 18 DISCHARGE RECOMMENDATIONS Home Recommended Discharge Disposition Comments: Safe once PT goals achieved Recommended Discharge Equipment: No equipment needs anticipated ASSESSMENT Response to Therapy Interventions: Good Participation in Activities, Improved Tolerance for Activity, Pain, Requires Additional Time to Complete Activities Tolerated better htis am. pt slow to move, bed mobility difficult. Pt progressing well for home. Pt. voiced understanding to all education. PRECAUTIONS Spine, Lines/Tubes/Drains log roll, insulin pump CURRENT HOSPITAL COURSE S/p L4-5 TLIF and PLIF perofrmed by Dr. Null on 02/25/24 Relevant Past Medical History: HTN, HLD, IDDM with insulin pump (Trulicity on Sundays), GERD, BPH, anxiety. Straight caths TID s/p TURP. 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 Denies falls. Indep with ADL. Shares cooking and cleaning with SO SUBJECTIVE Per pt not OOB yet this date.Nsg in to take viatls and RN in to medicate at end of session. THERAPY DIAGNOSIS Reduced mobility-other TREATMENT INTERVENTIONS Gait Training (24879), Therapeutic Activity (57600) Timed Code Treatment (minutes): 40 Skilled Treatment Time (minutes): 40 TRAINING AND EDUCATION PROVIDED Anatomy and Impact on Deficits, Assistive Device Use, Bed Mobility, Benefits of In-Hospital Mobility, Car Transfers, Discharge Planning, Energy Conservation, Equipment, Exercise Program, Gait Pattern, Reduction of Deviations, Home Safety, Home Set-up/Modifications, Handout Issued, Positioning, Precautions/Restriction s, Role of Physical Therapy, Sitting Balance, Stair Navigation, Standing Balance, Transfers THERAPEUTIC SKILLS USED Cues for Sequencing/Proper Technique for Activity, Cuing Verbal, Management of Critical Lines, Tubes and/or Drains, Movement Facilitation, Physical Assist FUNCTIONAL STATUS Bed Mobility Rolling: Minimal Assistance Supine To Sit: Moderate Assistance log roll Scooting: Minimal Assistance Transfers Sit To Stand: Minimal Assistance slow to rise, vc hand placement Stand To Sit: Stand By Assistance Bed to Chair Gait Stand By Assistance reciprocating gait, good balance, back brace on. Gait Device: Wheeled Walker Gait Distance (feet): 250' Stairs Minimal Assistance Stairs Device: Rail Number of Stairs: 5 (x2 trials) GOALS Patient will demonstrate progress to optimize functional mobility, maximize activity tolerance and endurance to maximize function upon discharge. Able to Perform HEP with: Supervision Rolling with: Supervision Transfer Supine to/from Sit with: Supervision Transfer Sit to/from Stand with: Supervision Ambulate with: Supervision Distance: 50 Device: Wheeled Walker Ambulate Up and Down Steps with: Stand By Assistance Number of Steps: 2 Device: Rail Rehab Potential: Fair Progress Toward Goals: Progressing as expected PLAN PT Frequency: Once Daily Treatment Interventions: Education Plan for Next Visit: Bed Mobility, Sit to Stand Transfers, Stair Training SIGNATURE: Charmaine Schwartz PTA PATIENT NAME: Deepa Ruffin DATE: February 27, 2024 TIME: 11:[address] [facility] Basic metabolic 2000 panelon 02-26-2024 Anion gap [Moles/Vol] 5 mmol/L Normal 5-16 [facility] Comment on above: Order Comment: Speci men Type: BLOOD SPECIMENOrdering Facility: [facility] Address: [address] [place] [address] Performed By: #### 2 4321-2 ####[facility] LABORATORYCLIA [id number] [place] [address] [place] Calcium [Mass/Vol] 9.3 mg/dL Normal 8.5-10.5 [facility] Comment on above: Order Comment: Speci men Type: BLOOD SPECIMENOrdering Facility: [facility] Address: [address] [place] [address] Performed By: #### 2 4321-2 ####[facility] LABORATORYCLIA [id number] [place] [address] [place] Chloride [Moles/Vol] 102 mmol/L Normal 98-107 [facility] Comment on above: Order Comment: Speci men Type: BLOOD SPECIMENOrdering Facility: [facility] Address: [address] [place] [address] Performed By: #### 2 4321-2 ####[facility] LABORATORYCLIA [id number] [place] [address] [place] CO2 [Moles/Vol] 29 mmol/L Normal 21-32 [facility] Comment on above: Order Comment: Speci men Type: BLOOD SPECIMENOrdering Facility: [facility] Address: [address] [place] [address] Performed By: #### 2 4321-2 ####[facility] LABORATORYCLIA [id number] [place] [address] [place] Creatinine [Mass/Vol] 0.74 mg/dL Normal 0.50-1.40 [facility] Comment on above: Order Comment: Speci men Type: BLOOD SPECIMENOrdering Facility: [facility] Address: [address] [place] [address] Result Comment: Raven ents receiving either N-Acetylcysteine (NAC) or Metamizole prior to venipuncture, may have falsely depressed results. Performed By: #### 2 4321-2 ####[facility] LABORATORYCLIA [id number] [address] STATES OF [facility] Creatinine and Glomerular filtration rate.predicted panel (S/P/Bld) 109 mL/min/1.73m??? Normal >=60 [facility] Comment on above: Order Comment: Speci men Type: BLOOD SPECIMENOrdering Facility: [facility] Address: [address] [place] [address] Result Comment: Estela mated Glomerular Filtration Rate [...] reflect actual GFR. Performed By: #### 2 4321-2 ####[facility] LABORATORYCLIA [id number] [place] [address] [place] Glucose [Mass/Vol] 189 mg/dL High 70-100 [facility] Comment on above: Order Comment: Speci men Type: BLOOD SPECIMENOrdering Facility: [facility] Address: [address] [id number] Result Comment: The [place] [employer] (ADA) provides guidance for cutoff [...] Standards of Medical Care in Diabetes 2016, [place] [employer]. Diabetes Care. 2016.39(Suppl 1). Results may be falsely elevated after the administration of Sulfapyridine. Results may be falsely depressed after the administration of Sulfasalazine. Performed By: #### 2 4321-2 ####[facility] LABORATORYCLIA [id number] [place] [address] [place] Potassium [Moles/Vol] 3.9 mmol/L Normal 3.5-5.1 [facility] Comment on above: Order Comment: [facility] Type: BLOOD SPECIMENOrdering Facility: [facility] Address: [address] [place] [address] Performed By: #### 2 4321-2 ####[facility] LABORATORYCLIA [id number] [place] [address] [place] Sodium [Moles/Vol] 136 mmol/L Normal 136-145 [facility] Comment on above: Order Comment: Im[place] Type: BLOOD SPECIMENOrdering Facility: [facility] Address: [address] [id number] Performed By: #### 2 4321-2 ####[facility] LABORATORYCLIA [id number] [place] [address] [place] Urea nitrogen [Mass/Vol] 14 mg/dL Normal 7-26 [facility] Comment on above: Order Comment: Imelda miladis Type: BLOOD SPECIMENOrdering Facility: [facility] Address: [address] [place] [address] Performed By: #### 2 4321-2 ####[facility] LABORATORYCLIA [id number] [place] [id number] [facility] CBC panel Auto (Bld)on 02-25 Erythrocyte distribution width (RBC) [Ratio] 12.4 % Normal 11.5-15.0 [facility] Comment on above: Order Comment: Speci men Type: BLOOD SPECIMENOrdering Facility: [facility] Address: [address] [place] [address] Performed By: #### 5 8410-2 ####[facility] LABORATORYCLIA [id number] [address] Hematocrit (Bld) [Volume fraction] 37.6 % Low 39.0-51.0 [facility] Comment on above: Order Comment: Speci men Type: BLOOD SPECIMENOrdering Facility: [facility] Address: [address] [place] [address] Performed By: #### 5 8410-2 ####[facility] LABORATORYCLIA [id number] [address] [place] Hemoglobin (Bld) [Mass/Vol] 12.5 g/dL Low 13.0-17.0 [facility] Comment on above: Order Comment: Speci men Type: BLOOD SPECIMENOrdering Facility: [facility] Address: [address] [place] [address] Performed By: #### 5 8410-2 ####[facility] LABORATORYCLIA [id number] [place] [id number] [facility] [place] MCH (RBC) [Entitic mass] 29.2 pg Normal 26.0-34.0 [facility] Comment on above: Order Comment: Speci men Type: BLOOD SPECIMENOrdering Facility: [facility] Address: [address] [place] [address] Performed By: #### 5 8410-2 ####[facility] LABORATORYCLIA [id number] [address] OF [facility] MCHC (RBC) [Mass/Vol] 33.2 g/dL Normal 30.5-36.0 [facility] Comment on above: Order Comment: Speci men Type: BLOOD SPECIMENOrdering Facility: [facility] Address: [address] [place] [address] Performed By: #### 5 8410-2 ####[facility] LABORATORYCLIA [id number] [place] [address] [place] MCV (RBC) [Entitic vol] 87.9 fL Normal 80.0-100.0 [facility] Comment on above: Order Comment: Speci men Type: BLOOD SPECIMENOrdering Facility: [facility] Address: [address] [place] [address] Performed By: #### 5 8410-2 ####[facility] LABORATORYCLIA [id number] [address] [place] Nucleated RBC (Bld) [#/Vol] 10*3/uL Normal <0.01 [facility] Comment on above: Order Comment: Speci men Type: BLOOD SPECIMENOrdering Facility: [facility] Address: [address] [place] [address] Performed By: #### 5 8410-2 ####[facility] LABORATORYCLIA [id number] [place] [address] [place] Platelet mean volume (Bld) [Entitic vol] 9.6 fL Normal 9.0-12.7 [facility] Comment on above: Order Comment: Speci men Type: BLOOD SPECIMENOrdering Facility: [facility] Address: [address] [place] [address] Performed By: #### 5 8410-2 ####[facility] LABORATORYCLIA [id number] [place] [address] [place] Platelets (Bld) [#/Vol] 202 10*3/uL Normal 150-400 [facility] Comment on above: Order Comment: Speci men Type: BLOOD SPECIMENOrdering Facility: [facility] Address: [address] [place] [address] Performed By: #### 5 8410-2 ####[facility] LABORATORYCLIA [id number] [place] [id number] [facility] RBC (Bld) [#/Vol] 4.28 10*6/uL Normal 4.20-6.00 [facility] Comment on above: Order Comment: Speci men Type: BLOOD SPECIMENOrdering Facility: [facility] Address: [address] [place], [place] [address] Performed By: #### 5 8410-2 ####[facility] LABORATORYCLIA [id number] [place] [id number] [facility] WBC (Bld) [#/Vol] 14.25 10*3/uL High 3.70-11.00 [facility] Comment on above: Order Comment: Speci men Type: BLOOD SPECIMENOrdering Facility: [facility] Address: [address] [place], [place] [address] Performed By: #### 5 8410-2 ####[facility] [facility] [id number] [address] CONSULT PROGon 02-26-2024 CONSULT PROG HNO ID: [id number] Author: ANDREW KIM MD Service: ? Author Type: Physician Type: Consult Progress Note Filed: 02/26/2024 08:04 Note Text: SERVICE CONSULT PROGRESS NOTE SERVICE DATE: 02/26/2024 SERVICE TIME: 8:04 AM Subjective INTERVAL HPI: Uneventful night. Awake. Alert. Oriented. Pain is about 4-5 out of 10. Positive flatus. Current Facility-Administered Medications Medication Dose Route Frequency lactated ringers iv infusion 75 mL/hr INTRAVENOUS CONTINUOUS acetaminophen 325-650 mg tab(s) (TYLENOL) 325-650 mg ORAL q 4 H PRN oxyCODONE-acetaminophen 5-325 mg 1-2 tablet (PERCOCET) 1-2 tablet ORAL q 4 H PRN HYDROmorphone 0.5 mg injection (DILAUDID) 0.5 mg INTRAVENOUS q 2 H PRN ondansetron 4 mg tab(s) (ZOFRAN) 4 mg ORAL q 6 H PRN Or ondansetron (PF) 4 mg injection (ZOFRAN) 4 mg INTRAVENOUS q 6 H PRN polyethylene glycol 3350 17 g packet 17 g ORAL DAILY PRN [START ON 02/27/2024] bisacodyl EC 10 mg tab(s) (DULCOLAX) 10 mg ORAL DAILY [START ON 02/27/2024] bisacodyl 10 mg suppository (DULCOLAX) 10 mg RECTAL DAILY PRN potassium chloride ER 20-40 mEq tab(s) (KLOR-CON) 20-40 mEq ORAL PRN Or potassium chloride iv piggyback 20 mEq/100 mL 20 mEq INTRAVENOUS PRN ceFAZolin iv piggyback 2 g in D5W (iso-osmotic) 100 mL (ANCEF) 2 g INTRAVENOUS q 8 HR losartan 50 mg tab(s) (COZAAR) 50 mg ORAL AT BEDTIME rosuvastatin 10 mg tab(s) (CRESTOR) 10 mg ORAL AT BEDTIME metFORMIN 1,000 mg tab(s) (GLUCOPHAGE) 1,000 mg ORAL BID w MEALS FLUoxetine 40 mg cap(s) (PROzac) 40 mg ORAL AT BEDTIME gabapentin 300 mg cap(s) (NEURONTIN) 300 mg ORAL BID pantoprazole DR 20 mg tab(s) (PROTONIX) 20 mg ORAL DAILY (6 AM) insulin lispro (HumaLOG) 300 Units per 3mL vial for insulin pump (SELF ADMINISTERED) SUBCUTANEOUS CONTINUOUS dextrose 40 % 15 g 15 g ORAL PRN Or glucagon 1 mg injection 1 mg INTRAMUSCULAR PRN Or dextrose 10% iv bolus 12.5 g INTRAVENOUS PRN Objective PHYSICAL EXAM: Physical Exam Performed: LUNGS: Lungs clear to auscultation, Good diaphragmatic excursion CARDIAC: Normal S1 and S2; no rubs, murmurs, or gallops ABDOMEN: Abdomen soft, non-tender, BS normal, No masses or organomegaly NEURO: Grossly normal cognition, motor function, and cranial nerves III-XII BP 114/63 Pulse 91 Temp (Src) 98.6 (Oral) Resp 18 Ht 5' 9 (1.75m) Wt 208 lb 15.9 oz (94.8kg) SpO2 95% BMI 30.85 kg/(m2). DATA: Diagnostic tests reviewed for today's visit: Recent Results (from the past 24 hour(s)) XR VERIFY LEVEL L-SPINE NB Collection Time: 02/25/24 8:18 AM Narrative * * *Final Report* * * DATE OF EXAM: Feb 25 2024 8:17AM RHX [id number] - XR VERIFY LEVEL L-SPINE-NB / PROCEDURE REASON: Back pain * * * * Physician Interpretation * * * * XR VERIFY LEVEL L-SPINE-NB Ordering Physician: RAMSES NULL 02/25/2024 8:17 AM LUMBAR SPINE LOCALIZATION Clinical Statement: Back pain FINDINGS: 2 C-arm images of the lumbar spine were obtained. The images reveal a surgical marking device positioned at the L4-5 level. The results were discussed with the patient's surgeon. Impression IMPRESSION: The surgical marking device is positioned at the L4-5 level. Piling Setter: PSCB Transcribe Date/Time: Feb 25 2024 8:23A Dictated by : EMANUEL MAJANO MD This examination was interpreted and the report reviewed and electronically signed by: EMANUEL MAJANO MD on Feb 25 2024 8:24AM EST BASIC METABOLIC PANEL Collection Time: 02/26/24 4:34 AM Result Value Ref Range Glucose 189 (H) 70 - 100 mg/dL BUN 14 7 - 26 mg/dL Creatinine 0.74 0.50 - 1.40 mg/dL Sodium 136 136 - 145 mmol/L Potassium 3.9 3.5 - 5.1 mmol/L Chloride 102 98 - 107 mmol/L CO2 29 21 - 32 mmol/L Anion Gap 5 5 - 16 mmol/L Calcium, Total 9.3 8.5 - 10.5 mg/dL Estimated Glomerular Filtration Rate 109 >=60 mL/min/1.73m? COMPLETE BLOOD COUNT Collection Time: 02/26/24 4:34 AM Result Value Ref Range WBC 14.25 (H) 3.70 - 11.00 k/uL RBC 4.28 4.20 - 6.00 m/uL Hemoglobin 12.5 (L) 13.0 - 17.0 g/dL Hematocrit 37.6 (L) 39.0 - 51.0 % MCV 87.9 80.0 - 100.0 fL MCH 29.2 26.0 - 34.0 pg MCHC 33.2 30.5 - 36.0 g/dL RDW-CV 12.4 11.5 - 15.0 % Platelet Count 202 150 - 400 k/uL MPV 9.6 9.0 - 12.7 fL Absolute nRBC <0.01 <0.01 k/uL Impression/Recommendati ons Principal Problem: Lumbosacral radiculopathy (POA: Yes) Active Problems: Insulin pump in place (POA: Yes) Atonic bladder (POA: Yes) Diabetes (HCC) (POA: Yes) Hypertension (POA: Yes) Resolved Problems: * No resolved hospital problems. * Acute blood loss anemia. Surgically induced. Plans: Overall, medically stable. Sugars are being monitored. Continue current care. SIGNATURE: Andrew Kim MD PATIENT NAME: Deepa Ruffin DATE: 02/26/24 TIME: 8:[address] [facility] THERAPY NTon 02-26-2024 THERAPY NT HNO ID: [id number] Author: KELSEY QUEZADA, OTR/L Service: Occupational Therapy Author Type: Occupational Therapist Type: Therapy (PT/OT/Speech/Resp) Filed: 02/26/2024 11:49 Note Text: Occupational Therapy Evaluation Summary SERVICE DATE: 02/26/2024 SERVICE TIME: 909 to 950 ROOM: [id number] OT 6 Clicks Score: 17 Total Joint Replacement Discharge Readiness: (Will see 1-3 more times to prepare for home) DISCHARGE RECOMMENDATIONS Home Recommended Discharge Disposition Comments: Anticipate should be able to return home w/ assist of girlfriend w/o need for further OT post hospital d/c Anticipated Discharge Needs: Physical Assist at Home, Supervision at Home, Equipment Physical Assist at Home for: Cleaning, Laundry, Meals, Shopping Supervision at Home due to: Decreased safety awareness Recommended Discharge Equipment: ADL Kit ASSESSMENT Response to Therapy Interventions: Good Participation in Activities, Pain Tolerated OT well w/ some pain. He would benefit from continued OT to prepare for return home w/ assist of girlfriend PRECAUTIONS Spine, Lines/Tubes/Drains log roll, insulin pump CURRENT HOSPITAL COURSE S/p L4-5 TLIF and PLIF perofrmed by Dr. Null on 02/25/24 Relevant Past Medical History: HTN, HLD, IDDM with insulin pump (Trulicity on Sundays), GERD, BPH, anxiety. Straight caths TID s/p TURP. 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 Denies falls. Indep with ADL. Shares cooking and cleaning with SO Baseline Cognition: Oriented to self, Oriented to place, Oriented to time, Oriented to situation SUBJECTIVE It feels good to stand. It still hurts but it feels better standing COGNITION Responsiveness: Alert Follows Commands: 3-step Commands THERAPY DIAGNOSIS Decreased activities of daily living (ADL) TREATMENT INTERVENTIONS Evaluation, Self [facility] Management ([id number]) Timed Code Treatment (minutes): 26 Skilled Treatment Time (minutes): 41 TRAINING AND EDUCATION PROVIDED Activity Adaptation/Compensatory Strategies, Adaptive Equipment/DME, Assistive Device Use, Bed Mobility, Benefits of In-Hospital Mobility, Functional Mobility Involving ADLs, Lower Extremity Dressing, Role of Occupational Therapy THERAPEUTIC SKILLS USED Activity Dosing, Assessment of Tolerance Including Vitals Response to Activity, Cues for Sequencing/Proper Technique for Activity, Cuing Tactile, Cuing Verbal, Cuing Visual, Physical Assist FUNCTIONAL STATUS Activities of Daily Living Assist Level Additional Information Feeding Independent Grooming Set Up Bathing Upper Body Set Up Bathing Lower Body Moderate Assistance Dressing Upper Body Minimal Assistance Dressing Lower Body Moderate Assistance Toileting Moderate Assistance Mobility Assist Level Additional Information Bed Mobility Rolling: Minimal Assistance, Additional Information (instructed in log roll technique to maintain spine alignment) Supine To Sit: Minimal Assistance Sit to Stand Minimal Assistance Stand to Sit Minimal Assistance Bed to Chair Minimal Assistance Bed To Chair Transfer Type: Stepping Bed To Chair Transfer Equipment: Wheeled Walker Toilet/Commode Shower Functional Mobility Minimal Assistance, Additional Information (min to SBA short distance functional mobility) Functional Mobility Device: Wheeled Walker GOALS Patient will demonstrate progress with self-care, cognitive and/or coping needs identified to allow safe discharge to home with available support and/or physical assistance. Grooming with: Modified Independent Upper Body Bathing with: Supervision Upper Body Dressing with: Supervision Lower Body Bathing with: Supervision Lower Body Dressing with: Supervision Toilet Hygiene with: Modified Independent Toilet Transfer with: Modified Independent Tub Transfer with: Supervision Additional Goal 1: Pt/GF will be instructed in back precautions, adaptive techniques/equipment, proper body mechanics and demo understanding for follow through Progress Toward Goals: Progressing as expected Rehab Potential: Good PLAN OT Frequency: 6 Times Per Week Treatment Interventions: Self Care/Home Management, Education, Functional Mobility Training, Balance Training Plan for Next Visit: Bathing Training, Dressing Training, Grooming Training SIGNATURE: Kelsey Quezada OTR/L PATIENT NAME: Deepa Ruffin DATE: February 26, 2024 TIME: 11:[address] [facility] THERAPY NT HNO ID: [id number] Author: KAYE MONACO, PT, DPT Service: Physical Therapy Author Type: Physical Therapist Type: Therapy (PT/OT/Speech/Resp) Filed: 02/26/2024 11:25 Note Text: Physical Therapy Evaluation Summary SERVICE DATE: 02/26/2024 SERVICE TIME: 1059 to 1122 ROOM: [place] [id number] PT 6 Clicks Score: 18 DISCHARGE RECOMMENDATIONS Home Recommended Discharge Disposition Comments: Safe once PT goals achieved Recommended Discharge Equipment: Wheeled Walker ASSESSMENT Response to Therapy Interventions: Low Activity Tolerance Pt tolerated PT eval fair. Pt educated on spine precautions, log roll, and PT POC. Pt is min-CGA at this time. Recommend home PRECAUTIONS Spine, Lines/Tubes/Drains log roll, insulin pump CURRENT HOSPITAL COURSE S/p L4-5 TLIF and PLIF perofrmed by Dr. Null on 02/25/24 Relevant Past Medical History: HTN, HLD, IDDM with insulin pump (Trulicity on Sundays), GERD, BPH, anxiety. Straight caths TID s/p TURP. 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 Denies falls. Indep with ADL. Shares cooking and cleaning with SO SUBJECTIVE THERAPY DIAGNOSIS Reduced mobility-other TREATMENT INTERVENTIONS Evaluation, Therapeutic Activity (09858) Timed Code Treatment (minutes): 8 Skilled Treatment Time (minutes): 23 TRAINING AND EDUCATION PROVIDED Advanced Balance Activities THERAPEUTIC SKILLS USED Cues for Sequencing/Proper Technique for Activity FUNCTIONAL STATUS Bed Mobility Transfers Sit To Stand: Contact Guard Assistance, Additional Information From chair level, slow to rise, cues for breathing Stand To Sit: Contact Guard Assistance Bed to Chair Gait Contact Guard Assistance, Additional Information Reciprocal gait pattern, smooth marsha, Gait Device: Wheeled Walker Gait Distance (feet): 250 feet Stairs GOALS Patient will demonstrate progress to optimize functional mobility, maximize activity tolerance and endurance to maximize function upon discharge. Able to Perform HEP with: Supervision Rolling with: Supervision Transfer Supine to/from Sit with: Supervision Transfer Sit to/from Stand with: Supervision Ambulate with: Supervision Distance: 50 Device: Wheeled Walker Ambulate Up and Down Steps with: Stand By Assistance Number of Steps: 2 Device: Rail Rehab Potential: Fair Progress Toward Goals: Progressing slower than expected PLAN PT Frequency: Once Daily Treatment Interventions: Education Plan for Next Visit: Gait Training SIGNATURE: Kaye Monaco, PT, DPT PATIENT NAME: Deepa Ruffin DATE: February 26, 2024 TIME: 11:25 AM [facility] ANES POSTPROC EVALon 024 ANES POSTPROC EVAL HNO ID: [id number] Author: AVELINO NAVA DO Service: Anesthesiology Author Type: Anesthesiologist Type: Anesthesia Postprocedure Evaluation Filed: 02/25/2024 12:56 Note Text: POST ANESTHESIA EVALUATION NOTE : 1970 Procedure Summary Date: 02/25/24 Room / Location: MR OR 09 / MR OR Anesthesia Start: 718 Anesthesia Stop: 1204 Procedures: ARTHDSIS POST/POSTEROLATERAL TECH W/POST INTERBODY TECH WEST AND/OR DISCECT SUFF TO PREP INTERSPACE SINGLE INTERSPACE AND SEG LUMBAR (Back) POSTERIOR NON-SEGMENTAL INSTRUMENTATION FOLLOWING LUMBAR FUSION 1 LEVEL PDFI (Back) INSERTION INTERBODY BIOMED DEVICE(S) W/ANT INSTR ANCHORING TO DISC SPACE W/INTERBODY FUSION,EA INTERSPACE (Back) LAMINOTOMY LUMBAR LEVEL 1 (Back) Diagnosis: Intervertebral disc disorders with radiculopathy, lumbar region (Intervertebral disc disorders with radiculopathy, lumbar region [M51.16]) Surgeons: Ramses Null MD Responsible Provider: Avelino Nava DO Anesthesia Type: general ASA Status: 3 Anesthesia Type: general Airway Type: ETT Last Vitals Vitals Value Taken Time BP 145/72 02/25/24 1245 Temp 37.1 ?C (98.8 ?F) 02/25/24 1203 Pulse 99 02/25/24 1254 Resp 16 02/25/24 1245 SpO2 96 % 02/25/24 1254 Vitals shown include unfiled device data. Post Anesthesia Patient Status Patient Evaluation: PACU. PACU/ICU Patient Condition: stable. Anticipated Disposition: inpatient floor planned admission. Neurological Status: aware and responsive. Pulmonary Status: breathing comfortably on supplemental oxygen Airway Control: returned to baseline unsupported. Cardiovascular Status: stable. Pain Management: clinically adequate - multimodal analgesia pain management approach Postoperative Hydration: acceptable. Intraoperative Events: no significant anesthesia events Post Operative Nausea/Vomiting Status: no significant post operative nausea or vomiting Recommendation: continue current plan of care, further care per PACU/ICU/floor team, pain control and n/v treatment. Anesthesia Observations No Documentation SIGNATURE: Avelino Nava DO PATIENT NAME: Deepa Ruffin DATE: February 25, 2024 TIME: 12:56 PM CSN: [id number] [facility] ANES PRE-OPon 02-25-2024 ANES PRE-OP HNO ID: [id number] Author: AVELINO NAVA DO Service: Anesthesiology Author Type: Anesthesiologist Type: Anesthesia Preprocedure Evaluation Filed: 02/25/2024 07:13 Note Text: ANESTHESIOLOGY DAY OF SURGERY NOTE : 1970 Procedure Information Date/Time: 02/25/24 1930 Procedures: ARTHDSIS POST/POSTEROLATERAL TECH W/POST INTERBODY TECH WEST AND/OR DISCECT SUFF TO PREP INTERSPACE SINGLE INTERSPACE AND SEG LUMBAR (Back) POSTERIOR NON-SEGMENTAL INSTRUMENTATION FOLLOWING LUMBAR FUSION 1 LEVEL PDFI (Back) INSERTION INTERBODY BIOMED DEVICE(S) W/ANT INSTR ANCHORING TO DISC SPACE W/INTERBODY FUSION,EA INTERSPACE (Back) LAMINOTOMY LUMBAR LEVEL 1 (Back) Location: MR OR 09 / MR OR Surgeons: Ramses Null MD Estimated body mass index is 30.86 kg/m? as calculated from the following: Height as of this encounter: 175.3 cm (5' 9). Weight as of this encounter: 94.8 kg (208 lb 15.9 oz). Anesthesia type: General Diagnosis: Intervertebral disc disorders with radiculopathy, lumbar region [M51.16] Pre-op diagnosis: Intervertebral disc disorders with radiculopathy, lumbar region [M51.16] Location: MR OR / OR Surgeons: Ramses Null MD L4-L5 TLIF/PSF, L4-L5 posterior instrumentation with intervertebral device, Revision R L4-L5 microdisc 02/24 Chaka (3hrs) 53yo male, smoker. PMH: HTN, HLD, IDDM with insulin pump (Trulicity on Sundays), GERD, BPH, anxiety. Straight caths TID s/p TURP. Previous back sx x2 Normal sinus rhythm T wave abnormality, consider inferior ischemia Abnormal ECG No previous ECGs available Confirmed by JACLYN MEJÍA, [facility] ([id number]) on 01/30/2024 4:42:53 PM Most recent hematocrit and potassium results: Hematocrit 41.7 01/30/2024 Potassium 4.5 01/30/2024 Relevant Problems CARDIO (+) Hypertension Medical History Current as of 02/25/24702 History Comments Diabetes (HCC) TYPE II DR JUDITH LYNCH [facility]OCR[facility]. Has insulin pump. Low back pain AND RIGHT LOWER EXT PAIN, DOWN TO ANKLE DR NULL FOLLOWS Hypertension STATES PREVENTATIVE PER PRIMARY D/T DM Hypercholesterolemia STATES PREVENTATIVE PER PRIMARY D/T DM Acid reflux PRIMARY FOLLOWS Insulin pump in place T SLIM WITH DEXCOM [address] JUD[facility] LYNCH ENDOCR[facility] Depression MILD Anxiety state MILD History of BPH PROCEDURE, THAT DAMAGED BLADDER Wears glasses Atonic bladder STRAIGHT CATH Surgical History Current as of 02/25/24 07 TRANSURETHRAL ELEC-SURG PROSTATECTOM BACK SURGERY HX REVISE MEDIAN N/CARPAL TUNNEL SURG WALANT PROCEDURE Substance History Current as of 02/25/24 07 Smoking Status: Every Day - 34.9 pack years Passive Exposure: Current Smokeless Tobacco Status: Never Alcohol use: Never Drug use: Never I - PHYSICAL EVALUATION AIRWAY Patient intubated: No. Tracheostomy tube not present Mallampati: II. TM distance: >3 FB. Neck ROM: full ROM without neurological symptoms. Mouth opening: adequate. Short neck: no. Thick neck: no Escobar present: no Lip Bite Test: II Microretrognathia/Micro nagthia/Recessed Chin: No DENTAL Dental findings: teeth intact. Additional exam findings: yes. CARDIOVASCULAR Rhythm: regular PULMONARY Breath sounds clear to auscultation. ABDOMINAL Obese: obesity present. II - ANESTHESIA PLAN ASA Score: 3 Anesthetic Plan: general Airway type: ETT The patient is a current smoker. NPO Status: adequate Beta Clay Monitoring Plan Monitoring plan: standard ASA. Post Procedure Analgesic Plan Postoperative analgesic plan: multimodal analgesia. Informed Consent Anesthetic risks, benefits, alternatives, personnel and consent discussed: yes. Patient / Responsible Alliance Party agrees to proceed: yes Patient / Surrogate agrees to blood products: Yes Discussed the possibility of lip / dental damage: yes Vitals Value Taken Time BP 133/69 02/25/24 0622 Pulse 76 02/25/24 0625 Resp 18 02/25/24 0620 Temp 36.4 ?C (97.6 ?F) 02/25/24 0520 SpO2 96 % 02/25/24 0626 Vitals shown include unfiled device data. Facility-Administered Medications as of 02/25/2024 Medication Dose Route Frequency lidocaine (PF) 10 mg/mL (1 %) 2 mg injection (XYLOCAINE) 0.2 mL INTRADERMAL PRN NaCl 0.9% iv flush bag 20 mL INTRAVENOUS PRN ceFAZolin iv piggyback 2 g in D5W (iso-osmotic) 100 mL (ANCEF) 2 g INTRAVENOUS ONCE Outpatient Medications as of 02/25/2024 Medication Sig metFORMIN (GLUCOPHAGE) 1,000 mg tablet Take 1,000 mg by mouth two times a day with meals. ENDOCRINE RAGANATHAN JUDITH cholecalciferol, vitD3,/vit K2 (VITAMIN D3-VITAMIN K2) 125-90 mcg cap Take 5,000 Units by mouth every morning. LD to be 02/11/24 gabapentin (NEURONTIN) 300 mg capsule Take 300 mg by mouth two times a day. Omeprazole 20 mg TbEC Take 20 mg by mouth every morning. cyanocobalamin (VITAMIN B-12) 1,000 mcg tab Take 1,000 mcg by mouth daily at bedtime. LD to be 02/11/24 losartan (COZAAR) 50 mg tablet Take 50 mg by mouth daily at bedtime (more content not included)... Normal [facility] CONSULTon 02-25-2024 CONSULT HNO ID: [id number] Author: ANDREW KIM MD Service: ? Author Type: Physician Type: Consults Filed: 02/25/2024 17:07 Note Text: INITIAL CONSULT NOTE SERVICE DATE: 02/25/24 SERVICE TIME: 5:05 PM REASON FOR CONSULT: Postoperative medical evaluation and management as the patient's primary care physician does not come to this institution REQUESTING PHYSICIAN: Ramses Null MD PRIMARY CARE PHYSICIAN: Talia Boyd MD Raven Ruffin is a 53 year old male who presents for postoperative care following lumbar surgery. Seen postoperative day 0. . Works full-time. Smoker. Patient was counseled and educated on smoking cessation and appropriate healing. Risks of tobacco abuse was explained at length including, but not limited to, lung cancer, heart attack, vascular disease. Patient encouraged to stop smoking in order to heal correctly.. FUNCTIONAL STATUS: Independent PAST MEDICAL HISTORY Diagnosis Date Acid reflux PRIMARY FOLLOWS Anxiety state MILD Atonic bladder STRAIGHT CATH Depression MILD Diabetes (HCC) TYPE II DR JUDITH LYNCH [facility]OCR[facility]. Has insulin pump. History of BPH PROCEDURE, THAT DAMAGED BLADDER Hypercholesterolemia STATES PREVENTATIVE PER PRIMARY D/T DM Hypertension STATES PREVENTATIVE PER PRIMARY D/T DM Insulin pump in place T SLIM WITH DEXCOM [address] JUDITH LYNCH ENDOCRINE Low back pain AND RIGHT LOWER EXT PAIN, DOWN TO ANKLE DR NULL FOLLOWS Wears glasses PAST SURGICAL HISTORY Procedure Laterality Date BACK SURGERY HX LUMBAR DISCECTOMY X2 REVISE MEDIAN N/CARPAL TUNNEL SURG Bilateral TRANSURETHRAL ELEC-SURG PROSTATECTOM WALANT PROCEDURE Bilateral trigger finger bilateral Family History Problem Relation Age of Onset Heart Mother Social History Tobacco Use Smoking status: Every Day Current packs/day: 1.00 Average packs/day: 1 pack/day for 34.9 years (34.9 ttl pk-yrs) Types: Cigarettes Start date: 1989 Passive exposure: Current Smokeless tobacco: Never Vaping Use Vaping status: Never Used Substance Use Topics Alcohol use: Never Drug use: Never metFORMIN (GLUCOPHAGE) 1,000 mg tablet, Take 1,000 mg by mouth two times a day with meals. ENDOCRINE JUDITH ULRICH, Disp: , Rfl: , 02/24/2024 cholecalciferol, vitD3,/vit K2 (VITAMIN D3-VITAMIN K2) 125-90 mcg cap, Take 5,000 Units by mouth every morning. LD to be 02/11/24, Disp: , Rfl: , 02/18/2024 gabapentin (NEURONTIN) 300 mg capsule, Take 300 mg by mouth two times a day., Disp: , Rfl: , 02/24/2024 Omeprazole 20 mg TbEC, Take 20 mg by mouth every morning., Disp: , Rfl: , 02/24/2024 cyanocobalamin (VITAMIN B-12) 1,000 mcg tab, Take 1,000 mcg by mouth daily at bedtime. LD to be 02/11/24, Disp: , Rfl: , 02/18/2024 losartan (COZAAR) 50 mg tablet, Take 50 mg by mouth daily at bedtime., Disp: , Rfl: , 02/24/2024 FLUoxetine (PROZAC) 40 mg capsule, Take 40 mg by mouth daily at bedtime., Disp: , Rfl: , 02/24/2024 rosuvastatin (CRESTOR) 10 mg tablet, Take 10 mg by mouth every morning., Disp: , Rfl: , 02/24/2024 dulaglutide (TRULICITY) 3 mg/0.5 mL pen injector, Inject 3 mg subcutaneously every Sunday. Alex PINK, WILL CALL FOR INSTRUCTIONS, Disp: , Rfl: , 02/10/2024 blood-glucose transmitter (DEXCOM G6 TRANSMITTER MIS), , Disp: , Rfl: Subcutaneous Insulin Pump (T:SLIM X2 BASAL-IQ INSULIN ROTOPRINTER) [facility] [place], HUMALOG units 100/ML, SET UP AT OFFICE DR SERG NEVILLE [facility], WILL CALL FOR INSTRUCTIONS, Disp: , Rfl: insulin lispro (HUMALOG U-100 INSULIN) 100 unit/mL [facility], Inject 4 Units subcutaneously. INSULIN PUMP 4 UNITS PER HOUR , DR JUDITH ULRICH ENDOCRINE MANAGES, Disp: , Rfl: mv-min/iron/folic/calci um/vitK (WOMEN'S MULTIVITAMIN ORAL), Take 1 tablet by mouth daily at bedtime. WOMENS MULTI VITAMIN PER PRIMARY FOR THE IRON, Disp: , Rfl: , 02/18/2024 Miscellaneous Medical Supply (SELF-CATH), three times a day., Disp: , Rfl: Current Facility-Administered Medications Medication Dose Route Frequency lactated ringers iv infusion 75 mL/hr INTRAVENOUS CONTINUOUS acetaminophen 325-650 mg tab(s) (TYLENOL) 325-650 mg ORAL q 4 H PRN oxyCODONE-acetaminophen 5-325 mg 1-2 tablet (PERCOCET) 1-2 tablet ORAL q 4 H PRN HYDROmorphone 0.5 mg injection (DILAUDID) 0.5 mg INTRAVENOUS q 2 H PRN ondansetron 4 mg tab(s) (ZOFRAN) 4 mg ORAL q 6 H PRN Or ondansetron (PF) 4 mg injection (ZOFRAN) 4 mg INTRAVENOUS q 6 H PRN [START ON 02/26/2024] polyethylene glycol 3350 17 g packet 17 g ORAL DAILY PRN [START ON 02/27/2024] bisacodyl EC 10 mg tab(s) (DULCOLAX) 10 mg ORAL DAILY [START ON 02/27/2024] bisacodyl 10 mg suppository (DULCOLAX) 10 mg RECTAL DAILY PRN potassium chloride ER 20-40 mEq tab(s) (KLOR-CON) 20-40 mEq ORAL PRN Or potassium chloride iv piggyback 20 mEq/100 mL 20 mEq INTRAVENOUS PRN ceFAZolin iv piggyback 2 g in D5W (iso-osmotic) 100 mL (ANCEF) 2 g INTRAVENOUS q 8 HR losartan 50 mg tab(s) (COZAAR) 50 mg ORAL AT BEDT (more content not included)... Normal [facility] HISTORY PHYSICALon HISTORY PHYSICAL HNO ID: [id number] Author: RAMSES NULL MD Service: Orthopaedic Surgery Author Type: Physician Type: H&P Filed: 02/25/2024 07:04 Note Text: UPDATED HISTORY AND PHYSICAL EXAMINATION SERVICE DATE: 02/25/2024 SERVICE TIME: )7:03 PHYSICAL EXAM MUST BE COMPLETED ON ADMISSION The History and Physical (completed in the past 30 days) has been reviewed and the patient has been examined. The contents accurately reflect the patient's condition with the following additions or revisions since the HANDP was completed. Examination indicates no changes. This HANDP can be found in the attached. Plan: Proceed with surgery as planned ACTIVE PROBLEM LIST Insulin Pump in Place Atonic Bladder Diabetes (Hcc) Hypertension Low Back Pain Preop Testing SIGNATURE: Ramses Null MD PATIENT NAME: Deepa Ruffin DATE: February 25, 2024 TIME: 7:03 AM PAGER: [facility] NURSING PROGon 02-25-2024 NURSING PROG HNO ID: [id number] Author: HOWARD MONTENEGRO, RN Service: Nursing Author Type: Registered Nurse Type: Nursing Progress Note Filed: 02/25/2024 06:42 Note Text: Summary: insulin pump, neuro assessment Accucheck performed with result of 184 while insulin pump sensor simultaneously resulted 146. Patient states has baseline neuropathy to feet. Denies pain this morning. States has baseline sciatica that effects his right leg and can cause pain. Denies any areas of focal weakness or numbness and tingling beyond neuropathy to feet. [facility] OPERATIVE NOon 02-25-2024 OPERATIVE NO HNO ID: [id number] Author: RAMSES NULL MD Service: Orthopaedic Surgery Author Type: Physician Type: Operative Report Filed: 02/25/2024 12:43 Note Text: SPINE OPERATIVE REPORT LOG ID: [id number] Surgery/Procedure Date: 02/25/2024 Incision/Procedure Start Time: 7:58 AM Incision Close/Procedure End Time: 11:45 AM Surgeon(s)/Proceduralis t(s) and Garment Sorter(s): Surgeons and Role: * Ramses Null MD - Primary Physician Garment Sorter: Alma Pierce PA-C PRE-OP/PRE-PROCEDURE DIAGNOSIS: Recurrent right L4-5 disc herniation POST-OP/POST-PROCEDURE DIAGNOSIS: Same as Preop Indications: Patient presented with right leg pain. Preoperatively, we discussed the risks, benefits, complications, alternatives, and limitations of surgery. The patient expressed understanding and elected to proceed. Procedure(s): 1. L4-5 transforaminal lumbar interbody fusion with bilateral posterior intertransverse fusion 2. L4-5 posterior instrumentation 3. Use of intervertebral body cage L4-5 4. Revision right L4-5 microdiscectomy 5. Use of operating microscope 6. Local bone graft and allograft including BMP Anesthesia: General Procedure Details: The patient was identified in the preoperative holding area. The operative site was marked. All questions were answered. The patient was transported to the surgical suite. General anesthesia was administered. Neuromonitoring leads were applied. A bennett catheter was placed. A timeout was taken according to protocol. The patient received preoperative intravenous antibiotics. The patient was positioned prone on the Silverio table. All bony prominences were padded. The abdomen hung free. The legs were extended. The patient was prepped and draped in standard fashion. Fluoroscopy was used to plan the level of the skin incision. A midline skin incision was made followed by electrocautery down to the level of the fascia. The fascia and paraspinal muscles were elevated off the operative levels bilaterally. An x-ray was taken to confirm level of surgery. A stereotactic array was attached to the spinous process at the cephalad aspect of the surgical area. The O-arm was not functioning. The stereotactic array was removed. C-arm was brought into the field. Deep retractors were placed. Pedicle screws were placed bilaterally from L4 and L5 using lateral fluoroscopic imaging. This was followed with a gearshift awl and tap. Screws were checked with triggered EMG. Screws tested within acceptable limits. The bone within the posterolateral gutters was decorticated with a bur at each level prior to placement of screw. Next, the spinous processes at the caudal aspect of L4 and cephalad aspect of L5 were removed. The interlaminar window was filled with an angled curette. The previous laminotomy was defined with an angled curette. The thecal sac was carefully dissected off of the surrounding bone and the area of the previous laminotomy. Bilateral facetectomies were performed at L4. The cephalad aspect of the L5 lamina and medial and superior part of the superior articular facet was removed. The microscope was brought into the field. On the right side, meticulous dissection was performed in the area of previous discectomy. There were significant adhesions which were carefully divided under microscopic visualization. Overlying veins were coagulated with bipolar. The L4 nerve root swept superiorly. The disc base was entered. The disc herniation was removed in a piecemeal fashion. Bilateral annular incisions were made. A combination of pituitaries, rotating mat, curettes were used to remove disc material. A trial was then used to size the implant. A crescent style cage was then selected and filled with BMP and implanted into the disc space. Fluoroscopic imaging was used to assist with positioning of implant. The disc base was then filled with allograft and local bone. Rods were selected and placed bilaterally from L4-5. Final tightening of the set screws was performed. Bone graft including local bone graft and morsellized allograft wrapped with BMP was placed in the posterolateral gutters over the decorticated bone from L4-5. The wound was irrigated prior to placement of bone graft. Hemostasis was ensured prior to closure. A deep subfascial drain was placed. A multilayered closure was performed in standard fashion. A sterile dressing was applied. Findings: Consistent with diagnosis Estimated Blood Loss: 100 mls Specimens: None Implant: Implant Name Type Inv. Item Serial No. Account Services Analyst Lot No. LRB No. Used Action GRAFT INFUSE 18MM LARGE II BOVINE COLLAGEN RHBMP-2 26MM BONE ABSORBABLE - [id number] Bone GRAFT INFUSE 18MM LARGE II BOVINE COLLAGEN RHBMP-2 26MM BONE ABSORBABLE MEDForuforever DANEK [id number] N/A 1 Implanted SUBSTITUTE MASTERGRAFT BONE GRAFT MATRIX BLOCK EXTENSION VOID FILLER 10ML - [id number] Graft SUBSTITUTE MASTERGRAFT BONE GRAFT MATRIX B (more content not included)... Normal [facility] XR VERIFY LEVEL [id number] 02-25-2024 XR VERIFY LEVEL L-SPINE-NB * * *Final Report* * * DATE OF EXAM: Feb 25 2024 8:17AM RHX [id number] - XR VERIFY LEVEL L-SPINE-NB / PROCEDURE REASON: Back pain * * * * Physician Interpretation * * * * XR VERIFY LEVEL L-SPINE-NB Ordering Physician: RAMSES NULL 02/25/2024 8:17 AM LUMBAR SPINE LOCALIZATION Clinical Statement: Back pain FINDINGS: 2 C-arm images of the lumbar spine were obtained. The images reveal a surgical marking device positioned at the L4-5 level. The results were discussed with the patient's surgeon. IMPRESSION: The surgical marking device is positioned at the L4-5 level. Piling Setter: ELISABETH Transcribe Date/Time: Feb 25 2024 8:23A Dictated by : EMANUEL MAJANO MD This examination was interpreted and the report reviewed and electronically signed by: EMANUEL MAJANO MD on Feb 25 2024 8:24AM EST [id number] [facility] CNCOon 02-20-2024 CNCO Letter Text [facility] NURSING PROGon 02-11-2024 NURSING PROG HNO ID: [id number] Author: ETHEL COLORADO RN Service: Nursing Author Type: Registered Nurse Type: Nursing Progress Note Filed: 02/11/2024 12:46 Note Text: CALLED AND A VM TO DR NULL FILE CLERK DATA ENTRY TO ADDRESS ABNORMAL EKG AND A1C OF 8.7 REQUESTED PER FREDY HAJI OPTIMIZATION CONSULTANT [facility] Fructosamineon 02-03-2024 FRUCTOSAMINE 356 umol/L High 0-285 [facility] Comment on above: Result Comment: Publ ished reference interval for apparently healthy subjects between age 20 and 60 is 205 - 285 umol/L and in a poorly controlled diabetic population is 228 - 563 umol/L with a mean of 396 umol/L. Performed at: [facility] Lab[address] [id number] Special Education Case Manager: Manuel Joy PhD, Phone: [phone] Performed By: #### L 1000500, L507.5046, L946.0998, F047.3259, R603.3347, B354.2774 #### [facility] [place], [address] CBC-Complete Blood Cnt No Di ffon 02-02-2024 Erythrocyte distribution width (RBC) [Ratio] 12.2 % Normal 11.6-14.6 [facility] Comment on above: Performed By: #### L 100.0500, L503.6150, L801.1541, L501.9520, L503.6075, L503.6550 #### [facility] Laboratory [address] [place], [address] Hematocrit (Bld) [Volume fraction] 43.5 % Normal 40-54 [facility] Comment on above: Performed By: #### L 100.0500, L503.6150, L801.1541, L501.9520, L503.6075, L503.6550 #### [facility] [address] [place], [address] Hemoglobin (Bld) [Mass/Vol] 14.3 g/dL Normal 13.0-16.5 [facility] Comment on above: Performed By: #### L 100.0500, L503.6150, L801.1541, L501.9520, L503.6075, L503.6550 #### [facility] [address] [place], [address] MCH (RBC) [Entitic mass] 28.9 pg Normal 27.0-32.0 [facility] Comment on above: Performed By: #### L 100.0500, L503.6150, L801.1541, L501.9520, L503.6075, L503.6550 #### [facility] [address] [place], [address] MCHC (RBC) [Mass/Vol] 32.9 g/dL Normal 32-[address] [facility] Comment on above: Performed By: #### L 100.0500, L503.6150, L801.1541, L501.9520, L503.6075, L503.6550 #### [facility] [address] [place], [address] MCV (RBC) [Entitic vol] 87.9 fL Normal 80-94 [facility] Comment on above: Performed By: #### L 100.0500, L503.6150, L801.1541, L501.9520, L503.6075, L503.6550 #### [facility] [address] [place], [address] Platelet mean volume (Bld) [Entitic vol] 9.8 fL Normal 6.2-12.0 [facility] Comment on above: Performed By: #### L 100.0500, L503.6150, L801.1541, L501.9520, L503.6075, L503.6550 #### [facility] [address] [place], [address] Platelets (Bld) [#/Vol] 240 10*3/uL Normal 150-450 [facility] Comment on above: Performed By: #### L 100.0500, L503.6150, L801.1541, L501.9520, L503.6075, L503.6550 #### [facility] [address] [place], [address] RBC (Bld) [#/Vol] 4.95 10*6/uL Normal 4.6-6.2 [facility] Comment on above: Performed By: #### L 100.0500, L503.6150, L801.1541, L501.9520, L503.6075, L503.6550 #### [facility] [address] [place], [address] RDW SD 39.2 fl Normal 35.1-43.9 [facility] Comment on above: Performed By: #### L 100.0500, L503.6150, L801.1541, L501.9520, L503.6075, L503.6550 #### [facility] [address] [place], [address] WBC (Bld) [#/Vol] 6.8 10*3/uL Normal 4.4-11.0 [facility] Comment on above: Performed By: #### L 100.0500, L503.6150, L801.1541, L501.9520, L503.6075, L503.6550 #### [facility] [address] [place], [address] Comprehensive Metabolic Prof ilon 02-02-2024 Albumin [Mass/Vol] 3.8 g/dL Normal 3.2-5.0 [facility] Comment on above: Performed By: #### L 100.0500, L503.6150, L801.1541, L501.9520, L503.6075, L503.6550 #### [facility] [address] [place], [address] Albumin/Globulin [Mass ratio] 1.1 {ratio} Normal 0.9-2.4 [facility] Comment on above: Performed By: #### L 100.0500, L503.6150, L801.1541, L501.9520, L503.6075, L503.6550 #### [facility] [address] [place], [address] ALK P 106 U/L Normal 45-117 [facility] Comment on above: Performed By: #### L 100.0500, L503.6150, L801.1541, L501.9520, L503.6075, L503.6550 #### [facility] [address] [place], [address] ALT [Catalytic activity/Vol] 25 U/L Normal 16-61 [facility] Comment on above: Performed By: #### L 100.0500, L503.6150, L801.1541, L501.9520, L503.6075, L503.6550 #### [facility] [address] [place] [place], [address] AST [Catalytic activity/Vol] 13 U/L Low 15-37 [facility] Comment on above: Performed By: #### L 100.0500, L503.6150, L801.1541, L501.9520, L503.6075, L503.6550 #### [facility] [address] [place], [address] Bilirubin [Mass/Vol] 0.40 mg/dL Normal 0.20-1.00 [facility] Comment on above: Result Comment: For patients on eltrombopag therapy, use of Dimension [place] TBIL is not recommended. Performed By: #### L 100.0500, L503.6150, L801.1541, L501.9520, L503.6075, L503.6550 #### [facility] [address] [place], [address] BUN/CRE 20.1 RATIO High 10-20 [facility] Comment on above: Performed By: #### L 100.0500, L503.6150, L801.1541, L501.9520, L503.6075, L503.6550 #### [facility] [address] [place], [address] CA,Total 9.0 mg/dL Normal 8.5-10.1 [facility] Comment on above: Performed By: #### L 100.0500, L503.6150, L801.1541, L501.9520, L503.6075, L503.6550 #### [facility] [address] [place], [address] Chloride [Moles/Vol] 104 mmol/L Normal 98-107 [facility] Comment on above: Performed By: #### L 100.0500, L503.6150, L801.1541, L501.9520, L503.6075, L503.6550 #### [facility] [address] [place], [address] CO2 [Moles/Vol] 29.0 mmol/L Normal 21.0-32.0 [facility] Comment on above: Performed By: #### L 100.0500, L503.6150, L801.1541, L501.9520, L503.6075, L503.6550 #### [facility] [address] [place], [address] Creatinine [Mass/Vol] 0.70 mg/dL Normal 0.70-1.[address] [facility] Comment on above: Result Comment: The validity of the calculated GFR GFRAA in patients over 70 years has not been determined. Clinical correlation is essential. Performed By: #### L 100.0500, L503.6150, L801.1541, L501.9520, L503.6075, L503.6550 #### [facility] [address] [place], [address] EST GFR - AA 153 mL/min Normal >60 [facility] Comment on above: Result Comment: Afri can [place] GFR Calc Performed By: #### L 100.0500, L503.6150, L801.1541, L501.9520, L503.6075, L503.6550 #### [facility] [address] [place], [address] GAP 3 Low 5-15 [facility] Comment on above: Performed By: #### L 100.0500, L503.6150, L801.1541, L501.9520, L503.6075, L503.6550 #### [facility] [address] [place], [address] GFR/1.73 sq M.predicted among non-blacks MDRD (S/P/Bld) [Vol rate/Area] 127 mL/min/{1.73_m2} Normal >60 [facility] Comment on above: Result Comment: Non- GFR Calc Performed By: #### L 100.0500, L503.6150, L801.1541, L501.9520, L503.6075, L503.6550 #### [facility] [address] [place], [address] Globulin (S) [Mass/Vol] 3.4 g/dL Normal 2.2-4.2 [facility] Comment on above: Performed By: #### L 100.0500, L503.6150, L801.1541, L501.9520, L503.6075, L503.6550 #### [facility] [address] [place], [address] Glucose [Mass/Vol] 210 mg/dL High 74-106 [facility] Comment on above: Result Comment: Gluc ose result greater than or equal to 200 mg/dL suggests DIABETES MELLITUS per A.D.A. criteria. Performed By: #### L 100.0500, L503.6150, L801.1541, L501.9520, L503.6075, L503.6550 #### [facility] [address] [place], [address] Potassium [Moles/Vol] 3.9 mmol/L Normal 3.5-5.[address] [facility] Comment on above: Performed By: #### L 100.0500, L503.6150, L801.1541, L501.9520, L503.6075, L503.6550 #### [facility] [address] [place], [address] Sodium [Moles/Vol] 136 mmol/L Normal 136-145 [facility] Comment on above: Performed By: #### L 100.0500, L503.6150, L801.1541, L501.9520, L503.6075, L503.6550 #### [facility] [address] [place], [address] T PROT 7.2 g/dL Normal 6.4-8.2 [facility] Comment on above: Performed By: #### L 100.0500, L503.6150, L801.1541, L501.9520, L503.6075, L503.6550 #### [facility] [address] [place], [address] Urea nitrogen [Mass/Vol] 14 mg/dL Normal 7-18 [facility] Comment on above: Performed By: #### L 100.0500, L503.6150, L801.1541, L501.9520, L503.6075, L503.6550 #### [facility] [address] [place], [address] Hemoglobin A1con 02-02-2024 HbA1c (Bld) [Mass fraction] 8.6 % High 3.8-5.6 [facility] Comment on above: Result Comment: Norm al < 5.7 % Prediabetic 5.7 - 6.4 % Diabetic >or= 6.5 % Please note range changes. Performed By: #### L 100.0500, L503.6150, L801.1541, L501.9520, L503.6075, L503.6550 #### [facility] [address] [place], [address] Lipid Profileon 02-02-2024 Cholesterol [Mass/Vol] 106 mg/dL Normal 200 [facility] Comment on above: Result Comment: <200 mg/dL Desirable 200-240 mg/dL Borderline >240 mg/dL High Risk Performed By: #### L 100.0500, L503.6150, L801.1541, L501.9520, L503.6075, L503.6550 #### [facility] [address] [place], [address] Cholesterol in HDL [Mass/Vol] 34 mg/dL Low [facility] Comment on above: Result Comment: The drugs N-Acetylcysteine and Metamizole may falsely depress this assay. Reference Range HDL <40 mg/dL Low HDL Cholesterol HDL >or= 60 mg/dL High HDL Cholesterol Performed By: #### L 100.0500, L503.6150, L801.1541, L501.9520, L503.6075, L503.6550 #### [facility] [address] [place], [address] Cholesterol in LDL [Mass/Vol] 52 mg/dL Normal 0-130 [facility] Comment on above: Performed By: #### L 100.0500, L503.6150, L801.1541, L501.9520, L503.6075, L503.6550 #### [facility] [address] [place], [address] Cholesterol in VLDL [Mass/Vol] 20 mg/dL Normal 5-40 [facility] Comment on above: Performed By: #### L 100.0500, L503.6150, L801.1541, L501.9520, L503.6075, L503.6550 #### [facility] [address] [place], [address] Triglyceride [Mass/Vol] 98 mg/dL Normal [facility] Comment on above: Result Comment: The drugs N-Acetylcysteine and Metamizole may falsely depress this assay. Serum Triglycerides Reference Interval Normal <150 mg/dL Borderline high 150 - 199 mg/dL High 200 - 499 mg/dL Very High > or = 500 mg/dL Performed By: #### L 100.0500, L503.6150, L801.1541, L501.9520, L503.6075, L503.6550 #### [facility] [address] [place], [address] Microalb:Creat Ratio,Random URon 02-02-2024 Creatinine [Mass/Vol] 232.00 mg/dL Normal NO RAN GE EST. [facility] Comment on above: Performed By: #### L 100.0500, L503.6150, L801.1541, L501.9520, L503.6075, L503.6550 #### [facility] [address] [place], [place], [id number] MALB:CRE 26.0 mg/g CRE Normal <30 mg/g CRE [facility] Comment on above: Performed By: #### L 100.0500, L503.6150, L801.1541, L501.9520, L503.6075, L503.6550 #### [facility] [address] [place], [place], [id number] MICROALBUMIN,UR 60.3 mg/L Normal NO RANGE EST. [facility] Comment on above: Performed By: #### L 100.0500, L503.6150, L801.1541, L501.9520, L503.6075, L503.6550 #### [facility] [address] [place], [place], [id number] Thyroid Stim Hormone (TSH)on 02-02-2024 TSH 1.530 uIU/mL Normal 0.358-3.740 [facility] Comment on above: Performed By: #### L 100.0500, L503.6150, L801.1541, L501.9520, L503.6075, L503.6550 #### [facility] [address] [place], [place], [id number] Basic metabolic 2000 panelon 01-30-2024 Anion gap [Moles/Vol] 6 mmol/L 5 - 16 mmol/L [facility] Calcium [Mass/Vol] 9.4 mg/dL 8.5 - 10. 5 mg/dL [facility] Chloride [Moles/Vol] 103 mmol/L 98 - 10 7 mmol/L [facility] CO2 [Moles/Vol] 28 mmol/L 21 - 32 mmol/L [facility] Creatinine [Mass/Vol] 0.70 mg/dL 0.50 - 1.40 mg/dL [facility] Comment on above: Patients receiving e ither N-Acetylcysteine (NAC) or Metamizole prior to venipuncture, may have falsely depressed results. GFR/1.73 sq M.predicted among non-blacks MDRD (S/P/Bld) [Vol rate/Area] 111 mL/min/{1.73_m2} - PINF [facility] Comment on above: Estimated Glomerular Filtration [...] 336 mg/dL High 70 - 100 mg/dL [facility] Comment on above: The [place] Diabete s Association (ADA) provides guidance for [...] Standards of Medical Care in Diabetes 2016, [place] [employer]. Diabetes Care. 2016.39(Suppl 1). Results may be falsely elevated after the administration of Sulfapyridine. Results may be falsely depressed after the administration of Sulfasalazine. Interpretation and review of laboratory results Abnormal [facility] Potassium [Moles/Vol] 4.5 mmol/L 3.5 - 5.1 mmol/L [facility] Sodium [Moles/Vol] 137 mmol/L 136 - 145 mmol/L [facility] Urea nitrogen [Mass/Vol] 16 mg/dL 7 - 26 mg/dL [facility] Anion gap [Moles/Vol] 6 mmol/L Normal 5-16 [facility] Comment on above: Order Comment: Speci men Type: BLOOD SPECIMEN Ordering Facility: [facility] Address: [address] [place] [address] Performed By: #### 2 4321-2, 37960-0 #### [facility] CLIA [id number] [address] [place] [address] [place] Calcium [Mass/Vol] 9.4 mg/dL Normal 8.5-10.5 [facility] Comment on above: Order Comment: Speci men Type: BLOOD SPECIMEN Ordering Facility: [facility] Address: [address] [place] [address] Performed By: #### 2 4321-2, 69212-8 #### [facility] CLIA [id number] [address] [place] [address] [place] Chloride [Moles/Vol] 103 mmol/L Normal 98-107 [facility] Comment on above: Order Comment: Speci men Type: BLOOD SPECIMEN Ordering Facility: [facility] Address: [address] [place] [address] Performed By: #### 2 4321-2, 49192-5 #### [facility] CLIA [id number] [address] [place] [address] [place] CO2 [Moles/Vol] 28 mmol/L Normal 21-32 [facility] Comment on above: Order Comment: Speci men Type: BLOOD SPECIMEN Ordering Facility: [facility] Address: [address] [place] [address] Performed By: #### 2 4321-2, 85720-7 #### [facility] CLIA [id number] [address] [place] [address] [place] Creatinine [Mass/Vol] 0.70 mg/dL Normal 0.50-1.40 [facility] Comment on above: Order Comment: Speci men Type: BLOOD SPECIMEN [facility] Facility[facility] Address: [address] [place] [address] Result Comment: Raven ents receiving either N-Acetylcysteine (NAC) or Metamizole prior to venipuncture, may have falsely depressed results. Performed By: #### 2 4321-2, 95615-8 #### [facility] CLIA [id number] [address] [place] [address] [place] Creatinine and Glomerular filtration rate.predicted panel (S/P/Bld) 111 mL/min/1.73m??? Normal >=60 [facility] Comment on above: Order Comment: Imelda redding Type: BLOOD SPECIMEN [facility]ing Facility: [facility] Address: [address] [place] [address] Result Comment: Estela mated Glomerular Filtration Rate [...] actual GFR. Performed By: #### 2 4321-2, 85982-9 #### [facility] CLIA [id number] [address] [place] [address] [place] Glucose [Mass/Vol] 336 mg/dL High 70-100 [facility] Comment on above: Order Comment: Imelda redding Type: BLOOD SPECIMEN [facility] Address: [address] [place] [address] Result Comment: The [place] Diabetes Association (ADA) provides guidance for cutoff [...] Standards of Medical Care in Diabetes 2016, [place] Diabetes Association. Diabetes Care. 2016.39(Suppl 1). Results may be falsely elevated after the administration of Sulfapyridine. Results may be falsely depressed after the administration of Sulfasalazine. Performed By: #### 2 4321-2, 70477-1 #### [facility] CLIA [id number] [address] [place] [address] [place] Potassium [Moles/Vol] 4.5 mmol/L Normal 3.5-5.1 [facility] Comment on above: Order Comment: Speci men Type: BLOOD SPECIMEN [facility] Address: [address] [place] [address] Performed By: #### 2 4321-2, 28657-8 #### [facility] CLIA [id number] [address] [place] [address] [place] Sodium [Moles/Vol] 137 mmol/L Normal 136-145 [facility] Comment on above: Order Comment: Speci men Type: BLOOD SPECIMEN [facility] Address: [address] [place] [address] Performed By: #### 2 4321-2, 07595-1 #### [facility] CLIA [id number] [address] [place] [address] [place] Urea nitrogen [Mass/Vol] 16 mg/dL Normal 7-26 [facility] Comment on above: Order Comment: Speci men Type: BLOOD SPECIMEN [facility] Address: [address] [place] [address] Performed By: #### 2 4321-2, 47176-9 #### [facility] CLIA [id number] [address] [place] [address] [place] CBC W Auto Differential pane l (Bld)on 01-30-2024 Basophils (Bld) [#/Vol] 0.03 10*3/uL [facility] Basophils/100 WBC (Bld) 0.4 % [facility] Differential cell count method Nom (Bld) Auto [facility] Eosinophils (Bld) [#/Vol] 0.19 10*3/uL [facility] Eosinophils/100 WBC (Bld) 2.6 % [facility] Erythrocyte distribution width (RBC) [Ratio] 12.3 % 11.5 - 15.0 % [facility] Hematocrit (Bld) [Volume fraction] 41.7 % 39.0 - 51.0 % [facility] Hemoglobin (Bld) [Mass/Vol] 14.1 g/dL 13.0 - 17.0 g/dL [facility] Immature granulocytes (Bld) [#/Vol] [facility] Immature granulocytes/100 WBC (Bld) 0.3 % [facility] Lymphocytes (Bld) [#/Vol] 2.24 10*3/uL [facility] Lymphocytes/100 WBC (Bld) 30.7 % [facility] MCH (RBC) [Entitic mass] 29.2 pg 26.0 - 34.0 pg [facility] MCHC (RBC) [Mass/Vol] 33.8 g/dL 30.5 - 36.0 g/dL [facility] MCV (RBC) [Entitic vol] 86.3 fL 80.0 - 100.0 fL [facility] Monocytes (Bld) [#/Vol] 0.51 10*3/uL [facility] Monocytes/100 WBC (Bld) 7.0 % [facility] Neutrophils (Bld) [#/Vol] 4.31 10*3/uL [facility] Neutrophils/100 WBC (Bld) 59.0 % [facility] Nucleated RBC (Bld) [#/Vol] [facility] Nucleated RBC/100 WBC (Bld) [Ratio] 0.0 % /100 WBC [facility] Platelet mean volume (Bld) [Entitic vol] 10.0 fL 9.0 - 12.7 fL [facility] Platelets (Bld) [#/Vol] 217 10*3/uL [facility] RBC (Bld) [#/Vol] 4.83 10*6/uL 4.20 - 6.0 0 m/uL [facility] WBC (Bld) [#/Vol] 7.30 10*3/uL [facility] Basophils (Bld) [#/Vol] 0.03 10*3/uL Normal <0.11 [facility] Comment on above: Order Comment: Speci men Type: BLOOD SPECIMEN [facility] Address: [address] [place] [address] Performed By: #### 5 7021-8 #### [facility] CLIA [id number] [address] [place] [address] [place] Basophils/100 WBC (Bld) 0.4 % Normal [facility] Comment on above: Order Comment: Speci men Type: BLOOD SPECIMEN Ordering Facility[facility] Address: [facility] [place] [address] Performed By: #### 5 7021-8 #### [facility] CLIA [id number] [address] [place] [address] [place] Differential cell count method Nom (Bld) Auto Normal [facility] Comment on above: Order Comment: Speci men Type: BLOOD SPECIMEN [facility]ing [facility] Address: [address] [place] [address] Performed By: #### 5 7021-8 #### [facility] CLIA [id number] [address] [place] [address] [place] Eosinophils (Bld) [#/Vol] 0.19 10*3/uL Normal <0.46 [facility] Comment on above: Order Comment: Speci men Type: BLOOD SPECIMEN Order[facility] Address: [address] [place] [address] Performed By: #### 5 7021-8 #### [facility] CLIA [id number] [address] [place] [address] [place] Eosinophils/100 WBC (Bld) 2.6 % Normal [facility] Comment on above: Order Comment: Speci men Type: BLOOD SPECIMEN [facility] Address: [address] [place] [address] Performed By: #### 5 7021-8 #### [facility] CLIA [id number] [address] [place] [address] [place] Erythrocyte distribution width (RBC) [Ratio] 12.3 % Normal 11.5-15.0 [facility] Comment on above: Order Comment: Speci men Type: BLOOD SPECIMEN [facility] Address: [address] [place] [address] Performed By: #### 5 7021-8 #### [facility] CLIA [id number] [address] [place] [address] [place] Hematocrit (Bld) [Volume fraction] 41.7 % Normal 39.0-51.0 [facility] Comment on above: Order Comment: Speci men Type: BLOOD SPECIMEN [facility] Address: [address] [place] [address] Performed By: #### 5 7021-8 #### [facility] CLIA [id number] [address] [place] [address] [place] Hemoglobin (Bld) [Mass/Vol] 14.1 g/dL Normal 13.0-17.0 [facility] Comment on above: Order Comment: Speci men Type: BLOOD SPECIMEN [facility] Address: [address] [place] [address] Performed By: #### 5 7021-8 #### [facility] CLIA [id number] [address] [place] [address] [place] Immature granulocytes (Bld) [#/Vol] 10*3/uL Normal <0.10 [facility] Comment on above: Order Comment: Speci men Type: BLOOD SPECIMEN [facility] Address: [address] [place] [address] Performed By: #### 5 7021-8 #### [facility] CLIA [id number] [address] [place] [address] [place] Immature granulocytes/100 WBC (Bld) 0.3 % Normal [facility] Comment on above: Order Comment: Speci men Type: BLOOD SPECIMEN [facility] Address: [address] [place] [address] Performed By: #### 5 7021-8 #### [facility] CLIA [id number] [address] [place] [address] [place] Lymphocytes (Bld) [#/Vol] 2.24 10*3/uL Normal 1.00-4.00 [facility] Comment on above: Order Comment: Speci men Type: BLOOD SPECIMEN Order[facility] Address: [address] [place] [address] Performed By: #### 5 7021-8 #### [facility] CLIA [id number] [address] [place] [address] Lymphocytes/100 WBC (Bld) 30.7 % Normal [facility] Comment on above: Order Comment: Speci men Type: BLOOD SPECIMEN [facility] Address: [address] [place] [address] Performed By: #### 5 7021-8 #### [facility] CLIA [id number] [address] [place] [address] [place] MCH (RBC) [Entitic mass] 29.2 pg Normal 26.0-34.0 [facility] Comment on above: Order Comment: Speci men Type: BLOOD SPECIMEN [facility] Address: [address] [place] [address] Performed By: #### 5 7021-8 #### [facility] CLIA [id number] [address] [place] [address] [place] MCHC (RBC) [Mass/Vol] 33.8 g/dL Normal 30.5-36.0 [facility] Comment on above: Order Comment: Speci men Type: BLOOD SPECIMEN [facility] Address: [address] [place] [address] Performed By: #### 5 7021-8 #### [facility] CLIA [id number] [address] [place] [address] [place] MCV (RBC) [Entitic vol] 86.3 fL Normal 80.0-100.0 [facility] Comment on above: Order Comment: Speci men Type: BLOOD SPECIMEN [facility] Address: [address] [place] [address] Performed By: #### 5 7021-8 #### [facility] CLIA [id number] [address] [place] [address] [place] Monocytes (Bld) [#/Vol] 0.51 10*3/uL Normal <0.87 [facility] Comment on above: Order Comment: Speci men Type: BLOOD SPECIMEN Order[facility] Address: [address] [place] [address] Performed By: #### 5 7021-8 #### [facility] CLIA [id number] [address] [place], [place] [address] [place] Monocytes/100 WBC (Bld) 7.0 % Normal [facility] Comment on above: Order Comment: Speci men Type: BLOOD SPECIMEN Order[facility] Address: [address] [place] [address] Performed By: #### 5 7021-8 #### [facility] CLIA [id number] [address] [place] [address] [place] Neutrophils (Bld) [#/Vol] 4.31 10*3/uL Normal 1.45-7.50 [facility] Comment on above: Order Comment: Speci men Type: BLOOD SPECIMEN [facility] Address: [address] [place] [address] Performed By: #### 5 7021-8 #### [facility] CLIA [id number] [address] [place] [address] [place] Neutrophils/100 WBC (Bld) 59.0 % Normal [facility] Comment on above: Order Comment: Speci men Type: BLOOD SPECIMEN [facility] Address: [address] [place] [address] Performed By: #### 5 7021-8 #### [facility] CLIA [id number] [address] [place] [address] [place] Nucleated RBC (Bld) [#/Vol] 10*3/uL Normal <0.01 [facility] Comment on above: Order Comment: Speci men Type: BLOOD SPECIMEN [facility] Address: [address] [place] [address] Performed By: #### 5 7021-8 #### [facility] CLIA [id number] [address] [place], [place] [address] [place] Nucleated RBC/100 WBC (Bld) [Ratio] 0.0 /[address] [facility] Comment on above: Order Comment: Speci men Type: BLOOD SPECIMEN Order[facility] Address: [address] [place] [address] Performed By: #### 5 7021-8 #### [facility] CLIA [id number] [address] [place] [address] [place] Platelet mean volume (Bld) [Entitic vol] 10.0 fL Normal 9.0-12.7 [facility] Comment on above: Order Comment: Speci men Type: BLOOD SPECIMEN [facility] Address: [address] [place] [address] Performed By: #### 5 7021-8 #### [facility] CLIA [id number] [address] [place] [address] [place] Platelets (Bld) [#/Vol] 217 10*3/uL Normal 150-400 [facility] Comment on above: Order Comment: Speci men Type: BLOOD SPECIMEN [facility] Address: [address] [place] [address] Performed By: #### 5 7021-8 #### [facility] CLIA [id number] [address] [place] [address] [place] RBC (Bld) [#/Vol] 4.83 10*6/uL Normal 4.20-6.00 [facility] Comment on above: Order Comment: Speci men Type: BLOOD SPECIMEN [facility] Address: [address] [place] [address] Performed By: #### 5 7021-8 #### [facility] CLIA [id number] [address] [place] [address] [place] WBC (Bld) [#/Vol] 7.30 10*3/uL Normal 3.70-11.00 [facility] Comment on above: Order Comment: Speci men Type: BLOOD SPECIMEN [facility] Address: [address] [place] [address] Performed By: #### 5 7021-8 #### [facility] CLIA [id number] [address] [place] [id number] [place] [facility] ECG COMPLETEon 01-30-2024 Atrial Rate 83 BPM [facility] Calculated P [place] 72 degrees [facility] Calculated R [place] 53 degrees [facility] Calculated T [place] 176 degrees [facility] P-R Interval 178 ms [facility] QRS Duration 96 ms [facility] QT Interval 384 ms [facility] QTC Calculation (Bazett) 451 ms [facility] Ventricular Rate 83 BPM [facility] Normal sinus rhythm T wave abnormality, consider inferior ischemia Abnormal ECG No previous ECGs available Confirmed by ELO ANAYA MD ([id number]) on 01/30/2024 4:42:53 PM [facility] NAME : SAJAN RUFFIN James PID : [id number] : 1970 Gender : Male Race : ORD : [id number] Procedure Date : Jan 30 2024 13:08:57 Edit Date : Jan 30 2024 16:42:55 Diagnosis: Normal sinus rhythm T wave abnormality, consider inferior ischemia Abnormal ECG No previous ECGs available Confirmed by ELO ANAYA MD ([id number]) on 01/30/2024 4:42:53 PM Test Reason : PREOP Location : 2 : PEAT Overread By : ELO ANAYA MD Edited By : ELO ANAYA MD Referred By : SRINI NULL Acquired by : [facility] ECG COMPLETE Ventricular Rate : 8 3 BPM Atrial Rate : 83 BPM P-R Interval : 178 ms QRS Duration : 96 ms Q-T Interval : 384 ms QTC Calculation(Bazett) : 451 ms Calculated P [place] : 72 degrees Calculated R [place] : 53 degrees Calculated T [place] : 176 degrees Normal sinus rhythm T wave abnormality, consider inferior ischemia Abnormal ECG No previous ECGs available Confirmed by ELO ANAYA MD ([id number]) on 01/30/2024 4:42:53 PM NAME : DEEPA RUFFIN PID : [id number] : 1970 Gender : Male Race : ORD : [id number] Procedure Date : Jan 30 2024 13:08:57 Edit Date : Jan 30 2024 16:42:55 Diagnosis: Normal sinus rhythm T wave abnormality, consider inferior ischemia Abnormal ECG No previous ECGs available Confirmed by ELO ANAYA MD ([id number]) on 01/30/2024 4:42:53 PM Test Reason : PREOP Location : 2 : PEAT Overread By : ELO ANAYA MD Edited By : ELO ANAYA MD Referred By : SRINI NULL Acquired by : JARAD, Normal [facility] HbA1c (Bld)on 01-30-2024 Average glucose Estimated from glycated hemoglobin (Bld) [Mass/Vol] 203 mg/dL [facility] Comment on above: Order Comment: Imelda redding Type: BLOOD SPECIMEN [facility] Address: [address] [place] [address] Result Comment: eAG: (Estimated average glucose) is a calculated value from HgbA1c and is access service representative of the average blood glucose level in the last 2-3 month period. Performed By: #### 5 5454-3 #### [facility] CLIA [id number] [address] [place] [address] [place] HbA1c (Bld) [Mass fraction] 8.7 % High 4.3-5.6 [facility] Comment on above: Order Comment: Imelda redding Type: BLOOD SPECIMEN [facility] Address: [address] [place] [address] Result Comment: [place] Diabetes Association guidelines indicate that patients with HgbA1c in the range 5.7-6.4% are at increased risk for development of diabetes, and intervention by lifestyle modification may be beneficial. HgbA1c greater or equal to 6.5% is considered diagnostic of diabetes. Performed By: #### 5 5454-3 #### [facility] CLIA [id number] [address] [place] [address] [place] NT PRO BNPon 01-30-2024 Natriuretic peptide.B prohormone N-Terminal [Mass/Vol] pg/mL NINF - 125 pg/mL [facility] Comment on above: NT-proBNP results of less than 300 pg/mL likely rules out acute congestive heart failure with 99% predictive value. NOTE: These cutoff points are suggested for ACUTE CHF DIAGNOSIS only Less than 50 years Greater than 450 pg/mL 50 - 75 years Greater than 900 pg/mL Greater than 75 years Greater than 1800 pg/mL [facility] Natriuretic peptide.B prohormone N-Terminal [Mass/Vol] <35 Normal <125 [facility] Comment on above: Order Comment: Imelda redding Type: BLOOD SPECIMEN [facility] Address: [address] [place] [address] Result Comment: NT-p roBNP results of less than 300 pg/mL likely rules out acute congestive heart failure with 99% predictive value. NOTE: These cutoff points are suggested for ACUTE CHF DIAGNOSIS only Less than 50 years\X09\ Greater than 450 pg/mL 50 - 75 years\X09\\X09\ Greater than 900 pg/mL Greater than 75 years\X09\ Greater than 1800 pg/mL Performed By: #### 2 4321-2, 15562-5 #### [facility] CLIA [id number] [address] [place] [address] [place] Natriuretic peptide.B prohor karthik N-Terminal [Mass/Vol]on 01-30-2024 Interpretation and review of laboratory results Normal [facility] No Panel Informationon 01-29 [facility] STAPHYLOCOCCUS AUREUS AND MR SA SCREEN, PCR, NASALon 01-30-2024 S. aureus and MRSA panel DANIA+probe (Nose) Not detected Normal Not Detected [facility] Comment on above: Order Comment: Imelda redding Type: SWAB [facility] Address: [address] [place] [address] Performed By: #### S APCR #### [facility] CLIA [id number] [address] [place] [address] [place] STAPHYLOCOCCUS AUREUS & MRSA SCREEN, PCR, NASALon 01-30-2024 Interpretation and review of laboratory results Normal [facility] S. aureus and MRSA panel DANIA+probe (Nose) Not detected Not Detected [facility] Urinalysis, Routine (Dipstic k)on 12-28-2023 Clarity (U) Clear Normal Clear [facility] Comment on above: Order Comment: REFLE X TO CULTURE IF INDICATEDCLEAN CATCH Performed By: #### L 100.0500, L503.6150, L801.1541, L501.9520, L503.6075, L503.6550 #### [facility] [address] [place], [address] Color (U) Yellow Normal Yellow [facility] Comment on above: Order Comment: REFLE X TO CULTURE IF INDICATEDCLEAN CATCH Performed By: #### L 100.0500, L503.6150, L801.1541, L501.9520, L503.6075, L503.6550 #### [facility] [address] [place], [address] BILIRUBIN URINE Negative Normal Negative [facility] Comment on above: Order Comment: REFLE X TO CULTURE IF INDICATEDCLEAN CATCH Performed By: #### L 100.0500, L503.6150, L801.1541, L501.9520, L503.6075, L503.6550 #### [facility] [address] [place], [address] GLUCOSE, UR 100 mg/dl Abnormal Normal [facility] Comment on above: Order Comment: REFLE X TO CULTURE IF INDICATEDCLEAN CATCH Performed By: #### L 100.0500, L503.6150, L801.1541, L501.9520, L503.6075, L503.6550 #### [facility] [address] [place], [address] KETONE UR 5 mg/dl Abnormal Negative [facility] Comment on above: Order Comment: REFLE X TO CULTURE IF INDICATEDCLEAN CATCH Performed By: #### L 100.0500, L503.6150, L801.1541, L501.9520, L503.6075, L503.6550 #### [facility] [address] [place], [address] LEUK ESTERASE 25 /ul Abnormal Negative [facility] Comment on above: Order Comment: REFLE X TO CULTURE IF INDICATEDCLEAN CATCH Performed By: #### L 100.0500, L503.6150, L801.1541, L501.9520, L503.6075, L503.6550 #### [facility] [address] [place], [address] Nitrite Ql (U) Positive Abnormal Negative [facility] Comment on above: Order Comment: REFLE X TO CULTURE IF INDICATEDCLEAN CATCH Performed By: #### L 100.0500, L503.6150, L801.1541, L501.9520, L503.6075, L503.6550 #### [facility] [address] [place], [place], [address] OCCULT BLOOD-UR Negative Normal Negative [facility] Comment on above: Order Comment: REFLE X TO CULTURE IF INDICATEDCLEAN CATCH Performed By: #### L 100.0500, L503.6150, L801.1541, L501.9520, L503.6075, L503.6550 #### [facility] [address] [place], [place], [address] pH UR 6.0 Normal 5.0 - 8.0 [facility] Comment on above: Order Comment: REFLE X TO CULTURE IF INDICATEDCLEAN CATCH Performed By: #### L 100.0500, L503.6150, L801.1541, L501.9520, L503.6075, L503.6550 #### [facility] [address] [place], [place], [id number] PROT DIPSTX 30 mg/dl Abnormal Negative [facility] Comment on above: Order Comment: REFLE X TO CULTURE IF INDICATEDCLEAN CATCH Performed By: #### L 100.0500, L503.6150, L801.1541, L501.9520, L503.6075, L503.6550 #### [facility] [address] [place], [place], [id number] SP.GR. DIPSTX 1.020 Normal 1.002-1.030 [facility] Comment on above: Order Comment: REFLE X TO CULTURE IF INDICATEDCLEAN CATCH Performed By: #### L 100.0500, L503.6150, L801.1541, L501.9520, L503.6075, L503.6550 #### [facility] [address] [place], [place], [id number] UROBILI 1 mg/dl Abnormal Normal [facility] Comment on above: Order Comment: REFLE X TO CULTURE IF INDICATEDCLEAN CATCH Performed By: #### L 100.0500, L503.6150, L801.1541, L501.9520, L503.6075, L503.6550 #### [facility] [address] [place], [address] [facility] n [facility]-2023 [facility] TEST Normal [facility] Comment on above: Order Comment: [id number] Result Comment: TEST RESULTS LIMITS Hgb Fractionation by CE: Hgb F 0.0 % 0.0-2.0 Hgb A 97.2 % 96.4-98.8 Hgb A2 2.8 % 1.8-3.2 Hgb S 0.0 % 0.0 Interpretation: Normal hemoglobin present; no hemoglobin variant or beta thalassemia identified. Note: Alpha thalassemia may not be detected by the Hgb Fractionation [place] panel. If alpha thalassemia is suspected, [facility] offers Alpha-Thalassemia DNA Analysis (#[id number]) TESTING PERFORMED AT [facility]. ORIGINAL REPORT ON FILE IN LAB CONTAINS ADDITIONAL TEST SITE INFORMATION. Performed By: #### L 100.0500, L503.6150, L801.1541, L501.9520, L503.6075, L503.6550 #### [facility] [address] [place], [address] CBC-Complete [facility] Erythrocyte distribution width (RBC) [Ratio] 12.1 % Normal 11.6-14.6 [facility] Comment on above: Performed By: #### L 100.0500, L503.6150, L801.1541, L501.9520, L503.6075, L503.6550 #### [facility] [address] [place], [address] Hematocrit (Bld) [Volume fraction] 44.8 % Normal 40-54 [facility] Comment on above: Performed By: #### L 100.0500, L503.6150, L801.1541, L501.9520, L503.6075, L503.6550 #### [facility] [address] [place], [address] Hemoglobin (Bld) [Mass/Vol] 14.7 g/dL Normal 13.0-16.5 [facility] Comment on above: Performed By: #### L 100.0500, L503.6150, L801.1541, L501.9520, L503.6075, L503.6550 #### [facility] [address] [place], [address] MCH (RBC) [Entitic mass] 28.6 pg Normal 27.0-32.0 [facility] Comment on above: Performed By: #### L 100.0500, L503.6150, L801.1541, L501.9520, L503.6075, L503.6550 #### [facility] [address] [place], [address] MCHC (RBC) [Mass/Vol] 32.8 g/dL Normal 32-[address] [facility] Comment on above: Performed By: #### L 100.0500, L503.6150, L801.1541, L501.9520, L503.6075, L503.6550 #### [facility] [address] [place], [address] MCV (RBC) [Entitic vol] 87.2 fL Normal 80-94 [facility] Comment on above: Performed By: #### L 100.0500, L503.6150, L801.1541, L501.9520, L503.6075, L503.6550 #### [facility] [address] [place], [address] Platelet mean volume (Bld) [Entitic vol] 10.4 fL Normal 6.2-12.0 [facility] Comment on above: Performed By: #### L 100.0500, L503.6150, L801.1541, L501.9520, L503.6075, L503.6550 #### [facility] [address] [place], [address] Platelets (Bld) [#/Vol] 238 10*3/uL Normal 150-450 [facility] Comment on above: Performed By: #### L 100.0500, L503.6150, L801.1541, L501.9520, L503.6075, L503.6550 #### [facility] [address] [place], [address] RBC (Bld) [#/Vol] 5.14 10*6/uL Normal 4.6-6.2 [facility] Comment on above: Performed By: #### L 100.0500, L503.6150, L801.1541, L501.9520, L503.6075, L503.6550 #### [facility] [address] [place], [address] RDW SD 38.9 fl Normal 35.1-43.9 [facility] Comment on above: Performed By: #### L 100.0500, L503.6150, L801.1541, L501.9520, L503.6075, L503.6550 #### [facility] [address] [place], [address] WBC (Bld) [#/Vol] 7.2 10*3/uL Normal 4.4-11.0 [facility] Comment on above: Performed By: #### L 100.0500, L503.6150, L801.1541, L501.9520, L503.6075, L503.6550 #### [facility] [address] [place], [address] Ferritinon 12-21-2023 Ferritin [Mass/Vol] 47 ng/mL Normal 26-388 [facility] Comment on above: Performed By: #### L 100.0500, L503.6150, L801.1541, L501.9520, L503.6075, L503.6550 #### [facility] [address] [place], [address] Ironon 12-21-2023 Iron [Mass/Vol] 57 ug/dL Low 65-175 [facility] Comment on above: Performed By: #### L 100.0500, L503.6150, L801.1541, L501.9520, L503.6075, L503.6550 #### [facility] [address] [place], [address] Iron Binding Capacity,Totalo n 12-21-2023 TIBC 378 ug/dL Normal 250-450 [facility] Comment on above: Performed By: #### L 100.0500, L503.6150, L801.1541, L501.9520, L503.6075, L503.6550 #### [facility] [address] [place], [address] Thyroid Stim Hormone (TSH)on 12-21-2023 TSH 1.650 uIU/mL Normal 0.358-3.740 [facility] Comment on above: Performed By: #### L 100.0500, L503.6150, L801.1541, L501.9520, L503.6075, L503.6550 #### [facility] [address] [place], [address] Shoulder min 2 Viewson 10-21 Shoulder min 2 Views [facility] Imaging Services [address] [place] [address] Shoulder min 2 Views MR#: [id number] Acct: [id number] Name: DEEPA RUFFIN Rep #: [id number] : 1970 M 53 From: Andrew Alexandre MD PCP: Dr. Talia Boyd MD Status: [facility] CL Study: Shoulder min 2 Views Date of Exam: 10/22/23 Exam# [id number] Ordering Dr: Lianna Trivedi NP [employer]ET[employer] SPECIALIST-C [id number] STUDY: X-RAY - LEFT SHOULDER REASON FOR EXAM: Male, 53 years old. pain TECHNIQUE: 3 view(s) of the shoulder. COMPARISON: None. FINDINGS: Normal glenohumeral articulation. There is degenerative arthrosis of the acromioclavicular joint without inferior osseous spur formation. Normal acromion. Normal humeral head and visualized proximal humerus. There is periarticular soft tissue calcification consistent with a calcific tendinitis. Normal visualized pulmonary apex. RAD/Shoulder min 2 Views IMPRESSION: 1. Hydroxyapatite deposition disease (calcific tendinitis) (. 2. Mild acromioclavicular joint arthrosis. Electronically Signed: Andrew Alexandre MD at 18:04 EDT , CC: DEANNE Trivedi; Dr. Talia Boyd MD Piling Setter: Signed Normal [facility] Miscellaneous Lab Procedureo n 10-03-2023 MISC LAB TEST Normal [facility] Comment on above: Order Comment: DR. Jorge L CALLAHAN ORDERED PSADR. CRIS ORDERED META FRAC FREE, T3F A1C CMP TSHMETANEPHRINES FAC. PL FREE RFMETANEPHRINES FRAC. PL FREE RF Result Comment: TEST RESULTS LIMITS Metanephrines, Frac., Pl. Free Normetanephrine, Pl, <25.0 pg/mL 0.0-244.0 Metanephrine, Pl, <25.0 pg/mL 0.0-88.0 TESTING PERFORMED AT [facility]. ORIGINAL REPORT ON FILE IN LAB CONTAINS ADDITIONAL TEST SITE INFORMATION. Performed By: #### L 100.0500, L503.6150, L801.1541, L501.9520, L503.6075, L503.6550 #### [facility] [address] [place], [address] Comprehensive Metabolic Prof ilon 09-21-2023 Albumin [Mass/Vol] 3.8 g/dL Normal 3.2-5.0 [facility] Comment on above: Order Comment: DR. Jorge L CALLAHAN ORDERED PSADR. CRIS ORDERED META FRAC FREE, T3F A1C CMP TSHN Performed By: #### L 100.0500, L503.6150, L801.1541, L501.9520, L503.6075, L503.6550 #### [facility] [address] [place], [address] Albumin/Globulin [Mass ratio] 1.2 {ratio} Normal 0.9-2.4 [facility] Comment on above: Order Comment: DR. Jorge L CALLAHAN ORDERED PSADR. ASYACHRISTOPHE ORDERED META FRAC FREE, T3F A1C CMP TSHN Performed By: #### L 100.0500, L503.6150, L801.1541, L501.9520, L503.6075, L503.6550 #### [facility] [address] [place], [address] ALK P 95 U/L Normal 45-117 [facility] Comment on above: Order Comment: DR. Jorge L CALLAHAN ORDERED PSADR. ASYACHRISTOPHE ORDERED META FRAC FREE, T3F A1C CMP TSHN Performed By: #### L 100.0500, L503.6150, L801.1541, L501.9520, L503.6075, L503.6550 #### [facility] [address] [place], [address] ALT [Catalytic activity/Vol] 27 U/L Normal 16-61 [facility] Comment on above: Order Comment: DR. Jorge L CALLAHAN ORDERED PSADR. ASYACHRISTOPHE ORDERED META FRAC FREE, T3F A1C CMP TSHN Performed By: #### L 100.0500, L503.6150, L801.1541, L501.9520, L503.6075, L503.6550 #### [facility] [address] [place], [address] AST [Catalytic activity/Vol] 17 U/L Normal 15-37 [facility] Comment on above: Order Comment: DR. Jorge L CALLAHAN ORDERED PSADR. CRIS ORDERED META FRAC FREE, T3F A1C CMP TSHN Performed By: #### L 100.0500, L503.6150, L801.1541, L501.9520, L503.6075, L503.6550 #### [facility] [address] [place], [address] Bilirubin [Mass/Vol] 0.40 mg/dL Normal 0.20-1.00 [facility] Comment on above: Order Comment: DR. Jorge L CALLAHAN ORDERED PSADR. CRIS ORDERED META FRAC FREE, T3F A1C CMP TSHN Result Comment: For patients on eltrombopag therapy, use of Dimension [place] TBIL is not recommended. Performed By: #### L 100.0500, L503.6150, L801.1541, L501.9520, L503.6075, L503.6550 #### [facility] [address] [place], [address] BUN/CRE 16.5 RATIO Normal 10-20 [facility] Comment on above: Order Comment: DR. Jorge L CALLAHAN ORDERED PSADR. CRIS ORDERED META FRAC FREE, T3F A1C CMP TSHN Performed By: #### L 100.0500, L503.6150, L801.1541, L501.9520, L503.6075, L503.6550 #### [facility] [address] [place], [address] CA,Total 9.2 mg/dL Normal 8.5-10.1 [facility] Comment on above: Order Comment: DR. Jorge L CALLAHAN ORDERED PSADR. CRIS ORDERED META FRAC FREE, T3F A1C CMP TSHN Performed By: #### L 100.0500, L503.6150, L801.1541, L501.9520, L503.6075, L503.6550 #### [facility] [address] [place], [address] Chloride [Moles/Vol] 102 mmol/L Normal 98-107 [facility] Comment on above: Order Comment: DR. Jorge L CALLAHAN ORDERED PSADR. CRIS ORDERED META FRAC FREE, T3F A1C CMP TSHN Performed By: #### L 100.0500, L503.6150, L801.1541, L501.9520, L503.6075, L503.6550 #### [facility] [address] [place], [address] CO2 [Moles/Vol] 26.0 mmol/L Normal 21.0-32.0 [facility] Comment on above: Order Comment: DR. Jorge L CALLAHAN ORDERED PSADR. CRIS ORDERED META FRAC FREE, T3F A1C CMP TSHN Performed By: #### L 100.0500, L503.6150, L801.1541, L501.9520, L503.6075, L503.6550 #### [facility] [address] [place], [address] Creatinine [Mass/Vol] 0.85 mg/dL Normal 0.70-1.[address] [facility] Comment on above: Order Comment: DR. Jorge L CALLAHAN ORDERED PSADR. CRIS ORDERED META FRAC FREE, T3F A1C CMP TSHN Result Comment: The validity of the calculated GFR GFRAA in patients over 70 years has not been determined. Clinical correlation is essential. Performed By: #### L 100.0500, L503.6150, L801.1541, L501.9520, L503.6075, L503.6550 #### [facility] [address] [place], [address] EST GFR - AA 122 mL/min Normal >60 [facility] Comment on above: Order Comment: DR. Jorge L CALLAHAN ORDERED PSADR. CRIS ORDERED META FRAC FREE, T3F A1C CMP TSHN Result Comment: Afri can [place] GFR Calc Performed By: #### L 100.0500, L503.6150, L801.1541, L501.9520, L503.6075, L503.6550 #### [facility] [address] [place], [address] GAP 7 Normal 5-15 [facility] Comment on above: Order Comment: DR. Jorge L CALLAHAN ORDERED PSADR. JACKNATLYNSEY ORDERED META FRAC FREE, T3F A1C CMP TSHN Performed By: #### L 100.0500, L503.6150, L801.1541, L501.9520, L503.6075, L503.6550 #### [facility] [address] [place], [address] GFR/1.73 sq M.predicted among non-blacks MDRD (S/P/Bld) [Vol rate/Area] 101 mL/min/{1.73_m2} Normal >60 [facility] Comment on above: Order Comment: DR. Jorge L CALLAHAN ORDERED PSADR. CRIS ORDERED META FRAC FREE, T3F A1C CMP TSHN Result Comment: Non- GFR Calc Performed By: #### L 100.0500, L503.6150, L801.1541, L501.9520, L503.6075, L503.6550 #### [facility] [address] [place], [address] Globulin (S) [Mass/Vol] 3.1 g/dL Normal 2.2-4.2 [facility] Comment on above: Order Comment: DR. Jorge L CALLAHAN ORDERED PSADR. CRIS ORDERED META FRAC FREE, T3F A1C CMP TSHN Performed By: #### L 100.0500, L503.6150, L801.1541, L501.9520, L503.6075, L503.6550 #### [facility] [address] [place], [address] Glucose [Mass/Vol] 354 mg/dL High 74-106 [facility] Comment on above: Order Comment: DR. Jorge L CALLAHAN ORDERED PSADR. CRIS ORDERED META FRAC FREE, T3F A1C CMP TSHN Result Comment: Gluc ose result greater than or equal to 200 mg/dL suggests DIABETES MELLITUS per A.D.A. criteria. Performed By: #### L 100.0500, L503.6150, L801.1541, L501.9520, L503.6075, L503.6550 #### [facility] [address] [place], [address] Potassium [Moles/Vol] 4.4 mmol/L Normal 3.5-5.[address] [facility] Comment on above: Order Comment: DR. Jorge L CALLAHAN ORDERED PSADR. CRIS ORDERED META FRAC FREE, T3F A1C CMP TSHN Performed By: #### L 100.0500, L503.6150, L801.1541, L501.9520, L503.6075, L503.6550 #### [facility] [address] [place], [address] Sodium [Moles/Vol] 135 mmol/L Low 136-145 [facility] Comment on above: Order Comment: DR. Jorge L CALLAHAN ORDERED PSADR. CRIS ORDERED META FRAC FREE, T3F A1C CMP TSHN Performed By: #### L 100.0500, L503.6150, L801.1541, L501.9520, L503.6075, L503.6550 #### [facility] [address] [place], [address] T PROT 6.9 g/dL Normal 6.4-8.2 [facility] Comment on above: Order Comment: DR. Jorge L CALLAHAN ORDERED PSADR. CRIS ORDERED META FRAC FREE, T3F A1C CMP TSHN Performed By: #### L 100.0500, L503.6150, L801.1541, L501.9520, L503.6075, L503.6550 #### [facility] [address] [place], [address] Urea nitrogen [Mass/Vol] 14 mg/dL Normal 7-18 [facility] Comment on above: Order Comment: DR. Jorge L CALLAHAN ORDERED PSADR. CRIS ORDERED META FRAC FREE, T3F A1C CMP TSHN Performed By: #### L 100.0500, L503.6150, L801.1541, L501.9520, L503.6075, L503.6550 #### [facility] [address] [place], [address] Free T3on 09-21-2023 Free T3 [Mass/Vol] 2.8 pg/mL Normal 2.18-3.98 [facility] Comment on above: Order Comment: DR. Jorge L CALLAHAN ORDERED PSADR. CRIS ORDERED META FRAC FREE, T3F A1C CMP TSHN Performed By: #### L 100.0500, L503.6150, L801.1541, L501.9520, L503.6075, L503.6550 #### [facility] [address] [place], [address] Hemoglobin A1con 09-21-2023 HbA1c (Bld) [Mass fraction] 8.6 % High 3.8-5.6 [facility] Comment on above: Order Comment: DR. Jorge L CALLAHAN ORDERED INTINDR. CRIS ORDERED META FRAC FREE, T3F A1C CMP TSH Result Comment: Norm al < 5.7 % Prediabetic 5.7 - 6.4 % Diabetic >or= 6.5 % Please note range changes. Performed By: #### L 100.0500, L503.6150, L801.1541, L501.9520, L503.6075, L503.6550 #### [facility] [address] [place], [address] PSA,Total - Annual Screenon 09-21-2023 PSA,TOT SCREEN 0.16 ng/mL Normal 0.00-4.00 [facility] Comment on above: Order Comment: DR. Jorge L CALLAHAN ORDERED PSADR. CRIS ORDERED META FRAC FREE, T3F A1C CMP TSHN Result Comment: This test was performed using the TPSA assay method for the [employer] chemistry system. Values obtained with different assay methods cannot be used interchangably. When changing PSA assays in the course of monitoring a patient, additional sequential testing should be carried out to confirm baseline values. Performed By: #### L 100.0500, L503.6150, L801.1541, L501.9520, L503.6075, L503.6550 #### [facility] [address] [place], [place], [address] Thyroid Stim Hormone (TSH)on 09-21-2023 TSH 1.10 uIU/mL Normal 0.358-3.74 [facility] Comment on above: Order Comment: DR. Jorge L CALLAHAN ORDERED PSADR. CRIS ORDERED META FRAC FREE, T3F A1C CMP TSHN Performed By: #### L 100.0500, L503.6150, L801.1541, L501.9520, L503.6075, L503.6550 #### [facility] [address] [place], [place], [id number] Basophil percentageOrdered B y: Judith Lynch on 05-12-2023 Bilirubin [Mass/Vol] 0.30 mg/dL 0.20-1.00 [facility] Comment on above: For patients on eltr ombopag therapy, use of Dimension [place] TBIL is not recommended. Chloride [Moles/Vol] 106 mmol/L 98-107 [facility] Cholesterol [Mass/Vol] 130 mg/dL <200 [facility] Comment on above: <200 mg/dL Desirable 200-240 mg/dL Borderline >240 mg/dL High Risk Glucose [Mass/Vol] 167 mg/dL 74-106 [facility] Comment on above: Fasting Glucose resu lt greater than or equal to 126 mg/dL suggests DIABETES MELLITUS per A.D.A. criteria. Potassium [Moles/Vol] 4.2 mmol/L 3.5-5.[address] [facility] Protein [Mass/Vol] 7.4 g/dL 6.4-8.2 [facility] Sodium [Moles/Vol] 137 mmol/L 136-145 [facility] Triglyceride [Mass/Vol] 122 mg/dL <199 [facility] Comment on above: The drugs N-Acetylcy steine and Metamizole may falsely depress this assay.Serum Triglycerides Reference Interval Normal <150 mg/dL Borderline high 150 - 199 mg/dL High 200 - 499 mg/dL Very High > or = 500 mg/dL Laboratory - Chemistry and C hemistry - challengeOrdered By: Judith Lynch on 05-12-2023 Albumin/Creatinine DL <= 1.0 mg/L (24H U) [Ratio] 14.9 mg/g CRE <30 [facility] Albumin/Globulin [Mass ratio] 1.1 {ratio} 0.9-2.4 [facility] ALP [Catalytic activity/Vol] 105 U/L 45-117 [facility] ALT [Catalytic activity/Vol] 33 U/L 16-61 [facility] Cholesterol in HDL (Body fld) [Mass/Vol] 38 mg/dL >40 [facility] Comment on above: The drugs N-Acetylcy steine and Metamizole may falsely depress this assay. Reference Range HDL <40 mg/dL Low HDL Cholesterol HDL >or= 60 mg/dL High HDL Cholesterol Cholesterol in LDL (Body fld) [Moles/Vol] 68 mg/dL 0-130 [facility] Cholesterol in VLDL Calc [Moles/Vol] 24 mg/dL 5-40 [facility] CO2 [Moles/Vol] 30.0 mmol/L 21.0-32.0 [facility] Globulin (S) [Mass/Vol] 3.5 g/dL 2.2-4.2 [facility] Urea nitrogen/Creatinine [Mass ratio] 20.9 mg/mg 10-20 [facility] No Panel InformationOrdered By: Judith Lynch on 05-12-2023 Estimated GFR (MDRD) Amer 112 mL/min >60 [facility] Comment on above: GFR Calc Estimated GFR (MDRD) Non-Af Amer 93 mL/min >60 [facility] Comment on above: Non- GFR Calc Vitamin D 25-Hydroxy 51.9 ng/mL [facility] Comment on above: Vitamin D 25(OH) Sta tus Range Deficiency <20 ng/mL (50nmol/L) Insufficiency 20 - 30 ng/mL (50 - 75 nmol/L) Sufficiency 30 - 100 ng/mL (75 - 250 nmol/L) Toxicity >100 ng/mL (>250 nmol/L) Serum or plasma calcium john urement (mass/volume)Ordered By: Juditheduardo Lynch on 05-12-2023 Calcium [Mass/Vol] 9.0 mg/dL 8.5-10.1 [facility] Serum or plasma creatinine m easurement (mass/volume)Ordered By: Judith Lynch on 05-12-2023 Creatinine [Mass/Vol] 0.91 mg/dL 0.70-1.[address] [facility] Comment on above: The validity of the calculated GFR & GFRAA in patients over 70 years has not been determined. Clinical correlation is essential. Serum or plasma thyroid stim ulating hormone (TSH) measurement (units/volume)Ordered By: Juditheduardo Lynch on 05-12-2023 TSH Qn 1.22 uIU/mL 0.358-3.74 [facility] Serum or plasma urea nitroge n measurement (mass/volume)Ordered By: Judith Lynch on 05-12-2023 Urea nitrogen [Mass/Vol] 19 mg/dL 7-18 [facility] Thin prep Papanicolaou smear with manual screeningOrdered By: Judith Lynch on 05-12-2023 Thin prep Papanicolaou smear with manual screening 3.9 g/dL 3.2-5.0 [facility] Thin prep Papanicolaou smear with manual screening 19 U/L 15-37 [facility] Thin prep Papanicolaou smear with manual screening 1 5-15 [facility] Thin prep Papanicolaou smear with manual screening 32.3 mg/L NO RANGE EST. [facility] Urine creatinine measurement (mass/volume)Ordered By: Juditheduardo Lynch on 05-12-2023 Creatinine (U) [Mass/Vol] 217.00 mg/dL NO RANGE EST. [facility] Whole blood hemoglobin A1c/t otal hemoglobin ratio (mass fraction)Ordered By: Judith Lynch on 05-12-2023 HbA1c (Bld) [Mass fraction] 8.5 % 3.8-5.6 [facility] Comment on above: Normal < 5.7 % Predi abetic 5.7 - 6.4 % Diabetic >or= 6.5 % Please note range changes. Absolute lymphocyte countOrd ered By: Arjun Bazan on 03-07-2023 Lymphocytes Auto (Unsp spec) [#/Vol] 2.13 10*3/uL 0.83-4.51 [facility] Basophil percentageOrdered B y: Arjun Bazan on 03-07-2023 Basophils/100 WBC (Bld) 0.4 % 0-1 [facility] Chloride [Moles/Vol] 101 mmol/L 98-107 [facility] Eosinophils/100 WBC (Bld) 2.3 % 0-5 [facility] Glucose [Mass/Vol] 206 mg/dL 74-106 [facility] Comment on above: Glucose result great er than or equal to 200 mg/dLsuggests DIABETES MELLITUS per A.D.A. criteria. Lymphocytes/100 WBC (Bld) 27.0 % 19-41 [facility] Monocytes/100 WBC (Bld) 6.5 % 0-10 [facility] Neutrophils (Bld) [#/Vol] 5.0 10*3/uL 2.0-7.7 [facility] Neutrophils/100 WBC (Bld) 63.5 % 47-70 [facility] Potassium [Moles/Vol] 4.4 mmol/L 3.5-5.[address] [facility] Sodium [Moles/Vol] 138 mmol/L 136-145 [facility] WBC (Bld) [#/Vol] 7.9 10*3/uL 4.4-11.0 [facility] Blood erythrocytes count (nu mber/volume)Ordered By: Arjun Bazan on 03-07-2023 RBC (Bld) [#/Vol] 5.15 10*6/uL 4.6-6.2 [facility] Blood hemoglobin measurement (mass/volume)Ordered By: Arjun Bazan on 03-07-2023 Hemoglobin (Bld) [Mass/Vol] 14.9 g/dL 13.0-16.5 [facility] Blood platelet mean volumeOr dered By: Arjun Bazan on 03-07-2023 Platelet mean volume (Bld) [Entitic vol] 10.3 fL 6.2-12.0 [facility] Determination of erythrocyte mean corpuscular volume (MCV)Ordered By: Arjun Bazan on 03-07-2023 MCV (RBC) [Entitic vol] 89.1 fL 80-94 [facility] Hematocrit Auto (Bld) [Volum e fraction]Ordered By: Arjun Bazan on 03-07-2023 Hematocrit (Bld) [Volume fraction] 45.9 % 40-54 [facility] - Chemistry and C hemistry - challengeOrdered By: Arjun Bazan on 03-07-2023 CO2 [Moles/Vol] 30.0 mmol/L 21.0-32.0 [facility] Urea nitrogen/Creatinine [Mass ratio] 19.3 mg/mg 10-20 [facility] Laboratory - Hematology and Cell countsOrdered By: Arjun Bazan on 03-07-2023 Erythrocyte distribution width (RBC) [Entitic vol] 39.7 fL 35.1-43.9 [facility] Erythrocyte distribution width (RBC) [Ratio] 12.2 % 11.6-14.6 [facility] Immature granulocytes/100 WBC (Bld) 0.300 % 0.0-0.9 [facility] Comment on above: IG% - Immature Granu locytes (promyelocytes, myelocytes and metamyelocytes) > 1% indicates that a LEFT SHIFT is Present. MCH (RBC) [Entitic mass] 28.9 pg 27.0-32.0 [facility] Nucleated RBC/100 WBC (Bld) [Ratio] 0 % 0-5 [facility] MCHC Auto (RBC) [Mass/Vol]Or dered By: Arjun Bazan on 03-07-2023 MCHC (RBC) [Mass/Vol] 32.5 g/dL 32-[address] [facility] No Panel InformationOrdered By: Arjun Bazan on 03-07-2023 D-Dimer Quantitative (PE/DVT) 0.67 FEU/ug/m 0.27-0.49 [facility] Comment on above: D-Dimer ELEVATED (>0 .49): Additional studies and clinicalassessments are indicated to conclude diagnosis of:Deep Vein Thrombosis (DVT) or Pulmonary Embolism (PE)CRITICAL VALUE VERIFIED. CALLED TO ZANE RN (ER)03/07/23 Daron6 Dominic.RESULTS READ BACK BY SAME. Estimated GFR (MDRD) Amer 118 mL/min >60 [facility] Estimated GFR (MDRD) Non-Af Amer 97 mL/min >60 [facility] Troponin I High Sensitivity 5 pg/mL 3.0-78.0 [facility] Comment on above: Please Note: New Tonya t Units and Gender Specific Reference Ranges. For more information see Policy Stat Procedure [place] High Sensitivity Troponin (TNIH) and attachments. Platelets bldOrdered By: Malcolm Bazan on 03-07-2023 Platelets (Bld) [#/Vol] 226 10*3/uL 150-450 [facility] Serum or plasma calcium john urement (mass/volume)Ordered By: Arjun Bazan on 03-07-2023 Calcium [Mass/Vol] 9.0 mg/dL 8.5-10.1 [facility] Serum or plasma creatinine m easurement (mass/volume)Ordered By: Arjun Bazan on 03-07-2023 Creatinine [Mass/Vol] 0.88 mg/dL 0.70-1.[address] [facility] Comment on above: The validity of the calculated GFR & GFRAA in patients over 70 years has not been determined. Clinical correlation is essential. Serum or plasma urea nitroge n measurement (mass/volume)Ordered By: Arjun Bazan on 03-07-2023 Urea nitrogen [Mass/Vol] 17 mg/dL 7-18 [facility] Thin prep Papanicolaou smear with manual screeningOrdered By: Arjun Bazan on 03-07-2023 Thin prep Papanicolaou smear with manual screening 7 5-15 [facility] BMP with eGFRon 03-06-2023 AGE 52 years Normal [facility] Comment on above: Performed By: #### 2 [id number] #### [facility],[address] [place] [address] Anion gap [Moles/Vol] 14 mmol/L Normal 10 - 20 [facility] Comment on above: Performed By: #### 2 [id number] #### [facility],[address] [place] [address] BMP with eGFR Normal [facility] Comment on above: Result Comment: BASI C METABOLIC PANEL Performed By: #### 2 77620 #### [facility],[address] [place] [address] Calcium [Mass/Vol] 9.3 mg/dL Normal 8.5 - 10.1 [facility] Comment on above: Performed By: #### 2 [id number] #### [facility],[address] [place] [address] Chloride [Moles/Vol] 98 mmol/L Normal 98 - 107 [facility] Comment on above: Performed By: #### 2 53238 #### [facility],[address] [place] [address] CO2 [Moles/Vol] 29.2 mmol/L Normal 21.0 - 32.0 [facility] Comment on above: Performed By: #### 2 67988 #### [facility],[address] [place] [address]405 Creatinine [Mass/Vol] 0.89 mg/dL Normal 0.70 - 1.30 [facility] Comment on above: Performed By: #### 2 24102 #### [facility],[address] [place] [address]63 GFR/1.73 sq M.predicted among non-blacks MDRD (S/P/Bld) [Vol rate/Area] mL/min/{1.73_m2} Normal 60 - 999 [facility] Comment on above: Performed By: #### 2 88627 #### [facility],[address] [place], [place] [id number] Result Comment: ACCO RDING TO THE NATIONAL KIDNEY DISEASE EDUCATION PROGRAM(NKDE), A NORMAL eGFR IS A VALUE GREATER THAN OR EQUAL TO 60 ML/MIN/1.73 SQ METERS. CHRONIC KIDNEY DISEASE: <60mL/MIN/1.73 SQ METERS KIDNEY FAILURE: <15mL/MIN/1.73 SQ METERS THIS TEST SHOULD ONLY BE USED FOR PATIENTS 18 YEARS OF AGE AND OLDER. Glucose [Mass/Vol] 297 mg/dL High 74 - 106 [facility] Comment on above: Performed By: #### 2 30712 #### [place] [address] Potassium [Moles/Vol] 4.7 mmol/L Normal 3.5 - 5.1 [facility] Comment on above: Performed By: #### 2 09587 #### [facility],[address] [place] [address] Sodium [Moles/Vol] 136 mmol/L Normal 136 - 145 [facility] Comment on above: Performed By: #### 2 91454 #### [place] [address] Urea nitrogen [Mass/Vol] 14 mg/dL Normal 7 - 18 [facility] Comment on above: Performed By: #### 2 30295 #### [place] [address] CBC + DIFFon 03-06-2023 Baso # 0.10 x10EE3/UL Normal 0.00 - 0.10 [facility] Comment on above: Performed By: #### 2 78183 #### [facility],[address] [place], [place] [phone] Basophils/100 WBC (Bld) 0.9 % Normal 0.0 - 2.0 [facility] Comment on above: Performed By: #### 2 77690 #### [facility],[address] [place] [address] CBC + DIFF Normal [facility] Comment on above: Result Comment: CBC- COMPLETE BLOOD COUNT Performed By: #### 2 16566 #### [place] [id number] EO # 0.10 x10EE3/UL Normal 0.00 - 0.50 [facility] Comment on above: Performed By: #### 2 34836 #### [facility],[address] [place], [place] [id number] Eosinophils/100 WBC (Bld) 1.4 % Normal 0.0 - 7.0 [facility] Comment on above: Performed By: #### 2 68190 #### [facility],[address] [place] [address] Erythrocyte distribution width (RBC) [Ratio] 13.2 % Normal 12.0 - 15.6 [facility] Comment on above: Performed By: #### 2 77069 #### [facility],[address] [place] [address] Hematocrit (Bld) [Volume fraction] 45.1 % Normal 40.0 - 52.0 [facility] Comment on above: Performed By: #### 2 67575 #### [facility],[address] [place] [address] Hemoglobin (Bld) [Mass/Vol] 15.1 g/dL Normal 13.0 - 17.5 [facility] Comment on above: Performed By: #### 2 49741 #### [facility],[address] [place] [address] Lymph # 2.30 x10EE3/UL Normal 0.80 - 2.80 [facility] Comment on above: Performed By: #### 2 45935 #### [facility],[address] [place] [address]20 Lymphocytes/100 WBC (Bld) 27.6 % Normal 20.0 - 45.0 [facility] Comment on above: Performed By: #### 2 32837 #### [facility],[address] [place], [place] [phone] MANUAL DIFF N/A Normal [facility] Comment on above: Performed By: #### 2 80401 #### [facility],[address] [place] [address] MCH (RBC) [Entitic mass] 30 pg Normal 27 - 33 [facility] Comment on above: Performed By: #### 2 98418 #### [facility],[address] [place] [address] MCHC 33 X10 3 Normal 32 - 36 [facility] Comment on above: Performed By: #### 2 61544 #### [facility],[address] [place] [address] MCV (RBC) [Entitic vol] 88 fL Normal 81 - 98 [facility] Comment on above: Performed By: #### 2 21896 #### [facility],[address] [place] [address] [place] # 0.50 x10EE3/UL Normal 0.20 - 1.00 [facility] Comment on above: Performed By: #### 2 98493 #### [facility],[address] [place] [address] MONOS % 6.0 % Normal 0.0 - 10.0 [facility] Comment on above: Performed By: #### 2 54846 #### [facility],[address] [place] [address] Morphology Inderjit (Bld) [Interp] N/A Normal [facility] Comment on above: Result Comment: {CD] Performed By: #### 2 16817 #### [facility],[address] [place] [address] Neut # 5.20 x10EE3/UL Normal 1.50 - 7.10 [facility] Comment on above: Performed By: #### 2 16386 #### [facility],[address] [place] [address] Neutrophils/100 WBC (Bld) 64.1 % Normal 46.0 - 76.0 [facility] Comment on above: Performed By: #### 2 38343 #### [facility],[address] [place] [address] PLATELET 250 x10EE3/UL Normal 150 - 450 [facility] Comment on above: Performed By: #### 2 69862 #### [facility],[address] [place] [address] Platelet mean volume (Bld) [Entitic vol] 8.2 fL Normal 6.4 - 10.5 [facility] Comment on above: Result Comment: AUTO MATED DIFFERENTIAL Performed By: #### 2 99854 #### [facility],[address] [place] [address] 64068 RBC 5.10 x 10EE6/UL Normal 4.50 - 6.00 [facility] Comment on above: Performed By: #### 2 54582 #### [facility],[address] [place] [address]654 WBC 8.2 x 10EE3/UL Normal 4.5 - 10.8 [facility] Comment on above: Performed By: #### 2 53051 #### [facility],[address] [place] [address]87 HEMOGLOBIN A1C (POM)on 03-06 HbA1c (Bld) [Mass fraction] 8.5 % High 0.0 - 6.5 [facility] Comment on above: Result Comment: BLDo HEMOGLOBIN A1C REFERENCE RANGESBLDo Suggested Diagnosis HbA1c(%) HbA1C (mmol/mol Diabetic >/=6.5 >/=48 Prediabetes 5.7 - 6.4 39 - 47 Normal <5.7 <39 Performed By: #### 2 68863 #### [facility],[address] [place] [address] Basophil percentageOrdered B y: Judith Carrillojosilynsey on 01-23-2023 Bilirubin [Mass/Vol] 0.40 mg/dL 0.20-1.00 [facility] Comment on above: For patients on eltr ombopag therapy, use of Dimension [place] TBIL is not recommended. Chloride [Moles/Vol] 104 mmol/L 98-107 [facility] Cholesterol [Mass/Vol] 116 mg/dL <200 [facility] Comment on above: <200 mg/dL Desirable 200-240 mg/dL Borderline >240 mg/dL High Risk Glucose [Mass/Vol] 264 mg/dL 74-106 [facility] Comment on above: Glucose result great er than or equal to 200 mg/dLsuggests DIABETES MELLITUS per A.D.A. criteria. Potassium [Moles/Vol] 4.2 mmol/L 3.5-5.[address] [facility] Protein [Mass/Vol] 7.5 g/dL 6.4-8.2 [facility] Sodium [Moles/Vol] 134 mmol/L 136-145 [facility] Triglyceride [Mass/Vol] 94 mg/dL <199 [facility] Comment on above: The drugs N-Acetylcy steine and Metamizole may falsely depress this assay.Serum Triglycerides Reference Interval Normal <150 mg/dL Borderline high 150 - 199 mg/dL High 200 - 499 mg/dL Very High > or = 500 mg/dL Laboratory - Chemistry and C hemistry - challengeOrdered By: Judith Lynch on 01-23-2023 ALP [Catalytic activity/Vol] 111 U/L 45-117 [facility] ALT [Catalytic activity/Vol] 41 U/L 16-61 [facility] CO2 [Moles/Vol] 25.0 mmol/L 21.0-32.0 [facility] Globulin (S) [Mass/Vol] 3.7 g/dL 2.2-4.2 [facility] Urea nitrogen/Creatinine [Mass ratio] 19.0 mg/mg 10-20 [facility] No Panel InformationOrdered By: Judith Lynch on 01-23-2023 Ionized Calcium 4.86 mg/dL 4.36-5.20 [facility] Estimated GFR (MDRD) Amer 96 mL/min >60 [facility] Comment on above: GFR Calc Estimated GFR (MDRD) Non-Af Amer 79 mL/min >60 [facility] Comment on above: Non- GFR Calc Free Triiodothyronine (T3) pg/dL 2.9 pg/mL 2.18-3.98 [facility] Parathyroid Hormone (Intact) 32.2 pg/mL 18.4-80.1 [facility] Thyroid Stimulating Hormone (TSH) 2.02 uIU/mL 0.358-3.74 [facility] Vitamin D 25-Hydroxy 57.0 ng/mL [facility] Comment on above: Vitamin D 25(OH) Sta tus Range Deficiency <20 ng/mL (50nmol/L) Insufficiency 20 - 30 ng/mL (50 - 75 nmol/L) Sufficiency 30 - 100 ng/mL (75 - 250 nmol/L) Toxicity >100 ng/mL (>250 nmol/L) Serum or plasma albumin john urement (mass/volume)Ordered By: Juditheduardo Lynch on 01-23-2023 Albumin [Mass/Vol] 3.8 g/dL 3.2-5.0 [facility] Serum or plasma albumin/glob ulin mass ratioOrdered By: Judith [facility] 01-23-2023 Albumin/Globulin [Mass ratio] 1.0 {ratio} 0.9-2.4 [facility] Serum or plasma calcium john urement (mass/volume)Ordered By: Juditheduardo Lynch on 01-23-2023 Calcium [Mass/Vol] 9.1 mg/dL 8.5-10.1 [facility] Serum or plasma cholesterol in HDL measurement (mass/volume)Ordered By: Juditheduardo Lynch on 01-23-2023 Cholesterol in HDL [Mass/Vol] 36 mg/dL >40 [facility] Comment on above: The drugs N-Acetylcy steine and Metamizole may falsely depress this assay. Reference Range HDL <40 mg/dL Low HDL Cholesterol HDL >or= 60 mg/dL High HDL Cholesterol Serum or plasma cholesterol in VLDL measurement (mass/volume)Ordered By: Juditheduardo Lynch on 01-23-2023 Cholesterol in VLDL [Mass/Vol] 19 mg/dL 5-40 [facility] Serum or plasma creatinine m easurement (mass/volume)Ordered By: Juditheduardo Lynch on 01-23-2023 Creatinine [Mass/Vol] 1.05 mg/dL 0.70-1.[address] [facility] Comment on above: The validity of the calculated GFR & GFRAA in patients over 70 years has not been determined. Clinical correlation is essential. Serum or plasma low density lipoprotein (LDL) cholesterol measurement (mass/volume)Ordered By: Judith Lynch on 01-23-2023 Cholesterol in LDL [Mass/Vol] 61 mg/dL 0-130 [facility] Serum or plasma urea nitroge n measurement (mass/volume)Ordered By: Judith Lynch on 01-23-2023 Urea nitrogen [Mass/Vol] 20 mg/dL 7-18 [facility] Thin prep Papanicolaou smear with manual screeningOrdered By: Juditheduardo Lynch on 01-23-2023 Thin prep Papanicolaou smear with manual screening 19 U/L 15-37 [facility] Thin prep Papanicolaou smear with manual screening 5 5-15 [facility] Whole blood hemoglobin A1c/t otal hemoglobin ratio (mass fraction)Ordered By: Judith Lynch on 01-23-2023 HbA1c (Bld) [Mass fraction] 9.3 % 3.8-5.6 [facility] Comment on above: Normal < 5.7 % Predi abetic 5.7 - 6.4 % Diabetic >or= 6.5 % Please note range changes. Basophil percentageOrdered B y: Dr. Lynch on 09-26-2022 Bilirubin [Mass/Vol] 0.50 mg/dL 0.20-1.00 [facility] Comment on above: For patients on eltr ombopag therapy, use of Dimension [place] TBIL is not recommended. Chloride [Moles/Vol] 105 mmol/L 98-107 [facility] Cholesterol [Mass/Vol] 126 mg/dL <200 [facility] Comment on above: <200 mg/dL Desirable 200-240 mg/dL Borderline >240 mg/dL High Risk Glucose [Mass/Vol] 106 mg/dL 74-106 [facility] Comment on above: Fasting Glucose resu lt from 100 to 125 mg/dL suggests IMPAIRED HOMEOSTASIS per A.D.A. criteria. Potassium [Moles/Vol] 4.1 mmol/L 3.5-5.[address] [facility] Protein [Mass/Vol] 7.3 g/dL 6.4-8.2 [facility] Sodium [Moles/Vol] 139 mmol/L 136-145 [facility] Triglyceride [Mass/Vol] 124 mg/dL <199 [facility] Comment on above: The drugs N-Acetylcy steine and Metamizole may falsely depress this assay.Serum Triglycerides Reference Interval Normal <150 mg/dL Borderline high 150 - 199 mg/dL High 200 - 499 mg/dL Very High > or = 500 mg/dL Laboratory - Chemistry and C hemistry - challengeOrdered By: Dr. Lynch on 09-26-2022 ALP [Catalytic activity/Vol] 95 U/L 45-117 [facility] ALT [Catalytic activity/Vol] 25 U/L 16-61 [facility] CO2 [Moles/Vol] 29.0 mmol/L 21.0-32.0 [facility] Globulin (S) [Mass/Vol] 3.3 g/dL 2.2-4.2 [facility] Urea nitrogen/Creatinine [Mass ratio] 17.5 mg/mg 10-20 [facility] No Panel InformationOrdered By: Dr. Lynch on 09-26-2022 Estimated GFR (MDRD) Amer 112 mL/min >60 [facility] Comment on above: GFR Calc Estimated GFR (MDRD) Non-Af Amer 93 mL/min >60 [facility] Comment on above: Non- GFR Calc Serum or plasma albumin john urement (mass/volume)Ordered By: Dr. Lynch on 09-26-2022 Albumin [Mass/Vol] 4.0 g/dL 3.2-5.0 [facility] Serum or plasma albumin/glob ulin mass ratioOrdered By: Dr. Lynch on 09-26-2022 Albumin/Globulin [Mass ratio] 1.2 {ratio} 0.9-2.4 [facility] Serum or plasma calcium john urement (mass/volume)Ordered By: Dr. Lynch on 09-26-2022 Calcium [Mass/Vol] 10.2 mg/dL 8.5-10.1 [facility] Serum or plasma cholesterol in HDL measurement (mass/volume)Ordered By: Dr. Lynch on 09-26-2022 Cholesterol in HDL [Mass/Vol] 35 mg/dL >40 [facility] Comment on above: The drugs N-Acetylcy steine and Metamizole may falsely depress this assay. Reference Range HDL <40 mg/dL Low HDL Cholesterol HDL >or= 60 mg/dL High HDL Cholesterol Serum or plasma cholesterol in VLDL measurement (mass/volume)Ordered By: Dr. Lynch on 09-26-2022 Cholesterol in VLDL [Mass/Vol] 25 mg/dL 5-40 [facility] Serum or plasma creatinine m easurement (mass/volume)Ordered By: Dr. Lynch on 09-26-2022 Creatinine [Mass/Vol] 0.92 mg/dL 0.70-1.[address] [facility] Comment on above: The validity of the calculated GFR & GFRAA in patients over 70 years has not been determined. Clinical correlation is essential. Serum or plasma low density lipoprotein (LDL) cholesterol measurement (mass/volume)Ordered By: Dr. Lynch on 09-26-2022 Cholesterol in LDL [Mass/Vol] 66 mg/dL 0-130 [facility] Serum or plasma urea nitroge n measurement (mass/volume)Ordered By: Dr. Lynch on 09-26-2022 Urea nitrogen [Mass/Vol] 16 mg/dL 7-18 [facility] Thin prep Papanicolaou smear with manual screeningOrdered By: Dr. Lynch on 09-26-2022 Thin prep Papanicolaou smear with manual screening 15 U/L 15-37 [facility] Thin prep Papanicolaou smear with manual screening 5 5-15 [facility] Thin prep Papanicolaou smear with manual screening 11.4 mg/L NO RANGE EST. [facility] Whole blood hemoglobin A1c/t otal hemoglobin ratio (mass fraction)Ordered By: Dr. Lynch on 09-26-2022 HbA1c (Bld) [Mass fraction] 8.5 % 3.8-5.6 [facility] Comment on above: Normal < 5.7 % Predi abetic 5.7 - 6.4 % Diabetic >or= 6.5 % Please note range changes. Basophil percentageOrdered B y: Dr. Lynch on 06-02-2022 Bilirubin [Mass/Vol] 0.50 mg/dL 0.20-1.00 [facility] Comment on above: For patients on eltr ombopag therapy, use of Dimension [place] TBIL is not recommended. Chloride [Moles/Vol] 101 mmol/L 98-107 [facility] Cholesterol [Mass/Vol] 183 mg/dL <200 [facility] Comment on above: <200 mg/dL Desirable 200-240 mg/dL Borderline >240 mg/dL High Risk Glucose [Mass/Vol] 320 mg/dL 74-106 [facility] Comment on above: Glucose result great er than or equal to 200 mg/dLsuggests DIABETES MELLITUS per A.D.A. criteria. Potassium [Moles/Vol] 4.0 mmol/L 3.5-5.[address] [facility] Protein [Mass/Vol] 7.3 g/dL 6.4-8.2 [facility] Sodium [Moles/Vol] 136 mmol/L 136-145 [facility] Triglyceride [Mass/Vol] 89 mg/dL <199 [facility] Comment on above: The drugs N-Acetylcy steine and Metamizole may falsely depress this assay.Serum Triglycerides Reference Interval Normal <150 mg/dL Borderline high 150 - 199 mg/dL High 200 - 499 mg/dL Very High > or = 500 mg/dL Laboratory - Chemistry and C hemistry - challengeOrdered By: Dr. Lynch on 06-02-2022 ALP [Catalytic activity/Vol] 97 U/L 45-117 [facility] ALT [Catalytic activity/Vol] 27 U/L 16-61 [facility] CO2 [Moles/Vol] 26.0 mmol/L 21.0-32.0 [facility] Free T4 [Mass/Vol] 0.98 ng/dL 0.76-1.46 [facility] Globulin (S) [Mass/Vol] 3.5 g/dL 2.2-4.2 [facility] Urea nitrogen/Creatinine [Mass ratio] 17.4 mg/mg 10-20 [facility] No Panel InformationOrdered By: Dr. Lynch on 06-02-2022 Estimated GFR (MDRD) Amer 111 mL/min >60 [facility] Comment on above: GFR Calc Estimated GFR (MDRD) Non-Af Amer 92 mL/min >60 [facility] Comment on above: Non- GFR Calc Thyroid Stimulating Hormone (TSH) 1.62 uIU/mL 0.358-3.74 [facility] Vitamin D 25-Hydroxy 58.6 ng/mL [facility] Comment on above: Vitamin D 25(OH) Sta tus Range Deficiency <20 ng/mL (50nmol/L) Insufficiency 20 - 30 ng/mL (50 - 75 nmol/L) Sufficiency 30 - 100 ng/mL (75 - 250 nmol/L) Toxicity >100 ng/mL (>250 nmol/L) Serum or plasma albumin john urement (mass/volume)Ordered By: Dr. Lynch on 06-02-2022 Albumin [Mass/Vol] 3.8 g/dL 3.2-5.0 [facility] Serum or plasma albumin/glob ulin mass ratioOrdered By: Dr. Lynch on 06-02-2022 Albumin/Globulin [Mass ratio] 1.1 {ratio} 0.9-2.4 [facility] Serum or plasma calcium john urement (mass/volume)Ordered By: Dr. Lynch on 06-02-2022 Calcium [Mass/Vol] 9.2 mg/dL 8.5-10.1 [facility] Serum or plasma cholesterol in HDL measurement (mass/volume)Ordered By: Dr. Lynch on 06-02-2022 Cholesterol in HDL [Mass/Vol] 41 mg/dL >40 [facility] Comment on above: The drugs N-Acetylcy steine and Metamizole may falsely depress this assay. Reference Range HDL <40 mg/dL Low HDL Cholesterol HDL >or= 60 mg/dL High HDL Cholesterol Serum or plasma cholesterol in VLDL measurement (mass/volume)Ordered By: Dr. Lynch on 06-02-2022 Cholesterol in VLDL [Mass/Vol] 18 mg/dL 5-40 [facility] Serum or plasma creatinine m easurement (mass/volume)Ordered By: Dr. Lynch on 06-02-2022 Creatinine [Mass/Vol] 0.92 mg/dL 0.70-1.[address] [facility] Comment on above: The validity of the calculated GFR & GFRAA in patients over 70 years has not been determined. Clinical correlation is essential. Serum or plasma low density lipoprotein (LDL) cholesterol measurement (mass/volume)Ordered By: Dr. Lynch on 06-02-2022 Cholesterol in LDL [Mass/Vol] 124 mg/dL 0-130 [facility] Serum or plasma urea nitroge n measurement (mass/volume)Ordered By: Dr. Lynch on 06-02-2022 Urea nitrogen [Mass/Vol] 16 mg/dL 7-18 [facility] Thin prep Papanicolaou smear with manual screeningOrdered By: Dr. Lynch on 06-02-2022 Thin prep Papanicolaou smear with manual screening 16 U/L 15-37 [facility] Thin prep Papanicolaou smear with manual screening 9 5-15 [facility] Thin prep Papanicolaou smear with manual screening 16.3 mg/L NO RANGE EST. [facility] Whole blood hemoglobin A1c/t otal hemoglobin ratio (mass fraction)Ordered By: Dr. Lynch on 06-02-2022 HbA1c (Bld) [Mass fraction] 8.5 % 3.8-5.6 [facility] Comment on above: Normal < 5.7 % Predi abetic 5.7 - 6.4 % Diabetic >or= 6.5 % Please note range changes. Basophil percentageon 2021 Bilirubin [Mass/Vol] 0.50 mg/dL 0.20-1.00 [facility] Work Phone: Comment on above: For patients on eltr ombopag therapy, use of Dimension [place] TBIL is not recommended. Chloride [Moles/Vol] 104 mmol/L 98-107 [facility] Work Phone: Cholesterol [Mass/Vol] 198 mg/dL <200 [facility] Work Phone: Comment on above: <200 mg/dL Desirable 200-240 mg/dL Borderline >240 mg/dL High Risk Glucose [Mass/Vol] 156 mg/dL 74-106 [facility] Work Phone: Comment on above: Fasting Glucose resu lt greater than or equal to 126 mg/dL suggests DIABETES MELLITUS per A.D.A. criteria. Potassium [Moles/Vol] 4.0 mmol/L 3.5-5.1 [facility] Work Phone: Protein [Mass/Vol] 7.5 g/dL 6.4-8.2 [facility] r [facility] Work Phone: Sodium [Moles/Vol] 138 mmol/L 136-145 [facility] Work Phone: Triglyceride [Mass/Vol] 127 mg/dL <199 [facility] Work Phone: Comment on above: The drugs N-Acetylcy steine and Metamizole may falsely depress this assay.Serum Triglycerides Reference Interval Normal <150 mg/dL Borderline high 150 - 199 mg/dL High 200 - 499 mg/dL Very High > or = 500 mg/dL Laboratory - Chemistry and C hemistry - challengeon 02-28-2022 ALP [Catalytic activity/Vol] 97 U/L 45-117 [facility] Work Phone: ALT [Catalytic activity/Vol] 23 U/L 16-61 [facility] Work Phone: CO2 [Moles/Vol] 30.0 mmol/L 21.0-32.0 [facility] Work Phone: Globulin (S) [Mass/Vol] 3.6 g/dL 2.2-4.2 [facility] Work Phone: Urea nitrogen/Creatinine [Mass ratio] 15.5 mg/mg 10-20 [facility] Work Phone: No Panel Informationon 02-28 Estimated GFR (MDRD) Amer 114 mL/min >60 [facility] Work Phone: Comment on above: GFR Calc Estimated GFR (MDRD) Non-Af Amer 94 mL/min >60 [facility] Work Phone: Comment on above: Non- GFR Calc Thyroid Stimulating Hormone (TSH) 1.36 uIU/mL 0.358-3.74 [facility] Work Phone: Vitamin D 25-Hydroxy 65.2 ng/mL [facility] Work Phone: Comment on above: Vitamin D 25(OH) Sta tus Range Deficiency <20 ng/mL (50nmol/L) Insufficiency 20 - 30 ng/mL (50 - 75 nmol/L) Sufficiency 30 - 100 ng/mL (75 - 250 nmol/L) Toxicity >100 ng/mL (>250 nmol/L) Serum or plasma albumin john urement (mass/volume)on 02-28-2022 Albumin [Mass/Vol] 3.9 g/dL 3.2-5.0 [facility] Work Phone: Serum or plasma albumin/glob ulin mass ratioon 02-28-2022 Albumin/Globulin [Mass ratio] 1.1 {ratio} 0.9-2.4 [facility] Work Phone: Serum or plasma calcium john urement (mass/volume)on 02-28-2022 Calcium [Mass/Vol] 9.1 mg/dL 8.5-10.1 [facility] Work Phone: Serum or plasma cholesterol in HDL measurement (mass/volume)on 02-28-2022 Cholesterol in HDL [Mass/Vol] 43 mg/dL >40 [facility] Work Phone: Comment on above: The drugs N-Acetylcy steine and Metamizole may falsely depress this assay. Reference Range HDL <40 mg/dL Low HDL Cholesterol HDL >or= 60 mg/dL High HDL Cholesterol Serum or plasma cholesterol in VLDL measurement (mass/volume)on 02-28-2022 Cholesterol in VLDL [Mass/Vol] 25 mg/dL 5-40 [facility] Work Phone: Serum or plasma creatinine m easurement (mass/volume)on 02-28-2022 Creatinine [Mass/Vol] 0.90 mg/dL 0.70-1.[address] [facility] Work Phone: Comment on above: The validity of the calculated GFR & GFRAA in patients over 70 years has not been determined. Clinical correlation is essential. Serum or plasma low density lipoprotein (LDL) cholesterol measurement (mass/volume)on 02-28-2022 Cholesterol in LDL [Mass/Vol] 130 mg/dL 0-130 [facility] Work Phone: Serum or plasma urea nitroge n measurement (mass/volume)on 02-28-2022 Urea nitrogen [Mass/Vol] 14 mg/dL 7-18 [facility] Work Phone: Thin prep Papanicolaou smear with manual screeningon 02-28-2022 Thin prep Papanicolaou smear with manual screening 14 U/L 15-37 [facility] Work Phone: Thin prep Papanicolaou smear with manual screening 4 5-15 [facility] Work Phone: Thin prep Papanicolaou smear with manual screening 13.4 mg/L NO RANGE EST. [facility] Work Phone: Whole blood hemoglobin A1c/t otal hemoglobin ratio (mass fraction)on 02-28-2022 HbA1c (Bld) [Mass fraction] 8.4 % 3.8-5.6 [facility] Work Phone: Comment on above: Normal < 5.7 % Predi abetic 5.7 - 6.4 % Diabetic >or= 6.5 % Please note range changes. Basophil percentageon 2021 Bilirubin [Mass/Vol] 0.40 mg/dL 0.20-1.00 [facility] Work Phone: Comment on above: For patients on eltr ombopag therapy, use of Dimension [place] TBIL is not recommended. Chloride [Moles/Vol] 102 mmol/L 98-107 [facility] Work Phone: Cholesterol [Mass/Vol] 162 mg/dL <200 [facility] Work Phone: Comment on above: <200 mg/dL Desirable 200-240 mg/dL Borderline >240 mg/dL High Risk Glucose [Mass/Vol] 203 mg/dL 74-106 [facility] Work Phone: Comment on above: Glucose result great er than or equal to 200 mg/dLsuggests DIABETES MELLITUS per A.D.A. criteria. Potassium [Moles/Vol] 4.0 mmol/L 3.5-5.1 [facility] Work Phone: Protein [Mass/Vol] 7.4 g/dL 6.4-8.2 [facility] Work Phone: Sodium [Moles/Vol] 136 mmol/L 136-145 [facility] Work Phone: Triglyceride [Mass/Vol] 115 mg/dL <199 [facility] Work Phone: Comment on above: The drugs N-Acetylcy steine and Metamizole may falsely depress this assay.Serum Triglycerides Reference Interval Normal <150 mg/dL Borderline high 150 - 199 mg/dL High 200 - 499 mg/dL Very High > or = 500 mg/dL Laboratory - Chemistry and C hemistry - challengeon 11-21-2021 ALP [Catalytic activity/Vol] 101 U/L 45-117 [facility] Work Phone: ALT [Catalytic activity/Vol] 20 U/L 16-61 [facility] Work Phone: CO2 [Moles/Vol] 28.0 mmol/L 21.0-32.0 [facility] Work Phone: Globulin (S) [Mass/Vol] 3.5 g/dL 2.2-4.2 [facility] Work Phone: Urea nitrogen/Creatinine [Mass ratio] 13.9 mg/mg 10-20 [facility] Work Phone: No Panel Informationon 11-21 Estimated GFR (MDRD) Amer 110 mL/min >60 [facility] Work Phone: Comment on above: GFR Calc Estimated GFR (MDRD) Non-Af Amer 91 mL/min >60 [facility] Work Phone: Comment on above: Non- GFR Calc Serum or plasma albumin john urement (mass/volume)on 11-21-2021 Albumin [Mass/Vol] 3.9 g/dL 3.2-5.0 [facility] Work Phone: Serum or plasma albumin/glob ulin mass ratioon 11-21-2021 Albumin/Globulin [Mass ratio] 1.1 {ratio} 0.9-2.4 [facility] Work Phone: Serum or plasma calcium john urement (mass/volume)on 11-21-2021 Calcium [Mass/Vol] 9.0 mg/dL 8.5-10.1 [facility] Work Phone: Serum or plasma cholesterol in HDL measurement (mass/volume)on 11-21-2021 Cholesterol in HDL [Mass/Vol] 37 mg/dL >40 [facility] Work Phone: Comment on above: The drugs N-Acetylcy steine and Metamizole may falsely depress this assay. Reference Range HDL <40 mg/dL Low HDL Cholesterol HDL >or= 60 mg/dL High HDL Cholesterol Serum or plasma cholesterol in VLDL measurement (mass/volume)on 11-21-2021 Cholesterol in VLDL [Mass/Vol] 23 mg/dL 5-40 [facility] Work Phone: Serum or plasma creatinine m easurement (mass/volume)on 11-21-2021 Creatinine [Mass/Vol] 0.94 mg/dL 0.70-1.[address] [facility] Work Phone: Comment on above: The validity of the calculated GFR & GFRAA in patients over 70 years has not been determined. Clinical correlation is essential. Serum or plasma low density lipoprotein (LDL) cholesterol measurement (mass/volume)on 11-21-2021 Cholesterol in LDL [Mass/Vol] 102 mg/dL 0-130 [facility] Work Phone: Serum or plasma urea nitroge n measurement (mass/volume)on 11-21-2021 Urea nitrogen [Mass/Vol] 13 mg/dL 7-18 [facility] Work Phone: Thin prep Papanicolaou smear with manual screeningon 11-21-2021 Thin prep Papanicolaou smear with manual screening 11 U/L 15-37 [facility] Work Phone: Thin prep Papanicolaou smear with manual screening 6 - [facility] Work Phone: Whole blood hemoglobin A1c/t otal hemoglobin ratio (mass fraction)on 11-21-2021 HbA1c (Bld) [Mass fraction] 8.8 % 3.8-5.6 [facility] Work Phone: Comment on above: Normal < 5.7 % Predi abetic 5.7 - 6.4 % Diabetic >or= 6.5 % Please note range changes. Basophil percentageon 2021 Bilirubin [Mass/Vol] 0.40 mg/dL 0.20-1.00 [facility] Work Phone: Comment on above: For patients on eltr ombopag therapy, use of Dimension [place] TBIL is not recommended. Chloride [Moles/Vol] 101 mmol/L 98-107 [facility] Work Phone: Cholesterol [Mass/Vol] 182 mg/dL <200 [facility] Work Phone: Comment on above: <200 mg/dL Desirable 200-240 mg/dL Borderline >240 mg/dL High Risk Glucose [Mass/Vol] 198 mg/dL 74-106 [facility] Work Phone: Comment on above: Fasting Glucose resu lt greater than or equal to 126 mg/dL suggests DIABETES MELLITUS per A.D.A. criteria. Potassium [Moles/Vol] 3.9 mmol/L 3.5-5.[address] [facility] Work Phone: Protein [Mass/Vol] 7.6 g/dL 6.4-8.2 [facility] Work Phone: Sodium [Moles/Vol] 138 mmol/L 136-145 [facility] Work Phone: Triglyceride [Mass/Vol] 254 mg/dL [facility] Work Phone: Comment on above: The drugs N-Acetylcy steine and Metamizole may falsely depress this assay.Serum Triglycerides Reference Interval Normal <150 mg/dL Borderline high 150 - 199 mg/dL High 200 - 499 mg/dL Very High > or = 500 mg/dL Laboratory - Chemistry and C hemistry - challengeon 07-04-2021 ALP [Catalytic activity/Vol] 113 U/L 45-117 [facility] Work Phone: ALT [Catalytic activity/Vol] 25 U/L 16-61 [facility] Work Phone: CO2 [Moles/Vol] 29.0 mmol/L 21.0-32.0 [facility] Work Phone: Free T4 [Mass/Vol] 1.17 ng/dL 0.76-1.46 [facility] Work Phone: Globulin (S) [Mass/Vol] 3.5 g/dL 2.2-4.2 [facility] Work Phone: Urea nitrogen/Creatinine [Mass ratio] 20.5 mg/mg 10-20 [facility] Work Phone: No Panel Informationon 07-04 Estimated GFR (MDRD) Amer 111 mL/min >60 [facility] Work Phone: Comment on above: GFR Calc Estimated GFR (MDRD) Non-Af Amer 92 mL/min >60 [facility] Work Phone: Comment on above: Non- GFR Calc Thyroid Stimulating Hormone (TSH) 3.37 uIU/mL 0.358-3.74 [facility] Work Phone: Vitamin D 25-Hydroxy 64.8 ng/mL [facility] Work Phone: Comment on above: Vitamin D 25(OH) Sta tus Range Deficiency <20 ng/mL (50nmol/L) Insufficiency 20 - 30 ng/mL (50 - 75 nmol/L) Sufficiency 30 - 100 ng/mL (75 - 250 nmol/L) Toxicity >100 ng/mL (>250 nmol/L) Serum or plasma albumin john urement (mass/volume)on 07-04-2021 Albumin [Mass/Vol] 4.1 g/dL 3.2-5.0 [facility] Work Phone: Serum or plasma albumin/glob ulin mass ratioon 07-04-2021 Albumin/Globulin [Mass ratio] 1.2 {ratio} 0.9-2.4 [facility] Work Phone: Serum or plasma calcium john urement (mass/volume)on 07-04-2021 Calcium [Mass/Vol] 9.2 mg/dL 8.5-10.1 [facility] Work Phone: Serum or plasma cholesterol in HDL measurement (mass/volume)on 07-04-2021 Cholesterol in HDL [Mass/Vol] 39 mg/dL [facility] Work Phone: Comment on above: The drugs N-Acetylcy steine and Metamizole may falsely depress this assay. Reference Range HDL <40 mg/dL Low HDL Cholesterol HDL >or= 60 mg/dL High HDL Cholesterol Serum or plasma cholesterol in VLDL measurement (mass/volume)on 07-04-2021 Cholesterol in VLDL [Mass/Vol] 51 mg/dL 5-40 [facility] Work Phone: Serum or plasma creatinine m easurement (mass/volume)on 07-04-2021 Creatinine [Mass/Vol] 0.93 mg/dL 0.70-1.[address] [facility] Work Phone: Comment on above: The validity of the calculated GFR & GFRAA in patients over 70 years has not been determined. Clinical correlation is essential. Serum or plasma low density lipoprotein (LDL) cholesterol measurement (mass/volume)on 07-04-2021 Cholesterol in LDL [Mass/Vol] 92 mg/dL 0-130 [facility] Work Phone: Serum or plasma urea nitroge n measurement (mass/volume)on 07-04-2021 Urea nitrogen [Mass/Vol] 19 mg/dL 7-18 [facility] Work Phone: Thin prep Papanicolaou smear with manual screeningon 07-04-2021 Thin prep Papanicolaou smear with manual screening 14 U/L 15-37 [facility] Work Phone: Thin prep Papanicolaou smear with manual screening 8 5-15 [facility] Work Phone: Thin prep Papanicolaou smear with manual screening 75.1 mg/L NO RANGE EST. [facility] Work Phone: Whole blood hemoglobin A1c/t otal hemoglobin ratio (mass fraction)on 07-04-2021 HbA1c (Bld) [Mass fraction] 8.1 % 3.8-5.6 [facility] Work Phone: Comment on above: Normal < 5.7 % Predi abetic 5.7 - 6.4 % Diabetic >or= 6.5 % Please note range changes. FLUOROSCOPY IN OR/PAIN MGTon 03-07-2021 FLUOROSCOPY IN OR/PAIN MGT FLUOROSCOPY IN OR/PAIN MGT Ordering Physician: Ramses Null MD 03/07/2021 1:52 PM FLUOROSCOPY IN OR Clinical Statement: Recurrent herniated disc Comparison: None FINDINGS: Fluoroscopy was provided to Dr. Null. A single lateral fluoroscopic image of the lumbar spine demonstrates a marker directed posterior to the L4-5 disc space level. 1 seconds of fluoroscopic time was utilized in the OR. IMPRESSION: Report generated to document fluoroscopic time utilized in the OR. This report was electronically signed by Jamaal Connor MD 03/07/2021 2:25 PM Reported By: JAMAAL CONNOR M.D. Signed By: JAMAAL CONNOR M.D. Normal [facility] GLUCOSE METERon 03-07-2021 Glucose [Mass/Vol] 221 mg/dL High 70-115 [facility] OR.OPRPTon 03-07-2021 Operative Report Normal [facility] OR.OPRPT [facility] Patient Name: DEEPA RUFFIN [address] Date of : [address] [place], [place] [address] Unit Number: [id number] Operative Report Patient Status[place] [facility] Doctor: Ramses Null MD Service Date: 03/07/21 1357 Operative Report - ORTHO Procedure Date: 03/07/21 Procedure: Preoperative diagnosis: Recurrent right L4-5 disc herniation Postoperative diagnosis: Recurrent right L4-5 disc herniation Procedure: Redo right L4-5 disc herniation Surgeon: Ramses Null MD Indications: Patient presented with recurrent right [...] errors may exist. eSign Date and Time Ramses Null MD Verified/Reviewed by 03/07/21 1400 Normal [facility] BMPon 02-16-2021 Anion gap [Moles/Vol] 7 mmol/L Normal 5-16 [facility] Comment on above: Order Comment: Campu s: M Performed By: #### L [id number], L500.49237 #### [facility] [address] [place] [address] 13859 Calcium [Mass/Vol] 9.8 mg/dL Normal 8.5-10.5 [facility] Comment on above: Order Comment: Campu s: M Result Comment: NOTE NEW NORMAL RANGE DUE TO REAGENT CHANGE Performed By: #### L 500.28201, L500.18104 #### [facility] [address] [place] [address] 22771 Chloride [Moles/Vol] 105 mmol/L Normal 98-107 [facility] Comment on above: Order Comment: Campu s: M Performed By: #### L 500.84842, L500.13681 #### [facility] [address] [place] [address] 76267 CO2 [Moles/Vol] 26.0 mmol/L Normal 21-32 [facility] Comment on above: Order Comment: Campu s: M Performed By: #### L 500.31596, L500.28814 #### [facility] [address] [place] [address] 96272 Creatinine [Mass/Vol] 0.57 mg/dL Normal 0.5-1.4 [facility] Comment on above: Order Comment: Campu s: M Result Comment: NOTE NEW NORMAL RANGE DUE TO REAGENT CHANGE Patients receiving either N-Acetylcysteine (NAC) or Metamizole prior to venipuncture, may have falsely depressed results. Performed By: #### L 500.38601, L500.68032 #### [facility] [address] [place] [address] 05602 Glucose [Mass/Vol] 207 mg/dL High 70-100 [facility] Comment on above: Order Comment: Campu s: M Result Comment: 70-1 00- Normal Fasting; 100-125 Impaired Fasting; greater than 126 on more than one result- Diabetes. ADA guidelines. Results may be falsely elevated after the administration of Sulfapyridine. Results may be falsely depressed after the administration of Sulfasalazine. Performed By: #### L 500.37800, L500.68690 #### [facility] [address] [place] [address] Potassium [Moles/Vol] 4.5 mmol/L Normal 3.5-5.1 [facility] Comment on above: Order Comment: Campu s: M Result Comment: Slig ht Hemolysis, Result may be affected. Performed By: #### L 500.31026, L500.65156 #### [facility] [address] [place] [address] Sodium [Moles/Vol] 138 mmol/L Normal 136-145 [facility] Comment on above: Order Comment: Campu s: M Performed By: #### L 500.53957, L500.51123 #### [facility] [address] [place] [address] 41072 Urea nitrogen [Mass/Vol] 16 mg/dL Normal 7-26 [facility] Comment on above: Order Comment: Campu s: M Performed By: #### L 500.79810, L500.03267 #### [facility] [address] [place] [address]15 Urea nitrogen/Creatinine [Mass ratio] 28 mg/mg High 15-24 [facility] Comment on above: Order Comment: Campu s: M Performed By: #### L 500.03977, L500.87832 #### [facility] [address] [place] [address] 39164 CBC W/DIFFon 02-16-2021 BASO ABS 0.00 K/CU MM Normal 0-0.2 [facility] Comment on above: Order Comment: Campu s: M Performed By: #### L 200.16167, L550.65860 #### [facility] [address] [place] [address] Basophils/100 WBC (Bld) 0.5 % Normal 0-2 [facility] Comment on above: Order Comment: Campu s: M Performed By: #### L 200.59146, L550.18601 #### [facility] [address] [place] [address] EOS ABS 0.20 K/CU MM Normal 0-0.5 [facility] Comment on above: Order Comment: Campu s: M Performed By: #### L 200.18687, L550.94535 #### [facility] [address] [place] [address] Eosinophils/100 WBC (Bld) 2.1 % Normal 0-5 [facility] Comment on above: Order Comment: Campu s: M Performed By: #### L 200.06654, L550.62656 #### [facility] [address] [place] [address] Erythrocyte distribution width (RBC) [Ratio] 12.5 % Normal 11-14.5 [facility] Comment on above: Order Comment: Campu s: M Performed By: #### L 200.71996, L550.65944 #### [facility] [address] [place], [place] [address] Hematocrit (Bld) [Volume fraction] 44.1 % Normal 41.0-53.0 [facility] Comment on above: Order Comment: Campu s: M Performed By: #### L 200.68145, L550.94444 #### [facility] [address] [place], [place] [address] Hemoglobin (Bld) [Mass/Vol] 14.9 g/dL Normal 13.5-17.5 [facility] Comment on above: Order Comment: Campu s: M Performed By: #### L 200.08050, L550.79497 #### [facility] [address] [place] [address] IMMATR GRAN ABS 0.00 K/CU MM Normal Less than 2 [facility] Comment on above: Order Comment: Campu s: M Performed By: #### L 200.37173, L550.24230 #### [facility] [address] [place] [address] IMMATURE GRAN % 0.3 % Normal Less than 2 [facility] Comment on above: Order Comment: Campu s: M Performed By: #### L 200.80150, L550.97108 #### [facility] [address] [place] [address] LYMPH ABS 2.40 K/CU MM Normal 0.9-4.4 [facility] Comment on above: Order Comment: Campu s: M Performed By: #### L 200.78274, L550.71326 #### [facility] [address] [place] [address] Lymphocytes/100 WBC (Bld) 27.4 % Normal 20-40 [facility] Comment on above: Order Comment: Campu s: M Performed By: #### L 200.86418, L550.85693 #### [facility] [address] [place] [address] MCHC (RBC) [Mass/Vol] 33.8 g/dL Normal 32.0-36.0 [facility] Comment on above: Order Comment: Campu s: M Performed By: #### L 200.39793, L550.16149 #### [facility] [address] [place] [address] MCV (RBC) [Entitic vol] 85.8 fL Normal 80.0-99.0 [facility] Comment on above: Order Comment: Campu s: M Performed By: #### L 200.38065, L550.97457 #### [facility] [address] [place] [address] MONO ABS 0.50 K/CU MM Normal 0.1-1.1 [facility] Comment on above: Order Comment: Campu s: M Performed By: #### L 200.67337, L550.23158 #### [facility] [address] [place] [address] Monocytes/100 WBC (Bld) 6.1 % Normal 2-10 [facility] Comment on above: Order Comment: Campu s: M Performed By: #### L 200.99922, L550.64747 #### [facility] [address] [place] [address] NEUTROPHIL ABS 5.50 K/CU MM Normal 2.0-8.3 [facility] Comment on above: Order Comment: Campu s: M Performed By: #### L 200.33954, L550.94817 #### [facility] [address] [place] [address] Neutrophils/100 WBC (Bld) 63.6 % Normal 45-75 [facility] Comment on above: Order Comment: Campu s: M Performed By: #### L 200.85940, L550.13896 #### [facility] [address] [place] [address] Nucleated RBC/100 WBC (Bld) [Ratio] 0.0 % Normal Less than 1 [facility] Comment on above: Order Comment: Campu s: M Performed By: #### L 200.21932, L550.54099 #### [facility] [address] [place] [address] Platelet mean volume (Bld) [Entitic vol] 9.8 fL Normal 9.4-12.4 [facility] Comment on above: Order Comment: Campu s: M Performed By: #### L 200.63384, L550.29231 #### [facility] [address] [place] [address] PLT 260 K/CU MM Normal 150-450 [facility] Comment on above: Order Comment: Campu s: M Performed By: #### L 200.52265, L550.62881 #### [facility] [address] [place] [address] [id number] RBC 5.14 M/CU MM Normal 4.50-6.00 [facility] Comment on above: Order Comment: Campu s: M Performed By: #### L 200.92947, L550.72833 #### [facility] [address] [place] [address] 67286 WBC 8.7 K/CUMM Normal 4.5-11.0 [facility] Comment on above: Order Comment: Campu s: M Performed By: #### L 200.28317, L550.30326 #### [facility] [address] [place] [address] 73293 GFR ESTon 02-16-2021 IF AMER Greater than 60 Normal [facility] Comment on above: Order Comment: Campu s: M Performed By: #### L 500.33633, L500.19244 #### [facility] [address] [place] [address] 71923 IF non-AFR AMER Greater than 60 Normal [facility] Comment on above: Order Comment: Campu s: M Performed By: #### L 500.68187, L500.16808 #### [facility] [address] [place] [address] 41414 HGB A1C GLYCOHBon 02-16-2021 HbA1c (Bld) [Mass fraction] 8.8 % High 4.3-6.0 [facility] Comment on above: Order Comment: Greg s: M Performed By: #### L 200.89031, L550.90163 #### [facility] [address] [place] [address] MRSA PCRon 02-16-2021 MRSA PCR Negative Normal NEGATIVE [facility] Comment on above: Order Comment: Greg s: M Result Comment: PLEA SE NOTE: TESTING DONE BY PCR TECHNOLOGY. Performed By: #### L 770.04034 ####[facility] [address] [place], [place] [address]Ff# [phone] SA PCR Negative Normal NEGATIVE [facility] Comment on above: Order Comment: Greg s: M Result Comment: PLEA SE NOTE: TESTING DONE BY PCR TECHNOLOGY. Performed By: #### L [id number] ####[facility] [id number] [place], [place] [address]Mk# [phone] PBNP TESTon 02-16-2021 Natriuretic peptide B (Bld) [Mass/Vol] 40 pg/mL Normal 0-125 [facility] Comment on above: Order Comment: Greg s: M Result Comment: NT-p roBNP results of less than 300 pg/ml likely rules out acute congestive heart failure with 99% predictive value. NOTE: These cuttoff points are suggested for ACUTE CHF DIAGNOSIS only Less than 50 years Greater than 450 pg/ml 50-75 years Greater than 900 pg/ml Greater than 75 years Greater than 1800 pg/ml NOTE NEW NORMAL RANGE Performed By: #### L [id number] #### [facility] [address] [place] [address] FLUOROSCOPY IN OR/PAIN MGTon 08-16-2020 FLUOROSCOPY IN OR/PAIN MGT FLUOROSCOPY IN OR/PAIN MGT Ordering Physician: Ramses Null MD 08/16/2020 8:00 AM FLUOROSCOPY AND RADIOGRAPH [...] Signature on File ---- Signed By: Rosemary oCrea MD [email or web address] Dictated: 08/16/2020 8:48 AM Signed: 08/16/2020 8:49 AM Reported By: ROSEMARY COREA M.D. Signed By: ROSEMARY COREA M.D. Normal [facility] GLUCOSE METERon 08-16-2020 Glucose [Mass/Vol] 218 mg/dL High 70-115 [facility] Glucose [Mass/Vol] 279 mg/dL High 70-115 [facility] Glucose [Mass/Vol] 341 mg/dL High 70-115 [facility] OR.OPRPTon 08-16-2020 Operative Report Normal [facility] OR.OPRPT [facility] Patient Name: DEEPA RUFFIN [address] Date of : [address] [place], [place] [address] Unit Number: [id number] Operative Report Patient Status: [facility] Attending Doctor: Ramses Null MD Service Date: 08/16/20904 Operative Report - ORTHO Procedure Date: 08/16/20 Procedure: Preoperative diagnosis: Right L4-5 disc herniation Postoperative diagnosis: Right L4-5 disc herniation Procedure: Right L4-5 microdiscectomy Surgeon: Ramses Null MD Indications: Patient presented with life limiting [...] errors may exist. eSign Date and Time Ramses Null MD Verified/Reviewed by 08/16/20 0909 [facility] .Urinalysis Microscopic (AO) on 12-05-2018 RBC (U) [#/Vol] 0-5 None [facility]en [facility] Comment on above: Performed By: #### U BETO De Santiago #### [facility] [address] [place] [address] UA Bacteria 3+ /hpf [facility] Comment on above: Performed By: #### U BETO De Santiago #### [facility] [address] [place] [address] UA Squam Epithelial None Seen Normal None Seen [facility] ([place]) Comment on above: Performed By: #### U A, UAMICAO #### [place] [id number] UA WBC LOADED None [facility] Comment on above: Performed By: #### U A, UAMICAO #### [place] [address] UAon 12-05-2018 Color (U) Yellow Normal [facility] ([place] Comment on above: Performed By: #### U A, UAMICAO #### [place] [address] Glucose (U) [Mass/Vol] 500 mg/dL Negative [facility] ([place]) Comment on above: Performed By: #### U A, UAMICAO #### [place] [address] Ketones Ql (U) Negative Normal Negative [facility] Comment on above: Performed By: #### U A, UAMICAO #### [place] [address] UA Appear Cloudy Clear [facility] [place] Comment on above: Performed By: #### U A, UAMICAO #### [place] [id number] UA Blood Small Negative [facility] Comment on above: Performed By: #### U A, UAMICAO #### [place] [address] UA Leuk Est Trace Negative [facility] [place] Comment on above: Performed By: #### U A, UAMICAO #### [place] [id number] UA Nitrite Positive Negative [facility] [place] Comment on above: Performed By: #### U A, UAMICAO #### [place] [address] UA pH 6.0 Normal 5.0 - 8.0 [facility] Comment on above: Performed By: #### U A, UAMICAO #### [address] [address] UA Protein 30 mg/dL Normal Negative [facility] [place] Comment on above: Performed By: #### U A, UAMICAO #### [address] [address] UA Spec Grav 1.025 Normal 1.015-1.025 [facility] Comment on above: Performed By: #### U A, UAMICAO #### [address] [address] UA Specimen Type Clean Catch Normal [facility] [place] Comment on above: Performed By: #### U A, UAMICAO #### [address] [address] UA Urobilinogen 0.2 E.U./dL Normal 0.2-1.0 [facility] Comment on above: Performed By: #### U A, UAMICAO #### [address] [address] Urobilinogen Qn (U) Negative Normal Negative [facility] ([place]) Comment on above: Performed By: #### U A, UAMICAO #### [address] [address] Vital Signs Date Time Vital Sign Value Performing Clinician Joni travis 01-30-2024 14:29-0400 Diastolic blood pressure 63 mm[Hg] Pacc 2 Work Phone: [facility] 01-30-2024 14:29-0400 Systolic blood pressure 116 mm[Hg] Pacc 2 Work Phone: [facility] 01-30-2024 14:25-0400 Body mass index (BMI) [Ratio] 29.29 kg/m2 Pacc 2 Work Phone: [facility] 01-30-2024 14:25-0400 Body weight 91.26 kg Pacc 2 Work Phone: [facility] 01-30-2024 14:25-0400 Heart rate 83 /min Pacc 2 Work Phone: [facility] 01-30-2024 14:25-0400 Respiratory rate 18 /min Pacc 2 Work Phone: [facility] 01-30-2024 14:25-0400 SaO2% (BldA) [Mass fraction] 96 % Pacc 2 Work Phone: [facility] Encounters Encounter Date Encounter Type Care Provider Facility Start: 08-05-2024 End: 08-05-[address] Talia Boyd MD Work Phone: [facility] Work Phone: Start: 08-05-2024 End: 08-05-[address] Judith Lynch MD -Laboratory, [place] Work Phone: Start: 08-05-2024 End: 08-05-2024 ambulatory Talia Boyd Facility:[facility] Start: 05-19-2024 End: 05-19-[address] Judith Lynch MD -Laboratory, [place] Work Phone: Start: 05-19-2024 End: 05-19-2024 ambulatory Judith Kimberley Lynch Facility:[facility] Start: 02-25-2024 End: 02-28-2024 Evaluation and management of inpatient RAMSES ELISSA ESPINOSER Facility:[id number] Start: 02-02-2024 End: 02-02-2024 ambulatory Judith Kimberley Lynch Facility:[facility] Start: 01-30-2024 Encounter for other preprocedural examination TALIA BOYD [facility] Start: 01-30-2024 End: 01-30-2024 [facility]: Pre An[facility] Comment on above: Preop testing (Prima ry Dx); Insulin pump in place; Atonic bladder; Primary hypertension; Chronic right-sided low back pain with right-sided sciatica Start: 01-30-2024 End: 01-30-2024 Patient encounter status Pac 2 Work Phone: [facility] Work Phone: Start: 01-30-2024 End: 01-30-2024 ambulatory TALIA ALMITA JOLLIFF Facility:[id number] Start: 12-28-2023 End: 12-28-2023 ambulatory [facility] Facility:[facility] Start: 12-21-2023 End: 12-21-2023 ambulatory Judith Na Rustnatlynsey Facility:[facility] Start: 11-22-2023 ambulatory 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 Facility :[facility] Start: 10-22-2023 End: 10-22-2023 ambulatory 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 Facility:[facility] Start: 09-21-2023 End: 09-21-2023 ambulatory Talia Blanca Boyd Facility:[facility] Start: 05-12-2023 End: 05-12-2023 ambulatory [facility] Work Phone: Start: 05-12-2023 End: 05-12-2023 Patient encounter procedure [facility]-Laboratory Work Phone: Start: 03-07-2023 End: 03-07-2023 Emergency department patient visit [facility]-Emergency Department Work Phone: Start: 03-06-2023 End: 03-06-2023 ambulatory [facility] Start: 01-23-2023 End: 01-23-2023 ambulatory [facility] Work Phone: Start: 01-23-2023 End: 01-23-2023 Patient encounter procedure [facility] Work Phone: Start: 09-26-2022 End: 09-26-2022 ambulatory [facility] Work Phone: Start: 09-26-2022 End: 09-26-2022 Patient encounter procedure [facility] Start: 06-02-2022 End: 06-02-2022 [facility] Start: 02-28-2022 End: 02-28-2022 ambulatory [facility] Work Phone: Start: 02-28-2022 End: 02-28-2022 Patient encounter procedure [facility] Start: 11-21-2021 End: 11-21-2021 Patient encounter procedure [facility] Start: 07-04-2021 End: 07-04-2021 Patient encounter procedure [facility] Start: 06-30-2021 Registered Recurring [facility]-Physical Therapy Procedures Date Procedure Procedure Detail Performing Clinician Start: 08-05-2024 Vitamin D, 25-hydrox y measurement Dr. Talia Boyd MD Work Phone: Comment on above: Vitamin D StatusDefi ciency: <20 ng/mL (50nmol/L)Insufficiency: 20-30 ng/mL (50-75 nmol/L)Sufficiency: 30-100 ng/mL (75-250 nmol/L)Toxicity: >100 ng/mL (>250 nmol/L) Start: 05-19-2024 Measurement of renal function Dr. Talia Boyd MD Work Phone: Comment on above: GFR Calc Start: 05-19-[address] Talia Boyd MD Work Phone: Start: 05-19-2024 Urine microalbumin/creatinine ratio measurement Dr. Talia Boyd MD Work Phone: Start: 05-19-2024 Vitamin D, 25-hydrox y measurement Dr. Talia Boyd MD Work Phone: Comment on above: Vitamin D 25(OH) Sta tus Range Deficiency <20 ng/mL (50nmol/L) Insufficiency 20 - 30 ng/mL (50 - 75 nmol/L) Sufficiency 30 - 100 ng/mL (75 - 250 nmol/L) Toxicity >100 ng/mL (>250 nmol/L) Start: 01-30-2024 Basic metabolic pane l calcium total Ramses Null MD Work Phone: Start: 01-30-2024 Iadna s aureus ampli fied probe tq Ramses Null MD Work Phone: Start: 01-30-2024 Ecg routine ecg w/le ast 12 lds i&r only Ramses Null MD Work Phone: Start: 03-07-2023 CT angiography of ch est with contrast Start: 03-07-2023 X-ray of chest posteroanterior view Plan of Treatment Date Care Activity Detail Author Start: 01-29-2025 BP Controlled (<130/80) BP Controlle d (<130/80) [facility] Start: 02-25-2024 End: 02-25-2024 Admission to same day surgery center 02/25/2024 10:35 AM EST - 02/25/2024 2:10 PM EST Surgery [facility] [address] [facility] [place] [place] [address] Ramses Null MD [address] [place] [address] ARTHDSIS POST/POSTEROLATERAL TECH W/POST INTERBODY TECH WEST AND/OR DISCECT SUFF TO PREP INTERSPACE SINGLE INTERSPACE & SEG LUMBAR [facility] Comment on above: ARTHDSIS POST/PRODUCT MANUFACTURING PROFESSIONAL OLATERAL TECH W/POST INTERBODY TECH WEST AND/OR [...] physician 02/25/2024 10:35 AM EST Hospital Encounter [facility] [address] [facility] [place] [address] Ramses Null MD [address] [place], [place] [id number] Intervertebral disc disorders with radiculopathy, lumbar region [M51.16] [facility] Comment on above: Intervertebral disc disorders with radiculopathy, lumbar region [M51.16] Start: 01-30-2024 End: 04-30-2024 Hemoglobin A1c in Blood [facility] Work Phone: Comment on above: Expected: 01/30/2024 , Expires: 04/30/2024 Start: 12-09-2023 Covid-19 Vaccine ( season) Covid-19 Vaccine ( season) [facility] Start: 12-09-2023 Influenza vaccination Influenza Vacc ine (#1) [facility] Start: 06-17-2021 Screening for malign ant neoplasm of lung Lung Cancer Screening [facility] Start: 06-17-2021 Shingrix Vaccine (1 of 2) [place] grix Vaccine (1 of 2) [facility] Start: 05-19-2021 Hemoglobin A1c measurement HbA1C [facility] Start: 06-17-2016 Screening for malign ant neoplasm of colon [facility] Start: 06-17-1990 Hepatitis B Vaccine (1 of 3 - 19+ 3-dose series) Hepatitis B Vaccine (1 of 3 - 19+ 3-dose series) [facility] Start: 06-17-1990 Urine microalbumin profile DTaP,Tdap,Td Vaccine (1 - Tdap) [facility] Start: 06-17-1989 Annual PCP Team Shaping Machine Tender dinorah Disease Visit Annual PCP Team Chronic Disease Visit [facility] Start: 06-17-1989 Anxiety Screening Anxiety Screening [facility] Start: 06-17-1989 Depression Screening Depression Scre ening [facility] Start: 06-17-1989 Hepatitis B surface antibody level LDL Cholesterol [facility] Start: 06-17-1989 Hepatitis C screening Hepatitis C Sc reening [facility] Start: 06-17-1989 HIV [facility] Start: 06-17-1981 Diabetic foot examination Diabetic F oot Exam [facility] Start: 06-17-1981 Glaucoma screening Dilated Retinal E xam [facility] Start: 06-17-1981 Hepatitis B screening Urine Al bumin:Creatinine Ratio [facility] Start: 06-17-1977 Pneumococcal vaccination Pneum ococcal Vaccine (1 of 2 - PCV) [facility] Patient referral [facility] Work Phone: Immunizations Immunization Date Immunization Notes Care Provider [employer] wall 01-02-2017 influenza virus vacc ine, unspecified formulation Pac 2 Work Phone: [facility] Payers Date Payer Category Payer Unknown [employer] PPO OOS [id number] 2024-Present [phone] [address] [place] [address] PPO [id number] 2023 Self-pay [id number] 2012 Unknown [id number] 1971 Unknown [id number] Unknown [id number] Unknown [id number] Unknown [id number] Unknown [id number] Unknown [id number] Unknown [id number] Unknown [id number] Unknown [id number] Social History Date Type Detail Facility Start: 07-01-2020 End: 07-01-2020 Tobacco smoking status NEIS Unknown if ever smoked [facility] Start: 07-01-2020 Cigarettes [facility] Start: 1970 Sex Assigned At Male W [facility] Start: 07-01-2020 End: 01-30-2024 Tobacco smoking status NEIS Smokes tobacco daily [facility] Start: 04-09-1989 History of tobacco use Cigarette Smo ker [facility] Start: 01-30-2024 Cigarettes smoked current (pack per day) - Reported 1 [facility] History of tobacco use Passive smoker [facility] Start: 01-30-2024 Tobacco use and exposure Smokeless tobacco non-user [facility] Start: 01-30-2024 Alcoholic beverage intake Lifetime non-drinker (finding) [facility] Start: 01-30-2024 Tobacco use panel [facility] National Score (1-10 0), lower number is lower risk 80 [facility] Start: 1970 Sex assigned at Not on file C [facility] Clinical Notes 03-07-2023 to 02-28-2024 Fredy Haji APRN.ABDI - 01/30/2024 3:04 PM Fredy Portillo APRN.CNP - 01/30/2024 2:49 PM Fredy Portillo APRN.CNP - 01/30/2024 2:00 PM EDTPatient Instructions Note Date & Type Note Facility 02-28-2024 Note HNO ID: [id number] Author: ESE LARA APRN.ABDI Service: Orthopaedic Surgery Author Type: Nurse Practitioner Type: Progress Notes Filed: 02/28/2024 11:08 Note Text: ORTHOPAEDIC POSTOP PROGRESS NOTE SERVICE DATE: 02/28/2024 SERVICE TIME: 0930 Subjective INTERVAL HPI: Respiratory: Denies shortness of breath Cardiac: Denies chest pain or palpitations. Musculoskeletal: Reports that the pain is under control. Denies numbness or tingling to extremities. Objective Patient Vitals for the past 24 hrs: BP Temp Temp src Pulse Resp SpO2 02/28/24 0716 143/67 36.7 ?C (98.1 ?F) Oral 83 18 93 % 02/27/24 2119 144/82 37.2 ?C (99 ?F) Oral 90 17 91 % 02/27/24 1506 132/63 37.3 ?C (99.1 ?F) Oral 94 18 91 % 02/27/24 1416 136/64 37.3 ?C (99.1 ?F) Oral 87 18 98 % Intake/Output Summary (Last 24 hours) at 02/28/2024 1107 Last data filed at 02/28/2024 0732 Gross per 24 hour Intake 240 ml Output 2962 ml Net -2722 ml EXAM: Cardiovascular - Heart is regular rate by radial pulse. Respiratory - nonlabored, regular, even. Musculoskeletal - Dressing is dry and intact to the back, Hemovac in place. No new or progressive motor or sensory deficits. Neurologic - Patient is alert and appropriate. 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 Postop day #3: - Vital signs stable this morning, afebrile overnight. No new complaints this morning. -HANDH stable, 12.7/38.9 today, yesterday was 12.4/37.3. - Continue mobility efforts, PT/OT. - Lumbar precautions, LSO back brace on when up out of bed. - Knee-high SCDs when in bed. - Continue to monitor Hemovac output every shift. - Likely will discontinue this today. - Prescription on chart for pain medication as well as as needed Senokot. [place]AR[place] report was checked per the [place] Board of pharmacy regulations prior to providing prescription for controlled substance. No concerning findings. - Follow-up is set up with Dr. Null 03/13/2024 at 11:30 AM. Active Problems: Insulin pump in place (POA: Yes) Assessment AND Plan: Atonic bladder (POA: Yes) Assessment AND Plan: Diabetes (HCC) (POA: Yes) Assessment AND Plan: Hypertension (POA: Yes) Assessment AND Plan: Lumbosacral radiculopathy (POA: Yes) Assessment AND Plan: Obesity, Class I, BMI 30-34.9 (POA: Yes) Assessment AND Plan: Nicotine use disorder, F17.2 (POA: Yes) Assessment AND Plan: Resolved Problems: * No resolved hospital problems. * Medication and Non-Pharmacologic VTE Prophylaxis/Anticoagulants 02/25/241444 vte pharmacologic prophylaxis contraindicated (ut,oh) 02/25/241444 pneumatic compression stockings (ut,oh) 02/25/24 1445 activity - mobilize patient ([place],fl) SIGNATURE: Ese Lara APRN.OPTIMIZATION CONSULTANT PATIENT NAME: Deepa Ruffin DATE: February 28, 2024 TIME: 11:07 [id number] [facility] 02-28-2024 Note HNO ID: [id number] Author: SIMA BECKETT RN Service: Care Management Author Type: Registered Nurse Type: Care Mgt Progress Note Filed: 02/28/2024 09:25 Note Text: CARE MANAGEMENT PROGRESS NOTE SERVICE DATE: 02/28/2024 SERVICE TIME: 919 LOS: 3 days Chart reviewed. S/p L4-5 TLIF and PLIF by Dr. Null on 02/25/24 Is A/O x4 and usually independent in all ADL's. Lives with S.O. Shyanne Brito [phone] who is able to provide physical assistance and transportation as needed. Has med and Rx coverage. PCP is . PT/OT rec Home w/ Wheeled Walker which he already owns. D/C Delay: Drain Output. D/C Plan is Home w/ Care and Support from S.O. when med cleared. No DME or d/c needs identified. CM will cont to follow and assist with safe d/c planning. SIGNATURE: Sima Beckett RN PATIENT NAME: Deepa Ruffin DATE: February 28, 2024 TIME: 9:23 AM PAGER/CONTACT #: [phone] [facility] 02-27-2024 Note HNO ID: [id number] Author: ESE LARA APRN.CNP Service: Orthopaedic Surgery Author Type: Nurse Practitioner Type: Progress Notes Filed: 02/27/2024 12:21 Note Text: ORTHOPAEDIC POSTOP PROGRESS NOTE SERVICE DATE: 02/27/2024 SERVICE TIME: 104 Subjective INTERVAL HPI: Respiratory: Denies shortness of breath Cardiac: Denies chest pain or palpitations. Musculoskeletal: Pain to his back at surgical site. Otherwise no new symptoms overnight. Resting quietly. Objective Patient Vitals for the past 24 hrs: BP Temp Temp src Pulse Resp SpO2 02/27/24 1045 134/66 -- -- 84 -- 96 % 02/27/24 0920 119/61 36.7 ?C (98 ?F) Oral 86 16 93 % 02/27/24 0001 132/76 37 ?C (98.6 ?F) Oral 92 19 92 % 02/26/242026 121/69 -- -- 99 -- 93 % 02/26/24 1426 139/71 37.2 ?C (99 ?F) Oral 87 16 95 % Intake/Output Summary (Last 24 hours) at 02/27/2024 1219 Last data filed at 02/27/2024 0556 Gross per 24 hour Intake 1530 ml Output 2820 ml Net -1290 ml EXAM: Cardiovascular - Heart is regular rate by radial pulse. Respiratory - nonlabored, regular, even. Musculoskeletal - Dressing is dry intact to the back, Hemovac in place. No new or progressive motor or sensory deficits. 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 Postop day #2: - Vital signs stable this morning, afebrile overnight. No new complaints this morning. -HANDH 12.4/37.3 today, yesterday was 12.5/37.6. Remaining stable. - Continue mobility efforts, PT/OT. - Lumbar precautions, LSO back brace on when up out of bed. - Knee-high SCDs when in bed. - Continue to monitor Hemovac output every shift. - Encourage incentive spirometer. - Monitor bowel function. Active Problems: Insulin pump in place (POA: Yes) Assessment AND Plan: Atonic bladder (POA: Yes) Assessment AND Plan: Diabetes (HCC) (POA: Yes) Assessment AND Plan: Hypertension (POA: Yes) Assessment AND Plan: Lumbosacral radiculopathy (POA: Yes) Assessment AND Plan: Resolved Problems: * No resolved hospital problems. * Medication and Non-Pharmacologic VTE Prophylaxis/Anticoagulants 02/25/24 1445 vte pharmacologic prophylaxis contraindicated (ut,fl) 02/25/24 1445 pneumatic compression stockings (ut,fl) 02/25/24 144 activity - mobilize patient ([place]) SIGNATURE: Ese Lara APRN.CNP PATIENT NAME: Deepa Ruffin DATE: February 27, 2024 TIME: 12:19 PM ETX#[id number] [facility] 02-27-2024 Note HNO ID: [id number] Author: MARIANA MIDDLETON RN Service: ? Author Type: Registered Nurse Type: Progress Notes Filed: 02/27/2024 10:55 Note Text: Pt is resting in bed at this time. Call light in reach. Will monitor [facility] 02-26-2024 Note HNO ID: [id number] Author: SIMA BECKETT RN Service: Care Management Author Type: Registered Nurse Type: Care Mgt Initial Assessment Filed: 02/26/2024 14:02 Note Text: CARE MANAGEMENT: ASSESSMENT AND DISCHARGE PLAN SERVICE DATE: February 26, 2024 SERVICE TIME: 1358 PCP: Talia Boyd MD Primary Contact: Extended Emergency Contact Information Primary Emergency Contact: Shyanne Brito Mobile Relation: Significant other Admission Status: Inpatient Insurance Provider: ADE RODRIGUEZ PPO OOS Discharge Planning requested by: Per Department Practice Potential Transition Plans Home Advance Directives Current Advance Directive: None 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 Attempted to Assist with AD Completion: Yes Action: Education Provided Current Living Arrangements and Support Lives with: Spouse/significant other Type of Residence: Private Residence (House) Does the patient have to climb stairs at home?: stairs outside the home;stairs within the home Support: Spouse/significant other, Family members How do you manage to accomplish the following: Independent: Ambulation;Bathe/Shower;Dress;Betsy ls/Meal Prep;Going to the bathroom;Medication Management;Transportation to appointments/community Current Services/Equipment Current Post-Acute Service(s): DME Current DME Type: Walker Discharge Planning Patient Goal(s): Less pain, General wellness [place] of Choice Explained: [place] of Choice Given: No Reason Not Given: No placements necessary Are you interested in bedside delivery of your medications? No Discharge Planning Participant(s): Patient Patient/Family Comments: Caregiver Assessment: Caregiver is ready, willing and able to meet the patient's needs as recommended by the inter-professional team: Yes Name of Caregiver: S.O. Transport at Discharge: Transportation Arrangements: Car Destination: Home Needs Prior to Discharge: Post-Acute Discharge Plan: Chart reviewed. S/p L4-5 TLIF and PLIF by Dr. Null on 02/25/24 Is A/O x4 and usually independent in all ADL's. Lives with S.OIvan Brito [phone] who is able to provide physical assistance and transportation as needed. Home has 2 steps to enter home and then req another 12 steps to reach bed and bath rooms. Has a wheeled walker. Has med and Rx coverage. PCP is . PT/OT rec Home w/ Wheeled Walker which he already owns. D/C Delay: Drain Output. D/C Plan is Home w/ Care and Support from S.O. when med cleared. No DME or d/c needs identified. CM will cont to follow and assist with safe d/c planning. --------- Intimate Partner Violence We have begun to talk to patients about safe and healthy relationships because it can have a large impact on your health. Do you feel safe around your partner or ex-partner?: Yes Food Insecurity Within the past 12 months, you worried that your food would run out before you got the money to buy more.: Never true Within the past 12 months, the food you bought just didn't last and you didn't have money to get more.: Never true Transportation Needs In the past 12 months, has lack of transportation kept you from medical appointments or from getting medications?: No In the past 12 months, has lack of transportation kept you from meetings, work, or from getting things needed for daily living?: No Housing Stability In the last 12 months, was there a time when you were not able to pay the mortgage or rent on time?: No At any time in the past 12 months, were you homeless or living in a intermediate (including now)?: No Utilities In the past 12 months has the [employer], oil, or water [employer] threatened to shut off services in your home?: No Social Information Financial Resources: Employed SIGNATURE: Sima Beckett RN PATIENT NAME: Deepa Ruffin DATE: February 26, 2024 TIME: 1:58 PM CONTACT #: [phone] [facility] 02-26-2024 Note HNO ID: [id number] Author: ESE LARA APRN.OPTIMIZATION CONSULTANT Service: Orthopaedic Surgery Author Type: Nurse Practitioner Type: Progress Notes Filed: 02/26/2024 10:21 Note Text: ORTHOPAEDIC POSTOP PROGRESS NOTE SERVICE DATE: 02/26/2024 SERVICE TIME: 0935 Subjective INTERVAL HPI: Respiratory: Denies shortness of breath Cardiac: Denies chest pain or palpitations. Musculoskeletal: Does complain of back pain as would be expected at surgical site. Denies any leg pain today. No new symptoms or problems in that regard overnight. Objective Patient Vitals for the past 24 hrs: BP Temp Temp src Pulse Resp SpO2 02/26/24 0830 137/64 36.8 ?C (98.3 ?F) Oral 81 20 92 % 02/26/24 0319 114/63 37 ?C (98.6 ?F) Oral 91 18 95 % 02/25/24 2247 141/75 37.1 ?C (98.7 ?F) Oral 90 16 95 % 02/25/24 1949 134/63 37.1 ?C (98.7 ?F) Oral 94 16 93 % 02/25/24 1512 156/83 37 ?C (98.6 ?F) Oral 92 16 97 % 02/25/24 1332 140/67 36.8 ?C (98.3 ?F) Oral 94 16 95 % 02/25/24 1300 138/70 36.7 ?C (98 ?F) Temporal 98 20 97 % 02/25/24 1248 -- -- -- 99 -- 91 % 02/25/24 1245 145/72 -- -- 99 16 94 % 02/25/24 1230 134/69 -- -- 98 16 99 % 02/25/24 1215 139/67 -- -- 92 16 100 % 02/25/24 1203 134/71 37.1 ?C (98.8 ?F) Temporal 92 15 100 % Intake/Output Summary (Last 24 hours) at 02/26/2024 1018 Last data filed at 02/26/2024 0524 Gross per 24 hour Intake 3463 ml Output 2345 ml Net 1118 ml EXAM: Cardiovascular - Heart is regular rate by radial pulse. Respiratory - nonlabored, regular, even. Musculoskeletal - Dressing is intact to the back, Hemovac in place. Pulses are +2. Able to dorsiflex and plantarflex bilateral feet. Sensation intact to light touch. No new or progressive motor or sensory deficits. Neurologic - Patient is alert and appropriate. DATA: CBC with diff: WBC 14.25 02/26/2024 RBC 4.28 02/26/2024 Hemoglobin 12.5 02/26/2024 Hematocrit 37.6 02/26/2024 MCV 87.9 02/26/2024 MCH 29.2 02/26/2024 MCHC 33.2 02/26/2024 RDW-CV 12.4 02/26/2024 Platelet Count 202 02/26/2024 MPV 9.6 02/26/2024 Neutrophils % 59.0 01/30/2024 Lymphocytes % 30.7 01/30/2024 [place]% 7.0 01/30/2024 Eosinophils % 2.6 01/30/2024 Basophils % 0.4 01/30/2024 Abs Neut 4.31 01/30/2024 Abs [place] 0.51 01/30/2024 Abs Eosin 0.19 01/30/2024 Abs Baso 0.03 01/30/2024 Assessment/Plan Principal Problem: Lumbosacral radiculopathy (POA: Yes) Assessment AND Plan: Recurrent right L4-5 disc herniation -Status post L4-5 transforaminal lumbar interbody fusion with bilateral posterior intertransverse fusion, L4-5 posterior instrumentation, use of intervertebral body cage L4-5, revision right L4-5 microdiscectomy, local bone graft, allograft and BMP on 02/25/2024. Postop day #1: - Vital signs stable this morning, afebrile overnight. - Pain well-controlled at this time. No new symptoms or problems. No leg pain today. -HANDH 12.5/37.6. - Mobilize today with PT/OT. - Lumbar precautions, LSO back brace on when up out of bed. - Knee-high SCDs when in bed. - Continue to monitor Hemovac output every shift. Will plan to DC when less than 30 cc per shift. - Encourage incentive spirometer. - Monitor bowel function. - Will update Dr. Null today. Active Problems: Insulin pump in place (POA: Yes) Assessment AND Plan: Atonic bladder (POA: Yes) Assessment AND Plan: Diabetes (HCC) (POA: Yes) Assessment AND Plan: Hypertension (POA: Yes) Assessment AND Plan: Resolved Problems: * No resolved hospital problems. * Medication and Non-Pharmacologic VTE Prophylaxis/Anticoagulants 02/25/24 1445 vte pharmacologic prophylaxis contraindicated [place] 02/25/24 1445 pneumatic compression stockings ([place]) 02/25/24 1445 activity - mobilize patient ([place]) SIGNATURE: Ese Lara APRN.OPTIMIZATION CONSULTANT PATIENT NAME: Deepa Ruffin DATE: February 26, 2024 TIME: 10:18 AM ETX#[id number] [facility] 02-25-2024 Note HNO ID: [id number] Author: CESARIO MCFARLAND APRN.RAISED PRINTER Service: Anesthesiology Author Type: Nurse Admissions Evaluator Type: Anesthesia Procedure Notes Filed: 02/25/2024 07:47 Note Text: ANESTHESIOLOGY PROCEDURE NOTE PIV General Information Procedure Start Time/Medication Administration: 02/25/2024 7:39 AM Procedure End Time: 02/25/2024 7:41 AM Patient Location: OR Staffing RAISED PRINTER: Cesario Mcfarland APRN.RAISED PRINTER Performed by: RAISED PRINTER Preparation Sterility Preparation: hand hygiene performed prior to procedure, surgical cap used, mask used, skin prep agent completely dried prior to procedure Site Prep: alcohol Procedure Details Indication: need for IV access Needle Size/Type: 20 gauge angiocath Orientation: Right Location: Hand Imaging Guidance Used: No SIGNATURE: Cesario Mcfarland APRN.CRNA PATIENT NAME: Deepa Ruffin DATE: February 25, 2024 TIME: 7:47 AM CSN: [id number] [facility] 02-25-2024 Note HNO ID: [id number] Author: CESARIO MCFARLAND APRN.RAISED PRINTER Service: Anesthesiology Author Type: Nurse Admissions Evaluator Type: Anesthesia Procedure Notes Filed: 02/25/2024 07:45 Note Text: ANESTHESIOLOGY PROCEDURE NOTE Airway General Information Procedure Start Time/Medication Administration: 02/25/2024 7:23 AM Procedure End Time: 02/25/2024 7:27 AM Patient location during procedure: OR Timeout Performed Pre-procedure: timeout performed Consent Obtained: Yes Patient identity confirmed: arm band and patient Staffing RAISED PRINTER: Cesario Mcfarland APRN.RAISED PRINTER Performed by: RAISED PRINTER Indications and Patient Condition Indications for airway management: anesthesia Preoxygenated: yes anesthesia circuit Patient position: sniffing Method: asleep Cricoid Pressure: No Manual In-Line Stabilization: No Difficult Mask: No Final Airway Details Final airway type: endotracheal airway Final Endotracheal Airway: ETT Cuffed: yes Successful intubation technique: direct laryngoscopy Devices used: intubating stylet Endotracheal tube insertion site: oral Blade: Amanda Blade size: #3 ETT size (mm): 7.5 Measured from: lips Measurement (cm): 22 Placement verified by: chest auscultation and capnometry Cormack-Lehane Classification: grade I - full view of glottis Number of attempts at approach: 1 Airway not difficult SIGNATURE: Cesario Mcfarland APRN.CRNA PATIENT NAME: Deepa Ruffin DATE: February 25, 2024 TIME: 7:45 AM CSN: [id number] [facility] 02-22-2024 Note HNO ID: [id number] Author: ETHEL COLORADO RN Service: Nursing Author Type: Registered Nurse Type: Progress Notes Filed: 02/22/2024 13:25 Note Text: PRE-PROCEDURE INSTRUCTIONS TO PREPARE FOR YOUR PROCEDURE: Your arrival time for your procedure is 530. Do NOT eat any solid foods after MIDNIGHT the night prior to your procedure - this includes gum or mints. You can drink clear liquids* up until 330, which is 2 hours before your arrival time. *Clear liquids = water, carbohydrate drink (sports drink that is clear or yellow in color), Ensure Pre-Surgery (given by NIESHA or your ), fruit juice without pulp (apple/cranberry), clear tea, black coffee (no cream). NO CARBONATED BEVERAGES AND NO ALCOHOL. Shower the morning of the procedure, put on clean clothes, and have clean sheets for your bed to help prevent infection after your procedure. Leave all valuables such as jewelry including rings, piercings, wallets, and purses at home. Wear comfortable, loose-fitting clothing. If you wear glasses or contacts, please bring a case. SPECIAL INSTRUCTIONS: If instructed, bring your first voided urine specimen with you. If you were provided skin preparation to use prior to your procedure, complete this as directed. If you were provided Ensure Pre-Surgery drink, you need to drink this at n/a. This should be consumed quickly (in less than 5 minutes, rather than sipped over time) If a bowel preparation has been ordered by your physician, it is very important to follow the bowel prep instructions or your procedure may need to be rescheduled. If you use crutches or a walker, bring them with you. If you have a home CPAP/BIPAP machine, bring it with you. If you were instructed to complete a fleets enema or bowel prep, complete as directed. Bring copy of Living Will/Power of Pca. Do not smoke or chew. If you use tobacco, quit or at least cut down before surgery. Do not smoke or chew after midnight the day before your surgery. This effects bleeding, infection, healing, and so much more. Do not take any Diet or Herbal Supplements 2 weeks prior to your surgery date. Please notify your physician if there is any change in your physical condition such as a cold, cough, fever, sore throat, or skin irritation near the surgical site. Visitors under the age of 14 are restricted in the Surgery Center. UPON ARRIVAL: Access to [facility] ([facility]) is located on [address] Grade Checker parking is available for your convenience from 5am-5pm- there is a $5.00 charge for this service. Take the elevators directly inside the entrance to the 1st Floor Surgery Lobby. Sign in at the podium located to the left when you get off the elevators. A payment may be expected at the time of service. One visitor may come back to the preoperative area with you. The preoperative staff will be reviewing your medical history, please let them know if you prefer not to have a visitor with you during this time. Once you are ready for your procedure, two visitors at a time are permitted in your preprocedure room. MEDICATION INSTRUCTIONS PRIOR TO SURGERY Please read [...] the same basal rate. - If you (more content not included)... [facility] 02-22-2024 Note HNO ID: [id number] Author: FREDY HAJI APRN.CNP Service: ? Author Type: Nurse Practitioner Type: Progress Notes Filed: 02/22/2024 11:02 Note Text: Summary: EKG EKG FROM PCP IN SCANED DOCS; NSR 81bpm Scan on 02/21/2024 2:23 PM by Provider, SUNNY Stone: EKG [facility] 02-20-2024 Note HNO ID: [id number] Author: FREDY HAJI APRN.ABDI Service: ? Author Type: Nurse Practitioner Type: Progress Notes Filed: 02/20/2024 08:54 Note Text: Summary: update Chaka's office called and PCP repeated EKG in office and it was 'NML'. Requesting tracing from PCP office for the chart. [facility] 02-19-2024 Note HNO ID: [id number] Author: FREDY HAJI APRN.ABDI Service: ? Author Type: Nurse Practitioner Type: Progress Notes Filed: 02/19/2024 15:18 Note Text: Summary: MEDICAL CLEARANCE Medical clearance did not address the ABN EKG suggesting inferior ischemia. In the problem list within the OV note it states hx of ABN EKG with a NML EKG 02/04/24. I do not have a copy of that NML EKG. Resending the EKG to his PCP and surgeon to address. Scan on 02/15/2024 3:56 PM by ProviderChase PA-C: Medical clearance [facility] 02-13-2024 Note HNO ID: [id number] Author: JESSI LEO PA-C Service: ? Author Type: Physician Garment Sorter Type: Progress Notes Filed: 02/13/2024 09:02 Note Text: Endocrine clearance 02/12/24 page 3 BG control improved on CGM, can continue insulin pump w/ adjustments made by patient Scan on 02/13/2024 7:48 AM by ProviderChase PA-C: endocrinology clearance [facility] 02-11-2024 Note HNO ID: [id number] Author: DANN HODGES APRN.OPTIMIZATION CONSULTANT Service: ? Author Type: Nurse Practitioner Type: Progress Notes Filed: 02/11/2024 16:23 Note Text: Summary: endo note 02/07/24 Endo note: pump setting altered. Please send this note to the anesthesiologist as well. Patient's blood sugars are now behaving better within expected A1C between 7.8 and 8 Scan on 02/08/2024 11:50 AM by Provider, SUNNY Stone: endocrine note from [facility] 01-31-2024 Note HNO ID: [id number] Author: FREDY HAJI APRN.CNP Service: ? Author Type: Nurse Practitioner Type: Progress Notes Filed: 01/31/2024 08:36 Note Text: Summary: abnormal labs, EKG EKG showing possible inferior ischemia; A1C 8.7 with random BS 336. I left a message at CarFin's office for his unit support representative. Sending physical notification to his care team. [facility] 01-30-2024 Note HNO ID: [id number] Author: FREDY HAJI APRN.CNP Service: ? Author [...] L4-L5 microdisc at the request of Dr. Null for pacc consult The patient has the [...] Depression MILD Diabetes (HCC) TYPE II DR JUDITH LYNCH ENDOCRINE. Has insulin pump. History of BPH PROCEDURE, THAT DAMAGED BLADDER Hypercholesterolemia STATES PREVENTATIVE PER PRIMARY D/T DM Hypertension STATES PREVENTATIVE PER PRIMARY D/T DM Insulin pump in place T SLIM WITH DEXCOM [address] JUD[facility] LYNCH ENDOCR[facility] Low back pain AND RIGHT LOWER EXT PAIN, DOWN TO ANKLE DR NULL FOLLOWS Urinary catheter insertion/adjustment/removal IN AND OUT CATH 3 TIMES DAILY [facility], D/T HX OF TURP Wears glasses PAST [...] two times a day with meals. ENDOCRINE JUDITH ULRICH Yes cholecalciferol, vitD3,/vit K2 (VITAMIN D3-VITAMIN [...] PUMP 4 UNITS PER HOUR , DR JUDITH ULRICH ENDOCRINE MANAGES Yes mv-min/iron/folic/calcium/vitK (WOMEN'S MULTIVITAMIN ORAL) Take 1 tablet by mouth daily at bedtime. WOMENS MULTI VITAMIN PER PRIMARY FOR THE IRON Yes blood-glucose transmitter (DEXCOM G6 TRANSMITTER MISC) Subcutaneous Insulin Pump (T:SLIM X2 BASAL-IQ INSULIN ROTOPRINTER) misc HUMALOG units 100/ML, SET UP AT OFFICE DR SERG NEVILLE ENDOCR[facility], WILL CALL FOR INSTRUCTIONS Miscellaneous Medical Supply (SELF-CATH) three times a day. No medication comments found. CURRENT ALLERGIES: ALLERGIES No Known Allergies REVIEW OF SYSTEMS: PAIN ASSESSMENT: Pain Pain Level: 2 Pain Location: Leg-Right Description: Radiating, Other: See comment, Shooting, Sharp (searing hottness) Intervention/Comfort measure: Reposition General: No weight loss, malaise or fevers. Neuro: No history of TIA's, stroke, HOME CARE NURSE tumor, impaired sensorium, hemiplegia, paraplegia or quadraplegia. [...] days, or radiotherapy (more content not included)... [facility] 01-30-2024 History of Presen t illness Narrative Summary: PACC consult PACC Consult SERVICE DATE: 01/30/2024 SERVICE TIME: 3:05 PM PRIMARY CARE PHYSICIAN: Talia Boyd MD REASON FOR VISIT: Deepa Ruffin is a 53 year old male who is scheduled for L4-L5 TLIF/PSF, L4-L5 posterior instrumentation with intervertebral device, Revision R L4-L5 microdisc at the request of Dr. Null for pacc consult The patient has the [...] Depression MILD Diabetes (HCC) TYPE II DR JUDITH LYNCH ENDOCRINE. Has insulin pump. History of BPH PROCEDURE, THAT DAMAGED BLADDER Hypercholesterolemia STATES PREVENTATIVE PER PRIMARY D/T DM Hypertension STATES PREVENTATIVE PER PRIMARY D/T DM Insulin pump in place T SLIM WITH DEXCOM [address] JUDITH LYNCH ENDOCRINE Low back pain AND RIGHT LOWER EXT PAIN, DOWN TO ANKLE DR NULL FOLLOWS Urinary catheter insertion/adjustment/removal IN AND OUT CATH 3 TIMES DAILY [facility], D/T HX OF TURP Wears glasses PAST [...] two times a day with meals. ENDOCRINE JUDITH URLICH Yes cholecalciferol, vitD3,/vit K2 (VITAMIN D3-VITAMIN K2) [...] PUMP 4 UNITS PER HOUR , DR JUDITH ULRICH ENDOCRINE MANAGES Yes mv-min/iron/folic/calcium/vitK (WOMEN'S MULTIVITAMIN ORAL) Take 1 tablet by mouth daily at bedtime. WOMENS MULTI VITAMIN PER PRIMARY FOR THE IRON Yes blood-glucose transmitter (DEXCOM G6 TRANSMITTER MISC) Subcutaneous Insulin Pump (T:SLIM X2 BASAL-IQ INSULIN ROTOPRINTER) misc HUMALOG units 100/ML, SET UP AT OFFICE DR SERG NEVILLE [facility], WILL CALL FOR INSTRUCTIONS Miscellaneous Medical Supply (SELF-CATH) three times a day. No medication comments found. CURRENT ALLERGIES: ALLERGIES No Known Allergies REVIEW OF SYSTEMS: PAIN ASSESSMENT: Pain Pain Level: 2 Pain Location: Leg-Right Description: Radiating, Other: See comment, Shooting, Sharp (searing hottness) Intervention/Comfort measure: Reposition General: No weight loss, malaise or fevers. Neuro: No history of TIA's, stroke, HOME CARE NURSE tumor, impaired sensorium, hemiplegia, paraplegia or quadraplegia. [...] is girlfriend. 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 Ambulates without assistance. 2 previous microdiscectomies. [...] back sx x2 documented in this encounter [facility] 01-30-2024 Instructions Fredy Haji APRN.ABDI - 01/30/2024 2:51 PM EDT MEDICATION INSTRUCTIONS [...] of your procedure. documented in this encounter [facility] 01-30-2024 Note HNO ID: [id number] Author: FREDY HAJI APRN.CNP Service: ? Author [...] instructions for the morning of your procedure. [facility] 01-30-2024 Note HNO ID: [id number] Author: FREDY HAJI APRN.OPTIMIZATION CONSULTANT Service: ? Author Type: Nurse Practitioner Type: Progress Notes Filed: 01/30/2024 15:16 Note Text: Summary: preanesthesia review L4-L5 TLIF/PSF, L4-L5 posterior instrumentation with intervertebral device, Revision R L4-L5 microdisc 02/24 Chaka (3hrs) 53yo male, smoker. PMH: HTN, HLD, IDDM with insulin pump (Trulicity on Sundays), GERD, BPH, anxiety. Straight caths TID s/p TURP. Previous back sx x2 [facility] 03-07-2023 Discharge summary Note Date/Time March 07, 2023 6:04am [facility] Medical Records Department [address] [place] [address] Emergency Department Summary 03/07/23 MR#: [id number] Acct: [id number] Name: DEEPA RUFFIN Rep #:[id number] : 1970 52 From: Arjun Bazan DO PCP: Dr. Talia Boyd MD Status:REG ER Location: ED HPI Narrative Narrative: Deepa Ruffin 1970 HPI: ?Patient is a 52-year-old male with past medical history of type 2 diabetes on an insulin pump and neuropathy. ?He states roughly 1 week ago he was working outside and he did not have any overt trauma but after doing this he noticed some pain in his lower left chest.? He states it was worse with motion and very reproducible and he has had ribs out of place in the past and this felt similar nature.? He states he has been taking xgau-gyy-hamcysc medication and trying home physical therapy without any symptom improvement. ?He reports that he is having surgery for a right trigger finger and had an EKG today for presurgical clearance which was reportedly normal.? He states he was at work however and he thought the pain was more intense than it has been and does have concern this could be cardiac and therefore he comes in for evaluation. ?He denies any nausea vomiting diaphoresis or shortness of breath associated with this. ?He denies any history of travel surgery or of previous DVT. Review of systems: Review of systems is positive for left chest wall pain Review of systems is negative for nausea vomiting diaphoresis shortness of breath cough fevers or chills or rash PE: General: Awake alert no acute distress Heart: Regular rate and rhythm without murmurs rubs or gallop.? Radial and carotid pulses equal and symmetric Lungs: Clear to auscultation Extremities: No asymmetric edema no pitting edema negative Homans' sign bilaterally Abdomen: Soft nontender nondistended with normal active bowel sounds no voluntary guarding or rigidity no pulsatile mass Chest: There is reproducible pain with palpation of the left anterior 11th and 12th rib along the costal margin of the sternum the patient states that the samepain he has been experiencing without obvious bony deformity or crepitance. MDM: Left rib series with 1 view chest as interpreted by the emergency medicine physician reveals no acute rib fracture pneumothorax infiltrate or pleural effusion Patient presented to the ER slightly hypertensive otherwise with stable vitals. ?He had reproducible left anterior chest wall pain with palpation indicating this is most likely musculoskeletal. ?He also had an EKG as an outpatient earlier today that was reportedly normal.? This goes against acute coronary syndrome or cardiac dysrhythmia as a cause. ?As there is concern for rib fracture versus rib displacement versus pneumothorax or pneumonia I did elect toperform a left rib series chest x-ray. ?As there is also concern this could be pulmonary embolus or dissection and a D-dimer was obtained as well. ?Troponin was not elevated going against acute ACS.? The patient's D-dimer was slightly elevated and therefore CTA was obtained. ?CTA revealed no PE pneumonia dissection or acute rib fracture. ?The left rib series x-ray which was obtained prior to the CTA also revealed no acute findings.? The fact that the patient hada normal outpatient EKG normal troponin and normal chest x-ray and CTA indicate that this is rib dysfunction and therefore he can give him symptomatic medications and discharged home Diagnosis: Left rib dysfunction Insulin-dependent type 2 diabetes PFSH PFSH Home Medications losartan 50 mg tablet 50 mg PO DAILY bp 05/24/17 [History Last Taken 03/05/18 22:00] metformin 1,000 mg tablet 1,000 mg PO BID diabetes 05/24/17 [History Last Taken 03/06/18 08:00] cholecalciferol (vitamin D3) 125 mcg (5,000 unit) capsule 5,000 unit PO DAILY supplement 05/28/17 [History Last Taken Unknown] cyanocobalamin (vitamin B-12) 1,000 mcg capsule 1,000 mcg PO DAILY supplement 05/28/17 [History Last Taken Unknown] duloxetine 60 mg capsule,delayed release 60 mg PO QHS depression 02/07/18 [History Last Taken 03/05/18 22:00] omeprazole 20 mg capsule,delayed release 20 mg PO DAILY gerd #30 caps 03/18/19 [History Last Taken Unknown] cinnamon bark 500 mg capsule (Cinnamon) 500 mg PO BID supplement 03/09/20 [History Last Taken Unknown] dulaglutide 1.5 mg/0.5 mL subcutaneous pen injector (Trulicity) 1.5 mg subcut QWEEK diabetes 05/24/20 [History Last Taken Unknown] insulin degludec 100 unit/mL (3 mL) subcutaneous pen 44 unit subcut DAILY diabetes 05/24/20 [History Last Taken Unknown] insulin lispro 200 unit/mL (3 mL) subcutaneous pen 10 - 20 unit subcut TID sliding scale 05/24/20 [History Last Taken Unknown] Allergy/AdvReac Type Severity Reaction Status Date / Time No Known Allergies Allergy Verified 07/01/20 11:07 Family History Other Diabetes Surgical History S/P carpal tunnel release Social History (Updated 06/16/20 @ 16:[address] Sesar Hull DO) Smoking Status: Current every day smoker [facility] History & Record Review Discussion w/independent historian: Patient and Significant other Lab Data Attestation: I reviewed the patient's lab results. Discharge Plan Triage ED Provider: Arjun Bazan Dx/Rx/DC Orders Clinical Impression: Insulin dependent diabetes mellitus, Somatic dysfunction of rib Prescriptions: No Action metformin 1,000 mg tablet 1,000 mg PO BID losartan 50 mg tablet 50 mg PO DAILY Trulicity 1.5 mg/0.5 mL pen injector 1.5 mg SC QWEEK omeprazole 20 mg capsule,delayed release(DR/EC) 20 mg PO DAILY Qty: 30 cinnamon bark [Cinnamon] 500 mg capsule 500 mg PO BID cholecalciferol (vitamin D3) 5,000 UNIT capsule 5,000 unit PO DAILY cyanocobalamin (vitamin B-12) 1,000 MCG capsule 1,000 mcg PO DAILY duloxetine 60 MG capsule,delayed release(DR/EC) 60 mg PO QHS insulin lispro 200 unit/mL (3 mL) insulin pen 10 - 20 unit SC TID insulin degludec 100 unit/mL (3 mL) insulin pen 44 unit SC DAILY Primary Care Provider: Talia Boyd Referrals: Talia Boyd MD [Primary Care Provider] - Disposition Disposition: Home, Self Care What to do if you have Problems For any increased pain, shortness of breath, bleeding, nausea or vomiting, chestpain, or any unexpected problems, contact your Primary Care Provider. Call [facility] ([phone]) or report to the closest Emergency Room. Call 911 if necessary. 03/07/23 0604 <Electronically signed by Arjun Bazan DO> Cosigner Signature (if applicable): CC: Dr. Talia Boyd MD ~ Signed [facility] Work Phone: Evaluation noteNo assessment information available [facility] Work Phone: Evaluation note* Diagnosis Preop testing- Primary Preoperative examination, unspecified Insulin pump in place Insulin pump status Atonic bladder Atony of bladder Primary hypertension Unspecified essential hypertension Chronic right-sided low back pain with right-sided sciatica Intervertebral disc disorders with radiculopathy, lumbar region documented in this encounter [facility] for referral (narrative)* Outpatient Procedure (Routine) - Closed Specialty Diagnoses / Procedures Referred By David nuñez [facility] Diagnoses Preop testing Procedures ECG COMPLETE ECG ROUTINE ECG W/LEAST 12 LDS W/I&R Ramses Null MD [address] [place] [address] [facility] [address] [place] [address] Referral ID Status Reason Start Date Expiration Date V isits Requested Visits Authorized [id number] Closed Auto-Generate d Referral 01/29/2024 01/28/2025 1 1 [facility] for referral (narrative)No reason for referral information availableWSelect [facility] [place] Work Phone: Reason for visit Narrative* Outpatient Procedure (Routine) - Closed Specialty Diagnoses / Procedures Referred By David nuñez [facility] Diagnoses Preop testing Procedures ECG COMPLETE ECG ROUTINE ECG W/LEAST 12 LDS W/I&R Ramses Null MD [address] [place] [address] [facility] [address] [place] [address] Referral ID Status Reason Start Date Expiration Date V isits Requested Visits Authorized [id number] Closed Auto-Generate d Referral 01/29/2024 01/28/2025 1 1 [facility] Summary Purpose Family History No Family History Records Found Relationship Condition Age at Onset Recorded Date/T wilfredo Not Specified Diabetes mellitus Unknown Advance Directives No Advanced Directives Records Found Advance Directive Response Recorded Date/ Time Advance Directives No August 08, 2013 2:53pm Living Will No July 01, 2020 11:13am Power of Pca No July 01 11:13am Advance Directive Response Recorded Date/ Time Advance Directives No August 08, 2013 1:53pm Living Will No July 01, 2020 10:13am Power of Pca No July 01 10:13am Advance Directive Response Recorded Date/ Time Advance Directives No August 08, 2013 2:53pm Chief Complaint and Reason for Visit Chief Complaint LUMBAR REGION/ RX HE RE Chief Complaint Admit Date FASTING August 05, 2024 8:5 2am Additional Source Comments (unrecognized sect ion and content) No Status Records FoundNo Status Records FoundNo Status Records FoundNo Status Records FoundNo Status Records Found INFORMATION SOURCE (unrecogn ized section and content) DATE CREATED AUTHOR 12/07/2018 [facility] ([place]) DATE CREATED AUTHOR AUTHOR'S ORGANIZ ATION 03/12/2021 [facility] [place] DATE CREATED AUTHOR AUTHOR'S ORGANIZ ATION 03/08/[address] [facility] DATE CREATED AUTHOR AUTHOR'S ORGANIZ ATION 03/20/2024 [facility] DATE CREATED AUTHOR AUTHOR'S ORGANIZ ATION 08/16/2024 [facility] Goals (unrecognized section and content) Goals may be documented in a n alternate sectionGoals may be documented in an alternate sectionGoals may be documented in an alternate sectionGoals may be documented in an alternate sectionGoals may be documented in an alternate sectionGoals may be documented in an alternate sectionGoals may be documented in an alternate sectionGoals may be documented in an alternate section Care Teams (unrecognized sec tion and content) Team Status: Active Member Role Status Dates Dr. Talia Boyd MD Family Provider Active Dr. Talia Boyd MD Primary Care Provider Active Team Status: Inactive Member Role Status Dates Dr. Talia Boyd MD Primary Care Provider Active [facility] Judith Lynch [facility] Active Team Status: Inactive Member Role Status Dates Dr. Talia Boyd MD Primary Care Provider Active Dr. Arjun Bazan DO Emergency Provider Active Team Status: Inactive Member Role Status Dates Dr. Talia Boyd MD Primary Care Provider Active Dr. Arjun Bazan DO Attending Provider, Emergency Pr ovider Active [employer] Relationship Specialty Start Date End Date Talia Boyd [address] [place] [address] PCP - General Family Medicine 01/29/24 Team Status: Inactive Member Role Status Dates Dr. aTlia Boyd MD Primary Care Provider Active Start: May 19, 2024 End: May 19, 2024 Dr. Judith Lynch MD Attending Provider Active Start: May End: May 19, 2024 Dr. Judith Lynch MD Referring Provider Active Start: May End: May 19, 2024 Team Status: Inactive Member Role Status Dates Dr. Talia Boyd MD Primary Care Provider Active Start: August 05, 2024 End: August 05, 2024 Dr. Judith Lynch MD Attending Provider Act chay Start: August 05, 2024 End: August 05, 2024 Dr. Judith Lynch MD Referring Provider Act chay Start: August 05, 2024 End: August 05, 2024 Source Comments (unrecognize d section and content) In the event this informatio n is protected by the Federal Confidentiality of Alcohol and Drug Abuse Patient Records regulations: The Federal rules restrict any use of the information to criminally investigate or prosecute any alcohol or drug abuse patient.[facility] FOR RECORDS PERTAINING TO PATIENTS WHO [...] BE BASED ON THE PRIMARY CLINICAL RECORDS. [email or web address] provides no warranty or guarantee of the accuracy or completeness of information in this document.
[2024-11-01 10:16] LABS: AST(SGOT) 19 U/L (<=37); Alanine Aminotransfer ALT/SGPT 21 U/L (<=46); Albumin, Serum 4.4 g/dL (3.5-5.0); Alkaline Phosphatase 100 U/L (40-129); Anion Gap 13 (5-15); BUN 11 mg/dL (4-19); BUN/Creat Ratio 13.4 RATIO (10-20); Calcium,Total 9.5 mg/dL (7.6-11.0); Carbon Dioxide 24.2 mmol/L (21.0-32.0); Chloride 99 mmol/L (98-108); Cholesterol 147 mg/dL (<=200); Globulin 2.6 g/dL (2.2-4.2); Glucose 187 mg/dL (70-99); Low Density Lipoprotein Calc. 80 mg/dL; Potassium 3.5 mmol/L (3.3-5.1); Triglycerides 141 mg/dL; Very Low Density Lipoprotein 28 mg/dL (5-40); cholesterol:hdl ratio screen 3.83
== END | disposition home or self-care (01) ==
LOC: LAB 08:15
PROVIDERS: PCP Family Medicine; Referring Provider Internal Medicine Endocrinology, Diabetes & Metabolism; Visit Provider Internal Medicine Endocrinology, Diabetes & Metabolism
DX: E11.65 Type 2 diabetes mellitus with hyperglycemia (principal); Z46.81 Encounter for fitting and adjustment of insulin pump; I10 Essential (primary) hypertension; E78.5 Hyperlipidemia, unspecified; E55.9 Vitamin D deficiency, unspecified
CPT/HCPCS: 36415; 80053; 80061; 83036; 84439; 84443

== ENCOUNTER → 2025-03-27 | Outpatient (CLI) | payer BC, SELFPAY ==
[2025-03-27 11:04] LABS: Creatinine, Urine (random) 92.60 mg/dL (39.00-259.00); Protein, Urine (Random) 10.2 mg/dL (0.0-12.0); Protein:Creat Ratio 110 mg/g CRE (0-200)
[2025-03-27 11:20] LABS: AST(SGOT) 20 U/L (<=37); Alanine Aminotransfer ALT/SGPT 22 U/L (<=46); Albumin, Serum 4.4 g/dL (3.5-5.0); Alkaline Phosphatase 96 U/L (40-129); Anion Gap 11 (5-15); BUN 16 mg/dL (4-19); BUN/Creat Ratio 17.8 RATIO (10-20); Calcium,Total 9.4 mg/dL (7.6-11.0); Carbon Dioxide 28.4 mmol/L (21.0-32.0); Chloride 99 mmol/L (98-108); Cholesterol 164 mg/dL (<=200); Globulin 2.6 g/dL (2.2-4.2); Glucose 128 mg/dL (70-99); Low Density Lipoprotein Calc. 93 mg/dL; Potassium 3.9 mmol/L (3.3-5.1); Triglycerides 183 mg/dL; Very Low Density Lipoprotein 37 mg/dL (5-40); cholesterol:hdl ratio screen 4.17
== END | disposition home or self-care (01) ==
LOC: MTLAB 08:10
PROVIDERS: PCP Family Medicine; Referring Provider Internal Medicine Endocrinology, Diabetes & Metabolism; Visit Provider Internal Medicine Endocrinology, Diabetes & Metabolism
DX: E11.65 Type 2 diabetes mellitus with hyperglycemia (principal); Z46.81 Encounter for fitting and adjustment of insulin pump; I10 Essential (primary) hypertension; E78.5 Hyperlipidemia, unspecified; E55.9 Vitamin D deficiency, unspecified
CPT/HCPCS: 36415; 80053; 80061; 82570; 83036; 84156; 84443